=== PATIENT | female | born 1965 | race African-American/Black ===

== ENCOUNTER 2018-10-29 10:34 | Emergency (ER) | payer OTHER ==
[~2018-10-29] VITALS: Ht 163.8 cm; Wt 89.8 kg
--- OUTSIDE RECORDS SUMMARY | 2018-10-29 10:36 | XMS REPORT | Clinical Summary ---
Author Author [facility] Address Unknown Phone Unavailable Care Team Providers Care Ammunition Officer Name Role Phone Bobbi Encarnacion MD PCP Allergies Comments Active Allergy Reactions Severity Noted Date Acetaminophen-Codeine 03/26/2018 Medications Not on file Active Problems Not on file Encounters Care Team Description Date Type Specialty Caryn Williamson MD Secondary hypertension (Primary Dx); Non compliance w medication regimen 03/26/2018 Emergency Emergency Medicine - 03/27/2018 after 10/28/2017 Social History Date Tobacco Use Types Packs/Day Years Used Current Every Day Smoker Smokeless Tobacco: Never Used Alcohol Use Drinks/Week oz/Week Comments No Sex Assigned at Date Recorded Not on file Industry Job Start Date Occupation Not on file Not on file Not on file Travel End Travel History Travel Start No recent travel history available. Last Filed Vital Signs Time Taken Vital Sign Reading 03/27/2018 2:00 AM CDT Blood Pressure 165/96 03/27/2018 2:15 AM CDT Pulse 76 03/26/2018 8:33 PM CDT Temperature 36.4 C (97.6 F) 03/27/2018 2:15 AM CDT Respiratory Rate 24 03/27/2018 2:15 AM CDT Oxygen Saturation 96% - Inhaled Oxygen - Concentration - Weight - 03/26/2018 8:33 PM CDT Height 162.6 cm (5' 4") - Body Mass Index - Plan of Treatment Health Maintenance Due Date Last Done Comments CERVICAL CANCER SCREENING 1985 BREAST CANCER SCREENING 2014 COLON CANCER SCREENING 2014 SHINGLES VACCINES (#1) 2014 INFLUENZA VACCINE 02/20/2019 Procedures Comments Procedure Name Priority Date/Time Associated Diagnosis TROPONIN Timed 03/27/2018 12:25 AM CDT XR CHEST 1 VW STAT 03/26/2018 10:10 PM CDT ZZESTIMATED GFR STAT 03/26/2018 10:10 PM CDT TROPONIN STAT 03/26/2018 10:10 PM CDT COMPREHENSIVE METABOLIC STAT 03/26/2018 PANEL 10:10 PM CDT URINALYSIS SCREEN AND Routine 03/26/2018 MICROSCOPY, WITH REFLEX 10:00 PM CDT TO CULTURE URINE CULTURE Routine 03/26/2018 10:00 PM CDT HC COMPLETE BLD COUNT STAT 03/26/2018 W/AUTO DIFF 8:45 PM CDT ECG 12-LEAD STAT 03/26/2018 8:40 PM CDT after 10/28/2017 Results * Troponin (03/27/2018 12:25 AM CDT) Only the most recent of 2 results within the time period is included. Troponin <0.10 0.00 - 0.10 ng/mL [facility] DEPARTMENT OF Comment: PATHOLOGY AND 0.11 - 1.49 GENOMIC MEDICINE ng/mlMay indicate increased risk of acute coronary syndrome. >=1.5 ng/ml Consistent with acute myocardial infarction. The diagnostic value of a single normal or non-diagnostic result is questionable.Serial samples at 2-6 hour intervals are required to rule out acute myocardial injury. Specimen Plasma specimen Performing Organization Address City/State/Zipcode Phone Number [facility] [place] [id number] [place] [address] PATHOLOGY AND GENOMIC MEDICINE * XR Chest 1 Vw (03/26/2018 10:10 PM CDT) Narrative Performed At Examination:XR CHEST 1 VW RADIANT Clinical History:Chest painacutenonspecificlow prob CAD Comparison: None. Technique: Single frontal view of the chest is obtained. Findings: Mild left base subsegmental atelectasis is seen. The heart size is normal. No pleural effusion is seen. Impression: Mild left base subsegmental atelectasis but otherwise no acute abnormality in the chest. [facility]-[id number] Procedure Note Interface, Radiology Results Incoming - 03/26/2018 10:16 PM CDT Examination: XR CHEST 1 VW Clinical History: Chest pain acute nonspecific low prob CAD Comparison: None. Technique: Single frontal view of the chest is obtained. Findings: Mild left base subsegmental atelectasis is seen. The heart size is normal. No pleural effusion is seen. Impression: Mild left base subsegmental atelectasis but otherwise no acute abnormality in the chest. [facility]-[id number] Performing Organization Address City/[facility] Phone Number [facility] [address] [place] [address] * Estimated GFR (03/26/2018 10:10 PM CDT) GFR Non Af Amer 26 (A) mL/min/1.73 m2 [facility] DEPARTMENT OF PATHOLOGY AND GENOMIC MEDICINE GFR Af Amer 32 (A) mL/min/1.73 m2 [facility] DEPARTMENT OF Comment: PATHOLOGY AND Chronic kidney disease: <60 GENOMIC MEDICINE mL/min/1.73m2 Kidney failure: <15 mL/min/1.73m2 The estimated GFR is calculated from the IDMS-traceable Modification of Diet in Renal Disease Equation. The accuracy of the calculation is poor when the creatinine is normal. Calculated values >90 mL/min/1.73m2 are not reported. This equation has not been validated in children (<18 years), women, the elderly (>70 years), or ethnic groups other than Caucasians and Americans. Specimen Plasma specimen Performing Organization Address [facility] Phone Number [facility] [place] [id number] [place] [place] [address] PATHOLOGY AND GENOMIC MEDICINE * Comprehensive metabolic panel (03/26/2018 10:10 PM CDT) Sodium 140 135 - 148 mEq/L [facility] DEPARTMENT OF PATHOLOGY AND GENOMIC MEDICINE Potassium 4.3 3.5 - 5.0 mEq/L [facility] DEPARTMENT OF PATHOLOGY AND GENOMIC MEDICINE Chloride 100 99 - 109 mEq/L [facility] DEPARTMENT OF PATHOLOGY AND GENOMIC MEDICINE CO2 21 (L) 24 - 31 mEq/L [facility] DEPARTMENT OF PATHOLOGY AND GENOMIC MEDICINE Anion gap 19@ANIO (H) 7 - 15 mEq/L [facility] DEPARTMENT OF PATHOLOGY AND GENOMIC MEDICINE BUN 22 8 - 24 mg/dL [facility] DEPARTMENT OF PATHOLOGY AND GENOMIC MEDICINE Creatinine 2.0 (H) 0.5 - 1.5 mg/dL [facility] DEPARTMENT OF PATHOLOGY AND GENOMIC MEDICINE Glucose 94 65 - 99 mg/dL [facility] DEPARTMENT OF PATHOLOGY AND GENOMIC MEDICINE Calcium 9.3 8.6 - 10.6 mg/dL [facility] DEPARTMENT OF PATHOLOGY AND GENOMIC MEDICINE Protein 7.8 6.3 - 8.2 g/dL [facility] PATHOLOGY AND GENOMIC MEDICINE Albumin 3.8 3.5 - 5.0 g/dL [facility] OF PATHOLOGY AND GENOMIC MEDICINE A/G ratio 1.0 0.7 - 3.8 [facility] PATHOLOGY AND GENOMIC MEDICINE Alkaline phosphatase 93 30 - 115 U/L [facility] PATHOLOGY AND GENOMIC MEDICINE AST 14 (L) 15 - 46 U/L [facility] PATHOLOGY AND GENOMIC MEDICINE ALT 10 10 - 55 U/L [facility] PATHOLOGY AND GENOMIC MEDICINE Total bilirubin <0.3 0.2 - 1.2 mg/dL [facility] PATHOLOGY AND GENOMIC MEDICINE Specimen Plasma specimen Performing Organization Address City/State/Zipcopr Phone Number [facility] [address] [place] [place] [address] PATHOLOGY AND GENOMIC MEDICINE * Urinalysis screen and microscopy, with reflex to culture (03/26/2018 10:00 PM CDT) Specimen site Clean catch [facility] DEPARTMENT OF PATHOLOGY AND GENOMIC MEDICINE Color, UA Yellow [facility] DEPARTMENT OF PATHOLOGY AND GENOMIC MEDICINE Appearance, UA Clear [facility] DEPARTMENT OF PATHOLOGY AND GENOMIC MEDICINE Specific gravity, UA 1.016 1.001 - 1.035 [facility] DEPARTMENT OF PATHOLOGY AND GENOMIC MEDICINE pH, UA 7.0 5.0 - 8.5 [facility] DEPARTMENT OF PATHOLOGY AND GENOMIC MEDICINE Protein, UA 1+ (A) Negative [facility] DEPARTMENT OF PATHOLOGY AND GENOMIC MEDICINE Glucose, UA Negative Negative [facility] DEPARTMENT OF PATHOLOGY AND GENOMIC MEDICINE Ketones, UA Negative Negative [facility] DEPARTMENT OF PATHOLOGY AND GENOMIC MEDICINE Bilirubin, UA Negative Negative [facility] DEPARTMENT OF PATHOLOGY AND GENOMIC MEDICINE Blood, UA Negative Negative [facility] DEPARTMENT OF PATHOLOGY AND GENOMIC MEDICINE Nitrite, UA Negative Negative [facility] DEPARTMENT OF PATHOLOGY AND GENOMIC MEDICINE Urobilinogen, UA <2.0 <2.0 [facility] DEPARTMENT OF PATHOLOGY AND GENOMIC MEDICINE Leukocyte esterase, UA Negative Negative [facility] DEPARTMENT OF PATHOLOGY AND GENOMIC MEDICINE Epithelial cells, UA 1 /HPF [facility] DEPARTMENT OF PATHOLOGY AND GENOMIC MEDICINE WBC, UA 1 0 - 4 /HPF [facility] DEPARTMENT OF PATHOLOGY AND GENOMIC MEDICINE RBC, UA <1 0 - 5 /HPF [facility] DEPARTMENT OF PATHOLOGY AND GENOMIC MEDICINE Bacteria, UA None seen None seen [facility] DEPARTMENT OF PATHOLOGY AND GENOMIC MEDICINE Yeast, UA None seen [facility] DEPARTMENT OF PATHOLOGY AND GENOMIC MEDICINE Yeast with pseudohyphae, None seen [facility] OF PATHOLOGY AND GENOMIC MEDICINE Specimen Urine Performing Organization Address City/[facility]/Zipcode Phone Number [facility] DEPARTMENT OF [place] [address] PATHOLOGY AND GENOMIC MEDICINE * Urine culture (03/26/2018 10:00 PM CDT) Urine culture SEE COMMENTComment: [facility] DEPARTMENT OF Bacteriuria screen negative. PATHOLOGY AND GENOMIC MEDICINE Performing Organization Address City/[facility] Phone Number [facility] [place] [id number] [place] [address] PATHOLOGY AND GENOMIC MEDICINE * CBC with platelet and differential (03/26/2018 8:45 PM CDT) WBC 5.59 4.50 - 11.00 k/uL [facility] DEPARTMENT OF PATHOLOGY AND GENOMIC MEDICINE RBC 4.32 4.20 - 5.50 m/uL [facility] DEPARTMENT OF PATHOLOGY AND GENOMIC MEDICINE HGB 13.4 12.0 - 16.0 g/dL [facility] DEPARTMENT OF PATHOLOGY AND GENOMIC MEDICINE HCT 40.1 37.0 - 47.0 % [facility] DEPARTMENT OF PATHOLOGY AND GENOMIC MEDICINE MCV 92.8 82.0 - 100.0 fL [facility] DEPARTMENT OF PATHOLOGY AND GENOMIC MEDICINE MCH 31.0 27.0 - 34.0 pg [facility] DEPARTMENT OF PATHOLOGY AND GENOMIC MEDICINE MCHC 33.4 31.0 - 37.0 g/dL [facility] DEPARTMENT OF PATHOLOGY AND GENOMIC MEDICINE RDW - SD 43.7 37.0 - 55.0 fL [facility] DEPARTMENT OF PATHOLOGY AND GENOMIC MEDICINE MPV 10.9 8.8 - 13.2 fL [facility] DEPARTMENT OF PATHOLOGY AND GENOMIC MEDICINE Platelet count 257 150 - 400 k/uL [facility] DEPARTMENT OF PATHOLOGY AND GENOMIC MEDICINE Neutrophils 53.4 39.0 - 69.0 % [facility] DEPARTMENT OF PATHOLOGY AND GENOMIC MEDICINE Lymphocytes 36.5 25.0 - 45.0 % [facility] DEPARTMENT OF PATHOLOGY AND GENOMIC MEDICINE Monocytes 6.3 0.0 - 10.0 % [facility] DEPARTMENT OF PATHOLOGY AND GENOMIC MEDICINE Eosinophils 2.9 0.0 - 5.0 % [facility] DEPARTMENT OF PATHOLOGY AND GENOMIC MEDICINE Basophils 0.5 0.0 - 1.0 % [facility] DEPARTMENT OF PATHOLOGY AND GENOMIC MEDICINE Immature granulocytes 0.4 0.0 - 1.0 % [facility] DEPARTMENT OF PATHOLOGY AND GENOMIC MEDICINE Specimen Blood Performing Organization Address City/[facility]/Zipcode Phone Number [facility] DEPARTMENT OF [address] [place] [id number] PATHOLOGY AND GENOMIC MEDICINE * ECG 12 lead (03/26/2018 8:40 PM CDT) Ventricular rate 74 [facility] Atrial rate 74 [facility] OK interval 164 [facility] QRSD interval 86 [facility] QT interval 398 [facility] QTC interval 441 [facility] P axis 1 55 [facility] QRS axis 1 -1 [facility] T wave axis 189 [facility] EKG impression Normal sinus rhythm-Possible [facility] Left atrial enlargement-T wave abnormality, consider inferolateral ischemia-Abnormal ECG-No previous ECGs available- Procedure Note Caryn Williamson MD - 03/26/2018 9:09 PM CDT Emergency Department Provider Note Location: [facility] ED Patient ID: Sobia Rivas is a 52 y.o. female. Chief Complaint Chief Complaint Patient presents with Hypertension High blood pressure, patient from [facility], patient also c/o pain all over. History of Present Illness 52 y/o F with a PMHx including HTN, CVA 2 years ago (non-ambulatory at baseline, residual dysarthria), CKD, schizophrenia, bipolar, constipation, insomnia, and homicidal ideations is BIBEMS from [facility] where she is currently committed for homicidal ideation with complains of an elevated blood pressure 198/117. Pt also complains of dizziness and generalized body aches. Pt states she did not take blood pressure meds today because she is "tired of taking medications" that make her dizzy stating that she will not take clonidine. Pt denies chest pain, sob, fever/chills, ab pain, urinary symptoms, cough. 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: 198/117 Context: noncompliance Relieved by: Nothing Worsened by: Nothing Ineffective treatments: None tried Associated symptoms: dizziness (Chronic) and weakness (Lower extremity, baseline) Associated symptoms: no abdominal pain, no anxiety, no chest pain, no confusion, no fatigue, no fever, no headaches, no hematuria, no loss of consciousness, no nausea, no neck pain, no shortness of breath and not vomiting Risk factors: prior stroke History Allergies Allergies Allergen Reactions Acetaminophen-Codeine Past Medical History Past Medical History: Diagnosis Date Homicidal ideations Hypertension Stroke Past Surgical History Past Surgical History: Procedure Laterality Date SECTION Past Family History No family history on file. Past Social History Social History Social History Main Topics Smoking status: Current Every Day Smoker Smokeless tobacco: Never Used Alcohol use No Drug use: No Sexual activity: Not on file Past Social History Narrative Social History Social History Narrative No narrative on file Medications Home Medications No medications on file New Prescriptions Given This Visit No medications on file Review of Systems Review of Systems Constitutional: Negative for activity change, appetite change, fatigue and fever. HENT: Negative for congestion and sore throat. Eyes: Negative for discharge and redness. Respiratory: Negative for cough, shortness of breath and wheezing. Cardiovascular: Negative for chest pain and leg swelling. Gastrointestinal: Negative for abdominal distention, abdominal pain, nausea, vomiting and trouble swallowing. Genitourinary: Negative for dysuria and hematuria. Musculoskeletal: Positive for arthralgias (Chronic), gait problem (Nonambulatory at baseline secondary to CVA 2 years ago) and myalgias ("All over"). Negative for neck pain and neck stiffness. Skin: Negative for rash and wound. Neurological: Positive for dizziness (Chronic), speech difficulty (Chronic, secondary to CVA 2 years ago), weakness (Lower extremity, baseline), stroke symptoms (2 years ago) and difficulty balancing (Secondary to lower extremity weakness, nonambulatory at baseline). Negative for seizures, loss of consciousness, facial asymmetry, light-headedness, numbness, headaches, cognitive deficit, fainting and memory loss. Psychiatric/Behavioral: Negative for agitation and confusion. The patient is not nervous/anxious. All other systems reviewed and are negative. Physical Exam ED Triage Vitals [03/26/182032] Temp Heart Rate Respiratory Rate BP SpO2 97.6 F 72 18 (!) 173/112 100 % Temp Source Heart Rate Source Patient Position BP Location FiO2 % Temporal Monitor Sitting Right arm -- Physical Exam Constitutional: She is oriented to person, place, and time. She appears well- developed and well-nourished. No distress. HENT: Head: Normocephalic and atraumatic. Mouth/Throat: Oropharynx is clear and moist. No oropharyngeal exudate. Eyes: EOM are normal. Pupils are equal, round, and reactive to light. Neck: Normal range of motion. Neck supple. Cardiovascular: Normal rate, regular rhythm, normal heart sounds and intact distal pulses. Exam reveals no gallop and no friction rub. No murmur heard. Pulmonary/Chest: Effort normal and breath sounds normal. No respiratory distress. She has no wheezes. She has no rales. Abdominal: Soft. Bowel sounds are normal. She exhibits no distension. There is no tenderness. There is no rigidity, no rebound, no guarding, no CVA tenderness, no tenderness at McBurney's point and negative Gonzalez's sign. Musculoskeletal: Normal range of motion. She exhibits edema (non pitting lower extremity edema). She exhibits no tenderness or deformity. Neurological: She is alert and oriented to person, place, and time. No cranial nerve deficit or sensory deficit. She exhibits normal muscle tone. GCS eye subscore is 4. GCS verbal subscore is 5. GCS motor subscore is 6. Slurred speech Skin: Skin is warm and dry. Capillary refill takes less than 2 seconds. No rash noted. She is not diaphoretic. No erythema. Psychiatric: She has a normal mood and affect. Her behavior is normal. Her speech is slurred. Nursing note and vitals reviewed. ED Course Clinical Impressions as of Mar 27 120 Secondary hypertension Non compliance w medication regimen BP 149/82 | Pulse 75 | Temp 97.6 F (Temporal) | Resp 17 | Ht 5' 4" | SpO2 94% Medications sodium chloride 0.9% flush 10 mL (not administered) sodium chloride 0.9% flush 10 mL (not administered) carvedilol (COREG) tablet 25 mg (25 mg oral Given 03/26/182150) isosorbide mononitrate (IMDUR) 24 hr tablet 60 mg (not administered) amLODIPine (NORVASC) tablet 10 mg (10 mg oral Given 03/27/18 0015) acetaminophen (TYLENOL) tablet 325 mg (not administered) aspirin chewable tablet 324 mg (324 mg oral Given 03/26/182102) lisinopril (PRINIVIL,ZESTRIL) tablet 40 mg (40 mg oral Given 03/26/182150) I reviewed the monitoring manager. The pt's pulse oximetry is 98% . Pulse oximetry interpreted by physician as normal on room air. The patient is sleeping comfortably and awakens easily to voice. She has been tolerating p.o. without difficulty and states that her dizziness and body aches have resolved at this time. Blood pressure also improved down to the 140s and 150s systolic. Troponin is negative [address] elevation infarcts though she does have some nonspecific elevations and T-wave inversions. However no prior EKG available for comparison of her baseline and again she is without chest pain or complaints and troponin has been negative 2. CMP demonstrates an elevated creatinine to 2.0, however chart review of paperwork provided with patient reveals last creatinine 1.91 on 03/20/2018 so this is likely patient's baseline. She also has a slightly decreased CO2 to 21 and elevated anion gap to 19, unclear clinical significance. CBC noncontributory, UA negative for evidence of infection. Chest x-ray negative for acute intrathoracic abnormality though she does have some mild left basilar atelectasis. Patient without complaint of cough or shortness of breath. Likely hypertensive secondary to medication noncompliance but no evidence of endorgan damage at this time. [facility] have patient follow-up with primary care and cardiology outpatient. Patient encouraged to take all of her antihypertensive medications as prescribed and if she does not like her regimen to discuss with a copy cutter for medication modification. I had a detailed discussion with the patient and or/or guardian at bedside, regarding the historical points, exam findings, treatment of plan, and any diagnosis results supporting the discharge diagnosis. Laboratory results, radiology results, clinical findings and discharge instructions were reviewed with patient. Instructions for the need for outpatient follow up were given. Strict return precautions to the emergency department were given, if symptoms worsen or persist or if there are any questions or concerns that arise at home. Patient and/or guardian verbalize and acknowledge understanding. Pt is stable for discharge. MDM MDM Number of Diagnoses or Management Options Non compliance w medication regimen: Secondary hypertension: Amount and/or Complexity of Data Reviewed Clinical lab tests: ordered and reviewed Tests in the radiology section of CPT: ordered and reviewed Tests in the medicine section of CPT: ordered and reviewed Decide to obtain previous medical records or to obtain history from someone other than the patient: yes (Medical records provided by [facility], packet arrived with patient) Review and summarize past medical records: yes Independent visualization of images, tracings, or specimens: yes Risk of Complications, Morbidity, and/or Mortality Presenting problems: moderate Diagnostic procedures: high Management options: high General comments: 52-year-old female past medical history as above who presents with hypertension and dizziness after not taking her blood pressure medications today while committed at a psychiatric facility. Patient is afebrile, was initially noted to be hypertensive to 173/112 became as hypertensive as 220/137 in the ED but otherwise hemodynamically stable. She is nontoxic-appearing and in no acute distress. She has lower extremity weakness at baseline as well as dysarthria secondary to remote CVA and is nonambulatory from this. Physical exam demonstrates no other focal abnormalities as patient has intact 2+ sym metric bilateral peripheral pulses, clear lungs and no new neuro deficits. She is ANO 3 and only complains of chronic dizziness at this time. Denies chest pain, shortness of breath and headache. Will obtain EKG, laboratory studies, chest x- ray, provide home antihypertensives with the exception of clonidine as patient does refuse to take that and reassess. Patient Progress Patient progress: resolved Labs Results for orders placed or performed during the hospital encounter of 03/26/18 Urine culture Result Value Ref Range Urine culture SEE COMMENT Comprehensive metabolic panel Result Value Ref Range Sodium 140 135 - 148 mEq/L Potassium 4.3 3.5 - 5.0 mEq/L Chloride 100 99 - 109 mEq/L CO2 21 (L) 24 - 31 mEq/L Anion gap 19@ANIO (H) 7 - 15 mEq/L BUN 22 8 - 24 mg/dL Creatinine 2.0 (H) 0.5 - 1.5 mg/dL Glucose 94 65 - 99 mg/dL Calcium 9.3 8.6 - 10.6 mg/dL Protein 7.8 6.3 - 8.2 g/dL Albumin 3.8 3.5 - 5.0 g/dL A/G ratio 1.0 0.7 - 3.8 Alkaline phosphatase 93 30 - 115 U/L AST 14 (L) 15 - 46 U/L ALT 10 10 - 55 U/L Total bilirubin <0.3 0.2 - 1.2 mg/dL CBC with platelet and differential Result Value Ref Range WBC 5.59 4.50 - 11.00 k/uL RBC 4.32 4.20 - 5.50 m/uL HGB 13.4 12.0 - 16.0 g/dL HCT 40.1 37.0 - 47.0 % MCV 92.8 82.0 - 100.0 fL MCH 31.0 27.0 - 34.0 pg MCHC 33.4 31.0 - 37.0 g/dL RDW - SD 43.7 37.0 - 55.0 fL MPV 10.9 8.8 - 13.2 fL Platelet count 257 150 - 400 k/uL Neutrophils 53.4 39.0 - 69.0 % Lymphocytes 36.5 25.0 - 45.0 % Monocytes 6.3 0.0 - 10.0 % Eosinophils 2.9 0.0 - 5.0 % Basophils 0.5 0.0 - 1.0 % Immature granulocytes 0.4 0.0 - 1.0 % Troponin Result Value Ref Range Troponin <0.10 0.00 - 0.10 ng/mL Estimated GFR Result Value Ref Range GFR Non Af Amer 26 (A) mL/min/1.73 m2 GFR Af Amer 32 (A) mL/min/1.73 m2 Troponin Result Value Ref Range Troponin <0.10 0.00 - 0.10 ng/mL Urinalysis screen and microscopy, with reflex to culture Result Value Ref Range Specimen site Clean catch Color, UA Yellow Appearance, UA Clear Specific gravity, UA 1.016 1.001 - 1.035 pH, UA 7.0 5.0 - 8.5 Protein, UA 1+ (A) Negative Glucose, UA Negative Negative Ketones, UA Negative Negative Bilirubin, UA Negative Negative Blood, UA Negative Negative Nitrite, UA Negative Negative Urobilinogen, UA <2.0 <2.0 Leukocyte esterase, UA Negative Negative Epithelial cells, UA 1 /HPF WBC, UA 1 0 - 4 /HPF RBC, UA <1 0 - 5 /HPF Bacteria, UA None seen None seen Yeast, UA None seen Yeast with pseudohyphae, UA None seen Radiology Xr Chest 1 Vw Result Date: 03/26/2018 Narrative: Examination: XR CHEST 1 VW Clinical History: Chest pain acute nonspecific low prob CAD Comparison: None. Technique: Single frontal view of the chest is obtained. Findings: Mild left base subsegmental atelectasis is seen. The heart size is normal. No pleural effusion is seen. Impression: Mild left base subsegmental atelectasis but otherwise no acute abnormality in the chest. [facility]-[id number] Procedures ECG 12 lead Date/Time: 03/26/2018 9:17 PM Performed by: CARYN WILLIAMSON Authorized by: CARYN WILLIAMSON ECG reviewed by ED Physician in the absence of a copy cutter: yes Interpretation: Interpretation: non-specific Rate: ECG rate: 74 bpm ECG rate assessment: normal Rhythm: Rhythm: sinus rhythm Ectopy: Ectopy: none QRS: QRS axis: Left QRS intervals: Normal (86 ms) Conduction: Conduction: normal ST segments: ST segments: Non-specific Elevation: V1, V2 and V3 T waves: T waves: inverted Inverted: II, I, aVL, aVF, V6 and V5 Other findings: Other findings: LAE Comments: OK interval: 164 ms QTc: 441 ms Differential Diagnoses This patient has a differential diagnosis of hypertension emergency, med noncompliance, polypharmacy, acute cystitis, ACS. Final Diagnoses Final diagnoses: Secondary hypertension Non compliance w medication regimen Disposition This patient has a disposition of Discharge. ED Attestations Scribe Attestation: This document is recorded by Layla Chinchilla acting as a scribe under the direction and presence of CARYN WILLIAMSON. Provider attestation of scribe: Caryn Williamson MD: I personally performed the services recorded by the scribe in my presence. I confirm the scribe's documentation has been reviewed by me to accurately record my work, treatment, procedures, and medical decision making. Layla Chinchilla 03/26/18 2309 Layla Chinchilla 03/27/18 0100 Layla Chinchilla 03/27/18 0120 Caryn Williamson MD 03/29/18 0102 Performing Organization Address City/State/Zipcode Phone Number [facility] [address] [place] [address] after 10/28/2017 Insurance Payer Benefit Subscriber ID Type Phone Address Plan / Group [employer] xxxxxxxxx O STAR JEFF Advance Directives Patient has advance care planning documents on file. For more information, coby e contact: Tommy Ward [address] [place] [address]
--- OUTSIDE RECORDS SUMMARY | 2018-10-29 10:37 | XMS REPORT | Summary of Care ---
Author Author [facility] Organization [facility] Address Unknown Phone Unavailable Encounter HQ Praveen(FIN) [id number] Date(s): 08/25/18 - 08/25/[address] [facility] [address] [place] [address]- Encounter Diagnosis Dizziness (Discharge Diagnosis) - 08/25/18 Discharge Disposition: Home or Self Care Attending Physician: Manuel Parks MD Vital Signs 1 2 3 Most recent to oldest [Reference Range]: 162.56 cm (08/25/18 4:02 PM) Height 98 DegF (08/25/18 8:57 PM) 97.5 DegF (08/25/18 4:02 PM) Temperature Oral [96.4-99.1 DegF] 138/87 mmHg (08/25/18 11:11 PM) 160/86 mmHg *HI* (08/25/18 9:48 PM) 150/80 mmHg *HI* (08/25/18 9:47 PM) Blood Pressure [90-140/60-90 mmHg] 24 BRMIN *HI* (08/25/18 11:11 PM) 21 BRMIN *HI* (08/25/18 9:48 PM) 21 BRMIN *HI* (08/25/18 9:47 PM) Respiratory Rate [14-20 BRMIN] 88 bpm (08/25/18 4:02 PM) Peripheral Pulse Rate [60-100 bpm] 86.364 kg (08/25/18 4:02 PM) Weight 32.68 m2 (08/25/18 4:02 PM) Body Mass Index Problem List No data available for this section Allergies, Adverse Reactions, Alerts Substance Reaction Severity Status codeine Active Medications carvedilol 25 mg, 2 tab, Route: PO, Drug form: TAB, ONCE, Dosing Weight 86.364, kg, Start d ate: 08/25/18 19:48:00 LENS INSPECTOR, Stop date: 08/25/18 19:48:00 LENS INSPECTOR Notes: Give with food. (Same As: Coreg) Start Date: 08/25/18 Stop Date: 08/25/18 Status: Completed hydrALAZINE 25 mg, Route: PO, ONCE, Dosing Weight 86.364, kg, Start date: 08/25/18 19:47:00 LENS INSPECTOR, Stop date: 08/25/18 19:47:00 LENS INSPECTOR Start Date: 08/25/18 Stop Date: 08/25/18 Status: Completed labetalol 10 mg, Route: IV, ONCE, Dosing Weight 86.364, kg, Start date: 08/25/18 19:47:00 LENS INSPECTOR, Stop date: 08/25/18 19:47:00 LENS INSPECTOR Start Date: 08/25/18 Stop Date: 08/25/18 Status: Completed Saline Flush 0.9% 10 mL, Route: IVP, Drug Form: INJ, Dosing Weight 86.364, kg, PRN, PRN Line Flush , Start date: 08/25/18 16:46:00 LENS INSPECTOR, Duration: 30 day, Stop date: 09/24/18 16:45 :00 LENS INSPECTOR Notes: preservative free. Start Date: 08/25/18 Stop Date: 08/25/18 Status: Discontinued Results ELECTROLYTES Most recent to 1 oldest [Reference Range]: Sodium Lvl [135-145 141 mEq/L mEq/L] (08/25/18 5:07 PM) Potassium Lvl 3.4 mEq/L [3.5-5.1 mEq/L] *LOW* (08/25/18 5:07 PM) Chloride Lvl [95-109 107 mEq/L mEq/L] (08/25/18 5:07 PM) CO2 [24-32 mEq/L] 32 mEq/L (08/25/18 5:07 PM) AGAP [10.0-20.0 5.4 mEq/L mEq/L] *LOW* (08/25/18 5:07 PM) CHEM PANEL Most recent to 1 oldest [Reference Range]: Creatinine Lvl 2.25 mg/dL [0.50-1.40 mg/dL] *HI* (08/25/18 5:07 PM) eGFR 28 mL/min/1.73m2 1 *NA* (08/25/18 5:07 PM) BUN [7-22 mg/dL] 45 mg/dL *HI* (08/25/18 5:07 PM) B/C Ratio [6-25] 20 (08/25/18 5:07 PM) Glucose Lvl [70-99 87 mg/dL mg/dL] (08/25/18 5:07 PM) Total Protein 7.4 g/dL [6.4-8.4 g/dL] (08/25/18 5:07 PM) Albumin Lvl [3.5-5.0 3.5 g/dL g/dL] (08/25/18 5:07 PM) Globulin [2.7-4.2 3.9 g/dL g/dL] (08/25/18 5:07 PM) A/G Ratio [0.7-1.6] 0.9 (08/25/18:07 PM) Calcium Lvl 9.1 mg/dL [8.5-10.5 mg/dL] (08/25/18 5:07 PM) ALT [0-65 unit/L] 17 unit/L (08/25/18 5:07 PM) AST [0-37 unit/L] 22 unit/L (08/25/18 5:07 PM) Alk Phos [39-136 79 unit/L unit/L] (08/25/18 5:07 PM) Bili Total [0.2-1.3 0.2 mg/dL mg/dL] (08/25/18 5:07 PM) 1Result Comment: The eGFR is calculated using the CKD-EPI formula. In most young, healthy individuals the eGFR will be >90 mL/min/1.73m2. The eGFR declines with age. An eGFR of 60-89 may be normal in some populations, particularly the elderly, for whom the CKD-EPI formula has not been extensively validated. Use of the eGFR is not recommended in the following populations: Individuals with unstable creatinine concentrations, including patients and those with serious co-morbid conditions. Patients with extremes in muscle mass or diet. The data above are obtained from the National Kidney Disease Education Program ( NKDEP) which additionally recommends that when the eGFR is used in patients with extremes of body mass index for purposes of drug dosing, the eGFR should be mul tiplied by the estimated BMI. CARDIAC ENZYMES Most recent to 1 oldest [Reference Range]: Total CK [12-191 83 unit/L unit/L] (08/25/18 5:07 PM) Troponin-I <0.02 ng/mL [0.00-0.40 ng/mL] (08/25/18 5:07 PM) URINE AND STOOL Most recent to 1 oldest [Reference Range]: UA Turbidity [Clear] Clear (08/25/18 5:27 PM) UA Color Ltyellow *NA* (08/25/18 5:27 PM) UA pH [5.0-8.0] 5.0 (08/25/18 5:27 PM) UA Spec Grav 1.009 [<=1.030] (08/25/18 5:27 PM) UA Glucose Negative [Negative] *NA* (08/25/18 5:27 PM) UA Blood [Negative] Negative (08/25/18 5:27 PM) UA Ketones Negative [Negative] *NA* (08/25/18 5:27 PM) UA Protein Negative [Negative] (08/25/18 5:27 PM) UA Urobilinogen <=1.0 mg/dL [0.1-1.0 mg/dL] *NA* (08/25/18 5:27 PM) UA Bili [Negative] Negative *NA* (08/25/18 5:27 PM) UA Leuk Est Negative [Negative] (08/25/18 5:27 PM) UA Nitrite Negative [Negative] (08/25/18 5:27 PM) UA WBC [0-5 /HPF] 1 /HPF (08/25/18 5:27 PM) UA RBC [0-2 /HPF] 1 /HPF (08/25/18 5:27 PM) UA Bacteria [None Occasional /HPF Seen /HPF] *NA* (08/25/18 5:27 PM) UA Sq Epi [Few /LPF] Occasional /LPF *NA* (08/25/18 5:27 PM) HEMATOLOGY Most recent to 1 oldest [Reference Range]: WBC [3.7-10.4 K/CMM] 5.6 K/CMM (08/25/18 5:07 PM) RBC [4.20-5.40 4.21 M/CMM M/CMM] (08/25/18 5:07 PM) Hgb [12.0-16.0 g/dL] 12.7 g/dL (08/25/18 5:07 PM) Hct [36.0-48.0 %] 38.5 % (08/25/18 5:07 PM) MCV [80.0-98.0 fL] 91.4 fL (08/25/18 5:07 PM) MCH [27.0-31.0 pg] 30.2 pg (08/25/18 5:07 PM) MCHC [32.0-36.0 33.0 g/dL g/dL] (08/25/18 5:07 PM) RDW [11.5-14.5 %] 14.4 % (08/25/18 5:07 PM) MPV [7.4-10.4 fL] 9.9 fL (08/25/18 5:07 PM) Platelet [133-450 169 K/CMM K/CMM] (08/25/18 5:07 PM) Segs [45.0-75.0 %] 56.9 % (08/25/18 5:07 PM) Lymphocytes 33.8 % [20.0-40.0 %] (08/25/18 5:07 PM) Monocytes [2.0-12.0 6.5 % %] (08/25/18 5:07 PM) Eosinophils [0.0-4.0 1.9 % %] (08/25/18 5:07 PM) Basophils [0.0-1.0 0.9 % %] (08/25/18 5:07 PM) Neutrophils # 3.2 K/CMM [1.5-8.1 K/CMM] (08/25/18 5:07 PM) Lymphocytes # 1.9 K/CMM [1.0-5.5 K/CMM] (08/25/18 5:07 PM) Monocytes # [0.0-0.8 0.4 K/CMM K/CMM] (08/25/18 5:07 PM) Eosinophils # 0.1 K/CMM [0.0-0.5 K/CMM] (08/25/18 5:07 PM) PT [12.0-14.7 11.9 seconds seconds] *LOW* (08/25/18 5:07 PM) INR [0.85-1.17] 0.89 (08/25/18 5:07 PM) PTT [22.9-35.8 40.0 seconds seconds] *HI* (08/25/18 5:07 PM) Immunizations No data available for this section Procedures No data available for this section Social History Social History Type Response Substance Abuse Use: Past. Type: Cocaine. Recreational Drug Route: Intravenous. Smoking Status Never smoker; Exposure to Tobacco Smoke None; Cigarette Smoking Last 365 Days No; Reg Smoking Cessation Counseling No entered on: 08/25/18 Assessment and Plan No data available for this section
--- OUTSIDE RECORDS SUMMARY | 2018-10-29 10:37 | XMS REPORT ---
Author [facility] Address Unknown Phone Unavailable Care Team Providers Care Logistics Supervisor Name Role Phone Pamela CADET PP Unavailable CELINE MINOR Unavailable Unavailable KATE SALAZAR Unavailable Unavailable Payers Payer Name Policy Type Policy Number Effective Date Expiration Date Problems This patient has no known problems. Allergies, Adverse Reactions, Alerts Allergy Name Allergy Type Status Severity Reaction(s) Onset Date Inactive Date Treating Clinician Comments codeine DA Active U 2018-09-26 00:00:00 codeine DA Active U 2018-06-04 00:00:00 codeine DA Active U 2018-05-30 00:00:00 Medications This patient has no known medications. Encounters Start Date/Time End Date/Time Encounter Type Admission Type Attending Clinicians [facility] Care Department Encounter ID 2017-02-05 15:41:00 Inpatient C MCSETX MCS[facility]X [id number] 2016-10-23 23:49:00 Inpatient C [facility] MED [id number] 2017-10-24 21:54:00 2017-10-24 21:54:00 Emergency E [facility] MED [id number] 2017-04-27 17:04:00 2017-05-07 12:15:00 Inpatient 2 CELINE MINOR SSET ADP [id number] 2017-03-12 18:06:00 2017-03-16 18:17:00 Inpatient 1 KATE SALAZAR [facility] [id number] 2017-03-11 17:00:00 2017-03-11 17:00:00 Emergency E [facility] MED [id number] 2017-02-22 20:15:00 2017-02-22 17:05:00 Inpatient E [facility] MED [id number] 2016-12-04 14:50:00 2016-12-04 14:50:00 Emergency E [facility] MED [id number] 2016-11-17 16:39:00 2016-11-17 16:39:00 Emergency E [facility] MED [id number] 2016-10-16 17:25:00 2016-10-16 12:35:00 Inpatient E [facility] MED [id number] Results Test Description Test Time Test Comments Text Results Atomic Results Result Comments TROPONIN-I 2018-09-26 21:21:00 TROPONIN-I (test code=TROPI) <0.015 ng/mL 0-0.045 DRUGS OF ABUSE SCREEN [id number] 18:38:00* Test Item Value Reference Range Comments UA PH DIPSTICK (test code=RADHA) 7.0 5.0-8.0 URN COCAINE (test code=COCAURN) NEGATIVE <300 ng/mL URN CANNABINOIDS (test code=CANNABURN) NEGATIVE <50 ng/mL URN AMPHETAMINE (test code=AMPHETURN) NEGATIVE <1000 ng/mL URN BARBITURATE (test code=BARBITURN) NEGATIVE <200 ng/mL URN BENZODIAZEPINE (test code=BENZOURN) POSITIVE <200 ng/mL This test provides only a preliminary test result. A morespecific alternate chemical method must be used in order toobtain a confirmed analytical result. Gas chromatography/mass spectrometry (GC/MS) is thepreferred confirmatory method. Other chemical confirmationmethods are available. Clinical consideration and professional judgment should be applied to any drug of abusetest result, particularly when preliminary positive resultsare used.Unconfirmed screening results must not be used fornon-medical purposes (e.g., employment testing, legaltesting). URN OPIATES (test code=OPIATURN) NEGATIVE <300 ng/mL URN PHENCYCLIDINE (PCP) (test code=PHENCURN) NEGATIVE <25 ng/mL URN METHADONE (test code=METHAURN) NEGATIVE <300 ng/mL DRUGS OF ABUSE SCREEN [id number] 18:35:00* Test Item Value Reference Range Comments UA PH DIPSTICK (test code=RADHA) 7.0 5.0-8.0 URN COCAINE (test code=COCAURN) <300 ng/mL URN CANNABINOIDS (test code=CANNABURN) <50 ng/mL URN AMPHETAMINE (test code=AMPHETURN) <1000 ng/mL URN BARBITURATE (test code=BARBITURN) <200 ng/mL URN BENZODIAZEPINE (test code=BENZOURN) <200 ng/mL URN OPIATES (test code=OPIATURN) <300 ng/mL URN PHENCYCLIDINE (PCP) (test code=PHENCURN) <25 ng/mL URN METHADONE (test code=METHAURN) <300 ng/mL B-TYPE NATRIURETIC [id number] 17:48:00* Test Item Value Reference Range Comments B-TYPE NATRIURETIC PEPTIDE (test code=BNP) 41.89 pgram/mL 0-100 HEPATIC FUNCTION [id number] 17:27:00* Test Item Value Reference Range Comments TOTAL PROTEIN (test code=PROT) 8.3 gram/dL 6.4-8.2 ALBUMIN (test code=ALB) 3.8 g/dL 3.4-5.0 GLOBULIN (test code=GLOB) 4.5 gram/dL 2.7-4.2 ALBUMIN/GLOBULIN RATIO (test code=A/G) 0.8 0.75-1.50 BILIRUBIN TOTAL (test code=BILT) 0.30 mg/dL 0.0-1.0 BILIRUBIN DIRECT (test code=BILD) 0.09 mg/dL 0.0-0.20 SGOT/AST (test code=AST) 13 IUnit/L 15-37 SGPT/ALT (test code=ALT) 15 IUnit/L 12-78 ALKALINE PHOSPHATASE TOTAL (test code=ALKP) 97 IUnit/L 45-117 Note change in reference range due to change in reagent. [id number] 17:27:00* Test Item Value Reference Range Comments ACETAMINOPHEN (test code=ACET) < 10 mcg/mL 10-30 A RANGE OF 10-30 mcg/mL IS A THERAPEUTIC RANGE. TOXIC CONCENTRATIONS: >150 mcg/mL AT 4 HOURS AFTER INGESTION >=50 mcg/mL AT 12 HOURS AFTER INGESTION [id number] 17:27:00* Test Item Value Reference Range Comments SALICYLATE (test code=HONG) < 1.7 mg/dL 2.8-20.0 [id number] 17:27:00* Test Item Value Reference Range Comments ALCOHOL (test code=ALC) < 3 mg/dL 0.0-3.0 INTERPRETIVE DATA NOTE: POSITIVE SCREENING RESULTS SHOULD BE CONSIDERED PRESUMPTIVE.WHEN COLLECTED FOR MEDICAL PURPOSES ONLY. SPECIMEN WILL NOTBE COLLECTED BY CHAIN OF CUSTODY.IF A CONFIRMATION OF POSITIVE RESULTS IS DESIRED, ACONFIRMATION TEST MUST BE REQUESTED BY THE PHYSICIAN AT ANADDITIONAL CHARGE TO THE PATIENT. BASIC METABOLIC [id number] 17:27:00* Test Item Value Reference Range Comments SODIUM (test code=NA) 142 mmol/L 136-145 POTASSIUM (test code=K) 3.6 mmol/L 3.5-5.1 CHLORIDE (test code=CL) 107.0 mmol/L 98-107 CARBON DIOXIDE (test code=CO2) 28.0 mmol/L 21-32 ANION GAP (test code=GAP) 10.6 10-20 GLUCOSE (test code=GLU) 87 mg/dL 74-106 BLOOD UREA NITROGEN (test code=BUN) 40 mg/dL 7-18 GLOMERULAR FILTRATION RATE (test code=GFR) 25 mL/min >=60 Estimated GFR by using Modified MDRD formula.Chronic kidney disease is defined as either kidney damageor GFR <60 mL/min/1.73 m2 for >3 months. CREATININE (test code=CREAT) 2.10 mg/dL 0.55-1.02 Note change in reference range due to change in reagent. BUN/CREATININE RATIO (test code=BUN/CREA) 18.8 10-20 CALCIUM (test code=CA) 8.9 mg/dL 8.5-10.1 [id number] 17:27:00* Test Item Value Reference Range Comments TROPONIN-I (test code=TROPI) <0.015 ng/mL 0-0.045 BASIC METABOLIC [id number] 17:17:00* Test Item Value Reference Range Comments SODIUM (test code=NA) 142 mmol/L 136-145 POTASSIUM (test code=K) 3.6 mmol/L 3.5-5.1 CHLORIDE (test code=CL) 107.0 mmol/L 98-107 CARBON DIOXIDE (test code=CO2) mmol/L 21-32 ANION GAP (test code=GAP) 10-20 GLUCOSE (test code=GLU) mg/dL 74-106 BLOOD UREA NITROGEN (test code=BUN) mg/dL 7-18 GLOMERULAR FILTRATION RATE (test code=GFR) mL/min >=60 CREATININE (test code=CREAT) mg/dL 0.55-1.02 BUN/CREATININE RATIO (test code=BUN/CREA) 10-20 CALCIUM (test code=CA) mg/dL 8.5-10.1 [id number] 17:17:00* Test Item Value Reference Range Comments TROPONIN-I (test code=TROPI) ng/mL 0-0.045 CBC W/O [id number] 17:05:00* Test Item Value Reference Range Comments WHITE BLOOD CELL (test code=WBC) 5.3 K/mm3 4.5-12.5 RED BLOOD CELL (test code=RBC) 4.41 mill/mm3 3.7-5.2 HEMOGLOBIN (test code=HGB) 13.2 gram/dL 11.5-15.5 HEMATOCRIT (test code=HCT) 42.3 % 36.0-46.0 MEAN CELL VOLUME (test code=MCV) 95.9 fL 80-98 MEAN CELL HGB (test code=MCH) 29.9 picogram 27.0-33.0 MEAN CELL HGB CONCETRATION (test code=MCHC) 31.2 gram/dL 33.0-36.0 RED CELL DISTRIBUTION WIDTH (test code=RDW) 15.0 % 11.6-16.2 PLATELET COUNT (test code=PLT) 237 K/mm3 150-450 MEAN PLATELET VOLUME (test code=MPV) 10.3 fL 6.7-11.0 - XR CHEST 1 [id number] 16:28:00 FAX: AILYN FUENTES MD [place]: B St: REG Name: DEE BENSON [facility] : 07/30/18 64 Age/S: 53/F [address] Unit #: [id number] Loc: [place] [address] Phys: AILYN FUENTES MD Acct: [id number] Dis Date: Status: REG ER PHONE #: [phone] Exam Date: 09/26/2018 1622 FAX #: [phone] Reason: CHEST PAIN EXAMS: CPT CODE: [id number] XR CHEST 1 V [id number] REASON FOR EXAM: CHEST PAIN EXAM ORDER DATE: 09/26/2018 4:07 PM Ordering M.Elina: AILYN FUENTES MD PROCEDURE: - XR CHEST 1 V COMPARISON: FINDINGS: Portable AP frontal view of the chest obtained at 4:21 PM shows clear lungs without evidence of consolidation. There is no evidence of effusion. The heart size is within normal limits. Pulmonary vasculatures are unremarkable. IMPRESSION: No active disease. at 5651 Reported and signed by: Josef Chakraborty M.D. CC: AILYN FUENTES MD Technologist: LOR MCGOVERN Trnscrd Date/Time/By: 09/26/2018 (1 923) : By: AristidesVTL Orig Print D/T: S: 09/26/2018 (8922) PAGE 1 Signed Report SYPHILIS (T. PALLIDUM) [id number] 07:20:00* Test Item Value Reference Range Comments SCRN SYP (test code=SCRN SYP) NONREACTIVE NONREACTIVE Spyhilis IGG is a screening test only. All REACTIVE results paulo be confirmed by additional testing. ER SCREEN FOR HIV 20:08:00* Test Item Value Reference Range Comments HIV 1/2 AB (test code=SCRN HIV) NONREACTIVE NONREACTIVE This test is used for SCREENING purposes only. All reactive results are prelimenary and confirmation results will follow. HEPATITIS C ANTIBODY [id number] 20:08:00* Test Item Value Reference Range Comments SCRN HCV (test code=SCRN HCV) NEGATIVE NEGATIVE Hepatitis C Antibody test is for screening purposes only. All reactives will be confirmed by additional testing. LIPID [id number] 08:09:00* Test Item Value Reference Range Comments CHOLEST (test code=CHOLEST) 232 MG/DL 0-200 TRIGLYCE (test code=TRIGLYCE) 178 MG/DL 0-150 HDL (test code=HDL) 53 MG/DL 35-90 NEGATIVE RISK FACTOR FOR HEART DISEASE IF HDL >/=60 mg/dl MAJOR RISK FACTOR FOR HEART DISEASE IF HDL <40 mg/dL CALC LDL (test code=CALC LDL) 143 MG/DL <100 CREATINE [id number] 08:09:00* Test Item Value Reference Range Comments CK (test code=CK) 49 U/L 30-135 % HEMOGLOBIN A1C (GLYCATED)2017-11-02 07:49:00* Test Item Value Reference Range Comments HEMOGLOBIN A1C (test code=GLYCO-) 5.2 % 0-6 THERAPEUTIC TARGET FOR THE TREATMENT OF DIABETES MELLITUS PATIENTS IS < 7% HBA1C. [employer]. DIABETES CARE 2002;25:S33-S49 URINE DRUG [id number] 08:35:00* Test Item Value Reference Range Comments AMPHET (test code=BAMP) NEGATIVE NEGATIVE This is an unconfirmed screening. Result are to be used for medical purposes (treatment) only. Not intended for non-medical purposes. Cut-off concentration for a positive result for each drug: Amphetamine - 1,000 ng/ml Barbiturate - 200 ng/ml Benzodiazepine - 200 ng/ml Cannabinoids - 50 ng/ml Cocaine - 300 ng/ml Opiates - 300 ng/ml PCP - 25 ng/ml BARBITURATES (test code=BBAR) NEGATIVE NEGATIVE BENZO (test code=BBENZ) NEGATIVE NEGATIVE CANNABS (test code=BCANN) NEGATIVE NEGATIVE COCAINE (test code=BCOC) NEGATIVE NEGATIVE OPIATES (test code=BOPI) NEGATIVE NEGATIVE PCP (test code=BMTPCP) NEGATIVE NEGATIVE [id number] 07:16:00* Test Item Value Reference Range Comments GLUCOSE (test code=URGLU) NEGATIVE MG/DL NEG-100 BILIRUBN (test code=URBILI) NEGATIVE NEGATIVE KETONE (test code=URKET) NEGATIVE MG/DL NEGATIVE BLOOD (test code=URBLD) NEGATIVE UR PH (test code=URPH) 6.0 5.0-7.5 PROTEIN (test code=URPRO) NEGATIVE MG/DL NEGATIVE NITRITES (test code=URNIT) NEGATIVE NEGATIVE UROBILINGEN (test code=URURO) 0.2 EU/DL 0.2-1.0 LEUKOCYT (test code=URLEU) NEGATIVE NEGATIVE UA COLOR (test code=UA COLOR) YELLOW YELLOW CLARITY (test code=CLARITY) CLEAR CLEAR SP GRAV (test code=URSPGRAV) 1.009 1.000-1.025 UAMICRO (test code=UAMICRO) NO [id number] 18:33:00* Test Item Value Reference Range Comments SODIUM (test code=NA) 146 MMOL/L 137-145 K+ (test code=KSERUM) 4.3 MMOL/L 3.5-5.1 PLEASE NOTE NEW REFERENCE RANGE(S) IN EFFECT EFFECTIVE 02/24/2010 - NEW ANALYZER (Aval[facility] 5600) CHLORIDE (test code=CL) 106 MMOL/L 98-107 CO2 (test code=CO2) 26 MMOL/L 22-30 BUN (test code=BUN) 26 MG/DL 7-17 CREA (test code=CREA) 2.0 MG/DL 0.7-1.2 GLUCOSE (test code=GLUCOSE) 107 MG/DL 70-99 Fasting glucose normal <100 MG/DL- [place] recommendation CALCIUM (test code=CABLOOD) 9.8 MG/DL 8.4-10.2 TOTPROT (test code=TOTPROT) 8.1 G/DL 6.3-8.2 ALBUMIN (test code=ALBSERUM) 4.5 G/DL 3.5-5.0 BILITOT (test code=BILITOT) 0.5 MG/DL 0.2-1.3 AST (test code=AST) 14 U/L 15-46 PHOSALK (test code=PHOSALK) 81 U/L 38-126 ALT (test code=ALT) 22 U/L 13-69 GFR (test code=GFR) 34 mL/min/1.73m2 A GFR of >90 mL/min/1.73m2 is considered normal. CREATINE [id number] 18:33:00* Test Item Value Reference Range Comments CK (test code=CK) 71 U/L 30-135 [id number] 17:59:00* Test Item Value Reference Range Comments WBC (test code=WBC) 4.7 K/UL 3.5-10.9 RBC (test code=RBC) 4.32 M/UL 4.0-5.0 HGB (test code=HGB) 13.2 G/DL 11.5-15.5 HCT (test code=HCT) 41.4 % 34-46 MCV (test code=MCV) 95.8 FL 80-98 MCH (test code=MCH) 30.6 PG 28-32 MCHC (test code=MCHC) 31.9 G/DL 32.5-36.5 RDW (test code=RDW) 11.9 % 11.5-14.5 PLT (test code=PLT) 245 K/UL 150-450 MPV (test code=MPV) 10.6 FL 7.4-10.4 MANDIFF (test code=MANDIFF) NO SCAN (test code=SCAN) NO NEUT% (test code=NEUT%) 55.2 % 40-75 LYMPH% (test code=LYMPH%) 38.3 % 24-44 MONO% (test code=MONO%) 4.0 % 0-13 EOS% (test code=EOS%) 1.9 % 0-4 BASO % (test code=BASO%) 0.4 % 0-2 IG% (test code=IG%) 0.2 % 0-1 IG%=Metamyelocytes, Myelocytes, and Promyelocytes. (Immature neutrophils not including "bands".) > 3% IG indicates risk of sepsis NRBC% (test code=NRBC%) 0 /100 WBC ABS NEUT (test code=NEUT) 2.6 K/UL 1.2-7.2 CT HEAD W/O [id number] 15:12:[address] [id number] IMAGING REPORTPatient Name: DEE DAVENPORT RDate of Service: [id number]: 51 Sex: F Order #: [id number] [facility] 1965 X-Ray Number: [id number] Record Number: [id number] Hospital Number: [id number] Physician: DECLAN HARRISGELEOrdering Physician: KAIT FAJARDO TANCT head without contrast 3:00 PMComparisons: 05/26/2016History: Hypertension, altered mental status, confusion and headache.This CT exam was performed using one or more of the following dosereduction techniques: Automated exposure control, adjustment of the MAand/or KV according to patient size or use of iterative reconstructiontechnique .Findings:There is likely an 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
--- OUTSIDE RECORDS SUMMARY | 2018-10-29 10:37 | XMS REPORT | Continuity of Care Document ---
Author Author [facility] Interface Address Unknown Phone Unavailable Problems Problem Status Onset Date Classification Date Reported Comments Source Dizziness 08/25/2018 08/27/2018 [facility] CHEST PAIN Active 08/25/2018 [facility] HYPERTENSION Active 07/09/2018 [facility] LEFT SIDED WEAKNESS Active 07/09/2018 [facility] Medications Medication Details Route Status Patient Instructions Ordering Provider Order Date Source carvedilol 25 mg, 2 tab, Route: PO, Drug form: TAB, ONCE, Dosing Weight 86.364, kg, Start date: 08/25/18 19:48:00 MECHANICAL ENGINEERING TECHNICIAN, Stop date: 08/25/18 19:48:00 CSTNotes: Give with food. (Same As: Coreg) Inactive 08/26/2018 [facility] Hydralazine 25 mg, Route: PO, ONCE, Dosing Weight 86.364, kg, Start date: 08/25/18 19:47:00 MECHANICAL ENGINEERING TECHNICIAN, Stop date: 08/25/18 19:47:00 MECHANICAL ENGINEERING TECHNICIAN Inactive 08/26/2018 [facility] Labetalol 10 mg, Route: IV, ONCE, Dosing Weight 86.364, kg, Start date: 08/25/18 19:47:00 MECHANICAL ENGINEERING TECHNICIAN, Stop date: 08/25/18 19:47:00 MECHANICAL ENGINEERING TECHNICIAN Inactive 08/26/2018 [facility] Saline Flush 0.9% 10 mL, Route: IVP, Drug Form: INJ, Dosing Weight 86.364, kg, PRN, PRN Line Flush, Start date: 08/25/18 16:46:00 MECHANICAL ENGINEERING TECHNICIAN, Duration: 30 day, Stop date: 09/24/18 16:45:00 CSTNotes: preservative free. Inactive 08/25/2018 [facility] Allergies, Adverse Reactions, Alerts Substance Category Reaction Severity Reaction type Status Date Reported Comments Source codeine Assertion Drug allergy Active [facility] Immunizations Immunization Date Given Site Status Last Updated Comments Source Results Order Name Results Value Reference Range Date Interpretation Comments Source URINE AND STOOL UA Nitrite Negative (08/25/18 5:27 PM) Negative 08/25/2018 [facility] URINE AND STOOL UA Bili Negative *NA* (08/25/18 5:27 PM) Negative 08/25/2018 [facility] URINE AND STOOL UA Leuk Est Negative (08/25/18 5:27 PM) Negative 08/25/2018 [facility] URINE AND STOOL UA Sq Epi Occasional /LPF Few /LPF 08/25/2018 [facility] URINE AND STOOL UA RBC 1 /HPF 0 - 2 08/25/2018 [facility] URINE AND STOOL UA Bacteria Occasional /HPF None Seen /HPF 08/25/2018 [facility] URINE AND STOOL UA WBC 1 /HPF 0 - 5 08/25/2018 [facility] URINE AND STOOL UA Urobilinogen <=1.0 mg/dL 0.1 - 1.0 08/25/2018 [facility] URINE AND STOOL UA Blood Negative (08/25/18 5:27 PM) Negative 08/25/2018 [facility] URINE AND STOOL UA Turbidity Clear (08/25/18 5:27 PM) Clear 08/25/2018 [facility] URINE AND STOOL UA Color Ltyellow 08/25/2018 [facility] URINE AND STOOL UA pH 5.0 5.0 - 8.0 08/25/2018 [facility] URINE AND STOOL UA Spec Grav 1.009 <=1.030 08/25/2018 [facility] URINE AND STOOL UA Ketones Negative *NA* (08/25/18 5:27 PM) Negative 08/25/2018 [facility] URINE AND STOOL UA Glucose Negative *NA* (08/25/18 5:27 PM) Negative 08/25/2018 [facility] URINE AND STOOL UA Protein Negative (08/25/18 5:27 PM) Negative 08/25/2018 [facility] CARDIAC ENZYMES Total CK 83 unit/L 12 - 191 08/25/2018 [facility] CARDIAC ENZYMES Troponin-I null 0.00 - 0.40 08/25/2018 [facility] CHEM PANEL eGFR 28 mL/min/1.73m2 08/25/2018 Result Comment: The eGFR is calculated using the [...] from the National Kidney Disease Education Program (NKDEP) which additionally recommends that when the eGFR is used in patients with extremes of body mass index for purposes of drug dosing, the eGFR should be multiplied by the estimated BMI. [facility] CHEM PANEL BUN 45 mg/dL 7 - 22 08/25/2018 [facility] CHEM PANEL Creatinine Lvl 2.25 mg/dL 0.50 - 1.40 08/25/2018 [facility] CHEM PANEL Glucose Lvl 87 mg/dL 70 - 99 08/25/2018 [facility] CHEM PANEL Sodium Lvl 141 meq/L 135 - 145 08/25/2018 [facility] CHEM PANEL Chloride Lvl 107 meq/L 95 - 109 08/25/2018 [facility] CHEM PANEL CO2 32 meq/L 24 - 32 08/25/2018 [facility] CHEM PANEL Potassium Lvl 3.4 meq/L 3.5 - 5.1 08/25/2018 [facility] CHEM PANEL Calcium Lvl 9.1 mg/dL 8.5 - 10.5 08/25/2018 [facility] CHEM PANEL Total Protein 7.4 g/dL 6.4 - 8.4 08/25/2018 [facility] CHEM PANEL ALT 17 unit/L 0 - 65 08/25/2018 [facility] CHEM PANEL AST 22 unit/L 0 - 37 08/25/2018 [facility] CHEM PANEL Albumin Lvl 3.5 g/dL 3.5 - 5.0 08/25/2018 [facility] CHEM PANEL Alk Phos 79 unit/L 39 - 136 08/25/2018 [facility] CHEM PANEL Bili Total 0.2 mg/dL 0.2 - 1.3 08/25/2018 [facility] CHEM PANEL Globulin 3.9 g/dL 2.7 - 4.2 08/25/2018 [facility] CHEM PANEL A/G Ratio 0.9 0.7 - 1.6 08/25/2018 [facility] CHEM PANEL B/C Ratio 20 6 - 25 08/25/2018 [facility] CHEM PANEL AGAP 5.4 meq/L 10.0 - 20.0 08/25/2018 [facility] HEMATOLOGY WBC 5.6 K/CMM 3.7 - 10.4 08/25/2018 [facility] HEMATOLOGY Hgb 12.7 g/dL 12.0 - 16.0 08/25/2018 [facility] HEMATOLOGY RBC 4.21 M/CMM 4.20 - 5.40 08/25/2018 [facility] Hct 38.5 % 36.0 - 48.0 08/25/2018 [facility] MPV 9.9 fL 7.4 - 10.4 08/25/2018 [facility] MCV 91.4 fL 80.0 - 98.0 08/25/2018 [facility] MCHC 33.0 g/dL 32.0 - 36.0 08/25/2018 [facility] MCH 30.2 pg 27.0 - 31.0 08/25/2018 [facility] Platelet 169 K/CMM 133 - 450 08/25/2018 [facility] RDW 14.4 % 11.5 - 14.5 08/25/2018 [facility] INR 0.89 0.85 - 1.17 08/25/2018 [facility] PT 11.9 s 12.0 - 14.7 08/25/2018 [facility] PTT 40.0 s 22.9 - 35.8 08/25/2018 [facility] Segs 56.9 % 45.0 - 75.0 08/25/2018 [facility] Monocytes 6.5 % 2.0 - 12.0 08/25/2018 [facility] Lymphocytes 33.8 % 20.0 - 40.0 08/25/2018 [facility] Eosinophils # 0.1 K/CMM 0.0 - 0.5 08/25/2018 [facility] Eosinophils 1.9 % 0.0 - 4.0 08/25/2018 [facility] Lymphocytes # 1.9 K/CMM 1.0 - 5.5 08/25/2018 [facility] Neutrophils # 3.2 K/CMM 1.5 - 8.1 08/25/2018 [facility] Monocytes # 0.4 K/CMM 0.0 - 0.8 08/25/2018 [facility] Basophils 0.9 % 0.0 - 1.0 08/25/2018 [facility] Chest 1view DX Chest 1view DX PROCEDURE: Chest Radiograph. Clinical Indication: Cough. Comparison: Chest radiograph 07/24/2018. FINDINGS: The chest shows normal lung volumes without interstitial or airspace opacities, pleural effusions or pneumothorax. There is subsegmental atelectasis at the left lung base. The cardiac silhouette is slightly enlarged and the thoracic aorta is tortuous. The osseous structures appear intact. IMPRESSION: 1. Cardiomegaly with minimal left lower lobe subsegmental atelectasis. [id number] 08/25/2018 - - Read by: Ramez Urbina MD Dictated Date/time: 08/25/18 17:56 Electronically Signed by: Ramez Urbina MD 08/25/18 17:57 FINAL REPORT [facility] Brain wo contrast CT Brain wo contrast CT Clinical Indication: - worsening aphasia. Comparison: CT dated 07/09/2018 TECHNIQUE: CT images were obtained from the foramen magnum to the vertex without the use of intravenous contrast on a multidetector CT. CT imaging was performed with exposure control parameters to reduce radiation dose. Coronal and sagittal reconstructions were obtained. CT imaging performed at this location utilizes radiation dose optimization techniques which include one or more of the following: -Automated exposure control -Adjustment of the mA and/or kV according to patient size -Use of iterative reconstruction technique CT Radiation Dose DLP 982.82 mGy-cm FINDINGS: BRAIN PARENCHYMA: There are mild involutional changes in the brain. There is mild microvascular white matter disease. Old infarcts are noted in the bilateral basal ganglia. No focal mass lesions on this noncontrast head CT. No mass effect, midline shift or edema. There are no intra-axial or extra-axial fluid collections, intraventricular or intraparenchymal hemorrhage. No low attenuation demarcating areas on this non-contrast CT to suggest subacute stroke. There is encephalomalacia in the left cerebellum likely postsurgical. VENTRICLES: The lateral ventricles, third and fourth ventricles appear unremarkable. The basilar cisterns are normal. ORBITS, MASTOIDS AND PARANASAL SINUSES: The visualized orbits are unremarkable. There is near complete opacification of left sphenoid sinus. The mastoid air cells are clear. SKULL: The patient is status post left suboccipital craniectomy. If there is further concern for intracranial pathology or acute stroke, MRI of the brain may be performed for complete assessment. IMPRESSION: No acute infarct, intracranial hemorrhage or mass effect. 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 SL: [id number] 08/25/2018 - - Read by: Claudia Bruce MD Dictated Date/time: 08/25/18 18:49 Electronically Signed by: Claudia Bruce MD 08/25/18 18:55 FINAL REPORT [facility] Chest 1view DX Chest 1view DX EXAM: Chest 1view DX DATE: 07/24/2018 12:30 MECHANICAL ENGINEERING TECHNICIAN INDICATION: - chest pain COMPARISON: 07/09/2018. IMPRESSION: Stable prominent cardiac silhouette. Atherosclerotic thoracic aorta. No definite failure. No focal consolidation, significant pleural effusion or pneumothorax. SL: [id number] 07/24/2018 - - Read by: Derick Lawson MD Dictated Date/time: 07/24/18 13:03 Electronically Signed by: Derick Lawson MD 07/24/18 13:09 FINAL REPORT [facility] Carotid artery Doppler bilat US Carotid artery Doppler bilat US Patient Name: DEE DAVENPORT : 1965; Age: 52 years y/o Female MR: [id number] Study: Carotid artery Doppler bilat US 07/09/2018 11:47 PM MECHANICAL ENGINEERING TECHNICIAN Ordering Physician: Florecita Brock MD Clinical Indication: - subacute infarct; Comparison: None TECHNIQUE: Munson-scale, color Doppler and spectral Doppler of the carotid arteries was performed. Any reported ICA stenoses indirectly reference the distal internal carotid diameter as the denominator for the stenosis measurement, utilizing consensus panel criteria. FINDINGS: RIGHT: No significant plaque ICA PSV 97 cm/sec CCA PSV 93 cm/sec ICA/CCA ratio 1.0 Vertebral flow is antegrade. External carotid artery is patent. LEFT: No significant plaque ICA PSV 85 cm/sec CCA PSV 101 cm/sec ICA/CCA ratio 0.8 Vertebral flow is antegrade. External carotid artery is patent. IMPRESSION: 1. RIGHT: ICA stenosis <50 % by velocity criteria. 1. LEFT: ICA stenosis <50 % by velocity criteria. Consensus panel Doppler US criteria for diagnosis of ICA stenosis: Stenosis (%) ICA PSV (cm/sec) ICA/CCA ratio <50 <125 <2.0 50-69 125-230 2.0-4.0 >70 but less than >230 >4.0 near occlusion Near occlusion High, low, or Variable undetectable SL: [id number] 07/09/2018 - - Read by: Zach Simmons MD Dictated Date/time: 07/10/18 07:59 Electronically Signed by: Zach Simmons MD 07/10/18 08:01 FINAL REPORT [facility] Chest 1view DX Chest 1view DX Clinical indication: Chest pain Comparison: None. TECHNIQUE: AP chest FINDINGS: Lines, tubes and hardware: None. Lungs and pleura: The lungs are clear. There is a trace right pleural effusion. No appreciable pneumothorax. Heart and mediastinum: The cardiomediastinal silhouette is upper limits of normal with a mildly tortuous thoracic aorta. Bones: No acute bony abnormality is identified. IMPRESSION: Trace right pleural effusion. SL: [id number]-M 07/09/2018 - - Read by: Hafsa Agudelo MD Dictated Date/time: 07/09/18 16:22 Electronically Signed by: Hafsa Agudelo MD 07/09/18 16:23 FINAL REPORT [facility] Brain wo contrast CT Brain wo contrast CT Clinical Indication: - Elevated blood pressure Comparison: None. TECHNIQUE: CT images were obtained from the foramen magnum to the vertex without the use of intravenous contrast on a multidetector CT. CT imaging was performed with exposure control parameters to reduce radiation dose. Coronal and sagittal reconstructions were obtained. CT imaging performed at this location utilizes radiation dose optimization techniques which include one or more of the following: -Automated exposure control -Adjustment of the mA and/or kV according to patient size -Use of iterative reconstruction technique CT Radiation Dose DLP 800 mGy-cm FINDINGS: BRAIN PARENCHYMA: There are mild involutional changes in the brain. There is mild to moderate microvascular white matter disease. No focal mass lesions on this noncontrast head CT. No mass effect, midline shift or edema. There are no intra-axial or extra-axial fluid collections, intraventricular or intraparenchymal hemorrhage. There is focal low attenuation in the right basal ganglia suspicious for late subacute/old infarct. There is encephalomalacia in the left cerebellar hemisphere. VENTRICLES: The lateral ventricles, third and fourth ventricles appear unremarkable. The basilar cisterns are normal. ORBITS, MASTOIDS AND PARANASAL SINUSES: The visualized orbits are unremarkable. There is mild mucosal thickening in the left ethmoid air cells and left sphenoid sinus. The mastoid air cells are clear. SKULL: The patient is status post left suboccipital craniectomy. If there is further concern for intracranial pathology or acute stroke, MRI of the brain may be performed for complete assessment. IMPRESSION: Focal low-attenuation in the right basal ganglia suspicious for late subacute/old infarct. No acute intracranial hemorrhage or mass effect. Encephalomalacia in the left cerebellar hemisphere likely postsurgical. SL: YESICA 07/09/2018 - - Read by: Claudia Bruce MD Dictated Date/time: 07/09/18 17:48 Electronically Signed by: Claudia Bruce MD 07/09/18 17:56 FINAL REPORT [facility] Vital Signs Vital Sign Value Date Comments Source Respitory Rate 24 08/26/2018 [facility] Systolic (mm Hg) 138 08/26/2018 [facility] Diastolic (mm Hg) 87 08/26/2018 [facility] Respitory Rate 21 08/26/2018 [facility] Systolic (mm Hg) 160 08/26/2018 [facility] Diastolic (mm Hg) 86 08/26/2018 [facility] Respitory Rate 21 08/26/2018 [facility] Systolic (mm Hg) 150 08/26/2018 [facility] Diastolic (mm Hg) 80 08/26/2018 [facility] Temperature Oral (F) 98 F 08/26/2018 [facility] Weight 86.364 08/25/2018 [facility] BMI Calculated 32.68 08/25/2018 [facility] Height 162.56 cm 08/25/2018 [facility] Temperature Oral (F) 97.5 F 08/25/2018 [facility] Heart Rate 88 08/25/2018 [facility] Encounters Location Location Details Encounter Type Encounter Number Reason For Visit Attending Provider ADM Date DC Date Status Source [facility] Emergency [id number] Manuel Kasey 08/25/2018 08/26/2018 [facility] Procedures Procedure Code Date Perfomer Comments Source
[2018-10-29] MEDS ORDERED: KETOROLAC TROMETHAMINE 60 MG/2 ML VIAL IM ONE (10:45)
[2018-10-29] MEDS ORDERED: ACETAMINOPHEN/CODEINE 300MG - 30MG TAB PO ONE (10:45)
[2018-10-29] MEDS ORDERED: CITRATE OF MAGNESIA 300ML BOTTLE PO ONE (10:45)
[2018-10-29] MEDS ORDERED: TRAMADOL HCL 50 MG TAB PO ONE (11:00)
[2018-10-29 11:14] LABS: COLOR,URINE YELLOW (YELLOW)
[2018-10-29 11:15] LABS: BILIRUBIN,URINE NEGATIVE (NEGATIVE); CLARITY,URINE CLEAR (CLEAR); KETONES,URINE NEGATIVE (NEGATIVE); LEUKOCYTE ESTERASE ,URINE NEGATIVE (NEGATIVE); NITRITE,URINE NEGATIVE (NEGATIVE); PREGNANCY TEST, URINE NEGATIVE (NEGATIVE); PROTEIN,URINE DIPSTICK NEGATIVE (NEGATIVE); URINE UROBILINOGEN 0.2 mg/dL (0.2 - 1)
[2018-10-29 11:17] LABS: BACTERIA,URINE FEW /HPF; EPITHELIAL CELLS,URINE FEW /LPF
[2018-10-29] MEDS ORDERED: KETOROLAC TROMETHAMINE 10 MG TAB PO ONE (12:15)
--- NOTE | 2018-10-29 12:17 | Diagnostic Imaging Report ---
Exam: KUB- 2 views Clinical History: Abdominal pain x3 weeks, evaluate for constipation. Comparison: None. Findings: Nonobstructive bowel gas pattern. There is abundant stool throughout the colon. Bowel gas obscures visualization of the kidneys. A 1.2 cm calcification is adjacent to the left L3 transverse process. Calcified phleboliths in the pelvis. No acute osseous abnormality. Impression: Abundant stool in the colon, consistent with clinical history of constipation. A 1.2 cm calcification adjacent to the left L3 transverse process. This could represent a ureteral stone, but is less likely in the absence of acute symptoms. Alternatively, this may represent a soft tissue calcification or enteric contents. Follow-up KUB is suggested. Signed by: Dr. Manan Carrizales MD on 10/29/2018 12:13 PM
[2018-10-29] MEDS ORDERED: CLONIDINE HCL 0.2 MG TAB PO ONE (13:30)
[2018-10-29] MEDS ORDERED: HYDRALAZINE HCL 20 MG/ML VIAL ONE (14:21)
[2018-10-29] MEDS ORDERED: HYDRALAZINE HCL 20 MG/ML VIAL IV STA (14:24)
[2018-10-29] MEDS ORDERED: HYDRALAZINE HCL 25 MG TAB PO ONE (14:30)
[2018-10-29] MEDS ORDERED: NIFEDIPINE 10 MG CAP PO NR (15:00)
[2018-10-29] MEDS ORDERED: HALOPERIDOL LACTATE 5 MG/ML VIAL IV ONE (16:00)
[2018-10-29] MEDS ORDERED: METOPROLOL TARTRATE INJ 1 MG/ML VIAL IV NR (16:00)
--- NOTE | 2018-10-29 16:15 | NUR ---
Food tray ordered for patient
[2018-10-29 16:22] VITALS: BP 170/112
--- NOTE | 2018-10-29 16:29 | NUR ---
[facility] called at this time with and ETA of 30 minutes.
== END 2018-10-29 17:45 | disposition home or self-care (01) ==
LOC: ER 10:34
DX: M54.5 Low back pain (principal); K59.00 Constipation, unspecified; S39.012A Strain of muscle, fascia and tendon of lower back, initial encounter; I10 Essential (primary) hypertension; Z86.73 Personal history of transient ischemic attack (TIA), and cerebral infarction without residual deficits
CPT/HCPCS: 74018; 81001; 81025; 99283; J0360

== ENCOUNTER 2020-01-04 03:26 | Inpatient (IN) | payer OTHER ==
[~2020-01-04] VITALS: Ht 162.6 cm; Wt 85.3 kg
[2020-01-04] VITALS (8 sets, daily range): BP systolic 166–198; BP diastolic 106–117
--- NOTE | 2020-01-04 03:28 | NUR ---
pt refused straight cath for ua. md at bedside to discuss need for urine specimen. pt continues to refuse straight cath. pure wick device applied. pt refused ekg. md informed. pt refusing ct scan. md informed. pt moved all extremities, speech clear. pt [id number] uncooperative, erratic behavior. pt moved to room 10 closer to nurses station due to fall risk.
--- OUTSIDE RECORDS SUMMARY | 2020-01-04 03:29 | XMS REPORT | Clinical Summary ---
Author Author [facility] Address Unknown Phone Unavailable Care Team Providers Care Restaurant Hourly Manager Name Role Phone Bobbi Encarnacion MD PCP Allergies Comments Active Allergy Reactions Severity Noted Date Acetaminophen-Codeine 03/26/2018 Medications Not on file Active Problems Not on file Social History Date Tobacco Use Types Packs/Day Years Used Current Every Day Smoker Smokeless Tobacco: Never Used Drinks/Week oz/Week Comments Alcohol Use No Sex Assigned at Date Recorded Not on file Industry Job Start Date Occupation Not on file Not on file Not on file Travel End Travel History Travel Start No recent travel history available. 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
--- OUTSIDE RECORDS SUMMARY | 2020-01-04 03:30 | XMS REPORT | Summary of Care ---
Author Author [facility] Organization [facility] Address Unknown Phone Unavailable Encounter NAVIN Morton(JAKI) [id number] Date(s): 07/09/18 - 07/11/18 [facility] [address] [place] [address]- [phone] Encounter Diagnosis Cerebral infarction, unspecified (Final) - 07/19/18 Hypertensive urgency (Final) - Hypertensive heart and chronic kidney disease with heart failure and stage 1 thr ough stage 4 chronic kidney disease, or unspecified chronic kidney disease (Final) - Heart failure, unspecified (Final) - Chronic kidney disease, unspecified (Final) - Acute kidney failure, unspecified (Final) - Hyperlipidemia, unspecified (Final) - Nicotine dependence, cigarettes, uncomplicated (Final) - Weakness (Final) - Other chest pain (Final) - Other specified disorders of brain (Final) - Personal history of transient ischemic attack (TIA), and cerebral infarction wit hout residual deficits (Final) - Dysarthria and anarthria (Final) - Other lack of coordination (Final) - Schizophrenia, unspecified (Final) - Discharge Disposition: Intermediate Care Attending Physician: Paris Mendez MD Admitting Physician: Paris Mendez MD Vital Signs 1 2 3 Most recent to oldest [Reference Range]: 162.56 cm (07/09/18 11:38 PM) 162.56 cm (07/09/18 3:06 PM) Height 97.9 DegF (07/11/18 11:37 AM) 97.9 DegF (07/11/18 7:31 AM) 98.6 DegF (07/11/18 4:09 AM) Temperature Oral [96.4-99.1 DegF] 180/99 mmHg *HI* (07/11/18 11:37 AM) 186/98 mmHg *HI* (07/11/18 7:31 AM) 160/91 mmHg *HI* (07/11/18 4:09 AM) Blood Pressure [90-140/60-90 mmHg] 18 BRMIN (07/11/18 11:37 AM) 17 BRMIN (07/11/18 7:31 AM) 18 BRMIN (07/11/18 4:09 AM) Respiratory Rate [14-20 BRMIN] 66 bpm (07/11/18 11:37 AM) 70 bpm (07/11/18 7:31 AM) 65 bpm (07/11/18 4:09 AM) Peripheral Pulse Rate [60-100 bpm] 87.727 kg (07/09/18 11:38 PM) 87.727 kg (07/09/18 3:06 PM) Weight 33.2 m2 (07/09/18 11:38 PM) 33.2 m2 (07/09/18 3:06 PM) Body Mass Index Problem List No data available for this section Allergies, Adverse Reactions, Alerts Substance Reaction Severity Status codeine Active Medications acetaminophen 650 mg, 2 tab, Route: PO, Drug form: TAB, Q4H, Dosing Weight 87.727, kg, PRN For Temp > 100.4 F, Start date: 07/09/18 23:45:00 SIGNAL TESTER, Duration: 30 day, Stop date: 08/08/18 23:44:00 SIGNAL TESTER Notes: Do not exceed 4 gm/day. (Same as: Tylenol) Start Date: 07/09/18 Stop Date: 07/11/18 Status: Discontinued aspirin 325 mg tablet 325 mg, 1 tab, Route: PO, Drug form: TAB, Daily, Dosing Weight 87.727, kg, Start date: 07/10/18 11:35:00 SIGNAL TESTER, Duration: 30 day, Stop date: 08/09/18 9:00:00 SIGNAL TESTER Notes: Take with food. Start Date: 07/10/18 Stop Date: 07/11/18 Status: Discontinued aspirin 325 mg tablet 325 mg = 1 tab, PO, Daily, # 30 tab, 0 Refill(s) Start Date: 07/10/18 Status: Ordered aspirin 81 mg tablet, chewable 324 mg, 4 tab, Route: PO, Drug form: CHEWTAB, ONCE, Dosing Weight 87.727, kg, Pr iority: STAT, Start date: 07/09/18 21:38:00 SIGNAL TESTER, Stop date: 07/09/18 21:38:00 CS T Notes: Take with food. Start Date: 07/09/18 Stop Date: 07/09/18 Status: Completed Ativan 0.5 mg, 1 tab, Route: PO, Drug form: TAB, ONCE, Dosing Weight 87.727, kg, Start date: 07/10/18 2:41:00 SIGNAL TESTER, Stop date: 07/10/18 2:41:00 SIGNAL TESTER Notes: (Same as: Ativan) Start Date: 07/10/18 Stop Date: 07/10/18 Status: Completed [place] Baby Saline 0.65% nasal solution 2 drp, NASAL, PRN, PRN Nasal dryness, # 30 mL, 4 Refill(s), 2 sprays in each nos tril for nasal congestion/allergies Start Date: 07/10/18 Status: Ordered [place] Saline Nasal 2 spray, Route: NASAL, Drug Form: SOLN, Dosing Weight 87.727, kg, PRN, PRN Nasal dryness, Start date: 07/10/18 9:51:00 SIGNAL TESTER, Duration: 30 day, Stop date: 08/09/18 9:50:00 SIGNAL TESTER Notes: (Same as: [place], Deep Sea Nasal [place]). Start Date: 07/10/18 Stop Date: 07/11/18 Status: Discontinued Benadryl Maximum Strength 2% topical cream 1 appl, Route: TOP, QID, Drug form: CRM, PRN Itching, Start date: 07/10/18 21:04 :00 SIGNAL TESTER, Duration: 30 day, Stop date: 08/09/18 21:03:00 SIGNAL TESTER Start Date: 07/10/18 Stop Date: 07/11/18 Status: Discontinued carvedilol 25 mg, 2 tab, Route: PO, Drug form: TAB, BID, Dosing Weight 87.727, kg, Start da te: 07/10/18 11:32:00 SIGNAL TESTER, Duration: 30 day, Stop date: 08/09/18 9:00:00 SIGNAL TESTER Notes: Give with food. (Same As: Coreg) Start Date: 07/10/18 Stop Date: 07/11/18 Status: Discontinued carvedilol 25 mg oral tablet 25 mg = 1 tab, PO, BID, # 60 tab, 0 Refill(s) Start Date: 07/10/18 Stop Date: 07/11/18 Status: Discontinued carvedilol 25 mg oral tablet 25 mg = 1 tab, PO, BID, # 60 tab, 0 Refill(s), Pharmacy: [facility] Start Date: 07/11/18 Status: Ordered chlorthalidone 25 mg oral tablet 25 mg = 1 tab, PO, Daily, # 30 tab, 0 Refill(s) Start Date: 07/10/18 Stop Date: 07/11/18 Status: Discontinued cloNIDine 0.1 mg oral tablet 0.1 mg = 1 tab, PO, BID, # 90 tab, 3 Refill(s) Start Date: 07/10/18 Status: Ordered cloNIDine 0.1 mg oral tablet 0.1 mg, 1 tab, Route: PO, Drug form: TAB, BID, Dosing Weight 87.727, kg, Start d ate: 07/10/18 11:32:00 SIGNAL TESTER, Duration: 30 day, Stop date: 08/09/18 9:00:00 SIGNAL TESTER Notes: (Same As: Anisaaprmarco a) Start Date: 07/10/18 Stop Date: 07/11/18 Status: Discontinued Dextrose 50% Syringe 12.5 gm, 25 mL, Route: IVP, Drug Form: INJ, Dosing Weight 87.727, kg, PRN, PRN B lood Glucose Results, Start date: 07/09/18 23:45:00 SIGNAL TESTER, Duration: 30 day, Stop date: 08/08/18 23:44:00 SIGNAL TESTER Start Date: 07/09/18 Stop Date: 07/11/18 Status: Discontinued Dextrose 50% Syringe 25 gm, 50 mL, Route: IVP, Drug Form: INJ, Dosing Weight 87.727, kg, PRN, PRN Blo od Glucose Results, Start date: 07/09/18 23:45:00 SIGNAL TESTER, Duration: 30 day, Stop da te: 08/08/18 23:44:00 SIGNAL TESTER Start Date: 07/09/18 Stop Date: 07/11/18 Status: Discontinued Flonase 0.05 mg/inh nasal spray 2 spray, Route: Each Affected Nostril, Drug Form: SPRY, Dosing Weight 87.727, kg , Daily, PRN Allergies, Start date: 07/10/18 21:04:00 SIGNAL TESTER, Duration: 30 day, Sto p date: 08/09/18 21:03:00 SIGNAL TESTER Notes: (Same as: Flonase) Start Date: 07/10/18 Stop Date: 07/11/18 Status: Discontinued glucagon 1 mg, Route: IM, Drug form: PDR/INJ, PRN, Dosing Weight 87.727, kg, PRN Blood Gl ucose Results, Start date: 07/09/18 23:45:00 SIGNAL TESTER, Duration: 30 day, Stop date: 0 08/08/18 23:44:00 SIGNAL TESTER Start Date: 07/09/18 Stop Date: 07/11/18 Status: Discontinued hydrALAZINE 20 mg, 1 mL, Route: IVP, Drug form: INJ, ONCE, Dosing Weight 87.727, kg, Priorit y: STAT, Start date: 07/09/18 21:19:00 SIGNAL TESTER, Stop date: 07/09/18 21:19:00 SIGNAL TESTER Notes: (Same as: Apresoline)Push over 5 minutes Start Date: 07/09/18 Stop Date: 07/09/18 Status: Completed hydrALAZINE 10 mg, 0.5 mL, Route: IVP, Drug form: INJ, Q6H, Dosing Weight 87.727, kg, PRN El evated BP, Start date: 07/10/18 0:02:00 SIGNAL TESTER, Duration: 30 day, Stop date: 0:01:00 SIGNAL TESTER, systolic greater than 170 Notes: (Same as: Apresoline)Push over 5 minutes Start Date: 07/10/18 Stop Date: 07/11/18 Status: Discontinued hydrALAZINE 75 mg, PO, QID, 0 Refill(s) Start Date: 07/10/18 Stop Date: 07/11/18 Status: Discontinued hydrALAZINE 75 mg, 3 tab, Route: PO, Drug form: TAB, Q6H, Dosing Weight 87.727, kg, Start da te: 07/10/18 12:00:00 SIGNAL TESTER, Duration: 30 day, Stop date: 08/09/18 6:00:00 SIGNAL TESTER Notes: (Same as: Apresoline) May interfere w/enteral feedings Take With Food. Start Date: 07/10/18 Stop Date: 07/11/18 Status: Discontinued hydrALAZINE 25 mg oral tablet 75 mg = 3 tab, PO, Q6H, # 360 tab, 0 Refill(s), Pharmacy: [facility] Start Date: 07/11/18 Status: Ordered Imdur 60 mg, PO, QAM, 0 Refill(s) Start Date: 07/10/18 Stop Date: 07/11/18 Status: Discontinued Imdur 30 mg, 1 tab, Route: PO, Drug form: ERTAB, ONCE, Dosing Weight 87.727, kg, Start date: 07/11/18 13:04:00 SIGNAL TESTER, Stop date: 07/11/18 13:04:00 SIGNAL TESTER Notes: (Same as:Imdur)"Do Not Crush" Take on empty stomach/ full glass of water . Do not crush Start Date: 07/11/18 Stop Date: 07/21/18 Status: Discontinued Imdur 90 mg, 3 tab, Route: PO, Drug form: ERTAB, QAM, Dosing Weight 87.727, kg, Start date: 07/12/18 9:00:00 SIGNAL TESTER, Duration: 30 day, Stop date: 08/10/18 9:00:00 SIGNAL TESTER Notes: (Same as:Imdur)"Do Not Crush" Take on empty stomach/ full glass of water . Do not crush Start Date: 07/12/18 Stop Date: 07/11/18 Status: Canceled Imdur 60 mg, 2 tab, Route: PO, Drug form: ERTAB, QAM, Dosing Weight 87.727, kg, Start date: 07/10/18 11:33:00 SIGNAL TESTER, Duration: 30 day, Stop date: 08/09/18 9:00:00 SIGNAL TESTER Notes: (Same as:Imdur)"Do Not Crush" Take on empty stomach/ full glass of water . Do not crush Start Date: 07/10/18 Stop Date: 07/11/18 Status: Discontinued isosorbide mononitrate 30 mg oral tablet, extended release 90 mg = 3 tab, PO, QAM, # 90 tab, 0 Refill(s), Pharmacy: [facility] Start Date: 07/11/18 Status: Ordered KlonoPIN 1 mg, PO, PRN, as needed every 8 hrs, 0 Refill(s) Start Date: 07/10/18 Status: Ordered Lipitor 20 mg, 2 tab, Route: PO, Drug form: TAB, Bedtime, Dosing Weight 87.727, kg, Star t date: 07/10/18 21:00:00 SIGNAL TESTER, Duration: 30 day, Stop date: 08/08/18 21:00:00 CS T Notes: (Same As: Lipitor) Start Date: 07/10/18 Stop Date: 07/11/18 Status: Discontinued Lipitor 20 mg oral tablet 20 mg = 1 tab, PO, Bedtime, # 30 tab, 0 Refill(s) Start Date: 07/10/18 Status: Ordered Milk of Magnesia 30 mL, Route: PO, Drug Form: SUSP, Dosing Weight 87.727, kg, Bedtime, PRN Consti pation, Start date: 07/10/18 21:04:00 SIGNAL TESTER, Duration: 30 day, Stop date: 08/09/18 21:03:00 SIGNAL TESTER Notes: (Same as: Milk of Magnesia, MOM) Start Date: 07/10/18 Stop Date: 07/11/18 Status: Discontinued Murine Tears Plus ophthalmic drops 1-2 gtts, BOTH EYES, BID, 0 Refill(s) Start Date: 07/10/18 Status: Ordered normal saline 0.9% IV 1,000 mL 1,000 mL, Rate: 75 ml/hr, Infuse over: 13.3 hr, Route: IV, Dosing Weight 87.727 kg, Total Volume: 1,000, Start date: 07/09/18 23:47:00 SIGNAL TESTER, Duration: 30 day, St op date: 08/08/18 23:46:00 SIGNAL TESTER, 2.02, m2 Start Date: 07/09/18 Stop Date: 07/11/18 Status: Discontinued NS (Bolus) IV 25 mL, Route: IVPB, mL, Drug form: INJ, PRN, Dosing Weight 87.727 kg, Start date : 07/11/18 9:41:00 SIGNAL TESTER, Duration: 30 day, Stop date: 08/10/18 9:40:00 SIGNAL TESTER, PRN L ine Flush Start Date: 07/11/18 Stop Date: 07/11/18 Status: Discontinued ondansetron 4 mg, 2 mL, Route: IVP, Drug form: INJ, Q6H, Dosing Weight 87.727, kg, PRN Nause a & Vomiting, Start date: 07/09/18 23:45:00 SIGNAL TESTER, Duration: 30 day, Stop date: 08/08/18 23:44:00 SIGNAL TESTER Notes: (Same as: Joey) MEDICATION WASTE Product Size: 4 mgProduct Was courtney: ___ mg Start Date: 07/09/18 Stop Date: 07/11/18 Status: Discontinued Saline Flush 0.9% 10 mL, Route: IVP, Drug Form: INJ, Dosing Weight 87.727, kg, PRN, PRN Line Flush , Start date: 07/09/18 15:38:00 SIGNAL TESTER, Duration: 30 day, Stop date: 08/08/18 15:37 :00 SIGNAL TESTER Notes: (Same as: BD Posiflush) Start Date: 07/09/18 Stop Date: 07/10/18 Status: Discontinued Saline Flush 0.9% 10 ml, Route: IVP, Drug Form: INJ, Dosing Weight 87.727, kg, PRN, PRN Line Flush , Start date: 07/11/18 9:41:00 SIGNAL TESTER, Duration: 30 day, Stop date: 08/10/18 9:40:0 0 SIGNAL TESTER Notes: (Same as: BD Posiflush) Start Date: 07/11/18 Stop Date: 07/11/18 Status: Discontinued Saline Flush 0.9% 10 ml, Route: IVP, Drug Form: INJ, Dosing Weight 87.727, kg, Q12H, Start date: 09/11/17 21:00:00 SIGNAL TESTER, Duration: 30 day, Stop date: 08/10/18 9:00:00 SIGNAL TESTER Notes: (Same as: BD Posiflush) Start Date: 07/11/18 Stop Date: 07/11/18 Status: Canceled tramadol 50 mg, 1 tab, Route: PO, Drug form: TAB, Q6H, Dosing Weight 87.727, kg, PRN Pain Score 1-3, Start date: 07/10/18 21:04:00 SIGNAL TESTER, Duration: 30 day, Stop date: 07/23 03/10 21:03:00 SIGNAL TESTER Notes: Not to exceed 400mg/day. (Same As: Ultram) Start Date: 07/10/18 Stop Date: 07/11/18 Status: Discontinued Results 1 2 3 Most recent to oldest [Reference Range]: 1.8 K/CMM (07/10/18 3:40 AM) 1.9 K/CMM (07/09/18 3:41 PM) Neutrophils # [1.5-8.1 K/CMM] 1.3 K/CMM (07/10/18 3:40 AM) 1.3 K/CMM (07/09/18 3:41 PM) Lymphocytes # [1.0-5.5 K/CMM] 0.4 K/CMM (07/10/18 3:40 AM) 0.2 K/CMM (07/09/18 3:41 PM) Monocytes # [0.0-0.8 K/CMM] 0.1 K/CMM (07/10/18 3:40 AM) 0.1 K/CMM (07/09/18 3:41 PM) Eosinophils # [0.0-0.5 K/CMM] 96 pg/mL (07/09/18 3:41 PM) BNP [<=100 pg/mL] 33 mL/min/1.73m2 1 *NA* (07/11/18 4:11 AM) 34 mL/min/1.73m2 2 *NA* (07/10/18 3:40 AM) 28 mL/min/1.73m2 3 *NA* (07/09/18 3:41 PM) eGFR 1.0 (07/09/18 3:41 PM) A/G Ratio [0.7-1.6] 3.8 g/dL (07/09/18 3:41 PM) Albumin Lvl [3.5-5.0 g/dL] 86 unit/L (07/09/18 3:41 PM) Alk Phos [39-136 unit/L] 15 unit/L (07/09/18 3:41 PM) ALT [0-65 unit/L] 12.0 mEq/L (07/11/18 4:11 AM) 11.8 mEq/L (07/10/18 3:40 AM) 12.9 mEq/L (07/09/18 3:41 PM) AGAP [10.0-20.0 mEq/L] 10 unit/L (07/09/18 3:41 PM) AST [0-37 unit/L] 13 (07/09/18 3:41 PM) B/C Ratio [6-25] 0.7 % (07/10/18 3:40 AM) 0.8 % (07/09/18 3:41 PM) Basophils [0.0-1.0 %] 28 mg/dL *HI* (07/11/18 4:11 AM) 29 mg/dL *HI* (07/10/18 3:40 AM) 29 mg/dL *HI* (07/09/18 3:41 PM) BUN [7-22 mg/dL] 8.1 mg/dL *LOW* (07/11/18 4:11 AM) 8.2 mg/dL *LOW* (07/10/18 3:40 AM) 9.0 mg/dL (07/09/18 3:41 PM) Calcium Lvl [8.5-10.5 mg/dL] 3.52 *LOW* (07/11/18 4:11 AM) CHD Risk [3.90-5.80] 148 mg/dL (07/11/18 4:11 AM) Chol [<=199 mg/dL] 94 unit/L (07/09/18 3:41 PM) Total CK [12-191 unit/L] 111 mEq/L *HI* (07/11/18 4:11 AM) 113 mEq/L *HI* (07/10/18 3:40 AM) 107 mEq/L (07/09/18 3:41 PM) Chloride Lvl [95-109 mEq/L] 25 mEq/L (07/11/18 4:11 AM) 23 mEq/L *LOW* (07/10/18 3:40 AM) 27 mEq/L (07/09/18 3:41 PM) CO2 [24-32 mEq/L] 1.98 mg/dL *HI* (07/11/18 4:11 AM) 1.92 mg/dL *HI* (07/10/18 3:40 AM) 2.23 mg/dL *HI* (07/09/18 3:41 PM) Creatinine Lvl [0.50-1.40 mg/dL] 1.8 % (07/10/18 3:40 AM) 1.7 % (07/09/18 3:41 PM) Eosinophils [0.0-4.0 %] 3.9 g/dL (07/09/18 3:41 PM) Globulin [2.7-4.2 g/dL] 62 mg/dL *LOW* (07/11/18 4:11 AM) 84 mg/dL (07/10/18 3:40 AM) 86 mg/dL (07/09/18 3:41 PM) Glucose Lvl [70-99 mg/dL] 36.1 % (07/10/18 3:40 AM) 38.2 % (07/09/18 3:41 PM) Hct [36.0-48.0 %] 42 mg/dL *LOW* (07/11/18 4:11 AM) HDL [>=61 mg/dL] 11.8 g/dL *LOW* (07/10/18 3:40 AM) 12.4 g/dL (07/09/18 3:41 PM) Hgb [12.0-16.0 g/dL] 4.8 % (07/11/18 4:11 AM) Hgb A1C [<=5.6 %] 0.98 (07/09/18 3:41 PM) INR [0.85-1.17] 4.0 mEq/L (07/11/18 4:11 AM) 3.8 mEq/L (07/10/18 3:40 AM) 3.9 mEq/L (07/09/18 3:41 PM) Potassium Lvl [3.5-5.1 mEq/L] 0.9 mMol/L (07/09/18 3:41 PM) Lactic Acid Lvl [0.5-2.2 mMol/L] 77 mg/dL (07/11/18 4:11 AM) LDL (Calculated) [<=99 mg/dL] 35.6 % (07/10/18 3:40 AM) 35.8 % (07/09/18 3:41 PM) Lymphocytes [20.0-40.0 %] 30.7 pg (07/10/18 3:40 AM) 30.0 pg (07/09/18 3:41 PM) MCH [27.0-31.0 pg] 32.7 g/dL (07/10/18 3:40 AM) 32.3 g/dL (07/09/18 3:41 PM) MCHC [32.0-36.0 g/dL] 93.7 fL (07/10/18 3:40 AM) 92.9 fL (07/09/18 3:41 PM) MCV [80.0-98.0 fL] 2.1 mg/dL (07/10/18 3:40 AM) Magnesium Lvl [1.8-2.4 mg/dL] 10.7 % (07/10/18 3:40 AM) 7.0 % (07/09/18 3:41 PM) Monocytes [2.0-12.0 %] 9.2 fL (07/10/18 3:40 AM) 9.2 fL (07/09/18 3:41 PM) MPV [7.4-10.4 fL] 144 mEq/L (07/11/18 4:11 AM) 144 mEq/L (07/10/18 3:40 AM) 143 mEq/L (07/09/18 3:41 PM) Sodium Lvl [135-145 mEq/L] 169 K/CMM (07/10/18 3:40 AM) 189 K/CMM (07/09/18 3:41 PM) Platelet [133-450 K/CMM] 51.2 % (07/10/18 3:40 AM) 54.7 % (07/09/18 3:41 PM) Segs [45.0-75.0 %] 7.7 g/dL (07/09/18 3:41 PM) Total Protein [6.4-8.4 g/dL] 12.8 seconds (07/09/18 3:41 PM) PT [12.0-14.7 seconds] 50.7 seconds *HI* (07/09/18 3:41 PM) PTT [22.9-35.8 seconds] 3.85 M/CMM *LOW* (07/10/18 3:40 AM) 4.12 M/CMM *LOW* (07/09/18 3:41 PM) RBC [4.20-5.40 M/CMM] 13.8 % (07/10/18 3:40 AM) 14.0 % (07/09/18 3:41 PM) RDW [11.5-14.5 %] 0.4 mg/dL (07/09/18 3:41 PM) Bili Total [0.2-1.3 mg/dL] 143 mg/dL (07/11/18 4:11 AM) Trig [<=149 mg/dL] <0.02 ng/mL (07/09/18 3:41 PM) Troponin-I [0.00-0.40 ng/mL] 652 pg/mL (07/10/18 3:40 AM) Vitamin B12 Lvl [254-1320 pg/mL] 3.6 K/CMM *LOW* (07/10/18 3:40 AM) 3.5 K/CMM *LOW* (07/09/18 3:41 PM) WBC [3.7-10.4 K/CMM] 29 *NA* (07/11/18 4:11 AM) VLDL 1Result Comment: The eGFR is calculated using [...] be mul tiplied by the estimated BMI. 2Result Comment: The eGFR is calculated using the [...] be mul tiplied by the estimated BMI. 3Result Comment: The eGFR is calculated using the [...] be mul tiplied by the estimated BMI. Immunizations No data available for this section Procedures No data available for this section Social History Social History Type Response Substance Abuse Use: Past. Type: Cocaine. Recreational Drug Route: Intravenous. 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 On arrival, patient's SBP in 200s. CTH showed an old subacute vs old right basal ganglia infarct. Labs showed ABBY on CKD. Dr. Pro was consulted. Carotid dopplers, telemetry, and TTE unremarkable. PT/OT recommended home independently and she already has a walker and wheelchair. BP improved somewhat with restarting home meds. Imdur was increased to 90 mg daily. ABBY improved with fluids. Patient was discharged home and instructed to f/u with her PCP in [address] Pro in 4 weeks. 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 Pro 4 weeks Paris Mendez MD [facility] Hospitalist Extracted from: Title: Clinical Document Author: Lalo Gonzalez Date: 07/11/18 NEUROLOGY Progress Note - Daily [facility] Completed: , JUL 11, 2018, 09:43 by Lalo Gonzalez MD RM: CCDU - 10, SE CCDUBIBBINS [id number] (: 1965) F Attending: Paris Mendez MDPhone: Service: Internal Medicine Reason for Admission: LEFT SIDED WEAKNESS Working DRG: Code status: None Specified=FULL CODECurrent diet: Isolation: No Isolation/Standard Precautions Allergies: codeine SUBJECTIVE Patient seen and examined suggest to me she has been weak for a while and an assisted living she was having spasms on the left side OBJECTIVE HEENT supple no JVD no bruit noted RS clear to auscultation bilaterally CVS S1-S2 present no murmur no gallop noted Abdomen soft nontender positive bowel sounds Neuro exam Mental status exam alert awake oriented x3 Speech mildly dysarthric but fluent follows three-step commands Cranial nerve pupil 3-2 mm reacting to light extraocular movements are intact no nystagmus no diplopia noted no facial asymmetry noted tongue uvula midline corneal gag positive bilaterally Motor exam mildly decreased tone on the left strength is 5 x 5 on the right left side is 4/5 sensory exam perceives light touch pinprick equal Coordination mild dysmetria on [id number] on the left right side is normal Deep tendon reflexes trace Gait not tested 24hr Labs 07/11 0411 Hgb A1C4.8 Glucose Lvl62 L BUN28 H Creatinine Lvl1.98 H Sodium Cip292 Potassium Lvl4.0 Chloride Bur013 H CO225 AGAP12.0 Calcium Lvl8.1 L eGFR33 Yvuq571 Iemj035 HDL42 L LDL (Calculated)77 VLDL29 CHD Risk3.52 L 07/10 0340 Vitamin B12 Abz728 [place] still necessary (Yes/No): Line still necessary (Yes/No): VitalsTmp(F)[id number] 07/11 07:[id number]/[id number]--- 07/11 04:[id number]/268977--- 07/10 23:[id number]/[id number]--- 07/10 19:0398.063506/244911--- 07/10 15:2898.498643/[id number]--- 24 Hr Tmax: 98.6F (37.00c) at 07/11 04:0 9Vital Signs are the last 5 in the past 48 hours. DateWt(kg)Wt(lb)Ht(cm)Ht(in)Method 07/09 (initial) 87.73 [id number] 64.00 Estimated I&ORecordInOutBal 06/1924hr Tot 646 0 646 06/1824hr Tot 0 0 0 Medications (22) Active Scheduled Meds (7): 07/10/18 aspirin (aspirin 325 mg tablet) 325 mg PO Daily 07/10/18 atorvastatin (Lipitor) 20 mg PO Bedtime 07/10/18 carvedilol 25 mg PO BID 07/10/18 cloNIDine (cloNIDine 0.1 mg ora l tablet) 0.1 mg PO BID 07/10/18 hydrALAZINE 75 mg PO Q6H 07/10/18 isosorbide mononitrate (Imdur) 60 mg PO QAM 07/11/18 sodium chloride (Saline Flush 0 .9%) 10 ml IVP Q12H Unscheduled Meds: None PRN Meds (13): 07/09/18 Dextrose 50% in Water IV (Dextr ose 50% Syringe) 12.5 gm IVP PRN 07/09/18 Dextrose 50% in Water IV (Dextr ose 50% Syringe) 25 gm IVP PRN 07/11/18 Sodium Chloride 0.9% IV (NS (Raj endy) IV) 25 mL IVPB PRN 07/09/18 acetaminophen 650 mg PO Q4H 07/10/18 diphenhydrAMINE topical (Benadr yl Maximum Strength 2% topical cream) 1 appl TOP QID 07/10/18 fluticasone nasal (Flonase 0.05 mg/inh nasal spray) 2 spray Each Affected Nostril Daily 07/09/18 glucagon 1 mg IM PRN 07/10/18 hydrALAZINE 10 mg IVP Q6H 07/10/18 magnesium hydroxide (Milk of Marlee zaldivar) 30 mL PO Bedtime 07/09/18 ondansetron 4 mg IVP Q6H 07/10/18 sodium chloride nasal ([place] Sali ne Nasal) 2 spray NASAL PRN 07/11/18 sodium chloride (Saline Flush 0 .9%) 10 ml IVP PRN 07/10/18 tramadol 50 mg PO Q6H One Time Meds (1): 07/10/18 (Completed) LORazepam (Ativan) 0.5 mg PO ONCE Continuous Infusions (1): 07/09/18 Sodium Chloride 0.9% IV 1,000 m L (normal saline 0.9% IV 1,000 mL) 1,000 mL 75 ml/hr ASSESSMENT 1. Right basal ganglia stroke with mild left-sided weakness clinically stable 2. Hypertension 3. Tobacco use 4. Dyslipidemia PLAN & TREATMENT 1. PT OT should be continued 2. Continue statin 3. Fall precautions 4. Echocardiogram report was discussed with the patient shows EF of 50-55% no thrombus
--- OUTSIDE RECORDS SUMMARY | 2020-01-04 03:30 | XMS REPORT | Continuity of Care Document ---
Author Author Ugo Yuanpei TranslationBRYNN [employer] Address Unknown Phone Unavailable Care Team Providers Care Biomedical Engineering Technician Name Role Phone [employer] Unavailable Un available Problems Problem Status Onset Date Classification Date Reported Comments Source Dizziness and giddiness 05/01/2019 05/03/2019 [facility] Essential (primary) hypertension 05/01/2019 05/03/2019 [facility] Vomiting, unspecified 05/01/2019 05/03/2019 [facility] Other specified symptoms and signs invol ving the circulatory and respiratory systems 05/01/2019 05/03/2019 [facility] Cough 05/0105/03/2019 [facility] DIZZINESS Active 04/30/2019 [facility] CHEST PAIN Active 08/25/2018 [facility] Cerebral infarction, unspecified 07/20/2018 01/28/2019 [facility] HYPERTENSION Active 07/09/2018 [facility] LEFT SIDED WEAKNESS Active 07/09/2018 [facility] Hypertensive urgency 01/28/2019 [facility] Hypertensive heart and chronic kidney di sease with heart failure and stage 1 through stage 4 chronic kidney disease, or unspecified chronic kidney disease 01/28/2019 [facility] Heart failure, unspecified 03/15/2019 [facility] Chronic kidney disease, unspecified 01/28/2019 [facility] Acute kidney failure, unspecified 01/28/2019 [facility] Hyperlipidemia, unspecified 01/28/2019 [facility] Nicotine dependence, cigarettes, uncomplicated 01/28/2019 [facility] Weakness 01/28/2019 [facility] Other chest pain 01/28/2019 [facility] Other specified disorders of brain 01/28/2019 [facility] Personal history of transient ischemic a ttack (TIA), and cerebral infarction without residual deficits 03/15/2019 [facility] Dysarthria and anarthria 01/28/2019 [facility] Other lack of coordination 01/28/2019 [facility] Schizophrenia, unspecified 01/28/2019 [facility] Chest pain, unspecified 03/15/2019 [facility] Hypertensive heart disease with heart failure 03/15/2019 [facility] USP (current) use of aspirin 03/15/2019 [facility] Other skilled nursing (current) drug therapy 03/15/2019 [facility] Allergy status to narcotic agent status 03/15/2019 [facility] Type 2 diabetes mellitus without complications 02/10/2019 [facility] Anxiety disorder, unspecified 02/10/2019 [facility] Dependence on wheelchair 02/10/2019 [facility] Medications Medication Details Route Status Patient Instructions Ordering Provider Order Date Source Clonidine 0.1 mg, Route: PO, D rug form: TAB, ONCE, Dosing Weight 90.909, kg, Priority: STAT, Start date: 04/30/19 23:56:00 CDT, Stop date: 04/30/19 23:56:00 CDT No Longer Active 05/01/2019 [facility] Hydralazine Hydrochloride 50 MG Oral Tablet 50 mg, 1 tab, Route: PO, Drug form: TAB, ONCE, Dosing Weight 90.909, kg, Start date: 04/30/19 23:56:00 CDT, Stop date: 04/30/19 23:56:00 CDT No Longer Active 05/01/2019 [facility] Potassium Chloride 40 mEq, Rou te: PO, Drug form: ERTAB, ONCE, Dosing Weight 90.909, kg, Priority: STAT, Start date: 04/30/19 22:53:00 CDT, Stop date: 04/30/19 22:53:00 CDT Inactive 05/01/2019 [facility] Saline Flush 0.9% Notes: (Same as: BD Posiflush) No Longer Active 05/01/2019 [facility] Sodium Chloride 0.9% (Bolus) IV 1,000 mL, 1000 ml/hr, Infuse Over: 1 hr, Route: IV, 1,000, Drug form: INJ, ONCE, Priority: STAT, Dosing Weight 90.909 kg, Start date: 04/30/19 20:50:00 CDT, Stop date: 04/30/19 20:50:00 CDT, 0 Inactive 05/01/2019 [facility] carvedilol Notes: Give with fo od. (Same As: Coreg) Inactive 08/26/2018 [facility] Hydralazine 25 mg, Route: PO, ONCE, Dosing Weight 86.364, kg, Start date: 08/25/18 19:47:00 SUPERVISOR TYPE PHOTOGRAPHY, Stop date: 08/25/18 19:47:00 SUPERVISOR TYPE PHOTOGRAPHY Inactive 08/26/2018 [facility] Labetalol 10 mg, Route: IV, ON CE, Dosing Weight 86.364, kg, Start date: 08/25/18 19:47:00 SUPERVISOR TYPE PHOTOGRAPHY, Stop date: 08/25/18 19:47:00 SUPERVISOR TYPE PHOTOGRAPHY Inactive 08/26/2018 [facility] Saline Flush 0.9% Notes: prese rvative free. Inactive 08/25/2018 [facility] Docusate Sodium 100 MG Oral Capsule 100 mg = 1 cap, PO, Daily, PRN Constipation, # 30 cap, 0 Refill(s) Active 07/24/2018 [facility] Senna-gen 8.6 mg oral tablet 1 7.2 mg = 2 tab, PO, Bedtime, PRN for constipation, X 50 day, # 100 tab, 0 Refill(s) No Longer Active 07/24/2018 [facility] Saline Flush 0.9% Notes: Same as: BD Posiflush Sterile Inactive 07/24/2018 [facility] Imdur Notes: (Same as:Imdur) " Do Not Crush" Take on empty stomach/ full glass of water. Do not crush No Longer Active 07/12/2018 [facility] Saline Flush 0.9% Notes: (Same as: BD Posiflush) Inactive 07/12/2018 [facility] isosorbide mononitrate 30 mg oral tablet , extended release 90 mg = 3 tab, PO, QAM, # 90 tab, 0 Refi ll(s), Pharmacy: [facility] Active 07/11/2018 [facility] Hydralazine Hydrochloride 25 MG Oral Tablet 75 mg = 3 tab, PO, Q6H, # 360 tab, 0 Refill(s), Pharmacy: [facility] Active 07/11/2018 [facility] carvedilol 25 mg oral tablet 2 5 mg = 1 tab, PO, BID, # 60 tab, 0 Refill(s), Pharmacy: [facility] Active 07/11/2018 [facility] Imdur Notes: (Same as:Imdur) " Do Not Crush" Take on empty stomach/ full glass of water. Do not crush No Longer Active 07/11/2018 [facility] Saline Flush 0.9% Notes: (Same as: BD Posiflush) Inactive 07/11/2018 [facility] NS (Bolus) IV 25 mL, Route: IV PB, mL, Drug form: INJ, PRN, Dosing Weight 87.727 kg, Start date: 07/11/18 9:41:00 SUPERVISOR TYPE PHOTOGRAPHY, Duration: 30 day, Stop date: 08/10/18 9:40:00 SUPERVISOR TYPE PHOTOGRAPHY, PRN Line Flush Inactive 07/11/2018 [facility] Fluticasone propionate 0.05 MG/ACTUAT Me tered Dose Nasal Cascade [Flonase] Notes: (Same as: Flonase) No Longer Active 07/11/2018 [facility] Tramadol Notes: Not to exceed 400mg/day. (Same As: Ultram) No Longer Active 07/11/2018 [facility] Milk of Magnesia Notes: (Same as: Milk of Magnesia, MOM) No Longer Active 07/11/2018 [facility] Benadryl Maximum Strength 2% topical cream 1 appl, Route: TOP, QID, Drug form: CRM, PRN Itching, Start date: 07/10/18 21:04:00 SUPERVISOR TYPE PHOTOGRAPHY, Duration: 30 day, Stop date: 08/09/18 21:03:00 SUPERVISOR TYPE PHOTOGRAPHY No Longer Active 07/11/2018 [facility] Lipitor Notes: (Same As: Lipit or) No Longer Active 07/11/2018 [facility] Hydralazine Notes: (Same as: A presoline) May interfere w/enteral feedings Take With Food. No Longer Active 07/10/2018 [facility] Aspirin 325 MG Oral Tablet Not es: Take with food. No Longer Active 07/10/2018 [facility] Imdur Notes: (Same as:Imdur) " Do Not Crush" Take on empty stomach/ full glass of water. Do not crush No Longer Active 07/10/2018 [facility] carvedilol Notes: Give with fo od. (Same As: Coreg) No Longer Active 07/10/2018 [facility] Clonidine Hydrochloride 0.1 MG Oral Tablet Notes: (Same As: Catapres) No Longer Active 07/10/2018 [facility] Sodium Chloride 0.111 MEQ/ML Nasal Solut ion [[place] Saline Nasal] Notes: (Same as: [place] Nasal Cascade). No Longer Active 07/10/2018 [facility] carvedilol 25 mg oral tablet 2 5 mg = 1 tab, PO, BID, # 60 tab, 0 Refill(s) No Longer Active 07/10/2018 [facility] Ativan Notes: (Same as: Ativan) Inactive 07/10/2018 [facility] Klonopin 1 mg, PO, PRN, as nee ded every 8 hrs, 0 Refill(s) Active 07/10/2018 [facility] atorvastatin 20 MG Oral Tablet [Lipitor] 20 mg = 1 tab, PO, Bedtime, # 30 tab, 0 Refill(s) Active 07/10/2018 [facility] Clonidine Hydrochloride 0.1 MG Oral Tablet 0.1 mg = 1 tab, PO, BID, # 90 tab, 3 Refill(s) Active 07/10/2018 [facility] Chlorthalidone 25 MG Oral Tablet 25 mg = 1 tab, PO, Daily, # 30 tab, 0 Refill(s) N o Longer Active 07/10/2018 [facility] Tears Plus ophthalmic drops 1-2 gtts, BOTH EYES, BID, 0 Refill(s) Active 07/10/2018 [facility] Imdur 60 mg, PO, QAM, 0 Refill (s) No Longer Active 07/10/2018 [facility] Hydralazine 75 mg, PO, QID, 0 Refill(s) No Longer Active 07/10/2018 [facility] Aspirin 325 MG Oral Tablet 325 mg = 1 tab, PO, Daily, # 30 tab, 0 Refill(s) Active 07/10/2018 [facility] Sodium Chloride 0.111 MEQ/ML Nasal Solut ion [[place] Saline Nasal] 2 drp, NASAL, PRN, PRN Nasal dryness, # 30 mL, 4 Refill(s), 2 sprays in each nostril for nasal congestion/allergies Active 07/10/2018 [facility] Hydralazine Notes: (Same as: A presoline) Push over 5 minutes No Longer Active 07/10/2018 [facility] normal saline 0.9% IV 1,000 mL 1,000 mL, Rate: 75 ml/hr, Infuse over: 13.3 hr, Route: IV, Dosing Weight 87.727 kg, Total Volume: 1,000, Start date: 07/09/18 23:47:00 SUPERVISOR TYPE PHOTOGRAPHY, Duration: 30 day, Stop date: 08/08/18 23:46:00 SUPERVISOR TYPE PHOTOGRAPHY, 2.02, m2 No Longer Active 07/10/2018 [facility] Glucagon 1 mg, Route: IM, Drug form: PDR/INJ, PRN, Dosing Weight 87.727, kg, PRN Blood Glucose Results, Start date: 07/09/18 23:45:00 SUPERVISOR TYPE PHOTOGRAPHY, Duration: 30 day, Stop date: 08/08/18 23:44:00 SUPERVISOR TYPE PHOTOGRAPHY No Longer Active 07/10/2018 [facility] Dextrose 50% Syringe 12.5 gm, 25 mL, Route: IVP, Drug Form: INJ, Dosing Weight 87.727, kg, PRN, PRN Blood Glucose Results, Start date: 07/09/18 23:45:00 SUPERVISOR TYPE PHOTOGRAPHY, Duration: 30 day, Stop date: 08/08/18 23:44:00 SUPERVISOR TYPE PHOTOGRAPHY No Longer Active 07/10/2018 [facility] Acetaminophen Notes: Do not ex ceed 4 gm/day. (Same as: Tylenol) No Longer Active 07/10/2018 [facility] Ondansetron Notes: (Same as: Manjinder talavera) MEDICATION WASTE Product Size: 4 mg Product Wasted: ___ mg No Longer Active 07/10/2018 [facility] Aspirin 81 MG Chewable Tablet Notes: Take with food. Inactive 07/10/2018 [facility] Hydralazine Notes: (Same as: A presoline) Push over 5 minutes Inactive 07/10/2018 [facility] Saline Flush 0.9% Notes: (Same as: BD Posiflush) No Longer Active 07/09/2018 [facility] Allergies, Adverse Reactions, Alerts Substance Category Reaction Severity Reaction type Status Date Reported Comments Source codeine Assertion Drug allergy Active [facility] Immunizations No Data Provided for This Section Results Order Name Results Value Reference Range Date Interpretation Comments Source URINE AND STOOL UA Turbidity Clear (05/01/19 1:05 AM) Clear 05/01/2019 [facility] URINE AND STOOL UA pH 5.0 5.0 - 8.0 05/01/2019 [facility] URINE AND STOOL UA Protein Negative mg/dL Negative mg/dL 05/01/2019 [facility] URINE AND STOOL UA Glucose Negative mg/dL Negative mg/dL 05/01/[address] [facility] [address] URINE AND STOOL UA Ketones Negative mg/dL Negative mg/dL 05/01/2019 [facility] URINE AND STOOL UA Bili Negative *NA* (05/01/19 1:05 AM) Negative 05/01/2019 [facility] URINE AND STOOL UA Blood Negative (05/01/19 1:05 AM) Negative 05/01/2019 [facility] URINE AND STOOL UA Nitrite Negative (05/01/19 1:05 AM) Negative 05/01/2019 [facility] URINE AND STOOL UA Leuk Est Negative (05/01/19 1:05 AM) Negative 05/01/2019 [facility] URINE AND STOOL UA WBC <1 0 - 5 05/01/2019 [facility] URINE AND STOOL UA RBC 1 0 - 2 05/01/2019 [facility] URINE AND STOOL UA Sq Epi None Seen 05/01/2019 [facility] URINE AND STOOL UA Color Colorless 05/01/2019 [facility] URINE AND STOOL UA Spec Grav <=1.000 *NA* (05/01/19 1:05 AM) <=1.030 05/01/2019 [facility] URINE AND STOOL UA Urobilinogen <=1.0 mg/dL 0.1 - 1.0 05/01/2019 [facility] CARDIAC ENZYMES Total CK 114 12 - 191 05/01/2019 [facility] CARDIAC ENZYMES Troponin-I <0.02 0.00 - 0.40 05/01/2019 [facility] CARDIAC ENZYMES BNP 91 <=100 pg/mL 05/01/2019 [facility] CHEM PANEL Glucose Lvl 90 70 - 99 05/01/2019 [facility] CHEM PANEL BUN 20 7 - 22 05/01/2019 [facility] CHEM PANEL Creatinine Lvl 2.09 0.50 - 1.40 05/01/2019 [facility] CHEM PANEL Sodium Lvl 144 135 - 145 05/01/2019 [facility] CHEM PANEL Potassium Lvl 2.9 3.5 - 5.1 05/01/2019 Result Comment: Critical Result(s) floyd d to Alanna Dale at 04/30/2019 22:51 by hp. Read back OK. [facility] CHEM PANEL Chloride Lvl 107 95 - 109 05/01/2019 [facility] CHEM PANEL CO2 31 24 - 32 05/01/2019 [facility] CHEM PANEL AGAP 8.9 10.0 - 20.0 05/01/2019 [facility] CHEM PANEL Calcium Lvl 8.7 8.5 - 10.5 05/01/2019 [facility] CHEM PANEL B/C Ratio 10 6 - 25 05/01/2019 [facility] CHEM PANEL Total Protein 7.6 6.4 - 8.4 05/01/2019 [facility] CHEM PANEL Albumin Lvl 3.8 3.5 - 5.0 05/01/2019 [facility] CHEM PANEL Globulin 3.8 2.7 - 4.2 05/01/2019 [facility] CHEM PANEL A/G Ratio 1.0 0.7 - 1.6 05/01/2019 [facility] CHEM PANEL ALT 13 0 - 65 05/01/2019 [facility] CHEM PANEL AST 10 0 - 37 05/01/2019 [facility] CHEM PANEL Alk Phos 82 39 - 136 05/01/2019 [facility] CHEM PANEL Bili Total 0.4 0.2 - 1.3 05/01/2019 [facility] CHEM PANEL eGFR 30 05/01/2019 Result Comment: The eGFR is calculated using [...] should be multiplied by the estimated BMI. [facility] HEMATOLOGY Segs 60.7 45.0 - 75.0 05/01/2019 [facility] Lymphocytes 29.4 20.0 - 40.0 05/01/2019 [facility] Monocytes 7.1 2.0 - 12.0 05/01/2019 [facility] HEMATOLOGY Eosinophils 2.3 0.0 - 4.0 05/01/2019 [facility] HEMATOLOGY Basophils 0.5 0.0 - 1.0 05/01/2019 [facility] HEMATOLOGY Neutrophils # 2.7 1.5 - 8.1 05/01/2019 [facility] HEMATOLOGY Lymphocytes # 1.3 1.0 - 5.5 05/01/2019 [facility] HEMATOLOGY Monocytes # 0.3 0.0 - 0.8 05/01/2019 [facility] HEMATOLOGY Eosinophils # 0.1 0.0 - 0.5 05/01/2019 [facility] WBC 4.4 3.7 - 10.4 05/01/2019 [facility] RBC 3.69 4.20 - 5.40 05/01/2019 [facility] HEMATOLOGY Hgb 11.5 12.0 - 16.0 05/01/2019 [facility] HEMATOLOGY Hct 35.2 36.0 - 48.0 05/01/2019 [facility] HEMATOLOGY MCV 95.4 80.0 - 98.0 05/01/2019 [facility] HEMATOLOGY MCH 31.2 27.0 - 31.0 05/01/2019 [facility] HEMATOLOGY MCHC 32.7 32.0 - 36.0 05/01/2019 [facility] HEMATOLOGY RDW 14.3 11.5 - 14.5 05/01/2019 [facility] HEMATOLOGY Platelet 190 133 - 450 05/01/2019 [facility] HEMATOLOGY MPV 8.1 7.4 - 10.4 05/01/2019 [facility] URINE AND STOOL UA Nitrite Negative (08/25/18 5:27 PM) Negative 08/25/2018 [facility] URINE AND STOOL UA Bili Negative *NA* (08/25/18 5:27 PM) Negative 08/25/2018 [facility] URINE AND STOOL UA Leuk Est Negative (08/25/18 5:27 PM) Negative 08/25/2018 [facility] URINE AND STOOL UA Sq Epi Occasional /LPF Few /LPF 08/25/2018 [facility] URINE AND STOOL UA RBC 1 0 - 2 08/25/2018 [facility] URINE AND STOOL UA Bacteria Occasional /HPF None Seen /HPF 08/25/2018 [facility] URINE AND STOOL UA WBC 1 0 - 5 08/25/2018 [facility] URINE AND STOOL UA Urobilinogen <=1.0 mg/dL 0.1 - 1.0 08/25/2018 [facility] URINE AND STOOL UA Blood Negative (08/25/18 5:27 PM) Negative 08/25/2018 [facility] URINE AND STOOL UA Turbidity Clear (08/25/18 5:27 PM) Clear 08/25/2018 [facility] URINE AND STOOL UA Color Ltyellow 08/25/2018 [facility] URINE AND STOOL UA pH 5.0 5.0 - 8.0 08/25/2018 [facility] URINE AND STOOL UA Spec Grav 1.009 <=1.030 08/25/2018 [facility] URINE AND STOOL UA Ketones Negative *NA* (08/25/18 5:27 PM) Negative 08/25/2018 [facility] URINE AND STOOL UA Glucose Negative *NA* (08/25/18 5:27 PM) Negative 08/25/2018 [facility] URINE AND STOOL UA Protein Negative (08/25/18 5:27 PM) Negative 08/25/2018 [facility] CARDIAC ENZYMES Total CK 83 12 - 191 08/25/2018 [facility] CARDIAC ENZYMES Troponin-I <0.02 0.00 - 0.40 08/25/2018 [facility] CHEM PANEL eGFR 28 08/25/2018 Result Comment: The eGFR is calculated [...] should be multiplied by the estimated BMI. [facility] CHEM PANEL BUN 45 7 - 22 08/25/2018 [facility] CHEM PANEL Creatinine Lvl 2.25 0.50 - 1.40 08/25/2018 [facility] CHEM PANEL Glucose Lvl 87 70 - 99 08/25/2018 [facility] CHEM PANEL Sodium Lvl 141 135 - 145 08/25/2018 [facility] CHEM PANEL Chloride Lvl 107 95 - 109 08/25/2018 [facility] CHEM PANEL CO2 32 24 - 32 08/25/2018 [facility] CHEM PANEL Potassium Lvl 3.4 3.5 - 5.1 08/25/2018 [facility] CHEM PANEL Calcium Lvl 9.1 8.5 - 10.5 08/25/2018 [facility] CHEM PANEL Total Protein 7.4 6.4 - 8.4 08/25/2018 [facility] CHEM PANEL ALT 17 0 - 65 08/25/2018 [facility] CHEM PANEL AST 22 0 - 37 08/25/2018 [facility] CHEM PANEL Albumin Lvl 3.5 3.5 - 5.0 08/25/2018 [facility] CHEM PANEL Alk Phos 79 39 - 136 08/25/2018 [facility] CHEM PANEL Bili Total 0.2 0.2 - 1.3 08/25/2018 [facility] CHEM PANEL Globulin 3.9 2.7 - 4.2 08/25/2018 [facility] CHEM PANEL A/G Ratio 0.9 0.7 - 1.6 08/25/2018 [facility] CHEM PANEL B/C Ratio 20 6 - 25 08/25/2018 [facility] CHEM PANEL AGAP 5.4 10.0 - 20.0 08/25/2018 [facility] WBC 5.6 3.7 - 10.4 08/25/2018 [facility] Hgb 12.7 12.0 - 16.0 08/25/2018 [facility] RBC 4.21 4.20 - 5.40 08/25/2018 [facility] Hct 38.5 36.0 - 48.0 08/25/2018 [facility] MPV 9.9 7.4 - 10.4 08/25/2018 [facility] MCV 91.4 80.0 - 98.0 08/25/2018 [facility] MCHC 33.0 32.0 - 36.0 08/25/2018 [facility] MCH 30.2 27.0 - 31.0 08/25/2018 [facility] Platelet 169 133 - 450 08/25/2018 [facility] RDW 14.4 11.5 - 14.5 08/25/2018 [facility] INR 0.89 0.85 - 1.17 08/25/2018 [facility] HEMATOLOGY PT 11.9 12.0 - 14.7 08/25/2018 [facility] PTT 40.0 22.9 - 35.8 08/25/2018 [facility] Segs 56.9 45.0 - 75.0 08/25/2018 [facility] Monocytes 6.5 2.0 - 12.0 08/25/2018 [facility] Lymphocytes 33.8 20.0 - 40.0 08/25/2018 [facility] Eosinophils # 0.1 0.0 - 0.5 08/25/2018 [facility] HEMATOLOGY Eosinophils 1.9 0.0 - 4.0 08/25/2018 [facility] Lymphocytes # 1.9 1.0 - 5.5 08/25/2018 [facility] Neutrophils # 3.2 1.5 - 8.1 08/25/2018 [facility] Monocytes # 0.4 0.0 - 0.8 08/25/2018 [facility] HEMATOLOGY Basophils 0.9 0.0 - 1.0 08/25/2018 [facility] CARDIAC ENZYMES Total CK 99 12 - 191 07/24/2018 [facility] CARDIAC ENZYMES BNP 60 <=100 pg/mL 07/24/2018 [facility] CARDIAC ENZYMES Troponin-I <0.02 0.00 - 0.40 07/24/2018 [facility] CHEM PANEL Phosphorus 3.1 2.5 - 4.5 07/24/2018 [facility] CHEM PANEL Magnesium Lvl 2.2 1.8 - 2.4 07/24/2018 [facility] CHEM PANEL Lipase Lvl 140 73 - 393 07/24/2018 [facility] ELECTROLYTES AGAP 14.5 10.0 - 20.0 07/24/2018 [facility] ELECTROLYTES Globulin 3.7 2.7 - 4.2 07/24/2018 [facility] ELECTROLYTES A/G Ratio 1.0 0.7 - 1.6 07/24/2018 [facility] ELECTROLYTES B/C Ratio 16 6 - 25 07/24/2018 [facility] ELECTROLYTES eGFR 29 07/24/2018 Result Comment: The eGFR is calculated using [...] should be multiplied by the estimated BMI. [facility] ELECTROLYTES Albumin Lvl 3.6 3.5 - 5.0 07/24/2018 [facility] ELECTROLYTES Alk Phos 75 39 - 136 07/24/2018 [facility] ELECTROLYTES Bili Total 0.4 0.2 - 1.3 07/24/2018 [facility] ELECTROLYTES ALT 16 0 - 65 07/24/2018 [facility] ELECTROLYTES AST 17 0 - 37 07/24/2018 [facility] ELECTROLYTES BUN 35 7 - 22 07/24/2018 [facility] ELECTROLYTES Glucose Lvl 93 70 - 99 07/24/2018 [facility] ELECTROLYTES Potassium Lvl 3.5 3.5 - 5.1 07/24/2018 [facility] ELECTROLYTES Sodium Lvl 145 135 - 145 07/24/2018 [facility] ELECTROLYTES Creatinine Lvl 2.1 9 0.50 - 1.40 07/24/2018 [facility] ELECTROLYTES Calcium Lvl 8.4 8.5 - 10.5 07/24/2018 [facility] ELECTROLYTES Chloride Lvl 108 95 - 109 07/24/2018 [facility] ELECTROLYTES Total Protein 7.3 6.4 - 8.4 07/24/2018 [facility] ELECTROLYTES CO2 26 24 - 32 07/24/2018 [facility] HEMATOLOGY Monocytes # 0.2 0.0 - 0.8 07/24/2018 [facility] HEMATOLOGY Eosinophils # 0.1 0.0 - 0.5 07/24/2018 [facility] HEMATOLOGY Basophils 1.0 0.0 - 1.0 07/24/2018 [facility] HEMATOLOGY Lymphocytes # 1.2 1.0 - 5.5 07/24/2018 [facility] HEMATOLOGY Lymphocytes 37.0 20.0 - 40.0 07/24/2018 [facility] HEMATOLOGY Segs 53.9 45.0 - 75.0 07/24/2018 [facility] HEMATOLOGY Neutrophils # 1.8 1.5 - 8.1 07/24/2018 [facility] HEMATOLOGY Eosinophils 1.6 0.0 - 4.0 07/24/2018 [facility] HEMATOLOGY Monocytes 6.5 2.0 - 12.0 07/24/2018 [facility] HEMATOLOGY Platelet 181 133 - 450 07/24/2018 [facility] HEMATOLOGY WBC 3.4 3.7 - 10.4 07/24/2018 [facility] MCHC 33.0 32.0 - 36.0 07/24/2018 [facility] HEMATOLOGY RDW 13.4 11.5 - 14.5 07/24/2018 [facility] HEMATOLOGY MPV 8.5 7.4 - 10.4 07/24/2018 [facility] HEMATOLOGY Hct 36.4 36.0 - 48.0 07/24/2018 [facility] HEMATOLOGY MCV 92.2 80.0 - 98.0 07/24/2018 [facility] HEMATOLOGY RBC 3.95 4.20 - 5.40 07/24/2018 [facility] HEMATOLOGY Hgb 12.0 12.0 - 16.0 07/24/2018 [facility] HEMATOLOGY MCH 30.4 27.0 - 31.0 07/24/2018 [facility] HEMATOLOGY INR 1.01 0.85 - 1.17 07/24/2018 [facility] HEMATOLOGY PT 13.1 12.0 - 14.7 07/24/2018 [facility] ELECTROLYTES CO2 25 24 - 32 07/11/2018 [facility] ELECTROLYTES Calcium Lvl 8.1 8.5 - 10.5 07/11/2018 [facility] ELECTROLYTES AGAP 12.0 10.0 - 20.0 07/11/2018 [facility] ELECTROLYTES eGFR 33 07/11/2018 Result Comment: The eGFR is calculated using [...] should be multiplied by the estimated BMI. [facility] ELECTROLYTES Chloride Lvl 111 95 - 109 07/11/2018 [facility] [facility] BUN 28 7 - 22 07/11/2018 [facility] ELECTROLYTES Creatinine Lvl 1.9 8 0.50 - 1.40 07/11/2018 [facility] ELECTROLYTES Sodium Lvl 144 135 - 145 07/11/2018 [facility] ELECTROLYTES Potassium Lvl 4.0 3.5 - 5.1 07/11/2018 [facility] ELECTROLYTES Glucose Lvl 62 70 - 99 07/11/2018 [facility] LIPIDS VLDL 29 07/11/2018 [facility] LIPIDS LDL (Calculated) 77 <=99 mg/dL 07/11/2018 [facility] LIPIDS Chol 148 <=199 mg/dL 07/11/2018 [facility] LIPIDS HDL 42 >=61 mg/dL 07/11/2018 [facility] LIPIDS Trig 143 <=149 mg/dL 07/11/2018 [facility] LIPIDS CHD Risk 3.52 3.90 - 5.80 07/11/2018 [facility] SPECIAL CHEMISTRY Hgb A1C 4.8 <=5.6 % 07/11/2018 [facility] ANEMIA STUDY Vitamin B12 Lvl 652 254 - 1320 07/10/2018 [facility] CHEM PANEL Magnesium Lvl 2.1 1.8 - 2.4 07/10/2018 [facility] ELECTROLYTES AGAP 11.8 10.0 - 20.0 07/10/2018 [facility] ELECTROLYTES eGFR 34 07/10/2018 Result Comment: The eGFR is calculated using [...] should be multiplied by the estimated BMI. [facility] ELECTROLYTES Calcium Lvl 8.2 8.5 - 10.5 07/10/2018 [facility] ELECTROLYTES Potassium Lvl 3.8 3.5 - 5.1 07/10/2018 [facility] ELECTROLYTES CO2 23 24 - 32 07/10/2018 [facility] ELECTROLYTES BUN 29 7 - 22 07/10/2018 [facility] ELECTROLYTES Chloride Lvl 113 95 - 109 07/10/2018 [facility] ELECTROLYTES Creatinine Lvl 1.9 2 0.50 - 1.40 07/10/2018 [facility] ELECTROLYTES Sodium Lvl 144 135 - 145 07/10/2018 [facility] ELECTROLYTES Glucose Lvl 84 70 - 99 07/10/2018 [facility] HEMATOLOGY Lymphocytes 35.6 20.0 - 40.0 07/10/2018 [facility] HEMATOLOGY Monocytes 10.7 2.0 - 12.0 07/10/2018 [facility] HEMATOLOGY Eosinophils 1.8 0.0 - 4.0 07/10/2018 [facility] HEMATOLOGY Basophils 0.7 0.0 - 1.0 07/10/2018 [facility] HEMATOLOGY Lymphocytes # 1.3 1.0 - 5.5 07/10/2018 [facility] HEMATOLOGY Monocytes # 0.4 0.0 - 0.8 07/10/2018 [facility] Neutrophils # 1.8 1.5 - 8.1 07/10/2018 [facility] Eosinophils # 0.1 0.0 - 0.5 07/10/2018 [facility] Segs 51.2 45.0 - 75.0 07/10/2018 [facility] MCV 93.7 80.0 - 98.0 07/10/2018 [facility] MCH 30.7 27.0 - 31.0 07/10/2018 [facility] RDW 13.8 11.5 - 14.5 07/10/2018 [facility] Platelet 169 133 - 450 07/10/2018 [facility] MCHC 32.7 32.0 - 36.0 07/10/2018 [facility] MPV 9.2 7.4 - 10.4 07/10/2018 [facility] WBC 3.6 3.7 - 10.4 07/10/2018 [facility] RBC 3.85 4.20 - 5.40 07/10/2018 [facility] Hgb 11.8 12.0 - 16.0 07/10/2018 [facility] Hct 36.1 36.0 - 48.0 07/10/2018 [facility] CARDIAC ENZYMES BNP 96 <=100 pg/mL 07/09/2018 [facility] CARDIAC ENZYMES Troponin-I <0.02 0.00 - 0.40 07/09/2018 [facility] CARDIAC ENZYMES Total CK 94 12 - 191 07/09/2018 [facility] CHEM PANEL B/C Ratio 13 6 - 25 07/09/2018 [facility] CHEM PANEL A/G Ratio 1.0 0.7 - 1.6 07/09/2018 [facility] CHEM PANEL Globulin 3.9 2.7 - 4.2 07/09/2018 [facility] CHEM PANEL AGAP 12.9 10.0 - 20.0 07/09/2018 [facility] CHEM PANEL eGFR 28 07/09/2018 Result Comment: The eGFR is calculated using [...] should be multiplied by the estimated BMI. [facility] CHEM PANEL Glucose Lvl 86 70 - 99 07/09/2018 [facility] CHEM PANEL Chloride Lvl 107 95 - 109 07/09/2018 [facility] CHEM PANEL CO2 27 24 - 32 07/09/2018 [facility] CHEM PANEL Potassium Lvl 3.9 3.5 - 5.1 07/09/2018 [facility] CHEM PANEL BUN 29 7 - 22 07/09/2018 [facility] CHEM PANEL Sodium Lvl 143 135 - 145 07/09/2018 [facility] CHEM PANEL Creatinine Lvl 2.23 0.50 - 1.40 07/09/2018 [facility] CHEM PANEL AST 10 0 - 37 07/09/2018 [facility] CHEM PANEL ALT 15 0 - 65 07/09/2018 [facility] CHEM PANEL Total Protein 7.7 6.4 - 8.4 07/09/2018 [facility] CHEM PANEL Calcium Lvl 9.0 8.5 - 10.5 07/09/2018 [facility] CHEM PANEL Albumin Lvl 3.8 3.5 - 5.0 07/09/2018 [facility] CHEM PANEL Alk Phos 86 39 - 136 07/09/2018 [facility] CHEM PANEL Bili Total 0.4 0.2 - 1.3 07/09/2018 [facility] CHEM PANEL Lactic Acid Lvl 0.9 0.5 - 2.2 07/09/2018 [facility] HEMATOLOGY Monocytes # 0.2 0.0 - 0.8 07/09/2018 [facility] HEMATOLOGY Eosinophils # 0.1 0.0 - 0.5 07/09/2018 [facility] HEMATOLOGY Basophils 0.8 0.0 - 1.0 07/09/2018 [facility] HEMATOLOGY Neutrophils # 1.9 1.5 - 8.1 07/09/2018 [facility] HEMATOLOGY Lymphocytes # 1.3 1.0 - 5.5 07/09/2018 [facility] HEMATOLOGY Eosinophils 1.7 0.0 - 4.0 07/09/2018 [facility] HEMATOLOGY Monocytes 7.0 2.0 - 12.0 07/09/2018 [facility] HEMATOLOGY Lymphocytes 35.8 20.0 - 40.0 07/09/2018 [facility] Segs 54.7 45.0 - 75.0 07/09/2018 [facility] MPV 9.2 7.4 - 10.4 07/09/2018 [facility] MCH 30.0 27.0 - 31.0 07/09/2018 [facility] MCHC 32.3 32.0 - 36.0 07/09/2018 [facility] RDW 14.0 11.5 - 14.5 07/09/2018 [facility] Platelet 189 133 - 450 07/09/2018 [facility] Hct 38.2 36.0 - 48.0 07/09/2018 [facility] Hgb 12.4 12.0 - 16.0 07/09/2018 [facility] MCV 92.9 80.0 - 98.0 07/09/2018 [facility] RBC 4.12 4.20 - 5.40 07/09/2018 [facility] WBC 3.5 3.7 - 10.4 07/09/2018 [facility] INR 0.98 0.85 - 1.17 07/09/2018 [facility] PT 12.8 12.0 - 14.7 07/09/2018 [facility] PTT 50.7 22.9 - 35.8 07/09/2018 [facility] Pathology Reports No Data Provided for This Section Diagnostic Reports Report Value Date Source Chest 1view DX Clinical Indica tion: - weakness; Comparison: None Technique: X-ray chest frontal projection FINDINGS: There is no consolidation, pleural effusion or pneumothorax. The heart is normal in size. The mediastinum and francesco are unremarkable. The visualized bones and soft tissues are within normal limits. IMPRESSION: No chest radiographic evidence of acute cardiopulmonary disease. SL: [email or web address]-M 04/30/2019 [facility] Brain wo contrast CT Clinical Indication: - dizziness. Comparison: 08/25/2018. TECHNIQUE: CT images were obtained from the [...] control -Adjustment of the mA and/or kV accordin g to patient size -Use of iterative reconstruction techniq ue CT Radiation Dose DLP 1105.64 mGy-cm FINDINGS: BRAIN PARENCHYMA: There is generalized brain parenchymal atrophy related to the patient's age. Nonspecific periventricular white matter low attenuation areas are seen, suggestive of small vessel disease. No focal mass lesions on this noncontrast head CT. No mass effect, midline shift or edema. There are no intra-axial or extra-axial fluid collections, intraventricular or intraparenchymal hemorrhage. No low attenuation demarcating areas on this non- contrast CT to suggest subacute stroke. Encephalomalacia in the left cerebellum. Old lacunar infarcts are noted in the bilateral basal ganglia. VENTRICLES: The lateral ventricles, third and fourth ventricles appear unremarkable. The basilar cisterns are normal. ORBITS, MASTOIDS AND PARANASAL SINUSES: The visualized orbits are unremarkable. The visualized paranasal sinuses are unremarkable. The mastoid air cells are clear. SKULL: Status post left suboccipital craniectomy. If there is further concern for intracranial pathology or acute stroke, MRI of the brain may be performed for complete assessment. IMPRESSION: No acute infarct, intracranial hemorrhage or mass effect. Moderate microvascular white matter disease. Old lacunar infarcts in the bilateral basal ganglia. Encephalomalacia in the left cerebellum. Status post left suboccipital craniectomy. SL: BMUSTAFA-M 04/30/2019 [facility] Chest 1view DX PROCEDURE: Ches t Radiograph. Clinical Indication: Cough. Comparison: Chest radiograph 07/24/2018. FINDINGS: The chest shows normal lung volumes without interstitial or airspace opacities, pleural effusions or pneumothorax. There is subsegmental atelectasis at the left lung base. The cardiac silhouette is slightly enlarged and the thoracic aorta is tortuous. The osseous structures appear intact. IMPRESSION: 1. Cardiomegaly with minimal left lower lobe subsegmental atelectasis. SL:[id number] 08/25/2018 [facility] Brain wo contrast CT Clinical Indication: - [...] control -Adjustment of the mA and/or kV accordin g to patient size -Use of iterative reconstruction techni-marker ue CT Radiation Dose DLP 982.82 mGy-cm FINDINGS: [...] left cerebellum likely postsurgical. SL: BMUSTAFA-M 08/25/2018 [facility] Chest 1view DX EXAM: Chest 1vi ew DX DATE: 07/24/2018 12:30 SUPERVISOR TYPE PHOTOGRAPHY INDICATION: - chest pain COMPARISON: 07/09/2018. IMPRESSION: Stable prominent cardiac silhouette. Atherosclerotic thoracic aorta. No definite failure. No focal consolidation, significant pleural effusion or pneumothorax. SL: [id number] 07/24/2018 [facility] Carotid artery Doppler bilat US Patient Name: BRYNN DAVENPORT : 1965; Age: 52 years y/o Female MR: [id number] Study: Carotid artery Doppler bilat US 07/09/2018 11:47 PM SUPERVISOR TYPE PHOTOGRAPHY Ordering Physician: Florecita Brock MD Clinical Indication: [...] low, or Variable undetectable SL: [id number] 07/09/2018 [facility] Chest 1view DX Clinical indica tion: Chest pain Comparison: None. TECHNIQUE: AP chest FINDINGS: Lines, tubes and hardware: None. Lungs and pleura: The lungs are clear. There is a trace right pleural effusion. No appreciable pneumothorax. Heart and mediastinum: The cardiomediastinal silhouette is upper limits of normal with a mildly tortuous thoracic aorta. Bones: No acute bony abnormality is identified. IMPRESSION: Trace right pleural effusion. SL: ROBIN 07/09/2018 [facility] Brain wo contrast CT Clinical Indication: - [...] control -Adjustment of the mA and/or kV accordin g to patient size -Use of iterative reconstruction NERI ue CT Radiation Dose DLP 800 mGy-cm FINDINGS: [...] the left cerebellar hemisphere likely postsurgical. SL: BMUSTAFA-M 07/09/2018 [facility] Consultation Notes No Data Provided for This Section Discharge Summaries No Data Provided for This Section History and Physicals No Data Provided for This Section Vital Signs Vital Sign Value Date Comments Source Systolic (mm Hg) 150 05/01/2019 [facility] Diastolic (mm Hg) 90 05/01/2019 [facility] Temperature Oral (F) 97.5 F 05/01/2019 [facility] Heart Rate 75 05/01/2019 [facility] Respitory Rate 18 05/01/2019 [facility] Systolic (mm Hg) 193 05/01/2019 [facility] Diastolic (mm Hg) 106 05/01/2019 [facility] Temperature Oral (F) 98.2 F 05/01/2019 [facility] Heart Rate 79 05/01/2019 [facility] Respitory Rate 18 05/01/2019 [facility] Systolic (mm Hg) 191 05/01/2019 [facility] Diastolic (mm Hg) 104 05/01/2019 [facility] Heart Rate 73 05/01/2019 [facility] Respitory Rate 18 05/01/2019 [facility] Temperature Oral (F) 98.2 F 05/01/2019 [facility] Height 162.56 cm 05/01/2019 [facility] BMI Calculated 34.4 05/01/2019 [facility] Weight 90.909 05/01/2019 [facility] Respitory Rate 24 08/26/2018 [facility] Systolic (mm Hg) 138 08/26/2018 [facility] Diastolic (mm Hg) 87 08/26/2018 [facility] Respitory Rate 21 08/26/2018 [facility] Systolic (mm Hg) 160 08/26/2018 [facility] Diastolic (mm Hg) 86 08/26/2018 [facility] Respitory Rate 21 08/26/2018 [facility] Systolic (mm Hg) 150 08/26/2018 [facility] Diastolic (mm Hg) 80 08/26/2018 [facility] Temperature Oral (F) 98 F 08/26/2018 [facility] Weight 86.364 08/25/2018 [facility] BMI Calculated 32.68 08/25/2018 [facility] Height 162.56 cm 08/25/2018 [facility] Temperature Oral (F) 97.5 F 08/25/2018 [facility] Heart Rate 88 08/25/2018 [facility] Respitory Rate 15 07/24/2018 [facility] Systolic (mm Hg) 155 07/24/2018 [facility] Diastolic (mm Hg) 90 07/24/2018 [facility] Systolic (mm Hg) 165 07/24/2018 [facility] Diastolic (mm Hg) 98 07/24/2018 [facility] Respitory Rate 14 07/24/2018 [facility] Respitory Rate 13 07/24/2018 [facility] Systolic (mm Hg) 150 07/24/2018 [facility] Diastolic (mm Hg) 99 07/24/2018 [facility] Weight 90.909 07/24/2018 [facility] BMI Calculated 31.39 07/24/2018 [facility] Height 170.18 cm 07/24/2018 [facility] Temperature Oral (F) 98.1 F 07/24/2018 [facility] Heart Rate 64 07/24/2018 [facility] Systolic (mm Hg) 180 07/11/2018 [facility] Diastolic (mm Hg) 99 07/11/2018 [facility] Respitory Rate 18 07/11/2018 [facility] Heart Rate 66 07/11/2018 [facility] Temperature Oral (F) 97.9 F 07/11/2018 [facility] Systolic (mm Hg) 186 07/11/2018 [facility] Diastolic (mm Hg) 98 07/11/2018 [facility] Respitory Rate 17 07/11/2018 [facility] Heart Rate 70 07/11/2018 [facility] Temperature Oral (F) 97.9 F 07/11/2018 [facility] Heart Rate 65 07/11/2018 [facility] Temperature Oral (F) 98.6 F 07/11/2018 [facility] Systolic (mm Hg) 160 07/11/2018 [facility] Diastolic (mm Hg) 91 07/11/2018 [facility] Respitory Rate 18 07/11/2018 [facility] Height 162.56 cm 07/10/2018 [facility] Weight 87.727 07/10/2018 [facility] BMI Calculated 33.2 07/10/2018 [facility] Weight 87.727 07/09/2018 [facility] Height 162.56 cm 07/09/2018 [facility] BMI Calculated 33.2 07/09/2018 [facility] Encounters Location Location Details Encounter Type Encounter Number Reason For Visit Attending Provider ADM Date DC Date Status Source [facility] [id number] Paris Mendez 07/09/2018 07/11/2018 [facility] [id number] Mary Kateallison Enedina 07/24/2018 07/25/2018 [facility] [id number] Manuel Kasey 08/25/2018 08/26/2018 [facility] [id number] Jerod Lizett 05/01/2019 05/01/2019 [facility] Procedures No Data Provided for This Section Assessment and Plan Assessment and Plan Date Source Extracted from:Title: Clinical Document Author: Paris Mendez MD Date: 07/11/18 Discharge Summary Name: Brynn Davenport Admission Date: 07/09/18 Discharge Date: 07/11/18 [...] Ext: No edema or cyanosis Neuro: Oriented, teletype or varitype keyboard operator intact, 5/5 strength throughout, no sensory deficits Discharge therapy: DC home Medications: see med rec Diet: cardiac Activity: as tolerates Follow up: PCP 1 week, Dr. Pro 4 weeks Paris Mendez MD [facility] Hospitalist Extracted from:Title: Clinical Document Author: Lalo Gonzalez MD Date: 07/11/18 NEUROLOGY Progress Note - Daily [facility] Completed: , JUL 11, 2018, 09:43 by Lalo Gonzalez MD RM: CCDU - 10, SE BRYNN KING 52y (: 1965) F Attending: Paris Mendez MD Service: Internal Medicine Reason for Admission: LEFT SIDED WEAKNESS Working DRG: Code status: None Specified=FULL CODE Current diet: Isolation: No Isolation/Standard Precautions Allergies: codeine [...] touch pinprick equal Coordination mild dysmetria on [id number] on the left right side is normal Deep tendon reflexes trace Gait not tested 24hr Labs 07/11 0411 Hgb A1C 4.8 Glucose Lvl 62 L BUN 28 H Creatinine Lvl 1.98 H Sodium Lvl 144 Potassium Lvl 4.0 Chloride Lvl 111 H CO2 25 AGAP 12.0 Calcium Lvl 8.1 L eGFR 33 Chol 148 Trig 143 HDL 42 L LDL (Calculated) 77 VLDL 29 CHD Risk 3.52 L 07/10 0340 Vitamin B12 Lvl 652 [place] still necessary (Yes/No): Line still necessary (Yes/No): Vitals Tmp(F) Pulse BP RR SpO2 FIO2 07/11 07:31 97.9 70 186/98 1 7 96 --- 07/11 04:09 98.6 65 160/91 1 8 95 --- 07/10 23:30 97.8 59 147/79 1 8 94 --- 07/10 19:03 98.5 71 156/82 1 8 97 --- 07/10 15:28 98.6 70 158/84 1 8 97 --- 24 Hr Tmax: 98.6F (37.00c) at 07/11 04:0 9 Vital Signs are the last 5 in the past 48 hours. Date Wt(kg) Wt(lb) Ht(cm) Ht(in) Method 07/09 (initial) 87.73 193.00 162.56 64.00 Estimated I&O Record In Out Bal 07/10 24hr Tot 646 0 646 07/09 24hr Tot 0 0 0 Medications (22) Active [...] mg IVP Q6H 07/10/18 sodium chloride nasal ([place] Nasal) 2 spray NASAL PRN [...] Hypertension 3. Tobacco use 4. Dyslipidemia PLAN and TREATMENT 1. PT OT should be continued 2. Continue statin 3. Fall precautions 4. Echocardiogram report was discussed with the patient shows EF of 50-55% no thrombus 07/11/2018 [facility] Plan of Care No Data Provided for This Section Social History Social History Date Source Social History TypeResponse Substance Abuse Use: Past. Type: Cocaine. Recreational Drug Route: Intravenous. Smoking Status Never smoker; Exposure to Tobacco Smoke None; Cigarette Smoking Last 365 Days No; Reg Smoking Cessation Counseling No entered on: 05/01/19 07/24/2018 [facility] Family History No Data Provided for This Section Advance Directives No Data Provided for This Section Functional Status No Data Provided for This Section
--- OUTSIDE RECORDS SUMMARY | 2020-01-04 03:30 | XMS REPORT | Summary of Care ---
Author Author [facility] Organization [facility] Address Unknown Phone Unavailable Encounter NAVIN Morton(JAKI) [id number] Date(s): 07/24/18 - 07/24/18 [facility] [address] [place] [address]- Encounter Diagnosis Chest pain (Discharge Diagnosis) - 07/24/18 Chest pain, unspecified (Final) - 07/31/18 Type 2 diabetes mellitus without complications (Final) - Essential (primary) hypertension (Final) - Anxiety disorder, unspecified (Final) - Dependence on wheelchair (Final) - residential (current) use of aspirin (Final) - 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) - Discharge Disposition: Intermediate Care Attending Physician: Dunia Mcconnell MD Vital Signs 1 2 3 Most recent to oldest [Reference Range]: 170.18 cm (07/24/18 9:45 AM) Height 98.1 DegF (07/24/18 9:45 AM) Temperature Oral [96.4-99.1 DegF] 155/90 mmHg *HI* (07/24/18 5:02 PM) 165/98 mmHg *HI* (07/24/18 1:48 PM) 150/99 mmHg *HI* (07/24/18 12:59 PM) Blood Pressure [90-140/60-90 mmHg] 15 BRMIN (07/24/18 5:02 PM) 14 BRMIN (07/24/18 1:48 PM) 13 BRMIN *LOW* (07/24/18 12:59 PM) Respiratory Rate [14-20 BRMIN] 64 bpm (07/24/18 9:45 AM) Peripheral Pulse Rate [60-100 bpm] 90.909 kg (07/24/18 9:45 AM) Weight 31.39 m2 (07/24/18 9:45 AM) Body Mass Index Problem List No data available for this section Allergies, Adverse Reactions, Alerts Substance Reaction Severity Status codeine Active Medications docusate sodium 100 mg oral capsule 100 mg = 1 cap, PO, Daily, PRN Constipation, # 30 cap, 0 Refill(s) Start Date: 07/24/18 Stop Date: 08/23/18 Status: Ordered Saline Flush 0.9% 10 mL, Route: IVP, Drug Form: INJ, Dosing Weight 90.909, kg, PRN, PRN Line Flush , Start date: 07/24/18 12:30:00 LOCAL HAZMAT DRIVER, Duration: 30 day, Stop date: 08/23/18 12:29 :00 LOCAL HAZMAT DRIVER Notes: Same as: BD Posiflush Sterile Start Date: 07/24/18 Stop Date: 07/24/18 Status: Discontinued Senna-gen 8.6 mg oral tablet 17.2 mg = 2 tab, PO, Bedtime, PRN for constipation, X 50 day, # 100 tab, 0 Refil l(s) Start Date: 07/24/18 Stop Date: 09/12/18 Status: Completed Results Most recent to 1 oldest [Reference Range]: Neutrophils # 1.8 K/CMM [1.5-8.1 K/CMM] (07/24/18 12:37 PM) Lymphocytes # 1.2 K/CMM [1.0-5.5 K/CMM] (07/24/18 12:37 PM) Monocytes # [0.0-0.8 0.2 K/CMM K/CMM] (07/24/18 12:37 PM) Eosinophils # 0.1 K/CMM [0.0-0.5 K/CMM] (07/24/18 12:37 PM) BNP [<=100 pg/mL] 60 pg/mL (07/24/18 12:37 PM) eGFR 29 mL/min/1.73m2 1 *NA* (07/24/18 12:37 PM) A/G Ratio [0.7-1.6] 1.0 (07/24/18 12:37 PM) Albumin Lvl [3.5-5.0 3.6 g/dL g/dL] (07/24/18 12:37 PM) Alk Phos [39-136 75 unit/L unit/L] (07/24/18 12:37 PM) ALT [0-65 unit/L] 16 unit/L (07/24/18 12:37 PM) AGAP [10.0-20.0 14.5 mEq/L mEq/L] (07/24/18 12:37 PM) AST [0-37 unit/L] 17 unit/L (07/24/18 12:37 PM) B/C Ratio [6-25] 16 (07/24/18 12:37 PM) Basophils [0.0-1.0 1.0 % %] (07/24/18 12:37 PM) BUN [7-22 mg/dL] 35 mg/dL *HI* (07/24/18 12:37 PM) Calcium Lvl 8.4 mg/dL [8.5-10.5 mg/dL] *LOW* (07/24/18 12:37 PM) Total CK [12-191 99 unit/L unit/L] (07/24/18 12:37 PM) Chloride Lvl [95-109 108 mEq/L mEq/L] (07/24/18 12:37 PM) CO2 [24-32 mEq/L] 26 mEq/L (07/24/18 12:37 PM) Creatinine Lvl 2.19 mg/dL [0.50-1.40 mg/dL] *HI* (07/24/18 12:37 PM) Eosinophils [0.0-4.0 1.6 % %] (07/24/18 12:37 PM) Globulin [2.7-4.2 3.7 g/dL g/dL] (07/24/18 12:37 PM) Glucose Lvl [70-99 93 mg/dL mg/dL] (07/24/18 12:37 PM) Hct [36.0-48.0 %] 36.4 % (07/24/18 12:37 PM) Hgb [12.0-16.0 g/dL] 12.0 g/dL (07/24/18 12:37 PM) INR [0.85-1.17] 1.01 (07/24/18 12:37 PM) Potassium Lvl 3.5 mEq/L [3.5-5.1 mEq/L] (07/24/18 12:37 PM) Lipase Lvl [73-393 140 unit/L unit/L] (07/24/18 12:37 PM) Lymphocytes 37.0 % [20.0-40.0 %] (07/24/18 12:37 PM) MCH [27.0-31.0 pg] 30.4 pg (07/24/18 12:37 PM) MCHC [32.0-36.0 33.0 g/dL g/dL] (07/24/18 12:37 PM) MCV [80.0-98.0 fL] 92.2 fL (07/24/18 12:37 PM) Magnesium Lvl 2.2 mg/dL [1.8-2.4 mg/dL] (07/24/18 12:37 PM) Monocytes [2.0-12.0 6.5 % %] (07/24/18 12:37 PM) MPV [7.4-10.4 fL] 8.5 fL (07/24/18 12:37 PM) Sodium Lvl [135-145 145 mEq/L mEq/L] (07/24/18 12:37 PM) Phosphorus [2.5-4.5 3.1 mg/dL mg/dL] (07/24/18 12:37 PM) Platelet [133-450 181 K/CMM K/CMM] (07/24/18 12:37 PM) Segs [45.0-75.0 %] 53.9 % (07/24/18 12:37 PM) Total Protein 7.3 g/dL [6.4-8.4 g/dL] (07/24/18 12:37 PM) PT [12.0-14.7 13.1 seconds seconds] (07/24/18 12:37 PM) RBC [4.20-5.40 3.95 M/CMM M/CMM] *LOW* (07/24/18 12:37 PM) RDW [11.5-14.5 %] 13.4 % (07/24/18 12:37 PM) Bili Total [0.2-1.3 0.4 mg/dL mg/dL] (07/24/18 12:37 PM) Troponin-I <0.02 ng/mL [0.00-0.40 ng/mL] (07/24/18 12:37 PM) WBC [3.7-10.4 K/CMM] 3.4 K/CMM *LOW* (07/24/18 12:37 PM) 1Result Comment: The eGFR is calculated [...]
--- OUTSIDE RECORDS SUMMARY | 2020-01-04 03:30 | XMS REPORT | Summary of Care ---
Author Author [facility] Organization [facility] Address Unknown Phone Unavailable Encounter NAVIN Morton(FIN) [id number] Date(s): 08/25/18 - 08/25/[address] 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 (Same As: Coreg) Start Date: 08/25/18 Stop Date: 08/25/18 Status: Completed hydrALAZINE 25 mg, Route: PO, ONCE, Dosing Weight 86.364, kg, Start date: 08/25/18 19:47:00 HAND CROWN POUNCER, Stop date: 08/25/18 19:47:00 HAND CROWN POUNCER Start Date: 08/25/18 Stop Date: 08/25/18 Status: Completed labetalol 10 mg, Route: IV, ONCE, Dosing Weight 86.364, kg, Start date: 08/25/18 19:47:00 HAND CROWN POUNCER, Stop date: 08/25/18 19:47:00 HAND CROWN POUNCER Start Date: 08/25/18 Stop Date: 08/25/18 Status: Completed Saline Flush 0.9% 10 mL, Route: IVP, Drug Form: INJ, Dosing Weight 86.364, kg, PRN, PRN Line Flush , Start date: 08/25/18 16:46:00 HAND CROWN POUNCER, Duration: 30 day, Stop date: 09/24/18 16:45 :00 HAND CROWN POUNCER Notes: preservative free. Start Date: 08/25/18 Stop Date: 08/25/18 Status: Discontinued Results Most recent to 1 oldest [Reference Range]: Neutrophils # 3.2 K/CMM [1.5-8.1 K/CMM] (08/25/18 5:07 PM) Lymphocytes # 1.9 K/CMM [1.0-5.5 K/CMM] (08/25/18 5:07 PM) Monocytes # [0.0-0.8 0.4 K/CMM K/CMM] (08/25/18 5:07 PM) Eosinophils # 0.1 K/CMM [0.0-0.5 K/CMM] (08/25/18 5:07 PM) eGFR 28 mL/min/1.73m2 1 *NA* (08/25/18: PM) A/G Ratio [0.7-1.6] 0.9 (08/25/18:07 PM) Albumin Lvl [3.5-5.0 3.5 g/dL g/dL] (08/25/18:07 PM) Alk Phos [39-136 79 unit/L unit/L] (08/25/18:07 PM) ALT [0-65 unit/L] 17 unit/L (08/25/18:07 PM) AGAP [10.0-20.0 5.4 mEq/L mEq/L] *LOW* (08/25/18: PM) AST [0-37 unit/L] 22 unit/L (08/25/18:07 PM) B/C Ratio [6-25] 20 (08/25/18:07 PM) Basophils [0.0-1.0 0.9 % %] (08/25/18:07 PM) BUN [7-22 mg/dL] 45 mg/dL *HI* (08/25/18:07 PM) Calcium Lvl 9.1 mg/dL [8.5-10.5 mg/dL] (08/25/18:07 PM) Total CK [12-191 83 unit/L unit/L] (08/25/18:07 PM) Chloride Lvl [95-109 107 mEq/L mEq/L] (08/25/18:07 PM) CO2 [24-32 mEq/L] 32 mEq/L (08/25/18:07 PM) Creatinine Lvl 2.25 mg/dL [0.50-1.40 mg/dL] *HI* (08/25/18 5:07 PM) Eosinophils [0.0-4.0 1.9 % %] (08/25/18 5:07 PM) Globulin [2.7-4.2 3.9 g/dL g/dL] (08/25/18:07 PM) Glucose Lvl [70-99 87 mg/dL mg/dL] (08/25/18: PM) Hct [36.0-48.0 %] 38.5 % (08/25/18: PM) Hgb [12.0-16.0 g/dL] 12.7 g/dL (08/25/18: PM) INR [0.85-1.17] 0.89 (08/25/18 PM) Potassium Lvl 3.4 mEq/L [3.5-5.1 mEq/L] *LOW* (08/25/18 PM) Lymphocytes 33.8 % [20.0-40.0 %] (08/25/18 PM) MCH [27.0-31.0 pg] 30.2 pg (08/25/18: PM) MCHC [32.0-36.0 33.0 g/dL g/dL] (08/25/18 PM) MCV [80.0-98.0 fL] 91.4 fL (08/25/18: PM) Monocytes [2.0-12.0 6.5 % %] (08/25/18: PM) MPV [7.4-10.4 fL] 9.9 fL (08/25/18: PM) Sodium Lvl [135-145 141 mEq/L mEq/L] (08/25/18: PM) Platelet [133-450 169 K/CMM K/CMM] (08/25/18 PM) Segs [45.0-75.0 %] 56.9 % (08/25/18: PM) Total Protein 7.4 g/dL [6.4-8.4 g/dL] (08/25/18 PM) PT [12.0-14.7 11.9 seconds seconds] *LOW* (08/25/18: PM) PTT [22.9-35.8 40.0 seconds seconds] *HI* (08/25/18: PM) RBC [4.20-5.40 4.21 M/CMM M/CMM] (08/25/18 5:07 PM) RDW [11.5-14.5 %] 14.4 % (08/25/18 5:07 PM) Bili Total [0.2-1.3 0.2 mg/dL mg/dL] (08/25/18 5:07 PM) Troponin-I <0.02 ng/mL [0.00-0.40 ng/mL] (08/25/18 5:07 PM) UA Bacteria [None Occasional /HPF Seen /HPF] *NA* (08/25/18 5:27 PM) UA Bili [Negative] Negative *NA* (08/25/18 5:27 PM) UA Blood [Negative] Negative (08/25/18 5:27 PM) UA Color Ltyellow *NA* (08/25/18 5:27 PM) UA Glucose Negative [Negative] *NA* (08/25/18 5:27 PM) UA Ketones Negative [Negative] *NA* (08/25/18 5:27 PM) UA Leuk Est Negative [Negative] (08/25/18 5:27 PM) UA Nitrite Negative [Negative] (08/25/18 5:27 PM) UA pH [5.0-8.0] 5.0 (08/25/18 5:27 PM) UA Protein Negative [Negative] (08/25/18 5:27 PM) UA RBC [0-2 /HPF] 1 /HPF (08/25/18 5:27 PM) UA Spec Grav 1.009 [<=1.030] (08/25/18 5:27 PM) UA Sq Epi [Few /LPF] Occasional /LPF *NA* (08/25/18 5:27 PM) UA Turbidity [Clear] Clear (08/25/18 5:27 PM) UA Urobilinogen <=1.0 mg/dL [0.1-1.0 mg/dL] *NA* (08/25/18 5:27 PM) UA WBC [0-5 /HPF] 1 /HPF (08/25/18 5:27 PM) WBC [3.7-10.4 K/CMM] 5.6 K/CMM (08/25/18 5:07 PM) 1Result Comment: The eGFR [...]
--- OUTSIDE RECORDS SUMMARY | 2020-01-04 03:30 | XMS REPORT | Summary of Care ---
Author Author [facility] Organization [facility] Address Unknown Phone Unavailable Encounter HQ Praveen(FIN) [id number] Date(s): 04/30/19 - 05/01/19 [facility] [address] [place] [address]- Encounter Diagnosis Dizziness (Discharge Diagnosis) - 05/01/19 Acute vomiting (Discharge Diagnosis) - 05/01/19 HTN (hypertension) (Discharge Diagnosis) - 05/01/19 Runny nose (Discharge Diagnosis) - 05/01/19 Cough (Discharge Diagnosis) - 05/01/19 Discharge Disposition: Home or Self Care Attending Physician: Jerod Phoenix MD Vital Signs 1 2 3 Most recent to oldest [Reference Range]: 162.56 cm (04/30/19 8:26 PM) Height 97.5 DegF (05/01/19 12:32 AM) 98.2 DegF (04/30/19 10:20 PM) 98.2 DegF (04/30/19 8:26 PM) Temperature Oral [96.4-99.1 DegF] 150/90 mmHg *HI* (05/01/19 12:32 AM) 193/106 mmHg *HI* (04/30/19 11:21 PM) 191/104 mmHg *HI* (04/30/19 10:20 PM) Blood Pressure [90-140/60-90 mmHg] 18 BRMIN (05/01/19 12:32 AM) 18 BRMIN (04/30/19 10:20 PM) 18 BRMIN (04/30/19 8:26 PM) Respiratory Rate [14-20 BRMIN] 75 bpm (05/01/19 12:32 AM) 79 bpm (04/30/19 10:20 PM) 73 bpm (04/30/19 8:26 PM) Peripheral Pulse Rate [60-100 bpm] 90.909 kg (04/30/19 8:26 PM) Weight 34.4 m2 (04/30/19 8:26 PM) Body Mass Index Problem List No data available for this section Allergies, Adverse Reactions, Alerts Substance Reaction Severity Status codeine Active Medications cloNIDine 0.1 mg, Route: PO, Drug form: TAB, ONCE, Dosing Weight 90.909, kg, Priority: STA T, Start date: 04/30/19 23:56:00 CDT, Stop date: 04/30/19 23:56:00 CDT Start Date: 04/30/19 Stop Date: 05/01/19 Status: Completed hydrALAZINE 50 mg oral tablet 50 mg, 1 tab, Route: PO, Drug form: TAB, ONCE, Dosing Weight 90.909, kg, Start d ate: 04/30/19 23:56:00 CDT, Stop date: 04/30/19 23:56:00 CDT Start Date: 04/30/19 Stop Date: 05/01/19 Status: Completed potassium chloride 40 mEq, Route: PO, Drug form: ERTAB, ONCE, Dosing Weight 90.909, kg, Priority: S TAT, Start date: 04/30/19 22:53:00 CDT, Stop date: 04/30/19 22:53:00 CDT Start Date: 04/30/19 Stop Date: 04/30/19 Status: Completed Saline Flush 0.9% 10 mL, Route: IVP, Drug Form: INJ, Dosing Weight 90.909, kg, PRN, PRN Line Flush , Start date: 04/30/19 20:50:00 CDT, Duration: 30 day, 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 date: 05/30/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, 0 Notes: (Same as: BD Posiflush) Start Date: 04/30/19 Stop Date: 05/01/19 Status: Discontinued Sodium Chloride 0.9% (Bolus) IV 1,000 mL, 1000 ml/hr, Infuse Over: 1 hr, Route: IV, 1,000, Drug form: INJ, ONCE, Priority: STAT, Dosing Weight 90.909 kg, Start date: 04/30/19 20:50:00 CDT, Stop date: 04/30/19 20:50:00 CDT, 0 Start Date: 04/30/19 Stop Date: 04/30/19 Status: Completed Results Most recent to 1 oldest [Reference Range]: Neutrophils # 2.7 K/CMM [1.5-8.1 K/CMM] (04/30/19 10:07 PM) Lymphocytes # 1.3 K/CMM [1.0-5.5 K/CMM] (04/30/19 10:07 PM) Monocytes # [0.0-0.8 0.3 K/CMM K/CMM] (04/30/19 10:07 PM) Eosinophils # 0.1 K/CMM [0.0-0.5 K/CMM] (04/30/19 10:07 PM) BNP [<=100 pg/mL] 91 pg/mL (04/30/19 10:07 PM) eGFR 30 mL/min/1.73m2 1 *NA* (04/30/19 10: PM) A/G Ratio [0.7-1.6] 1.0 (04/30/19 10:07 PM) Albumin Lvl [3.5-5.0 3.8 g/dL g/dL] (04/30/19 10:07 PM) Alk Phos [39-136 82 unit/L unit/L] (04/30/19 10:07 PM) ALT [0-65 unit/L] 13 unit/L (04/30/19 10:07 PM) AGAP [10.0-20.0 8.9 mEq/L mEq/L] *LOW* (04/30/19 10:07 PM) AST [0-37 unit/L] 10 unit/L (04/30/19 10:07 PM) B/C Ratio [6-25] 10 (04/30/19 10:07 PM) Basophils [0.0-1.0 0.5 % %] (04/30/19 10:07 PM) BUN [7-22 mg/dL] 20 mg/dL (04/30/19 10:07 PM) Calcium Lvl 8.7 mg/dL [8.5-10.5 mg/dL] (04/30/19 10:07 PM) Total CK [12-191 114 unit/L unit/L] (04/30/19: PM) Chloride Lvl [95-109 107 mEq/L mEq/L] (04/30/19 PM) CO2 [24-32 mEq/L] 31 mEq/L (04/30/19 PM) Creatinine Lvl 2.09 mg/dL [0.50-1.40 mg/dL] *HI* (04/30/19 PM) Eosinophils [0.0-4.0 2.3 % %] (04/30/19 PM) Globulin [2.7-4.2 3.8 g/dL g/dL] (04/30/19 PM) Glucose Lvl [70-99 90 mg/dL mg/dL] (04/30/19 PM) Hct [36.0-48.0 %] 35.2 % *LOW* (04/30/19) Hgb [12.0-16.0 g/dL] 11.5 g/dL *LOW* (04/30/19 PM) Potassium Lvl 2.9 mEq/L 2 [3.5-5.1 mEq/L] *CRIT* (04/30/19 PM) Lymphocytes 29.4 % [20.0-40.0 %] (04/30/19: PM) MCH [27.0-31.0 pg] 31.2 pg *HI* (04/30/19 PM) MCHC [32.0-36.0 32.7 g/dL g/dL] (04/30/19 PM) MCV [80.0-98.0 fL] 95.4 fL (04/30/19: PM) Monocytes [2.0-12.0 7.1 % %] (04/30/19 PM) MPV [7.4-10.4 fL] 8.1 fL (04/30/19 PM) Sodium Lvl [135-145 144 mEq/L mEq/L] (04/30/19 PM) Platelet [133-450 190 K/CMM K/CMM] (10/9/19 10:07 PM) Segs [45.0-75.0 %] 60.7 % (04/30/19 10:07 PM) Total Protein 7.6 g/dL [6.4-8.4 g/dL] (04/30/19 10:07 PM) RBC [4.20-5.40 3.69 M/CMM M/CMM] *LOW* (04/30/19 10:07 PM) RDW [11.5-14.5 %] 14.3 % (04/30/19 10:07 PM) Bili Total [0.2-1.3 0.4 mg/dL mg/dL] (04/30/19 10:07 PM) Troponin-I <0.02 ng/mL [0.00-0.40 ng/mL] (04/30/19 10:07 PM) UA Bili [Negative] Negative *NA* (05/01/19 1:05 AM) UA Blood [Negative] Negative (05/01/19 1:05 AM) UA Color Colorless *NA* (05/01/19 1:05 AM) UA Glucose [Negative Negative mg/dL mg/dL] *NA* (05/01/19 1:05 AM) UA Ketones [Negative Negative mg/dL mg/dL] *NA* (05/01/19 1:05 AM) UA Leuk Est Negative [Negative] (05/01/19 1:05 AM) UA Nitrite Negative [Negative] (05/01/19 1:05 AM) UA pH [5.0-8.0] 5.0 (05/01/19 1:05 AM) UA Protein [Negative Negative mg/dL mg/dL] (05/01/19 1:05 AM) UA RBC [0-2 /HPF] 1 /HPF (05/01/19 1:05 AM) UA Spec Grav <=1.000 [<=1.030] *NA* (05/01/19 1:05 AM) UA Sq Epi None Seen *NA* (05/01/19 1:05 AM) UA Turbidity [Clear] Clear (05/01/19 1:05 AM) UA Urobilinogen <=1.0 mg/dL [0.1-1.0 mg/dL] *NA* (05/01/19 1:05 AM) UA WBC [0-5 /HPF] <1 /HPF (05/01/19 1:05 AM) WBC [3.7-10.4 K/CMM] 4.4 K/CMM (04/30/19 10:07 PM) 1Result Comment: The eGFR is calculated [...] tiplied by the estimated BMI. 2Result Comment: Critical Result(s) called to Alanna Dale at 04/30/2019 22:51 by . Read back OK. Immunizations No data available for this section Procedures No data available for this section Social History Social History Type Response Substance Abuse Use: Past. Type: Cocaine. Recreational Drug Route: Intravenous. Smoking Status Never smoker; Exposure to T obacco Smoke None; Cigarette Smoking Last 365 Days No; Reg Smoking Cessation Counseli ng No entered on: 05/01/19 Assessment and Plan No data available for this section
--- OUTSIDE RECORDS SUMMARY | 2020-01-04 03:31 | XMS REPORT | Continuity of Care Document ---
Author Author [facility] t Organization [facility] Address 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 Attphys Unavailable SHOBHA JUNE II, M.D., SHOBHA HEARD M.D. Attphys Unavailable JERILYN HUBBARD M.D., [place] JEAN-BAPTISTE Attphys Unavailabl e Paris Mendez Admphys CELINE MINOR Admphys Unavailable KATE SALAZAR Admphys Unavailable SHOBHA HADDAD M.D., SHOBHA Dolan M.D. Admphys Unavailable JOHANISTTheresa M.D., [place] Cardenas Admphys Unavail able JERIYLN HUBBARD M.D., [place] JEAN-BAPTISTE Admphys Unavailabl e Payers Payer Name Policy Type Policy Number Effective Date Expiration Date Rey guillory [employer] [id number] 2018 00:00:00 [facility] Problems Condition Name Condition Details Condition Category Status Onset Date Resolution Date Last Treatment Date Treating Clinician Comments Source DIZZINESS DIZZ INESS Active 04/30/2019 [facility] Active 2019-04-30 00:00:00 2019-05-08 22:07:00 [facility] CHEST PAIN CHES T PAIN Active 08/25/2018 [facility] Active 2018-08-25 00:00:00 2018-08-29 22:15:00 [facility] HYPERTENSION HYPE RTENSION Active 07/09/2018 [facility] Active 2018-07-09 00:00:00 2018-07-09 22:01:00 [facility] LEFT SIDED WEAKNESS LEFT SIDED WEAKNESS Active 07/09/2018 [facility] Active 2018-07-09 00:00:00 2018-07-18 22:14:00 [facility] Hypertensive urgency Hype rtensive urgency 01/28/2019 [facility] 2019-01-28 15:08:[facility] Hypertensive heart and chronic kidney di sease with heart failure and stage 1 through stage 4 chronic kidney disease, or unspecified chronic kidney disease Hypertensive heart and chronic kidney disease with heart failure and stage 1 through stage 4 chronic kidney disease, or unspecified chronic kidney disease 01/28/2019 [facility] 2019-01-28 15:08:54 [facility] Heart failure, unspecified Hea rt failure, unspecified 03/15/2019 [facility] 2019-03-15 11:00:5 8 [facility] Chronic kidney disease, unspecified Chronic kidney disease, unspecified 01/28/2019 [facility] 2019-01-28 15:08:54 [facility] Acute kidney failure, unspecified Acute kidney failure, unspecified 01/28/2019 [facility] 2019-01-28 1 5:08:54 [facility] Hyperlipidemia, unspecified Hy perlipidemia, unspecified 01/28/2019 [facility] Problem 2019-01-28 15:08:5 4 Ugo Kaur Nicotine dependence, cigarettes, uncomplicated Nicotine dependence, cigarettes, uncomplicated 01/28/2019 [facility] 2019-01-28 15:08:54 Ugo Kaur Weakness Weak ness 01/28/2019 [facility] 2019-01-28 15:08:54 [facility] Other chest pain Othe r chest pain 01/28/2019 [facility] 2019-01-28 15:08:54 Al kingsley Kaur Other specified disorders of brain Other specified disorders of brain 01/28/2019 [facility] 2019-01-28 15:08:54 Ugo Kaur Personal history of transient ischemic a ttack (TIA), and cerebral infarction without residual deficits Personal history of transient ischemic attack (TIA), and cerebral infarction without residual deficits 03/15/2019 [facility] 2019-03-15 11:00:58 [facility] Dysarthria and anarthria Dysa rthria and anarthria 01/28/2019 [facility] 2019-01-28 15:08:54 [facility] Other lack of coordination Oth er lack of coordination 01/28/2019 [facility] 2019-01-28 15:08:5 4 [facility] Schizophrenia, unspecified Ellen izophrenia, unspecified 01/28/2019 [facility] 2019-01-28 15:08:5 4 [facility] Chest pain, unspecified Ches t pain, unspecified 03/15/2019 [facility] 2019-03-15 11:00:58 [facility] Hypertensive heart disease with heart failure Hypertensive heart disease with heart failure 03/15/2019 [facility] 2019-03-15 11:00:58 Ugo Kaur 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 USP (current) use of aspirin 03/15/2019 [facility] 2019-02- 4 11:00:58 Ugo Kaur Other senior care (current) drug therapy Other senior care (current) drug therapy 03/15/2019 [facility] 2019-03-15 11:00:58 Ugo Kaur Allergy status to narcotic agent status Allergy status to narcotic agent status 03/15/2019 [facility] 2019-03-15 11:00:58 Ugo Kaur Type 2 diabetes mellitus without complications Type 2 diabetes mellitus without complications 02/10/2019 [facility] 2019-02-10 13:19:58 Ugo Kaur Anxiety disorder, unspecified Anxiety disorder, unspecified 02/10/2019 [facility] 2019-02-10 1 3:19:58 Ugo Kaur Dependence on wheelchair Depe ndence on wheelchair 02/10/2019 [facility] 2019-02-10 13:19:58 Ugo Kaur Dizziness and giddiness Dizz iness and giddiness 05/01/2019 05/03/2019 [facility] 2019-05-01 17:00:00 2018 21:04:34 2019-05-03 21:04:34 Ugo Ramosann Essential (primary) hypertension Essential (primary) hypertension 05/01/2019 05/03/2019 [facility] 2 17:00:00 2019-05-03 21:04:34 2019-05-03 21:04:34 Ugo Ramosann Vomiting, unspecified Vomi ting, unspecified 05/01/2019 05/03/2019 [facility] 2019-05-01 17:00:00 2018 21:04:34 2019-05-03 21:04:34 Ugo Ramosann Other specified symptoms and signs invol ving the circulatory and respiratory systems Other specified symptoms and signs involving the circulatory and respiratory systems 05/01/2019 05/03/2019 [facility] 2019-05-01 17:00:00 2019-05-03 21:04:34 2019-05-03 21:04:34 Ugo Ramosann Cough Coug h 05/01/2019 05/03/2019 [facility] 2019-05-01 17:00:00 2019-05-03 21:04:34 2019-05-03 21:04:34 Ugo Ramosann Cerebral infarction, unspecified Cerebral infarction, unspecified 07/20/2018 01/28/2019 [facility] 09-07-29 05:02:48 2019-01-28 15:08:54 2019-01-28 15:08:54 Ugo Kaur Allergies, Adverse Reactions, Alerts Allergy Name Allergy Type Status Severity Reaction(s) Onset Date Inacti ve Date Treating Clinician Comments Source codeine DA Active U 2019-07-13 00:00:00 [facility] codeine DA Active U 2019-06-18 00:00:00 [facility] codeine DA Active U 2019-06-09 00:00:00 [facility] codeine DA Active U 2019-04-29 00:00:00 [facility] codeine DA Active U 2019-02-11 00:00:00 [facility] codeine DA Active U 2018-09-26 00:00:00 [facility] codeine DA Active U 2018-06-04 00:00:00 [facility] codeine DA Active U 2018-05-30 00:00:00 [facility] Acetaminophen-Codeine Propensity to adverse reactions to drug Active 2018-03-26 00:00:00 Tommy Zuniga odist codeine codeine Active Ugo Kaur Social History Social Habit Start Date Stop Date Quantity Comments Source Sex Assigned At [place] Social History 2018-07-24 16:23:40 2018-07-24 16:23:40 Ugo Kaur Alcohol intake 2018-03-26 00:00:00 2018-03-26 00:00:00 Current non-drinker of alcohol (finding) Tommy Ward Smoking Status Start Date Stop Date Source Current every day smoker 2018-03-26 00:00:00 [place] Medications Ordered Medication Name Filled Medication Name Start Date Stop Da te Current Medication? Ordering Clinician Indication Dosage Frequency Signature (SIG) Comments Components Source Clonidine 2019-05-01 04:56:00 No 0.1 mg, Route: PO, Drug form: TAB, ONCE, Dosing Weight 90.909, kg, Priority: STAT, Start date: 04/30/19 23:56:00 CDT, Stop date: 04/30/19 23:56:00 CDT Al kingsley Kaur Hydralazine Hydrochloride 50 MG Oral Tablet 2019-05-01 04:56:00 No 50 mg, 1 tab, Route: PO, Drug form: TAB, ONCE, Dosing Weight 90.909, kg, Start date: 04/30/19 23:56:00 CDT, Stop date: 04/30/19 23:56:00 CDT gUo Kaur Potassium Chloride 2019-05-01 03:53:00 No 40 mEq, Route: PO, Drug form: ERTAB, ONCE, Dosing Weight 90.909, kg, Priority: STAT, Start date: 04/30/19 22:53:00 CDT, Stop date: 04/30/19 22:53:00 CDT Ugo Kaur Saline Flush 0.9% 2019-05-01 01:50:00 No Notes: (Same as: BD Posiflush) Ugo Kaur Sodium Chloride 0.9% (Bolus) IV 2019-05-01 01:50:00 No 1,000 mL, 1000 ml/hr, Infuse Over: 1 hr, Route: IV, 1,000, Drug form: INJ, ONCE, Priority: STAT, Dosing Weight 90.909 kg, Start date: 04/30/19 20:50:00 CDT, Stop date: 04/30/19 20:50:00 CDT, 0 Ugo minor carvedilol 2018-08-26 01:48:00 No Notes: Give with food. (Same As: Coreg) Ugo Kaur Hydralazine 2018-08-26 01:47:00 No 25 mg, Route: PO, ONCE, Dosing Weight 86.364, kg, Start date: 08/25/18 19:47:00 INSPECTOR ELECTROMECHANICAL, Stop date: 08/25/18 19:47:00 INSPECTOR ELECTROMECHANICAL Ugo Kaur Labetalol 2018-08-26 01:47:00 No 10 mg, Route: IV, ONCE, Dosing Weight 86.364, kg, Start date: 08/25/18 19:47:00 INSPECTOR ELECTROMECHANICAL, Stop date: 08/25/18 19:47:00 INSPECTOR ELECTROMECHANICAL [facility] [place] Saline Flush 0.9% 2018-08-25 22:46:00 No Notes: preservative free. Ugo Kaur Docusate Sodium 100 MG Oral Capsule 2018-07-24 20:58:00 Yes 100 mg = 1 cap, PO, Daily, PRN Constipation, # 30 cap, 0 Refill(s) Ugo Kaur Senna-gen 8.6 mg oral tablet 2018-07-24 20:58:00 No 17.2 mg = 2 tab, PO, Bedtime, PRN for constipation, X 50 day, # 100 tab, 0 Refill(s) Ugo Kaur Saline Flush 0.9% 2018-07-24 18:30:00 No Notes: Same as: BD Posiflush Sterile [facility] Imdur 2018-07-12 15:00:00 No Notes: (Same as:Imdur) "Do Not Crush" Take on empty stomach/ full glass of water. Do not crush [facility] Saline Flush 0.9% 2018-07-12 03:00:00 No Notes: (Same as: BD Posiflush) [facility] isosorbide mononitrate 30 mg oral tablet, extended release 2018-07-11 22:07:00 Yes 90 mg = 3 tab, PO, QAM, # 90 tab, 0 Refill(s), Pharmacy: [facility] Hydralazine Hydrochloride 25 MG Oral Tablet 2018-07-11 22:07:00 Yes 75 mg = 3 tab, PO, Q6H, # 360 tab, 0 Refill(s), Pharmacy: [facility] carvedilol 25 mg oral tablet 2018-07-11 22:07:00 Yes 25 mg = 1 tab, PO, BID, # 60 tab, 0 Refill(s), Pharmacy: [facility] Imdur 2018-07-11 19:04:00 No Notes: (Same as:Imdur) "Do Not Crush" Take on empty stomach/ full glass of water. Do not crush [facility] Saline Flush 0.9% 2018-07-11 15:41:00 No Notes: (Same as: BD Posiflush) Ugo Kaur NS (Bolus) IV 2018-07-11 15:41:00 No 25 mL, Route: IVPB, mL, Drug form: INJ, PRN, Dosing Weight 87.727 kg, Start date: 07/11/18 9:41:00 INSPECTOR ELECTROMECHANICAL, Duration: 30 day, Stop date: 08/10/18 9:40:00 INSPECTOR ELECTROMECHANICAL, PRN Line Flush Ugo Kaur Fluticasone propionate 0.05 MG/ACTUAT Metered Dose Nasal Spr ay [Flonase] 2018-07-11 03:04:00 No Notes: (Same as: Chung davidsonase) Ugo Kaur Tramadol 2018-07-11 03:04:00 No Notes: Not to exceed 400mg/day. (Same As: Ultram) Ugo Kaur Milk of Magnesia 2018-07-11 03:04:00 No Notes: (Same as: Milk of Magnesia, MOM) Ugo Kaur Benadryl Maximum Strength 2% topical cream 2018-07-11 03:04:00 No 1 appl, Route: TOP, QID, Drug form: CRM, PRN Itching, Start date: 07/10/18 21:04:00 INSPECTOR ELECTROMECHANICAL, Duration: 30 day, Stop date: 08/09/18 21:03:00 INSPECTOR ELECTROMECHANICAL Ugo Kaur Lipitor 2018-07-11 03:00:00 No Notes: (Same As: Lipitor) Ugo Kaur Hydralazine 2018-07-10 18:00:00 No Notes: (Same as: Apresoline) May interfere w/enteral feedings Take With Food. Ugo Kaur Aspirin 325 MG Oral Tablet 2018-07-10 17:35:00 No Notes: Take with food. Ugo Kaur Imdur 2018-07-10 17:33:00 No Notes: (Same as:Imdur) "Do Not Crush" Take on empty stomach/ full glass of water. Do not crush Ugo Kaur carvedilol 2018-07-10 17:32:00 No Notes: Give with food. (Same As: Coreg) Ugo Kaur Clonidine Hydrochloride 0.1 MG Oral Tablet 2018-07-10 17:32:00 No Notes: (Same As: Catapres) Ugo dow Sodium Chloride 0.111 MEQ/ML Nasal Solution [[place] Saline Nasa l] 2018-07-10 15:51:00 No Notes: (Same as: [place], Deep Sea Nasal [place]). Ugo Kaur carvedilol 25 mg oral tablet 2018-07-10 14:00:00 No 25 mg = 1 tab, PO, BID, # 60 tab, 0 Refill(s) Ugo Kaur Ativan 2018-07-10 08:41:00 No Notes: (Same as: Ativan) Ugo Kaur Klonopin 2018-07-10 06:18:00 Yes 1 mg, PO, PRN, as needed every 8 hrs, 0 Refill(s) Ugo Kuar atorvastatin 20 MG Oral Tablet [Lipitor] 2018-07-10 06:18:00 Yes 20 mg = 1 tab, PO, Bedtime, # 30 tab, 0 Refill(s) Ugo Kaur Clonidine Hydrochloride 0.1 MG Oral Tablet 2018-07-10 06:18:00 Yes 0.1 mg = 1 tab, PO, BID, # 90 tab, 3 Refill(s) [facility] Chlorthalidone 25 MG Oral Tablet 2018-07-10 06:18:00 No 25 mg = 1 tab, PO, Daily, # 30 tab, 0 Refill(s) [facility] Murine Tears Plus ophthalmic drops 2018-07-10 06:18:00 Yes 1-2 gtts, BOTH EYES, BID, 0 Refill(s) [facility] Geovany majano Imdur 2018-07-10 06:18:00 No 60 mg, PO, QAM , 0 Refill(s) [facility] Hydralazine 2018-07-10 06:18:00 No 75 mg, P O, QID, 0 Refill(s) [facility] Aspirin 325 MG Oral Tablet 2018-07-10 06:18:00 Yes 325 mg = 1 tab, PO, Daily, # 30 tab, 0 Refill(s) Luis sanchez [place] Sodium Chloride 0.111 MEQ/ML Nasal Solution [[place] Saline Nasa l] 2018-07-10 06:18:00 Yes 2 drp, SYED AL, PRN, PRN Nasal dryness, # 30 mL, 4 Refill(s), 2 sprays in each nostril for nasal congestion/allergies [facility] Hydralazine 2018-07-10 06:02:00 No Notes: (Same as: Apresoline) Push over 5 minutes [facility] normal saline 0.9% IV 1,000 mL 2018-07-10 05:47:00 No 1,000 mL, Rate: 75 ml/hr, Infuse over: 13.3 hr, Route: IV, Dosing Weight 87.727 kg, Total Volume: 1,000, Start date: 07/09/18 23:47:00 INSPECTOR ELECTROMECHANICAL, Duration: 30 day, Stop date: 08/08/18 23:46:00 INSPECTOR ELECTROMECHANICAL, 2.02, m2 [facility] Glucagon 2018-07-10 05:45:00 No 1 mg, Route: IM, Drug form: PDR/INJ, PRN, Dosing Weight 87.727, kg, PRN Blood Glucose Results, Start date: 07/09/18 23:45:00 INSPECTOR ELECTROMECHANICAL, Duration: 30 day, Stop date: 08/08/18 23:44:00 INSPECTOR ELECTROMECHANICAL Ugo Kaur Dextrose 50% Syringe 2018-07-10 05:45:00 No 12.5 gm, 25 mL, Route: IVP, Drug Form: INJ, Dosing Weight 87.727, kg, PRN, PRN Blood Glucose Results, Start date: 07/09/18 23:45:00 INSPECTOR ELECTROMECHANICAL, Duration: 30 day, Stop date: 08/08/18 23:44:00 INSPECTOR ELECTROMECHANICAL Ugo Kaur Acetaminophen 2018-07-10 05:45:00 No Notes: Do not exceed 4 gm/day. (Same as: Tylenol) Ugo Kaur Ondansetron 2018-07-10 05:45:00 No Notes: (Same as: Zofran) MEDICATION WASTE Product Size: 4 mg Product Wasted: ___ mg Ugo Kaur Aspirin 81 MG Chewable Tablet 2018-07-10 03:38:00 No Notes: Take with food. [facility] Hydralazine 2018-07-10 03:19:00 No Notes: (Same as: Apresoline) Push over 5 minutes [facility] Saline Flush 0.9% 2018-07-09 21:38:00 No Notes: (Same as: BD Posiflush) [facility] Vital Signs Vital Name Observation Time Observation Value Comments Source Systolic (mm Hg) 2019-05-01 05:32:00 C[facility] [place] Diastolic (mm Hg) 2019-05-01 05:32:00 Mem o[facility] Temperature Oral (F) 2019-05-01 05:32:00 97.5 F [facility] [place] Heart Rate 2019-05-01 05:32:00 [facility] Respitory Rate 2019-05-01 05:32:00 [facility] [place] Systolic (mm Hg) 2019-05-01 04:21:00 Cezar rial [facility] Diastolic (mm Hg) 2019-05-01 04:21:00 Mem [facility] Temperature Oral (F) 2019-05-01 03:20:00 98.2 F [facility] Heart Rate 2019-05-01 03:20:00 [facility] Respitory Rate 2019-05-01 03:20:00 [facility] Systolic (mm Hg) 2019-05-01 03:20:00 Cezar rial [place] Diastolic (mm Hg) 2019-05-01 03:20:00 Mem [facility] [place] Heart Rate 2019-05-01 01:26:00 [facility] Respitory Rate 2019-05-01 01:26:00 [facility] [place] Temperature Oral (F) 2019-05-01 01:26:00 98.2 F [facility] [place] Height 2019-05-01 01:26:00 162.56 cm [facility] BMI Calculated 2019-05-01 01:26:00 [facility] [place] Weight 2019-05-01 01:26:00 [facility] Respitory Rate 2018-08-26 05:11:00 [facility] [place] Systolic (mm Hg) 2018-08-26 05:11:00 Cezar rial [facility] Diastolic (mm Hg) 2018-08-26 05:11:00 Mem orial [place] Respitory Rate 2018-08-26 03:48:00 [facility] [place] Systolic (mm Hg) 2018-08-26 03:48:00 Cezar rial [place] Diastolic (mm Hg) 2018-08-26 03:48:00 Mem [facility]rial [place] Respitory Rate 2018-08-26 03:47:00 [facility] [place] Systolic (mm Hg) 2018-08-26 03:47:00 Cezar rial [place] Diastolic (mm Hg) 2018-08-26 03:47:00 [facility] [place] Temperature Oral (F) 2018-08-26 02:57:00 98 F [facility] Weight 2018-08-25 22:02:00 [facility] [place] BMI Calculated 2018-08-25 22:02:00 [facility] Height 2018-08-25 22:02:00 162.56 cm [facility] [place] Temperature Oral (F) 2018-08-25 22:02:00 97.5 F [facility] Heart Rate 2018-08-25 22:02:00 [facility] [place] Respitory Rate 2018-07-24 23:02:00 Mem[facility] [place] Systolic (mm Hg) 2018-07-24 23:02:00 Cezar rial [place] Diastolic (mm Hg) 2018-07-24 23:02:00 Mem o[facility] [place] Systolic (mm Hg) 2018-07-24 19:48:00 Cezar rial [facility] Diastolic (mm Hg) 2018-07-24 19:48:00 Mem [facility] [place] Respitory Rate 2018-07-24 19:48:00 [facility] [place] Respitory Rate 2018-07-24 18:59:00 [facility] [place] Systolic (mm Hg) 2018-07-24 18:59:00 C[place]ar rial [place] Diastolic (mm Hg) 2018-07-24 18:59:00 Mem [facility] [place] Weight 2018-07-24 15:45:00 [facility] [place] BMI Calculated 2018-07-24 15:45:00 [facility] Height 2018-07-24 15:45:00 170.18 cm [facility] [place] Temperature Oral (F) 2018-07-24 15:45:00 98.1 F [facility] Heart Rate 2018-07-24 15:45:00 [facility] [place] Systolic (mm Hg) 2018-07-11 17:37:00 Cezar rial [facility] Diastolic (mm Hg) 2018-07-11 17:37:00 Mem [facility] [place] Respitory Rate 2018-07-11 17:37:00 [facility] Heart Rate 2018-07-11 17:37:00 [facility] [place] Temperature Oral (F) 2018-07-11 17:37:00 97.9 F [facility] [place] Systolic (mm Hg) 2018-07-11 13:31:00 Cezar rial [facility] Diastolic (mm Hg) 2018-07-11 13:31:00 Mem [facility] [place] Respitory Rate 2018-07-11 13:31:00 [facility] [place] Heart Rate 2018-07-11 13:31:00 [facility] Temperature Oral (F) 2018-07-11 13:31:00 97.9 F [facility] Heart Rate 2018-07-11 10:09:00 [facility] Temperature Oral (F) 2018-07-11 10:09:00 98.6 F [facility] Systolic (mm Hg) 2018-07-11 10:09:00 Cezar rial [facility] Diastolic (mm Hg) 2018-07-11 10:09:00 Mem orial [place] Respitory Rate 2018-07-11 10:09:00 Mem[facility] [place] Height 2018-07-10 05:38:00 162.56 cm [facility] Weight 2018-07-10 05:38:00 [facility] BMI Calculated 2018-07-10 05:38:00 Soniya Cox Weight 2018-07-09 21:06:00 Ugo Kaur Height 2018-07-09 21:06:00 162.56 cm Ugo Kaur BMI Calculated 2018-07-09 21:06:00 Soniya Cox Procedures This patient has no known procedures. Plan of Care Planned Activity Planned Date Details Comments Source Future Scheduled Test 2020-02-21 00:00:00 INFLUENZA VACCINE [code = INFLUENZA VACCINE] [facility] Scheduled Test 2014 00:00:00 BREAST CANCER SCRE ENING [code = BREAST CANCER SCREENING] [facility] Scheduled Test 2014 00:00:00 COLONOSCOPY SCREEN ING [code = COLONOSCOPY SCREENING] [facility] Scheduled Test 2014 00:00:00 SHINGLES VACCINES (#1) [code = SHINGLES VACCINES (#1)] [facility] Scheduled Test 1985 00:00:00 Screening for roberto gnant neoplasm of cervix (procedure) [code = 740929199] [facility] Encounters Start Date/Time End Date/Time Encounter Type Admission Type Attendi [facility] Care Department Encounter ID Source 2017-02-05 15:41:00 Inpatient C MCSETX M[facility] 17 [id number] [facility] 2016-10-23 23:49:00 Inpatient C [facility] MED [id number] [facility] 2019-04-30 20:20:00 2019-05-01 02:30:00 Outpatient [facility] [id number] 2019-04-30 20:20:00 2019-04-30 20:20:00 Emergency E SE SE [address] [facility] 2018-10-29 10:34:00 2018-10-29 17:45:00 Departed Emergency Room [address] [facility] [id number] [facility] 2018-08-25 16:00:00 2018-08-25 23:20:00 Outpatient Jay Parks [facility] [place] [id number] 2018-08-25 16:00:00 2018-08-25 23:20:00 Outpatient Jay Parks [facility] [id number] 2018-07-24 09:42:00 2018-07-24 19:50:00 Outpatient Dunia Mcconnell [facility] [id number] 2018-07-09 14:54:00 2018-07-11 17:27:00 Outpatient Julia Mendez [facility] [id number] 2017-10-24 21:54:00 2017-10-24 21:54:00 Emergency E [facility] MED [id number] [facility] 2017-04-27 17:04:00 2017-05-07 12:15:00 [facility] 2 [facility] [id number] 2017-03-12 18:06:00 2017-03-16 18:17:00 [facility] 1 [facility] [id number]) 2017-03-11 17:00:00 2017-03-11 17:00:00 Emergency E [facility] MED [id number] [facility] 2017-02-22 20:15:00 2017-02-22 17:05:00 Inpatient E [facility] MED [id number] [facility] 2016-12-04 14:50:00 2016-12-04 14:50:00 Emergency E [facility] MED [id number] [facility] 2016-11-17 16:39:00 2016-11-17 16:39:00 Emergency E [facility] MED [id number] [facility] 2016-10-16 17:25:00 2016-10-16 12:35:00 Inpatient E [facility] MED [id number] [facility] Results Test Description Test Time Test Comments Results Result Comments Source - PULM VENT PERF IMAG 2019-08-18 15:54:00 FAX : Emiliano Perry MD [phone] [place]: [address] St: [facility] FAX: Michele Gayle Name: DEE DAVENPORT [facility] : 1965 Age/S: 54/F [address] Unit #: [id number] Loc: [id number] [place] [address] Phys: Emiliano Perry MD Acct: [id number] Dis Date: Status: ADM IN PHONE #: [phone] Exam Date: 08/18/2019 1500 FAX #: [phone] Reason: shortness of breath EXAMS: CPT CODE: [id number] PULM VENT PERF IMAG [id number] REASON FOR EXAM: shortness of breath Exam Order Date: 08/18/2019 3:35 PM Ordering: Emiliano Perry MD Attending:Thaddeus Mason MD Location:[facility] Procedure: - PULM VENT PERF IMAG FINDINGS: The patient was injected with 5.5 mCi of technetium 99m MAA. Unremarkable radiotracer uptake in the lungs in the perfusion phase. The patient refused the ventilation portion of the exam. IMPRESSION: Low probability of pulmonary embolus at 1558 Reported and signed by: Josef Chakraborty M.D. CC: Emiliano Perry MD; Michele Cesar MD Technologist: Dolly Larsen RT(N) Trnscrd Date/Time/By: 08/18/2019 ([id number]) : By: KenjiL Orig Print D/T: S: 08/18/2019 ([id number]) PAGE 1 Signed Report BASIC METABOLIC PANEL 2019-08-18 07:24:00 Test Item SODIUM (test code = NA) 143 mmol/L 136-145 N POTASSIUM (test code = K) 3.9 mmol/L 3.5-5.1 N CHLORIDE (test code = CL) 106.0 mmol/L 98-107 N CARBON DIOXIDE (test code = CO2) 28.0 mmol/L 21-32 N ANION GAP (test code = GAP) 12.9 10-20 N GLUCOSE (test code = GLU) 97 mg/dL 74-106 N BLOOD UREA NITROGEN (test code = BUN) 30 mg/dL 7-18 H RESULT VERIFIED BY REPEAT ANALYSIS GLOMERULAR FILTRATION RATE (test code = GFR) 21 mL/min >=60 Estimated GFR by using Modified MDRD formula.Chronic kidney disease is defined as either kidney damageor GFR <60 mL/min/1.73 m2 for >3 months. CREATININE (test code = CREAT) 2.40 mg/dL 0.55-1.02 H Note change in reference range due to change in reagent. BUN/CREATININE RATIO (test code = BUN/CREA) 12.5 10-20 N CALCIUM (test code = CA) 9.3 mg/dL 8.5-10.1 N BASIC METABOLIC [id number] 06:51:00* Test Item Value Reference Range Interpretation Comments SODIUM (test code = NA) 143 mmol/L 136-145 N POTASSIUM (test code = K) 3.9 mmol/L 3.5-5.1 N CHLORIDE (test code = CL) 106.0 mmol/L 98-107 N CARBON DIOXIDE (test code = CO2) mmol/L 21-32 ANION GAP (test code = GAP) 10-20 GLUCOSE (test code = GLU) mg/dL 74-106 BLOOD UREA NITROGEN (test code = BUN) mg/dL 7-18 GLOMERULAR FILTRATION RATE (test code = GFR) mL/min >=60 CREATININE (test code = CREAT) mg/dL 0.55-1.02 BUN/CREATININE RATIO (test code = BUN/CREA) 10-20 CALCIUM (test code = CA) mg/dL 8.5-10.1 CBC W/AUTO [id number] 06:33:00* Test Item Value Reference Range Interpretation Comments WHITE BLOOD CELL (test code = WBC) 4.5 K/mm3 4.5-12.5 N RED BLOOD CELL (test code = RBC) 3.71 mill/mm3 3.7-5.2 N HEMOGLOBIN (test code = HGB) 11.0 gram/dL 11.5-15.5 L HEMATOCRIT (test code = HCT) 35.2 % 36.0-46.0 L MEAN CELL VOLUME (test code = MCV) 94.9 fL 80-98 N MEAN CELL HGB (test code = MCH) 29.6 picogram 27.0-33.0 N MEAN CELL HGB CONCETRATION (test code = MCHC) 31.3 gram/dL 33.0-36. 0 L RED CELL DISTRIBUTION WIDTH (test code = RDW) 14.8 % 11.6-16. 2 N RED CELL DISTRIBUTION WIDTH SD (test code = RDW-SD) 51.2 fL 37 .0-51.0 H PLATELET COUNT (test code = PLT) 273 K/mm3 150-450 N MEAN PLATELET VOLUME (test code = MPV) 10.3 fL 6.7-11.0 N NEUTROPHIL % (test code = NT%) 69.1 % 39.0-69.0 H IMMATURE GRANULOCYTE % (test code = IG%) 0.7 % 0.0-5.0 N LYMPHOCYTE % (test code = LY%) 22.5 % 25.0-55.0 L MONOCYTE % (test code = MO%) 7.5 % 0.0-10.0 N EOSINOPHIL % (test code = EO%) 0.0 % 0.0-5.0 N BASOPHIL % (test code = BA%) 0.2 % 0.0-1.0 N NUCLEATED RBC % (test code = NRBC%) 0.0 % 0-0 N NEUTROPHIL # (test code = NT#) 3.14 K/mm3 1.8-7.7 N IMMATURE GRANULOCYTE # (test code = IG#) 0.03 x10 3/uL 0-0.03 N LYMPHOCYTE # (test code = LY#) 1.02 K/mm3 1.0-5.0 N MONOCYTE # (test code = MO#) 0.34 K/mm3 0-0.8 N EOSINOPHIL # (test code = EO#) 0.00 K/mm3 0.0-0.5 N BASOPHIL # (test code = BA#) 0.01 K/mm3 0.0-0.2 N NUCLEATED RBC # (test code = NRBC#) 0.00 K/mm3 0.0-0.1 N MANUAL DIFF REQUIRED (test code = MDIFF) NO [id number] 21:58:00* Test Item Value Reference Range Interpretation Comments TROPONIN-I (test code = TROPI) <0.015 ng/mL 0-0.045 N COMMENTS TO TECHNICIAN TEST SYSTEMS: COLLECT 3 HOURS AFTER PREVIOUS [id number] 19:27:00* Test Item Value Reference Range Interpretation Comments TROPONIN-I (test code = TROPI) <0.015 ng/mL 0-0.045 N COMMENTS TO TECHNICIAN TEST SYSTEMS: COLLECT 3 HOURS AFTER PREVIOUS SAMPLEB-TYPE NATRIURETIC [id number] 15:17:00* Test Item Value Reference Range Interpretation Comments B-TYPE NATRIURETIC PEPTIDE (test code = BNP) 233.98 pgram/mL 0-100 H BASIC METABOLIC [id number] 15:13:00* Test Item Value Reference Range Interpretation Comments SODIUM (test code = NA) 141 mmol/L 136-145 N POTASSIUM (test code = K) 4.0 mmol/L 3.5-5.1 N CHLORIDE (test code = CL) 108.0 mmol/L 98-107 H CARBON DIOXIDE (test code = CO2) 26.0 mmol/L 21-32 N ANION GAP (test code = GAP) 11.0 10-20 N GLUCOSE (test code = GLU) 92 mg/dL 74-106 N BLOOD UREA NITROGEN (test code = BUN) 23 mg/dL 7-18 H GLOMERULAR FILTRATION RATE (test code = GFR) 22 mL/min >=60 Estimated GFR by using Modified MDRD formula.Chronic kidney disease is defined as either kidney damageor GFR <60 mL/min/1.73 m2 for >3 months. CREATININE (test code = CREAT) 2.30 mg/dL 0.55-1.02 H Note change in reference range due to change in reagent. BUN/CREATININE RATIO (test code = BUN/CREA) 10.0 10-20 N CALCIUM (test code = CA) 9.1 mg/dL 8.5-10.1 N [id number] 15:13:00* Test Item Value Reference Range Interpretation Comments TROPONIN-I (test code = TROPI) <0.015 ng/mL 0-0.045 N [id number] 15:13:00* Test Item Value Reference Range Interpretation Comments D-DIMER (test code = DDIMER) 2301.00 ng/mLFEU 0-500 HH Results called to [id number] by [email or web address] 08/17/19 1513Critical results verified and read back by Nurse? YClinical Cut-off value for D-Dimer is 500 ng/mL FEU. Comment: The [employer] D- Dimer assay is intended for use asan aid in the diagnosis of venous thromboembolism (VTE)[deep vein thrombosis (DVT) or pulmonary embolism (PE)].The measurement of D-Dimer should not be used as an aid inthe diagnosis of VTE, in patient with: -Therapeutic dose anticoagulant therapy for >24 hours - Fibrinolytic therapy within previous 7 days -Trauma or surgery within previous 4 weeks -Disseminated malignancies -Aortic aneurysm -Sepsis, severe infections, pneumonia, severe skin infections -Liver cirrhosis - BASIC METABOLIC [id number] 15:05:00* Test Item Value Reference Range Interpretation Comments SODIUM (test code = NA) 141 mmol/L 136-145 N POTASSIUM (test code = K) 4.0 mmol/L 3.5-5.1 N CHLORIDE (test code = CL) 108.0 mmol/L 98-107 H CARBON DIOXIDE (test code = CO2) mmol/L 21-32 ANION GAP (test code = GAP) 10-20 GLUCOSE (test code = GLU) mg/dL 74-106 BLOOD UREA NITROGEN (test code = BUN) mg/dL 7-18 GLOMERULAR FILTRATION RATE (test code = GFR) mL/min >=60 CREATININE (test code = CREAT) mg/dL 0.55-1.02 BUN/CREATININE RATIO (test code = BUN/CREA) 10-20 CALCIUM (test code = CA) mg/dL 8.5-10.1 [id number] 15:05:00* Test Item Value Reference Range Interpretation Comments TROPONIN-I (test code = TROPI) ng/mL 0-0.045 CBC W/O [id number] 14:45:00* Test Item Value Reference Range Interpretation Comments WHITE BLOOD CELL (test code = WBC) 4.3 K/mm3 4.5-12.5 L RED BLOOD CELL (test code = RBC) 3.26 mill/mm3 3.7-5.2 L HEMOGLOBIN (test code = HGB) 9.7 gram/dL 11.5-15.5 L HEMATOCRIT (test code = HCT) 31.1 % 36.0-46.0 L MEAN CELL VOLUME (test code = MCV) 95.4 fL 80-98 N MEAN CELL HGB (test code = MCH) 29.8 picogram 27.0-33.0 N MEAN CELL HGB CONCETRATION (test code = MCHC) 31.2 gram/dL 33.0-36. 0 L RED CELL DISTRIBUTION WIDTH (test code = RDW) 14.7 % 11.6-16. 2 N PLATELET COUNT (test code = PLT) 241 K/mm3 150-450 N MEAN PLATELET VOLUME (test code = MPV) 10.4 fL 6.7-11.0 N - XR CHEST 1 [id number] 13:45:00 FAX: Emiliano Perry MD [phone] [place]: St: PRE FAX: Michele Gayle Name: DEE DAVENPORT [facility] : 1965 Age/S: 54/F [address] [facility] Unit #: [id number] Loc: [place] [address] Phys: Emiliano Perry MD Acct: [id number] Dis Date: Status: PRE ER PHONE #: [phone] Exam Date: 08/17/2019 1336 FAX #: [phone] Reason: Shortness of Breath EXAMS: CPT CODE: [id number] XR CHEST 1 V 76969 REASON FOR EXAM: Shortness of Breath Exam Order Date: 08/17/2019 1:12 PM Ordering M.D.: Emiliano Perry MD PROCEDURE: - XR CHEST 1 V COMPARISON: Chest x-ray August 02, 2019 FINDINGS: There is mild subsegmental atelectasis in the left lung base. Lungs are otherwise clear. There is no pleural effusion or pneumothorax. Pulmonary vascularity is within normal limits. Cardiomediastinal silhouette is normal in size for technique. The mediastinal contours are within normal limits. Musculoskeletal structures are within normal limits. The visualized upper abdomen is within normal limits. IMPRESSION: No acute cardiopulmonary process. Location: [facility] [employer] Signed by Nathan Braden MD on 08/17/2019 at 1345 Repor courtney and signed by: Nathan Barden MD CC: Emiliano Perry MD; Michele Cesar MD Technologist: Estela Parra RT(R); ALONSO MEDINA RT(R) Trnscrd Date/Time/By: 08/17/2019 (8224) : By: [email or web address] Orig Print D/T: S: 08/17/2019 (3875) PAGE 1 Signed Report - CT HEAD/BRAIN W/O CONT 2019-08-17 13:44:00 Name: DEE DAVENPORT [facility] : 1965 Age/S: 54 / F [address] [facility] Unit #: [id number] Loc: [place] [address] Phys: Emiliano Perry MD Acct: [id number] Dis Date: Status: PRE ER PHONE #: [phone] Exam Date: 08/17/2019 1323 FAX #: [phone] Reason: blurred vision EXAMS: CPT CODE: [id number] CT HEAD/BRAIN W/O CONT 97751 HISTORY: blurred vision TECHNIQUE: Noncontrast 2.[address] of the head. Examination acquired within 24 hours of arrival. Automated exposure control for dose reduction. COMPARISON: Noncontrast CT brain July 04, 2019 FINDINGS: No lacerations or contusions of the scalp or facial soft tissues. Prior left occipital bone craniotomy is unchanged from the previous exam. No acute hemorrhage. No intracranial mass, mass effect, or midline shift. Encephalomalacia in the left cerebellar hemisphere appears similar to the prior exam and may be postsurgical. There are also lacunar infarcts in the bilateral basal ganglia which appear similar to the prior exam. There are extensive microvascular ischemic changes of the white matter. There is polypoid mucosal thickening of the sphenoid sinus. Remaining paranasal sinuses are clear. Mastoid air cells and middle ear cavities are clear. Orbital contents are unremarkable. IMPRESSION: No acute intracranial hemorrhage or large vascular territorial infarct. Bilateral basal ganglia lacunar infarcts and white matter microvascular ischemic changes appear similar to the previous study. Postsurgical changes in the left occipital bone with encephalomalacia of the underlying left cerebellar hemisphere appears similar to the previous study. Location: [facility] at 1344 Reported and signed by: Nathan Braden MD PAGE 1 Signed Report (CONTINUED) Name: DEE DAVENPORT [facility] : 1965 Age/S: 54 / F [address] Unit #: [id number] Loc: [place] [address] Phys: Emiliano Perry MD Acct: [id number] Dis Date: Status: PRE ER PHONE #: [phone] Exam Date: 08/17/2019 1323 FAX #: [phone] Reason: blurred vision EXAMS: CPT CODE: [id number] CT HEAD/BRAIN W/O CONT 97493 <Continued> CC: Emiliano Perry MD; Michele Cesar MD Technologist:Brittani Rahman RT(R),CT CTDI: DLP: Trnscb Date/Time: 08/17/2019 (6015) t.[email or web address] Orig Print D/T: S: 08/17/2019 (5494) PAGE 2 Signed Report [id number] 17:04:00* Test Item Value Reference Range Interpretation Comments TROPONIN-I (test code = TROPI) <0.015 ng/mL 0-0.045 N COMMENTS TO TECHNICIAN TEST SYSTEMS: COLLECT 3 HOURS AFTER PREVIOUS SAMPLEFE W/TOTAL IRON BINDING CAP.2019-08-02 16:01:00* Test Item Value Reference Range Interpretation Comments SERUM IRON (test code = IRON) 56 ug/dL 50-175 N TOTAL IRON BINDING CAPACITY (test code = TIBC) 249 mcg/dL 250-450 L IRON SATURATION (test code = FESAT) 22.49 % 13-45 N HGB [id number] 14:10:00* Test Item Value Reference Range Interpretation Comments HEMOGLOBIN (test code = HGB) 8.5 gram/dL 11.5-15.5 L HEMATOCRIT (test code = HCT) 28.2 % 36.0-46.0 L PT WAS IN ULTRASOUND V.LAB.CS1 08/02/19 [id number] 14:06:00* Test Item Value Reference Range Interpretation Comments TROPONIN-I (test code = TROPI) <0.015 ng/mL 0-0.045 N COMMENTS TO TECHNICIAN TEST SYSTEMS: COLLECT 3 HOURS AFTER PREVIOUS SAMPLEB-TYPE NATRIURETIC [id number] 03:02:00* Test Item Value Reference Range Interpretation Comments B-TYPE NATRIURETIC PEPTIDE (test code = BNP) 397.04 pgram/mL 0-100 H BASIC METABOLIC [id number] 02:25:00* Test Item Value Reference Range Interpretation Comments SODIUM (test code = NA) 144 mmol/L 136-145 N POTASSIUM (test code = K) 3.3 mmol/L 3.5-5.1 L CHLORIDE (test code = CL) 112.0 mmol/L 98-107 H CARBON DIOXIDE (test code = CO2) 25.0 mmol/L 21-32 N ANION GAP (test code = GAP) 10.3 10-20 N GLUCOSE (test code = GLU) 96 mg/dL 74-106 N BLOOD UREA NITROGEN (test code = BUN) 18 mg/dL 7-18 N GLOMERULAR FILTRATION RATE (test code = GFR) 26 mL/min >=60 Estimated GFR by using Modified MDRD formula.Chronic kidney disease is defined as either kidney damageor GFR <60 mL/min/1.73 m2 for >3 months. CREATININE (test code = CREAT) 2.00 mg/dL 0.55-1.02 H Note change in reference range due to change in reagent. BUN/CREATININE RATIO (test code = BUN/CREA) 9.0 10-20 L CALCIUM (test code = CA) 8.2 mg/dL 8.5-10.1 L [id number] 02:25:00* Test Item Value Reference Range Interpretation Comments TROPONIN-I (test code = TROPI) <0.015 ng/mL 0-0.045 N BASIC METABOLIC [id number] 02:12:00* Test Item Value Reference Range Interpretation Comments SODIUM (test code = NA) 144 mmol/L 136-145 N POTASSIUM (test code = K) 3.3 mmol/L 3.5-5.1 L CHLORIDE (test code = CL) 112.0 mmol/L 98-107 H CARBON DIOXIDE (test code = CO2) mmol/L 21-32 ANION GAP (test code = GAP) 10-20 GLUCOSE (test code = GLU) mg/dL 74-106 BLOOD UREA NITROGEN (test code = BUN) mg/dL 7-18 GLOMERULAR FILTRATION RATE (test code = GFR) mL/min >=60 CREATININE (test code = CREAT) mg/dL 0.55-1.02 BUN/CREATININE RATIO (test code = BUN/CREA) 10-20 CALCIUM (test code = CA) 8.2 mg/dL 8.5-10.1 L [id number] 02:12:00* Test Item Value Reference Range Interpretation Comments TROPONIN-I (test code = TROPI) ng/mL 0-0.045 CBC W/O [id number] 02:02:00* Test Item Value Reference Range Interpretation Comments WHITE BLOOD CELL (test code = WBC) 6.8 K/mm3 4.5-12.5 N RED BLOOD CELL (test code = RBC) 2.67 mill/mm3 3.7-5.2 L HEMOGLOBIN (test code = HGB) 8.0 gram/dL 11.5-15.5 L HEMATOCRIT (test code = HCT) 25.5 % 36.0-46.0 L MEAN CELL VOLUME (test code = MCV) 95.5 fL 80-98 N MEAN CELL HGB (test code = MCH) 30.0 picogram 27.0-33.0 N MEAN CELL HGB CONCETRATION (test code = MCHC) 31.4 gram/dL 33.0-36. 0 L RED CELL DISTRIBUTION WIDTH (test code = RDW) 15.5 % 11.6-16. 2 N PLATELET COUNT (test code = PLT) 416 K/mm3 150-450 N MEAN PLATELET VOLUME (test code = MPV) 10.1 fL 6.7-11.0 N - XR FOREARM 2 VIEWS [id number] 00:57:00 FAX: Emiliano Perry MD [phone] [place]: B St: [facility] FAX: Michele Gayle Name: DEE DAVENPORT [facility] : 1965 Age/S: 54/F [address] [facility] Unit #: [id number] Loc: [place], [place] [address] Phys: Emiliano Perry MD Acct: [id number] Dis Date: Status: REG ER PHONE #: [phone] Exam Date: 08/02/201944 FAX #: [phone] Reason: arm pain EXAMS: CPT CODE: [id number] XR [place] [address] [place] [address] HISTORY: Knee pain and swelling Location: C3 FINDINGS: 3 images of the left wrist and 3 images of left forearm are pr ovided. No acute fracture, dislocation, or other acute osseous abn ormality is demonstrated. IMPRESSION: 1. No fracture or other acute osseous abnormality identified. at 0057 Reported and signed by: Cheryl Alan MD CC: Emiliano Perry MD; Michele Cesar MD Technologist: Walter Westbrook RT(R); LUO CARMONA RT(R) Trnmird Date/Time/By: 08/02/2019 (0 057) : By: [email or web address] Orig Print D/T: S: 08/02/2019 (0100) PAGE 1 Signed Report - XR WRIST 3 + V [id number] 00:57:00 FAX: Emiliano Perry MD [phone] [place]: St: REG FAX: Y Michele Cesar Name: DEE DAVENPORT [facility] : 1965 Age/S: 54/F [address] Unit #: [id number] Loc: [place], [place] [address] Phys: Emiliano Perry MD Acct: [id number] Dis Date: Status: REG ER PHONE #: [phone] Exam Date: 08/02/201939 FAX #: [phone] Reason: L wrist pain/swelling EXAMS: CPT CODE: [id number] XR WRIST 3 + [place] [address] HISTORY: Knee pain and swelling Location: C3 FINDINGS: 3 images of the left wrist and 3 images of left forearm are pr ovided. No acute fracture, dislocation, or other acute osseous abn ormality is demonstrated. IMPRESSION: 1. No fracture or other acute osseous abnormality identified. at 0057 Reported and signed by: Cheryl Alan MD CC: Emiliano Perry MD; Michele Cesar MD Technologist: Walter Westbrook RT(R); LOU CARMONA RT(R) Trnscrd Date/Time/By: 08/02/2019 (0 057) : By: [email or web address] Orig Print D/T: S: 08/02/2019 (0100) PAGE 1 Signed Report - XR CHEST 1 [id number] 00:54:00 FAX: Emiliano Perry MD [phone] [place]: B St: REG FAX: Y Michele Cesar Name: DEE DAVENPORT [facility] : 1965 Age/S: 54/F [address] [facility] Unit #: [id number] Loc: [place] [address] Phys: Emiliano Perry MD Acct: [id number] Dis Date: Status: REG ER PHONE #: [phone] Exam Date: 08/02/2019 0035 FAX #: [phone] Reason: CHEST PAIN EXAMS: CPT CODE: [id number] XR CHEST 1 V 14726 . HISTORY: Chest pain. Location: C3 COMPARISON: 98 07/13/2019 FINDINGS: There is cardiome jovita. Vascularity is mildly prominent. No pneumothorax. Streaky basilar opacities are noted. No other acute abnormalities. IMPRESSION: 1. Borderline cardiomegaly with mild vascular p rominence. a t 0054 Reported and signed by: Cheryl Alan MD CC: Emiliano Perry MD; Michele Cesar MD Techno logist: Walter Westbrook RT(R); LOU CARMONA RT(R) Trnscrd Date/Time /By: 08/02/2019 (005) : By: [email or web address] Orig Print D/T: S: 08/02/2019 ( 0058) PAGE 1 Signed Report B-TYPE NATRIURETIC [id number] 04:44:00* Test Item Value Reference Range Interpretation Comments B-TYPE NATRIURETIC PEPTIDE (test code = BNP) 145.18 pgram/mL 0-100 H COMPREHENSIVE METABOLIC [id number] 04:44:00* Test Item Value Reference Range Interpretation Comments SODIUM (test code = NA) 144 mmol/L 136-145 N POTASSIUM (test code = K) 3.5 mmol/L 3.5-5.1 N CHLORIDE (test code = CL) 110.0 mmol/L 98-107 H CARBON DIOXIDE (test code = CO2) 27.0 mmol/L 21-32 N ANION GAP (test code = GAP) 10.5 10-20 N GLUCOSE (test code = GLU) 101 mg/dL 74-106 N BLOOD UREA NITROGEN (test code = BUN) 29 mg/dL 7-18 H GLOMERULAR FILTRATION RATE (test code = GFR) 23 mL/min >=60 Estimated GFR by using Modified MDRD formula.Chronic kidney disease is defined as either kidney damageor GFR <60 mL/min/1.73 m2 for >3 months. CREATININE (test code = CREAT) 2.20 mg/dL 0.55-1.02 H Note change in reference range due to change in reagent. BUN/CREATININE RATIO (test code = BUN/CREA) 13.2 10-20 N TOTAL PROTEIN (test code = PROT) 6.9 gram/dL 6.4-8.2 N ALBUMIN (test code = ALB) 3.3 g/dL 3.4-5.0 L GLOBULIN (test code = GLOB) 3.6 gram/dL 2.7-4.2 N ALBUMIN/GLOBULIN RATIO (test code = A/G) 0.9 0.75-1.50 N CALCIUM (test code = CA) 8.2 mg/dL 8.5-10.1 L BILIRUBIN TOTAL (test code = BILT) 0.40 mg/dL 0.0-1.0 N SGOT/AST (test code = AST) 8 IUnit/L 15-37 L SGPT/ALT (test code = ALT) 12 IUnit/L 12-78 N ALKALINE PHOSPHATASE TOTAL (test code = ALKP) 70 IUnit/L 45-117 N Note change in reference range due to change in reagent. LIPID PROFILE (CORONARY RISK)2019-07-15 04:44:00* Test Item Value Reference Range Interpretation Comments TRIGLYCERIDES (test code = TRIG) 218 mg/dL 20-150 H CHOLESTEROL (test code = CHOL) 181 mg/dL 0-200 N CHOLESTEROL/HDL RATIO (test code = CHOLHDL) 4.0 RATIO 0-4.9 N RISK ASSOCIATED WITH CHOL/HDL RATIOS: Risk Male Female1/2 AVERAGE 3.43 3.27AVERAGE 4.97 4.442X AVERAGE 9.55 7.053X AVERAGE 23.39 11.04 REFERENCE VALUE IS RELATED TO RISK LEVELS ASRECOMMENDED BY THE KAREN. HEART, LUNG, AND BLOOD INST. HDL CHOLESTEROL (test code = HDL) 38 mg/dL 40-60 L LIPOPROTEIN LDL (test code = LDL) 105 mg/dL 100-129 N RN PERSONNEL, CONTACT PHYSICIAN IMMEDIATELY IF THIS IS A STROKE, AMI OR CAROTID STENOSIS PATIENT WHEN THE LDL >100 (1ST OCCURENCE, THIS ADMISSION) Reference Interval: mg/dL mmol/L Optimal <100 <2.6Near/above optimal 100-129 2.6- 3.3Borderline High 130-159 3.4-4.1High 160-189 4.1-4.9Very High >=190 >=4.9========= This LDL result is a direct measurement.========= [id number] 04:44:00* Test Item Value Reference Range Interpretation Comments MAGNESIUM (test code = MAG) 2.0 mg/dL 1.8-2.4 N THYROID PROFILE [id number] 04:44:00* Test Item Value Reference Range Interpretation Comments T3 UPTAKE (test code = T3UP) 38.0 % 30.0-40.0 N T4 (THYROXINE) (test code = T4) 9.7 ug/dL 4.5-13.9 N T7 (FREE THYROXINE INDEX) (test code = T7) 3.68 FTI 1.3-5.1 N THYROID STIMULATING HORMONE (test code = TSH) 1.360 uIU/mL 0.36-3.7 4 N TSH REFERENCE RANGES: EUTHYROID: 0.35 - 4.3 mIU/mL HYPO : > 5.5 mIU/mL HYPER : < 0.35 mIU/mL COMPREHENSIVE METABOLIC [id number] 04:30:00* Test Item Value Reference Range Interpretation Comments SODIUM (test code = NA) 144 mmol/L 136-145 N POTASSIUM (test code = K) 3.5 mmol/L 3.5-5.1 N CHLORIDE (test code = CL) 110.0 mmol/L 98-107 H CARBON DIOXIDE (test code = CO2) mmol/L 21-32 ANION GAP (test code = GAP) 10-20 GLUCOSE (test code = GLU) mg/dL 74-106 BLOOD UREA NITROGEN (test code = BUN) mg/dL 7-18 GLOMERULAR FILTRATION RATE (test code = GFR) mL/min >=60 CREATININE (test code = CREAT) mg/dL 0.55-1.02 BUN/CREATININE RATIO (test code = BUN/CREA) 10-20 TOTAL PROTEIN (test code = PROT) gram/dL 6.4-8.2 ALBUMIN (test code = ALB) g/dL 3.4-5.0 GLOBULIN (test code = GLOB) gram/dL 2.7-4.2 ALBUMIN/GLOBULIN RATIO (test code = A/G) 0.75-1.50 CALCIUM (test code = CA) mg/dL 8.5-10.1 BILIRUBIN TOTAL (test code = BILT) mg/dL 0.0-1.0 SGOT/AST (test code = AST) IUnit/L 15-37 SGPT/ALT (test code = ALT) IUnit/L 12-78 ALKALINE PHOSPHATASE TOTAL (test code = ALKP) IUnit/L 45-117 LIPID PROFILE (CORONARY RISK)2019-07-15 04:30:00* Test Item Value Reference Range Interpretation Comments TRIGLYCERIDES (test code = TRIG) mg/dL 20-150 CHOLESTEROL (test code = CHOL) mg/dL 0-200 CHOLESTEROL/HDL RATIO (test code = CHOLHDL) RATIO 0-4.9 HDL CHOLESTEROL (test code = HDL) mg/dL 40-60 LIPOPROTEIN LDL (test code = LDL) mg/dL 100-129 [id number] 04:30:00* Test Item Value Reference Range Interpretation Comments MAGNESIUM (test code = MAG) mg/dL 1.8-2.4 THYROID PROFILE [id number] 04:30:00* Test Item Value Reference Range Interpretation Comments T3 UPTAKE (test code = T3UP) % 30.0-40.0 T4 (THYROXINE) (test code = T4) ug/dL 4.5-13.9 T7 (FREE THYROXINE INDEX) (test code = T7) FTI 1.3-5.1 THYROID STIMULATING HORMONE (test code = TSH) uIU/mL 0.36-3.7 4 [id number] 04:30:00* Test Item Value Reference Range Interpretation Comments GLYCOSYLATED HEMOGLOBIN (HA1C) (test code = GLYHGB) 5.1 % HbA1 SUGGESTED DIAGNOSIS: HbA1C (%) Diabetic >6.4Prediabetes 5.7 - 6.4Normal <5.7 ESTIMATED AVERAGE GLUCOSE (test code = EAG) 100 MG/DL CBC W/AUTO [id number] 04:17:00* Test Item Value Reference Range Interpretation Comments WHITE BLOOD CELL (test code = WBC) 3.8 K/mm3 4.5-12.5 L RED BLOOD CELL (test code = RBC) 3.64 mill/mm3 3.7-5.2 L HEMOGLOBIN (test code = HGB) 11.2 gram/dL 11.5-15.5 L HEMATOCRIT (test code = HCT) 34.2 % 36.0-46.0 L MEAN CELL VOLUME (test code = MCV) 94.0 fL 80-98 N MEAN CELL HGB (test code = MCH) 30.8 picogram 27.0-33.0 N MEAN CELL HGB CONCETRATION (test code = MCHC) 32.7 gram/dL 33.0-36. 0 L RED CELL DISTRIBUTION WIDTH (test code = RDW) 13.4 % 11.6-16. 2 N RED CELL DISTRIBUTION WIDTH SD (test code = RDW-SD) 46.2 fL 37 .0-51.0 N PLATELET COUNT (test code = PLT) 184 K/mm3 150-450 N MEAN PLATELET VOLUME (test code = MPV) 10.4 fL 6.7-11.0 N NEUTROPHIL % (test code = NT%) 51.8 % 39.0-69.0 N IMMATURE GRANULOCYTE % (test code = IG%) 0.3 % 0.0-5.0 N LYMPHOCYTE % (test code = LY%) 37.8 % 25.0-55.0 N MONOCYTE % (test code = MO%) 9.3 % 0.0-10.0 N EOSINOPHIL % (test code = EO%) 0.3 % 0.0-5.0 N BASOPHIL % (test code = BA%) 0.5 % 0.0-1.0 N NUCLEATED RBC % (test code = NRBC%) 0.0 % 0-0 N NEUTROPHIL # (test code = NT#) 1.96 K/mm3 1.8-7.7 N IMMATURE GRANULOCYTE # (test code = IG#) 0.01 x10 3/uL 0-0.03 N LYMPHOCYTE # (test code = LY#) 1.43 K/mm3 1.0-5.0 N MONOCYTE # (test code = MO#) 0.35 K/mm3 0-0.8 N EOSINOPHIL # (test code = EO#) 0.01 K/mm3 0.0-0.5 N BASOPHIL # (test code = BA#) 0.02 K/mm3 0.0-0.2 N NUCLEATED RBC # (test code = NRBC#) 0.00 K/mm3 0.0-0.1 N MANUAL DIFF REQUIRED (test code = MDIFF) NO [id number] 14:50:00* Test Item Value Reference Range Interpretation Comments TROPONIN-I (test code = TROPI) 0.019 ng/mL 0-0.045 N [id number] 09:30:00* Test Item Value Reference Range Interpretation Comments TROPONIN-I (test code = TROPI) 0.016 ng/mL 0-0.045 N COMMENTS TO TECHNICIAN TEST SYSTEMS: COLLECT 3 HOURS AFTER PREVIOUS [id number] 06:24:00* Test Item Value Reference Range Interpretation Comments TROPONIN-I (test code = TROPI) 0.018 ng/mL 0-0.045 N COMMENTS TO TECHNICIAN TEST SYSTEMS: COLLECT 3 HOURS AFTER PREVIOUS [id number] 00:33:00* Test Item Value Reference Range Interpretation Comments GLUBED (test code = GLUBED) 72 mg/dL 74-106 L Performed by certified trouble operator at [facility] B-TYPE NATRIURETIC [id number] 23:27:00* Test Item Value Reference Range Interpretation Comments B-TYPE NATRIURETIC PEPTIDE (test code = BNP) 93.78 pgram/mL 0-100 N BASIC METABOLIC [id number] 21:39:00* Test Item Value Reference Range Interpretation Comments SODIUM (test code = NA) 145 mmol/L 136-145 N POTASSIUM (test code = K) 4.1 mmol/L 3.5-5.1 N CHLORIDE (test code = CL) 108.0 mmol/L 98-107 H CARBON DIOXIDE (test code = CO2) 26.0 mmol/L 21-32 N ANION GAP (test code = GAP) 15.1 10-20 N GLUCOSE (test code = GLU) 147 mg/dL 74-106 H BLOOD UREA NITROGEN (test code = BUN) 30 mg/dL 7-18 H GLOMERULAR FILTRATION RATE (test code = GFR) 21 mL/min >=60 Estimated GFR by using Modified MDRD formula.Chronic kidney disease is defined as either kidney damageor GFR <60 mL/min/1.73 m2 for >3 months. CREATININE (test code = CREAT) 2.40 mg/dL 0.55-1.02 H Note change in reference range due to change in reagent. BUN/CREATININE RATIO (test code = BUN/CREA) 12.5 10-20 N CALCIUM (test code = CA) 9.0 mg/dL 8.5-10.1 N [id number] 21:39:00* Test Item Value Reference Range Interpretation Comments TROPONIN-I (test code = TROPI) <0.015 ng/mL 0-0.045 N BASIC METABOLIC [id number] 21:30:00* Test Item Value Reference Range Interpretation Comments SODIUM (test code = NA) 145 mmol/L 136-145 N POTASSIUM (test code = K) 4.1 mmol/L 3.5-5.1 N CHLORIDE (test code = CL) 108.0 mmol/L 98-107 H CARBON DIOXIDE (test code = CO2) mmol/L 21-32 ANION GAP (test code = GAP) 10-20 GLUCOSE (test code = GLU) mg/dL 74-106 BLOOD UREA NITROGEN (test code = BUN) mg/dL 7-18 GLOMERULAR FILTRATION RATE (test code = GFR) mL/min >=60 CREATININE (test code = CREAT) mg/dL 0.55-1.02 BUN/CREATININE RATIO (test code = BUN/CREA) 10-20 CALCIUM (test code = CA) mg/dL 8.5-10.1 [id number] 21:30:00* Test Item Value Reference Range Interpretation Comments TROPONIN-I (test code = TROPI) ng/mL 0-0.045 CBC W/O [id number] 21:16:00* Test Item Value Reference Range Interpretation Comments WHITE BLOOD CELL (test code = WBC) 5.3 K/mm3 4.5-12.5 N RED BLOOD CELL (test code = RBC) 3.97 mill/mm3 3.7-5.2 N HEMOGLOBIN (test code = HGB) 12.0 gram/dL 11.5-15.5 N HEMATOCRIT (test code = HCT) 38.3 % 36.0-46.0 N MEAN CELL VOLUME (test code = MCV) 96.5 fL 80-98 N MEAN CELL HGB (test code = MCH) 30.2 picogram 27.0-33.0 N MEAN CELL HGB CONCETRATION (test code = MCHC) 31.3 gram/dL 33.0-36. 0 L RED CELL DISTRIBUTION WIDTH (test code = RDW) 13.4 % 11.6-16. 2 N PLATELET COUNT (test code = PLT) 201 K/mm3 150-450 N MEAN PLATELET VOLUME (test code = MPV) 10.5 fL 6.7-11.0 N CBC W/O [id number] 21:08:00* Test Item Value Reference Range Interpretation Comments WHITE BLOOD CELL (test code = WBC) K/mm3 4.5-12.5 RED BLOOD CELL (test code = RBC) mill/mm3 3.7-5.2 HEMOGLOBIN (test code = HGB) 12.0 gram/dL 11.5-15.5 N HEMATOCRIT (test code = HCT) 38.3 % 36.0-46.0 N MEAN CELL VOLUME (test code = MCV) fL 80-98 MEAN CELL HGB (test code = MCH) picogram 27.0-33.0 MEAN CELL HGB CONCETRATION (test code = MCHC) gram/dL 33.0-36. 0 RED CELL DISTRIBUTION WIDTH (test code = RDW) % 11.6-16. 2 PLATELET COUNT (test code = PLT) K/mm3 150-450 MEAN PLATELET VOLUME (test code = MPV) fL 6.7-11.0 - XR CHEST 1 [id number] 20:44:00 FAX: Michele Gay[facility] [place]: B St: REG FAX: Shola Gaspar DO Name: ADELINA DAVENPORT [facility] : 1965 Age/S: 53/F [address] [facility] Unit #: [id number] Loc: [place] [address] Phys: Shola Gaspar DO Acct: [id number] Dis Date: Status: REG ER PHONE #: [phone] Exam Date: 07/13/20192011 FAX #: [phone] Reason: CHEST PAIN EXAMS: CPT CODE: [id number] XR CHEST 1 V 47182 REASON FOR EXAM: CHEST PAIN EXAM ORDER DATE: 07/13/2019 7:55 PM Ordering: Shola Gaspar DO Attending:Shola Gaspar DO Location: PROCEDURE: - XR CHEST 1 V COMPARISON: 06/26/2019 FINDINGS: Portable AP frontal view of the chest obtained at 8:10 PM shows clear lungs without evidence of consolidation. There is no evidence of effusion. The heart size is within normal limits. Pulmonary vasculatures are unremarkable. IMPRESSION: No active disease. at 2043 Reported and signed by: Josef Chakraborty M.D. CC: Michele Cesar MD; Shola Gaspar DO Technologist: Estela Parra RT(R); ALONSO MEDINA RT(R) Trnscrd Date/Time/By: 07/13/2019 (2043) : By: Jeferson.VTL Orig Print D/T: S: 07/13/2019 (2047) PAGE 1 Signed Report - CT HEAD/BRAIN W/O [id number] 15:19:00 Name: DEE GIVENS [facility] : 1965 Age/S: 53 / F [address] [facility] Unit #: [id number] Loc: [place] [address] Phys: Rashmi Fuentes MD Acct: [id number] Di s Date: Status: REG ER PHONE #: Exam Date: 07/04/2019 1513 FAX #: [phone] Reason: change in vision EXAMS: CPT CODE: [id number] CT HEAD/BRAIN W/O CONT [id number] REASON FOR EXAM: change in vision EXAM ORDER DATE: 07/04/2019 2:04 PM Ordering: Ailyn Fuentes MD Attending:Ailyn Fuentes MD Location:[facility] PROCEDURE: - CT HEAD/BRAIN W/O CONT COMPARISON: 2018 FINDINGS: CT images of the brain were obtained without IV con trast. Dose modulation, iterative reconstruction, and/or weight based adjustment of the MA/KV was utilized to reduce the radiation dose to as low as reasonably achievable. Mild patchy low densities appearan ce of the paraventricular region noted consistent with nonspecific white m atter disease. The beal-white matter delineation is unremarkable. The vent ricles, cisterns, and sulci are unremarkable. There is no evidence of hemo rrhage, mass, mass effect. There is no evidence of acute infarct. Probabl e large nidhi hole in the left skull base. The examination is limited due t o motion artifacts. 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 No acute findings. Mary ctronically Signed by Diego Chakraborty on 07/04/2019 at 1519 Reported and signed by: Josef Chakraborty M.D. CC: Michele Cesar MD; Ailyn Fuentes MD Technologist:CHERYL CROUCH RT(R) CT CTDI: DLP: Trnscb Date/Time: 07/04/2019 (1519) t.SDR.VTL Orig Print D/T: S: 07/04/2019 (6811) PAGE 1 Si gned Report PROTHROMBIN [id number] 14:54:00* Test Item Value Reference Range Interpretation Comments PROTHROMBIN TIME PATIENT (test code = PTP) 12.4 seconds 9.0-14.0 N INTERNATIONAL NORMAL RATIO (test code = INR) 1.1 0.8-1.2 N The therapeutic range for oral anticoagulant therapy formost indications is an international normalized ratio (INR)of between 2.0 and 3.0. The recommended therapeutic INRrange for various clinical situations is listed below: Clinical Situation INR range Pulmonary e mbolism treatment (2.0-3.0)Venous thrombosis treatmentVenous thrombosis prophylaxis (high risk surgery)Prevention of systemic embolism from: Acute myocardial infarction Valvular heart disease Atrial fibrillation Mechanical prosthetic heart valves (2.5-3.5) IS PATIENT ON ANTICOAGULANTS? NTHROMBOPLASTIN TIME [id number] 14:54:00* Test Item Value Reference Range Interpretation Comments THROMBOPLASTIN TIME PARTIAL (test code = PTT) 63.1 seconds 25.0-36. 5 H IS PATIENT ON ANTICOAGULANTS? NBASIC METABOLIC [id number] 14:53:00* Test Item Value Reference Range Interpretation Comments SODIUM (test code = NA) 144 mmol/L 136-145 N POTASSIUM (test code = K) 3.5 mmol/L 3.5-5.1 N CHLORIDE (test code = CL) 112.0 mmol/L 98-107 H CARBON DIOXIDE (test code = CO2) 28.0 mmol/L 21-32 N ANION GAP (test code = GAP) 7.5 10-20 L GLUCOSE (test code = GLU) 104 mg/dL 74-106 N BLOOD UREA NITROGEN (test code = BUN) 26 mg/dL 7-18 H GLOMERULAR FILTRATION RATE (test code = GFR) 26 mL/min >=60 Estimated GFR by using Modified MDRD formula.Chronic kidney disease is defined as either kidney damageor GFR <60 mL/min/1.73 m2 for >3 months. CREATININE (test code = CREAT) 2.00 mg/dL 0.55-1.02 H Note change in reference range due to change in reagent. BUN/CREATININE RATIO (test code = BUN/CREA) 13.2 10-20 N CALCIUM (test code = CA) 9.4 mg/dL 8.5-10.1 N HEPATIC FUNCTION [id number] 14:53:00* Test Item Value Reference Range Interpretation Comments TOTAL PROTEIN (test code = PROT) 8.0 gram/dL 6.4-8.2 N ALBUMIN (test code = ALB) 3.8 g/dL 3.4-5.0 N GLOBULIN (test code = GLOB) 4.2 gram/dL 2.7-4.2 N ALBUMIN/GLOBULIN RATIO (test code = A/G) 0.9 0.75-1.50 N BILIRUBIN TOTAL (test code = BILT) 0.30 mg/dL 0.0-1.0 N BILIRUBIN DIRECT (test code = BILD) 0.12 mg/dL 0.0-0.20 N SGOT/AST (test code = AST) 11 IUnit/L 15-37 L SGPT/ALT (test code = ALT) 17 IUnit/L 12-78 N ALKALINE PHOSPHATASE TOTAL (test code = ALKP) 80 IUnit/L 45-117 N Note change in reference range due to change in reagent. [id number] 14:53:00* Test Item Value Reference Range Interpretation Comments ALCOHOL (test code = ALC) 8 mg/dL 0.0-3.0 H -- INTERPRETIVE DATA NOTE: POSITIVE SCREENING RESULTS SHOULD BE CONSIDERED PRESUMPTIVE.WHEN COLLECTED FOR MEDICAL PURPOSES ONLY. SPECIMEN WILL NOTBE COLLECTED BY CHAIN OF CUSTODY.IF A CONFIRMATION OF POSITIVE RESULTS IS DESIRED, ACONFIRMATION TEST MUST BE REQUESTED BY THE PHYSICIAN AT ANADDITIONAL CHARGE TO THE PATIENT. URINALYSIS [id number] 14:51:00* Test Item Value Reference Range Interpretation Comments UA COLOR (test code = COLU) COLORLESS YELLOW A UA APPEARANCE (test code = APPU) CLEAR CLEAR UA GLUCOSE DIPSTICK (test code = DGLUU) NEGATIVE mg/dL NEGATIVE UA BILIRUBIN DIPSTICK (test code = BILU) NEGATIVE mg/dL NEGATIVE UA KETONE DIPSTICK (test code = KETU) NEGATIVE mg/dL NEGATIVE UA SPECIFIC GRAVITY (test code = SGU) 1.009 1.001-1.035 UA BLOOD DIPSTICK (test code = MERNA) Negative mg/dL NEGATIVE UA PH DIPSTICK (test code = RADHA) 6.0 5.0-8.0 UA PROTEIN DIPSTICK (test code = PROU) NEGATIVE mg/dL NEGATIVE UA UROBILINIOGEN DIPSTICK (test code = URO) Normal mg/dL NEGATIVE UA NITRITE DIPSTICK (test code = RYAN) NEGATIVE NEGATIVE UA LEUKOCYTE ESTERASE W REFLEX (test code = LEUUR) NEGATIVE Selin/uL NEGATIVE UA WBC (test code = WBCU) 0-5 per HPF 0-5 UA RBC (test code = RBCU) 0-2 #/HPF 0-5 UA EPITHELIAL CELLS (test code = EPIU) FEW per HPF FEW UA BACTERIA (test code = BACU) FEW #/HPF NONE A UA MUCUS (test code = MUCU) FEW #/LPF FEW Urine Source? Clean CatchDRUGS OF ABUSE SCREEN [id number] 14:51:00* Test Item Value Reference Range Interpretation Comments URN COCAINE (test code = COCAURN) NEGATIVE <300 ng/mL URN CANNABINOIDS (test code = CANNABURN) NEGATIVE <50 ng/mL URN AMPHETAMINE (test code = AMPHETURN) NEGATIVE <1000 ng/mL URN BARBITURATE (test code = BARBITURN) NEGATIVE <200 ng/mL URN BENZODIAZEPINE (test code = BENZOURN) NEGATIVE <200 ng/mL URN OPIATES (test code = OPIATURN) NEGATIVE <300 ng/mL URN PHENCYCLIDINE (PCP) (test code = PHENCURN) NEGATIVE <25 ng/ mL URN METHADONE (test code = METHAURN) NEGATIVE <300 ng/mL Urine Source? Clean CatchURINALYSIS [id number] 14:41:00* Test Item Value Reference Range Interpretation Comments UA COLOR (test code = COLU) YELLOW UA APPEARANCE (test code = APPU) CLEAR UA BILIRUBIN DIPSTICK (test code = BILU) NEGATIVE UA SPECIFIC GRAVITY (test code = SGU) 1.001-1.035 UA PH DIPSTICK (test code = RADHA) 5.0-8.0 UA UROBILINIOGEN DIPSTICK (test code = URO) mg/dL 0.0-0.2 UA NITRITE DIPSTICK (test code = RYAN) NEGATIVE UA LEUKOCYTE ESTERASE W REFLEX (test code = LEUUR) NEG ATIVE UA WBC (test code = WBCU) per HPF 0-5 UA RBC (test code = RBCU) per HPF 0-5 UA EPITHELIAL CELLS (test code = EPIU) per HPF Few UA BACTERIA (test code = BACU) per HPF NONE Urine Source? Clean CatchDRUGS OF ABUSE SCREEN [id number] 14:41:00* Test Item Value Reference Range Interpretation Comments URN COCAINE (test code = COCAURN) NEGATIVE <300 ng/mL URN CANNABINOIDS (test code = CANNABURN) NEGATIVE <50 ng/mL URN AMPHETAMINE (test code = AMPHETURN) NEGATIVE <1000 ng/mL URN BARBITURATE (test code = BARBITURN) NEGATIVE <200 ng/mL URN BENZODIAZEPINE (test code = BENZOURN) NEGATIVE <200 ng/mL URN OPIATES (test code = OPIATURN) NEGATIVE <300 ng/mL URN PHENCYCLIDINE (PCP) (test code = PHENCURN) NEGATIVE <25 ng/ mL URN METHADONE (test code = METHAURN) NEGATIVE <300 ng/mL Urine Source? Clean CatchCBC W/O [id number] 14:40:00* Test Item Value Reference Range Interpretation Comments WHITE BLOOD CELL (test code = WBC) 4.8 K/mm3 4.5-12.5 N RED BLOOD CELL (test code = RBC) 4.05 mill/mm3 3.7-5.2 N HEMOGLOBIN (test code = HGB) 12.3 gram/dL 11.5-15.5 N HEMATOCRIT (test code = HCT) 37.6 % 36.0-46.0 N MEAN CELL VOLUME (test code = MCV) 92.8 fL 80-98 N MEAN CELL HGB (test code = MCH) 30.4 picogram 27.0-33.0 N MEAN CELL HGB CONCETRATION (test code = MCHC) 32.7 gram/dL 33.0-36. 0 L RED CELL DISTRIBUTION WIDTH (test code = RDW) 12.6 % 11.6-16. 2 N PLATELET COUNT (test code = PLT) 217 K/mm3 150-450 N MEAN PLATELET VOLUME (test code = MPV) 10.7 fL 6.7-11.0 N CBC W/O [id number] 14:37:00* Test Item Value Reference Range Interpretation Comments WHITE BLOOD CELL (test code = WBC) K/mm3 4.5-12.5 RED BLOOD CELL (test code = RBC) mill/mm3 3.7-5.2 HEMOGLOBIN (test code = HGB) 12.3 gram/dL 11.5-15.5 N HEMATOCRIT (test code = HCT) 37.6 % 36.0-46.0 N MEAN CELL VOLUME (test code = MCV) fL 80-98 MEAN CELL HGB (test code = MCH) picogram 27.0-33.0 MEAN CELL HGB CONCETRATION (test code = MCHC) gram/dL 33.0-36. 0 RED CELL DISTRIBUTION WIDTH (test code = RDW) % 11.6-16. 2 PLATELET COUNT (test code = PLT) K/mm3 150-450 MEAN PLATELET VOLUME (test code = MPV) fL 6.7-11.0 [id number] 06:34:00* Test Item Value Reference Range Interpretation Comments CREATININE (test code = CREAT) 2.50 mg/dL 0.55-1.02 H Note change in reference range due to change in reagent. PLATELET [id number] 06:17:00* Test Item Value Reference Range Interpretation Comments PLATELET COUNT (test code = PLT) 210 K/mm3 150-450 N - XR CHEST 1 [id number] 21:04:00 FAX: Thaddeus Dee MD [place]: St: [facility] FAX: Michele Gayle buck Name: DEE DAVENPORT [facility] : 1965 Age/S: 53/F [address] [facility] Unit #: [id number] Loc: [address] [place] [address] Phys: Thaddeus Mason MD Acct: [id number] Dis Date: Status: ADM IN PHONE #: [phone] Exam Date: 06/26/20192024 FAX #: [phone] Reason: sob EXAMS: CPT CODE: [id number] XR CHEST 1 V 16831 HISTORY: Shortness of breath. COMPARISON: June 22, 2019. Location: [facility]. No acute infiltrates, effusion or congestion is noted. Mild cardiomegaly. IMPRESSION: No acute infiltrates, effusion or congestion. at 2104 Reported and signed by: Kameron Carbone M.D. CC: Thaddeus Mason MD; Michele Cesar MD Technologist: Jona Meyer RTAndraeR; ... Trnscrd Date/Time/By: 06/26/2019 (2103) : By: [email or web address] Orig Print D/T: S: 06/26/2019 (2106) PAGE 1 Signed Report BASIC METABOLIC [id number] 11:52:00* Test Item Value Reference Range Interpretation Comments SODIUM (test code = NA) 139 mmol/L 136-145 N POTASSIUM (test code = K) 3.0 mmol/L 3.5-5.1 L CHLORIDE (test code = CL) 104.0 mmol/L 98-107 N CARBON DIOXIDE (test code = CO2) 24.0 mmol/L 21-32 N ANION GAP (test code = GAP) 14.0 10-20 N GLUCOSE (test code = GLU) 151 mg/dL 74-106 H BLOOD UREA NITROGEN (test code = BUN) 28 mg/dL 7-18 H GLOMERULAR FILTRATION RATE (test code = GFR) 19 mL/min >=60 Estimated GFR by using Modified MDRD formula.Chronic kidney disease is defined as either kidney damageor GFR <60 mL/min/1.73 m2 for >3 months. CREATININE (test code = CREAT) 2.60 mg/dL 0.55-1.02 H Note change in reference range due to change in reagent. BUN/CREATININE RATIO (test code = BUN/CREA) 10.8 10-20 N CALCIUM (test code = CA) 9.3 mg/dL 8.5-10.1 N - CT LOWER EXTRM W/O C [id number] 22:05:00 Name: DEE DAVENPORT Riya [facility] : 1965 Age/S: 53 / F [address] [facility] #: [id number] Loc: [place] [address] Phys: Kimi Rivas DO Acct: [id number] Dis Date: Status: ADM IN PHONE #: [phone] Exam Date: 06/22/20192111 FAX #: [phone] Reason: hip pain, r/o fx EXAMS: CPT CODE: [id number] [place] L[place]TRM W/[place] [address] EXAM: CT of the right hip without contrast; INFORMATION: Right hip pain, rule out fracture; TECHNIQUE AND FINDINGS: CT dose reduction protocol; 2.5 mm axial scans; sagittal and coronal reconstructions. Imaged bones are intact; no evidence of fracture or dislocation. No joint abnormalities. Periarticular soft tissues are unremarkable. Vacuum phenomenon is seen in the right SI joint. This is of no clinical significance. IMPRESSION: Negative study; no evidence of acute osseous trauma. Location code: at 2205 Reported and signed by: Parish Lowery M.D. CC: Kimi Rivas DO; Michele Cesar MD Technologist:RT Tricia(R)(CT); ... CTDI: DLP: Trnscb Date/Time: 06/22/2019 (2204) t.SDR.GRW Orig Print D/T: S: 06/22/2019 (2207) PAGE 1 Signed Report - CT C-SPINE W/O [id number] 19:11:00 Name: DEE DAVENPORT [facility] : 1965 Age/S: 53 / F [address] [facility] Unit #: [id number] Loc: [place] [address] Phys: Kimi Rivas DO Acct: [id number] Dis Date: Status: REG ER PHONE #: [phone] Exam Date: 06/22/20191822 FAX #: [phone] Reason: Neck Pain EXAMS: CPT CODE: [id number] CT C-SPINE W/O CONTRAST 04167 EXAM: CT of the cervical spine without contrast; INFORMATION: Status post fall, neck pain; TECHNIQUE AND FINDINGS: CT dose reduction protocol; 2.5 mm axial scans; sagittal and coronal reconstructions. Physiological lordosis has been replaced by mild kyphosis. Otherwise, good alignment; vertebral bodies, the dens and posterior elements are intact; no evidence of fracture or dislocation. Significant narrowing of the disc space C5/6, associated with prominent anterior osteophytes. Facet joints are intact. Status post left occipital craniotomy. Paravertebral soft tissues are unremarkable. IMPRESSION: 1. No evidence of acute osseous trauma. 2. Moderate degenerative disc disease and spondylosis at C5/6. Location code: [facility] at 1911 Reported and signed by: Parish Lowery M.D. CC: Kimi Rivas DO; Michele Cesar MD Technologist:Denis Verdin RT(R)(CT) CTDI: DLP: Trnscb Date/Time: 06/22/2019 (1910) t.ANTHONYR.GRW Orig Print D/T: S: 06/22/2019 (1913) PAGE 1 Signed Report - CT HEAD/BRAIN W/O [id number] 19:09:00 Name: DEE DAVENPORT [facility] : 1965 Age/S: 53 / F [address] [facility] Unit #: [id number] Loc: [place] [address] Phys: Kimi Rivas DO Acct: [id number] Dis Date: Status: REG ER PHONE #: [phone] Exam Date: 06/22/2019 1825 FAX #: [phone] Reason: headache EXAMS: CPT CODE: [id number] CT HEAD/BRAIN W/O CONT 00362 EXAM: CT of the head without contrast; INFORMATION: Headache, dizziness; TECHNIQUE: CT dose reduction protocol; 2.5 mm axial scans; IMPRESSION: 1. No evidence of intracranial hemorrhage, acute territorial infarction, mass lesions or midline shift. 2. No change compared with a study from April 17, 2019, showing an old left cerebellar infarct, associated with status post left occipital craniotomy. Again demonstrated are chronic lacunar infarcts in the basal ganglia bilaterally and chronic ischemic white matter changes. Location code: [facility] at 1909 Reported and signed by: Parish Lowery M.D. CC: Kimi Rivas DO; Michele Cesar MD Technologist:Denis Verdin RT(R)(CT) CTDI: DLP: Trnscb Date/Time: 06/22/2019 (1908) DawnaW Orig Print D/T: S: 06/22/2019 (1911) PAGE 1 Signed Report - XR HIP W/PEL UNI 2+V RT 2019-06-22 18:56:00 FAX: Kimi Rivas DO [place]: St: REG FAX: Y Michele Cesar Name: DEE DAVENPORT [facility] : 1965 Age/S: 53/F [address] [facility] Unit #: [id number] Loc: [place] [address] Phys: Kimi Rivas DO Acct: [id number] Dis Date: Status: REG ER PHONE #: [phone] Exam Date: 06/22/2019 1823 FAX #: [phone] Reason: fall, hip EXAMS: CPT CODE: [id number] XR HIP W/PEL UNI 2+[place] [address] EXAM: Pelvis, one view and right hip, 2 views; INFORMATION: Pain after fall; FINDINGS: Imaged bones are intact; no evidence of fracture or dislocation. No radiopaque foreign bodies. IMPRESSION: No evidence of acute traumatic changes. Location code: [facility] at 1856 Reported and signed by: Parish Lowery M.D. CC: Kimi Rivas DO; Michele Cesar MD Technologist: Estela Parra RT(R); ALONSO MEDINA RT(R); ... Trnscrd Date/Time/By: 06/22/2019 (1855) : By: Marjorie Orig Print D/T: S: 06/22/2019 (1858) PAGE 1 Signed Report - XR CHEST 1 [id number] 18:55:00 FAX: Kimi Rivas DO [place]: B St: REG FAX: Y Michele Cesar Name: DEE DAVENPORT [facility] : 1965 Age/S: 53/F [address] [facility] Unit #: [id number] Loc: [place] [address] Phys: Kimi Rivas DO Acct: [id number] Dis Date: Status: REG ER PHONE #: [phone] Exam Date: 06/22/20191822 FAX #: [phone] Reason: fall EXAMS: CPT CODE: [id number] XR CHEST 1 V 74708 EXAM: Chest x-ray, one view; INFORMATION: Status post fall, dizziness; IMPRESSION: 1. No evidence of acute cardiothoracic abnormalities; no pneumothorax; no evidence of rib frac tures; 2. No change compared with a recent study from May 2017, 20 19. Location code: [facility] Electronically Sign ed by Diego Lowery on 06/22/2019 at 1855 Reported and signed by: Parish Lowery M.D. CC: Kimi Rivas DO; Michele Cesar MD Technologist: Estela Parra RT(R); ALONSO MEDINA RT(R); ... Trnscrd Date/Time/By: 06/22/2019 (1854) : By: Marjorie Orig Print D/T: S: 06/22/2019 (1857) PAGE 1 Signed R eport BASIC METABOLIC [id number] 18:29:00* Test Item Value Reference Range Interpretation Comments SODIUM (test code = NA) 144 mmol/L 136-145 N POTASSIUM (test code = K) 3.3 mmol/L 3.5-5.1 L CHLORIDE (test code = CL) 110.0 mmol/L 98-107 H CARBON DIOXIDE (test code = CO2) 26.0 mmol/L 21-32 N ANION GAP (test code = GAP) 11.3 10-20 N GLUCOSE (test code = GLU) 95 mg/dL 74-106 N BLOOD UREA NITROGEN (test code = BUN) 20 mg/dL 7-18 H GLOMERULAR FILTRATION RATE (test code = GFR) 23 mL/min >=60 Estimated GFR by using Modified MDRD formula.Chronic kidney disease is defined as either kidney damageor GFR <60 mL/min/1.73 m2 for >3 months. CREATININE (test code = CREAT) 2.20 mg/dL 0.55-1.02 H Note change in reference range due to change in reagent. BUN/CREATININE RATIO (test code = BUN/CREA) 9.2 10-20 L CALCIUM (test code = CA) 9.4 mg/dL 8.5-10.1 N [id number] 18:29:00* Test Item Value Reference Range Interpretation Comments TROPONIN-I (test code = TROPI) <0.015 ng/mL 0-0.045 N CBC W/O [id number] 18:26:00* Test Item Value Reference Range Interpretation Comments WHITE BLOOD CELL (test code = WBC) 4.3 K/mm3 4.5-12.5 L RED BLOOD CELL (test code = RBC) 3.91 mill/mm3 3.7-5.2 N HEMOGLOBIN (test code = HGB) 11.9 gram/dL 11.5-15.5 N HEMATOCRIT (test code = HCT) 37.6 % 36.0-46.0 N MEAN CELL VOLUME (test code = MCV) 96.2 fL 80-98 N MEAN CELL HGB (test code = MCH) 30.4 picogram 27.0-33.0 N MEAN CELL HGB CONCETRATION (test code = MCHC) 31.6 gram/dL 33.0-36. 0 L RED CELL DISTRIBUTION WIDTH (test code = RDW) 13.5 % 11.6-16. 2 N PLATELET COUNT (test code = PLT) 228 K/mm3 150-450 N MEAN PLATELET VOLUME (test code = MPV) 10.4 fL 6.7-11.0 N CBC W/O [id number] 18:25:00* Test Item Value Reference Range Interpretation Comments WHITE BLOOD CELL (test code = WBC) K/mm3 4.5-12.5 RED BLOOD CELL (test code = RBC) mill/mm3 3.7-5.2 HEMOGLOBIN (test code = HGB) 11.9 gram/dL 11.5-15.5 N HEMATOCRIT (test code = HCT) 37.6 % 36.0-46.0 N MEAN CELL VOLUME (test code = MCV) fL 80-98 MEAN CELL HGB (test code = MCH) picogram 27.0-33.0 MEAN CELL HGB CONCETRATION (test code = MCHC) gram/dL 33.0-36. 0 RED CELL DISTRIBUTION WIDTH (test code = RDW) % 11.6-16. 2 PLATELET COUNT (test code = PLT) K/mm3 150-450 MEAN PLATELET VOLUME (test code = MPV) fL 6.7-11.0 BASIC METABOLIC [id number] 18:23:00* Test Item Value Reference Range Interpretation Comments SODIUM (test code = NA) 144 mmol/L 136-145 N POTASSIUM (test code = K) 3.3 mmol/L 3.5-5.1 L CHLORIDE (test code = CL) 110.0 mmol/L 98-107 H CARBON DIOXIDE (test code = CO2) mmol/L 21-32 ANION GAP (test code = GAP) 10-20 GLUCOSE (test code = GLU) mg/dL 74-106 BLOOD UREA NITROGEN (test code = BUN) mg/dL 7-18 GLOMERULAR FILTRATION RATE (test code = GFR) mL/min >=60 CREATININE (test code = CREAT) mg/dL 0.55-1.02 BUN/CREATININE RATIO (test code = BUN/CREA) 10-20 CALCIUM (test code = CA) mg/dL 8.5-10.1 [id number] 18:23:00* Test Item Value Reference Range Interpretation Comments TROPONIN-I (test code = TROPI) ng/mL 0-0.045 BASIC METABOLIC [id number] 10:28:00* Test Item Value Reference Range Interpretation Comments SODIUM (test code = NA) 145 mmol/L 136-145 N POTASSIUM (test code = K) 3.6 mmol/L 3.5-5.1 N CHLORIDE (test code = CL) 110.0 mmol/L 98-107 H CARBON DIOXIDE (test code = CO2) 24.0 mmol/L 21-32 N ANION GAP (test code = GAP) 14.6 10-20 N GLUCOSE (test code = GLU) 108 mg/dL 74-106 H BLOOD UREA NITROGEN (test code = BUN) 17 mg/dL 7-18 N GLOMERULAR FILTRATION RATE (test code = GFR) 31 mL/min >=60 Estimated GFR by using Modified MDRD formula.Chronic kidney disease is defined as either kidney damageor GFR <60 mL/min/1.73 m2 for >3 months. CREATININE (test code = CREAT) 1.70 mg/dL 0.55-1.02 H Note change in reference range due to change in reagent. BUN/CREATININE RATIO (test code = BUN/CREA) 9.8 10-20 L CALCIUM (test code = CA) 9.2 mg/dL 8.5-10.1 N [id number] 08:53:00* Test Item Value Reference Range Interpretation Comments TROPONIN-I (test code = TROPI) <0.015 ng/mL 0-0.045 N COMMENTS TO TECHNICIAN TEST SYSTEMS: COLLECT 3 HOURS AFTER PREVIOUS [id number] 02:56:00* Test Item Value Reference Range Interpretation Comments TROPONIN-I (test code = TROPI) <0.015 ng/mL 0-0.045 N COMMENTS TO TECHNICIAN TEST SYSTEMS: COLLECT 3 HOURS AFTER PREVIOUS SAMPLEBASIC METABOLIC [id number] 21:18:00* Test Item Value Reference Range Interpretation Comments SODIUM (test code = NA) 143 mmol/L 136-145 N POTASSIUM (test code = K) 3.3 mmol/L 3.5-5.1 L CHLORIDE (test code = CL) 110.0 mmol/L 98-107 H CARBON DIOXIDE (test code = CO2) 28.0 mmol/L 21-32 N ANION GAP (test code = GAP) 8.3 10-20 L GLUCOSE (test code = GLU) 94 mg/dL 74-106 N BLOOD UREA NITROGEN (test code = BUN) 16 mg/dL 7-18 N GLOMERULAR FILTRATION RATE (test code = GFR) 29 mL/min >=60 Estimated GFR by using Modified MDRD formula.Chronic kidney disease is defined as either kidney damageor GFR <60 mL/min/1.73 m2 for >3 months. CREATININE (test code = CREAT) 1.80 mg/dL 0.55-1.02 H Note change in reference range due to change in reagent. BUN/CREATININE RATIO (test code = BUN/CREA) 8.8 10-20 L CALCIUM (test code = CA) 9.5 mg/dL 8.5-10.1 N [id number] 21:18:00* Test Item Value Reference Range Interpretation Comments TROPONIN-I (test code = TROPI) <0.015 ng/mL 0-0.045 N BASIC METABOLIC [id number] 21:03:00* Test Item Value Reference Range Interpretation Comments SODIUM (test code = NA) 143 mmol/L 136-145 N POTASSIUM (test code = K) 3.3 mmol/L 3.5-5.1 L CHLORIDE (test code = CL) 110.0 mmol/L 98-107 H CARBON DIOXIDE (test code = CO2) mmol/L 21-32 ANION GAP (test code = GAP) 10-20 GLUCOSE (test code = GLU) mg/dL 74-106 BLOOD UREA NITROGEN (test code = BUN) mg/dL 7-18 GLOMERULAR FILTRATION RATE (test code = GFR) mL/min >=60 CREATININE (test code = CREAT) mg/dL 0.55-1.02 BUN/CREATININE RATIO (test code = BUN/CREA) 10-20 CALCIUM (test code = CA) 9.5 mg/dL 8.5-10.1 N [id number] 21:03:00* Test Item Value Reference Range Interpretation Comments TROPONIN-I (test code = TROPI) ng/mL 0-0.045 [id number] 20:27:00* Test Item Value Reference Range Interpretation Comments D-DIMER (test code = DDIMER) 4059.00 ng/mLFEU 0-500 HH Results called to [id number] by [email or web address] 06/18/19 2026Critical results verified and read back by Nurse? YClinical Cut-off value for D-Dimer is 500 ng/mL FEU. Comment: The [employer] D- Dimer assay is intended for use asan aid in the diagnosis of venous thromboembolism (VTE)[deep vein thrombosis (DVT) or pulmonary embolism (PE)].The measurement of D-Dimer should not be used as an aid inthe diagnosis of VTE, in patient with: -Therapeutic dose anticoagulant therapy for >24 hours - Fibrinolytic therapy within previous 7 days -Trauma or surgery within previous 4 weeks -Disseminated malignancies -Aortic aneurysm -Sepsis, severe infections, pneumonia, severe skin infections -Liver cirrhosis - CBC W/O [id number] 20:03:00* Test Item Value Reference Range Interpretation Comments WHITE BLOOD CELL (test code = WBC) 4.5 K/mm3 4.5-12.5 N RED BLOOD CELL (test code = RBC) 4.03 mill/mm3 3.7-5.2 N HEMOGLOBIN (test code = HGB) 12.5 gram/dL 11.5-15.5 N HEMATOCRIT (test code = HCT) 38.3 % 36.0-46.0 N MEAN CELL VOLUME (test code = MCV) 95.0 fL 80-98 N MEAN CELL HGB (test code = MCH) 31.0 picogram 27.0-33.0 N MEAN CELL HGB CONCETRATION (test code = MCHC) 32.6 gram/dL 33.0-36. 0 L RED CELL DISTRIBUTION WIDTH (test code = RDW) 13.8 % 11.6-16. 2 N PLATELET COUNT (test code = PLT) 238 K/mm3 150-450 N MEAN PLATELET VOLUME (test code = MPV) 10.3 fL 6.7-11.0 N CBC W/O [id number] 20:02:00* Test Item Value Reference Range Interpretation Comments WHITE BLOOD CELL (test code = WBC) K/mm3 4.5-12.5 RED BLOOD CELL (test code = RBC) mill/mm3 3.7-5.2 HEMOGLOBIN (test code = HGB) 12.5 gram/dL 11.5-15.5 N HEMATOCRIT (test code = HCT) 38.3 % 36.0-46.0 N MEAN CELL VOLUME (test code = MCV) fL 80-98 MEAN CELL HGB (test code = MCH) picogram 27.0-33.0 MEAN CELL HGB CONCETRATION (test code = MCHC) gram/dL 33.0-36. 0 RED CELL DISTRIBUTION WIDTH (test code = RDW) % 11.6-16. 2 PLATELET COUNT (test code = PLT) K/mm3 150-450 MEAN PLATELET VOLUME (test code = MPV) fL 6.7-11.0 - XR CHEST 1 [id number] 19:40:00 FAX: Emiliano Perry MD [phone] [place]: St: REG FAX: Y Michele Cesar Name: DEE DAVENPORT [facility] : 1965 Age/S: 53/F [address] [facility] Unit #: [id number] Loc: [place] [address] Phys: Emiliano Perry MD Acct: [id number] Dis Date: Status: REG ER PHONE #: [phone] Exam Date: 06/18/2019 191 FAX #: [phone] Reason: CHEST PAIN EXAMS: CPT CODE: [id number] XR CHEST 1 V 44404 REASON FOR EXAM: CHEST PAIN EXAM ORDER DATE: 06/18/2019 7:01 PM Ordering: Emiliano Perry MD Attending:Emiliano Perry MD Location: PROCEDURE: - XR CHEST 1 V COMPARISON: 06/09/2019 FINDINGS: Portable AP frontal view of the chest obtained at 7:17 PM shows clear lungs without evidence of consolidation. There is no evidence of effusion. The heart size is minimally enlarged. Pulmonary vasculatures are unremarkable. IMPRESSION: No active disease. at 1940 Reported and signed by: Josef Chakraborty M.D. CC: Emiliano Perry MD; Michele Cesar MD Technologist: LOR CHAU; Jona Meyer RT(R Trnscrd Date/Time/By: 06/18/2019 (1939) : By: [email or web address] Orig Print D/T: S: 06/18/2019 (243) PAGE 1 Signed Report BASIC METABOLIC [id number] 03:19:00* Test Item Value Reference Range Interpretation Comments SODIUM (test code = NA) 145 mmol/L 136-145 N POTASSIUM (test code = K) 3.2 mmol/L 3.5-5.1 L CHLORIDE (test code = CL) 110.0 mmol/L 98-107 H CARBON DIOXIDE (test code = CO2) 26.0 mmol/L 21-32 N ANION GAP (test code = GAP) 12.2 10-20 N GLUCOSE (test code = GLU) 99 mg/dL 74-106 N BLOOD UREA NITROGEN (test code = BUN) 25 mg/dL 7-18 H GLOMERULAR FILTRATION RATE (test code = GFR) 28 mL/min >=60 Estimated GFR by using Modified MDRD formula.Chronic kidney disease is defined as either kidney damageor GFR <60 mL/min/1.73 m2 for >3 months. CREATININE (test code = CREAT) 1.90 mg/dL 0.55-1.02 H Note change in reference range due to change in reagent. BUN/CREATININE RATIO (test code = BUN/CREA) 13.2 10-20 N CALCIUM (test code = CA) 9.5 mg/dL 8.5-10.1 N [id number] 03:19:00* Test Item Value Reference Range Interpretation Comments TROPONIN-I (test code = TROPI) <0.015 ng/mL 0-0.045 N - XR CHEST 1 [id number] 03:14:00 FAX: Morenita Robison MD [place]: B St: [facility] FAX: Michele Gayle Name: DARLENEDEE Le Riya [facility] : 1965 Age/S: 53/F [address] [facility] Unit #: [id number] Loc: [place] [address] Phys: Morenita Robison MD Acct: [id number] Dis Date: Status: REG ER PHONE #: [phone] Exam Date: 06/09/2019 0239 FAX #: [phone] Reason: CHEST PAIN EXAMS: CPT CODE: [id number] XR CHEST 1 V 16742 R16 EXAM: - XR CHEST 1 V HISTORY: CHEST PAIN COMPARISON: 05/01/2019 FINDINGS: The lungs are clear. No pleural effusion or pneumothorax. The cardiac silhouette is within normal limits. No acute osseous abnormalities. IMPRESSION: No acute cardiopulmonary disease. at 0314 Reported and signed by: Rogelio Fowler MD CC: Morenita Robison MD; Michele Cesar MD Technologist: Nakia Grady Trnscrd Date/Time/By: 06/09/2019 (0314) : By: [email or web address] Orig Print D/T: S: 06/09/2019 (0317) PAGE 1 Signed Report BASIC METABOLIC [id number] 03:05:00* Test Item Value Reference Range Interpretation Comments SODIUM (test code = NA) 145 mmol/L 136-145 N POTASSIUM (test code = K) 3.2 mmol/L 3.5-5.1 L CHLORIDE (test code = CL) 110.0 mmol/L 98-107 H CARBON DIOXIDE (test code = CO2) mmol/L 21-32 ANION GAP (test code = GAP) 10-20 GLUCOSE (test code = GLU) mg/dL 74-106 BLOOD UREA NITROGEN (test code = BUN) mg/dL 7-18 GLOMERULAR FILTRATION RATE (test code = GFR) mL/min >=60 CREATININE (test code = CREAT) mg/dL 0.55-1.02 BUN/CREATININE RATIO (test code = BUN/CREA) 10-20 CALCIUM (test code = CA) mg/dL 8.5-10.1 [id number] 03:05:00* Test Item Value Reference Range Interpretation Comments TROPONIN-I (test code = TROPI) ng/mL 0-0.045 CBC W/O [id number] 02:56:00* Test Item Value Reference Range Interpretation Comments WHITE BLOOD CELL (test code = WBC) 5.5 K/mm3 4.5-12.5 N RED BLOOD CELL (test code = RBC) 3.76 mill/mm3 3.7-5.2 N HEMOGLOBIN (test code = HGB) 11.2 gram/dL 11.5-15.5 L HEMATOCRIT (test code = HCT) 36.5 % 36.0-46.0 N MEAN CELL VOLUME (test code = MCV) 97.1 fL 80-98 N MEAN CELL HGB (test code = MCH) 29.8 picogram 27.0-33.0 N MEAN CELL HGB CONCETRATION (test code = MCHC) 30.7 gram/dL 33.0-36. 0 L RED CELL DISTRIBUTION WIDTH (test code = RDW) 13.2 % 11.6-16. 2 N PLATELET COUNT (test code = PLT) 226 K/mm3 150-450 N MEAN PLATELET VOLUME (test code = MPV) 10.1 fL 6.7-11.0 N BASIC METABOLIC [id number] 09:55:00* Test Item Value Reference Range Interpretation Comments SODIUM (test code = NA) 145 mmol/L 136-145 N POTASSIUM (test code = K) 3.3 mmol/L 3.5-5.1 L CHLORIDE (test code = CL) 110.0 mmol/L 98-107 H CARBON DIOXIDE (test code = CO2) 26.0 mmol/L 21-32 N ANION GAP (test code = GAP) 12.3 10-20 N GLUCOSE (test code = GLU) 107 mg/dL 74-106 H BLOOD UREA NITROGEN (test code = BUN) 21 mg/dL 7-18 H GLOMERULAR FILTRATION RATE (test code = GFR) 28 mL/min >=60 Estimated GFR by using Modified MDRD formula.Chronic kidney disease is defined as either kidney damageor GFR <60 mL/min/1.73 m2 for >3 months. CREATININE (test code = CREAT) 1.90 mg/dL 0.55-1.02 H Note change in reference range due to change in reagent. BUN/CREATININE RATIO (test code = BUN/CREA) 11.0 10-20 N CALCIUM (test code = CA) 8.8 mg/dL 8.5-10.1 N [id number] 09:55:00* Test Item Value Reference Range Interpretation Comments TROPONIN-I (test code = TROPI) 0.015 ng/mL 0-0.045 N BASIC METABOLIC [id number] 09:25:00* Test Item Value Reference Range Interpretation Comments SODIUM (test code = NA) 145 mmol/L 136-145 N POTASSIUM (test code = K) 3.3 mmol/L 3.5-5.1 L CHLORIDE (test code = CL) 110.0 mmol/L 98-107 H CARBON DIOXIDE (test code = CO2) 26.0 mmol/L 21-32 N ANION GAP (test code = GAP) 12.3 10-20 N GLUCOSE (test code = GLU) 107 mg/dL 74-106 H BLOOD UREA NITROGEN (test code = BUN) 21 mg/dL 7-18 H GLOMERULAR FILTRATION RATE (test code = GFR) 28 mL/min >=60 Estimated GFR by using Modified MDRD formula.Chronic kidney disease is defined as either kidney damageor GFR <60 mL/min/1.73 m2 for >3 months. CREATININE (test code = CREAT) 1.90 mg/dL 0.55-1.02 H Note change in reference range due to change in reagent. BUN/CREATININE RATIO (test code = BUN/CREA) 11.0 10-20 N CALCIUM (test code = CA) 8.8 mg/dL 8.5-10.1 N [id number] 09:25:00* Test Item Value Reference Range Interpretation Comments TROPONIN-I (test code = TROPI) ng/mL 0-0.045 BASIC METABOLIC [id number] 08:56:00* Test Item Value Reference Range Interpretation Comments SODIUM (test code = NA) 145 mmol/L 136-145 N POTASSIUM (test code = K) 3.3 mmol/L 3.5-5.1 L CHLORIDE (test code = CL) 110.0 mmol/L 98-107 H CARBON DIOXIDE (test code = CO2) mmol/L 21-32 ANION GAP (test code = GAP) 10-20 GLUCOSE (test code = GLU) mg/dL 74-106 BLOOD UREA NITROGEN (test code = BUN) mg/dL 7-18 GLOMERULAR FILTRATION RATE (test code = GFR) mL/min >=60 CREATININE (test code = CREAT) mg/dL 0.55-1.02 BUN/CREATININE RATIO (test code = BUN/CREA) 10-20 CALCIUM (test code = CA) mg/dL 8.5-10.1 [id number] 08:56:00* Test Item Value Reference Range Interpretation Comments TROPONIN-I (test code = TROPI) ng/mL 0-0.045 - XR CHEST 1 [id number] 08:56:00 FAX: Ron Beebe MD [phone] [place]: St: [facility] FAX: Y Michele Cesar Name: DEE DAVENPORT [facility] : 1965 Age/S: 53/F [address] [facility] Unit #: [id number] Loc: [place] [address] Phys: Ron Beebe MD Acct: [id number] Dis Date: Status: REG ER PHONE #: [phone] Exam Date: 05/01/2019 08 FAX #: [phone] Reason: CODE STROKE EXAMS: CPT CODE: [id number] XR CHEST 1 V 36028 HISTORY: Stroke. COMPARISON: April 29, 2019. No acute infiltrates, effusion or congestion is noted. Suboptimal inspiration. Mild cardiomegaly. IMPRESSION: No acute infiltrates, effusion or congestion. at 0856 Reported and signed by: Kameron Carbone M.D. CC: Ron Beebe MD; Michele Cesar MD Technologist: RT AIDAN(Riya) Trnscrd Date/Time/By: 05/01/2019 (0856) : By: [email or web address] Orig Print D/T: S: 05/01/2019 (0900) PAGE 1 Signed Report PROTHROMBIN TIME 2019-05-01 08:50:00* Test Item Value Reference Range Interpretation Comments PROTHROMBIN TIME PATIENT (test code = PTP) 11.5 seconds 9.0-14.0 N INTERNATIONAL NORMAL RATIO (test code = INR) 1.0 0.8-1.2 N The therapeutic range for oral anticoagulant therapy formost indications is an international normalized ratio (INR)of between 2.0 and 3.0. The recommended therapeutic INRrange for various clinical situations is listed below: Clinical Situation INR range Pulmonary e mbolism treatment (2.0-3.0)Venous thrombosis treatmentVenous thrombosis prophylaxis (high risk surgery)Prevention of systemic embolism from: Acute myocardial infarction Valvular heart disease Atrial fibrillation Mechanical prosthetic heart valves (2.5-3.5) IS PATIENT ON ANTICOAGULANTS? NTHROMBOPLASTIN TIME [id number] 08:50:00* Test Item Value Reference Range Interpretation Comments THROMBOPLASTIN TIME PARTIAL (test code = PTT) 70.3 seconds 25.0-36. 5 H IS PATIENT ON ANTICOAGULANTS? NCBC W/AUTO [id number] 08:42:00* Test Item Value Reference Range Interpretation Comments WHITE BLOOD CELL (test code = WBC) 4.3 K/mm3 4.5-12.5 L RED BLOOD CELL (test code = RBC) 3.89 mill/mm3 3.7-5.2 N HEMOGLOBIN (test code = HGB) 11.9 gram/dL 11.5-15.5 N HEMATOCRIT (test code = HCT) 36.6 % 36.0-46.0 N MEAN CELL VOLUME (test code = MCV) 94.1 fL 80-98 N MEAN CELL HGB (test code = MCH) 30.6 picogram 27.0-33.0 N MEAN CELL HGB CONCETRATION (test code = MCHC) 32.5 gram/dL 33.0-36. 0 L RED CELL DISTRIBUTION WIDTH (test code = RDW) 13.6 % 11.6-16. 2 N RED CELL DISTRIBUTION WIDTH SD (test code = RDW-SD) 46.8 fL 37 .0-51.0 N PLATELET COUNT (test code = PLT) 201 K/mm3 150-450 N MEAN PLATELET VOLUME (test code = MPV) 10.4 fL 6.7-11.0 N NEUTROPHIL % (test code = NT%) 64.3 % 39.0-69.0 N IMMATURE GRANULOCYTE % (test code = IG%) 0.0 % 0.0-5.0 N LYMPHOCYTE % (test code = LY%) 28.0 % 25.0-55.0 N MONOCYTE % (test code = MO%) 6.3 % 0.0-10.0 N EOSINOPHIL % (test code = EO%) 0.7 % 0.0-5.0 N BASOPHIL % (test code = BA%) 0.7 % 0.0-1.0 N NUCLEATED RBC % (test code = NRBC%) 0.0 % 0-0 N NEUTROPHIL # (test code = NT#) 2.76 K/mm3 1.8-7.7 N IMMATURE GRANULOCYTE # (test code = IG#) 0.00 x10 3/uL 0-0.03 N LYMPHOCYTE # (test code = LY#) 1.20 K/mm3 1.0-5.0 N MONOCYTE # (test code = MO#) 0.27 K/mm3 0-0.8 N EOSINOPHIL # (test code = EO#) 0.03 K/mm3 0.0-0.5 N BASOPHIL # (test code = BA#) 0.03 K/mm3 0.0-0.2 N NUCLEATED RBC # (test code = NRBC#) 0.00 K/mm3 0.0-0.1 N - CT HEAD/BRAIN W/O [id number] 08:40:00 Name: DEE DAVENPORT Riya [facility] : 1965 Age/S: 53 / F [address] [facility] Unit #: [id number] Loc: [place] [address] Phys: Ron Beebe MD Acct: [id number] Dis Date: Status: REG ER PHONE #: [phone] Exam Date: 05/01/2019833 FAX #: [phone] Reason: code stroke EXAMS: CPT CODE: [id number] CT HEAD/BRAIN W/O CONT 35883 HISTORY: Stroke. COMPARISON: April 29, 2019. CT brain without contrast: Automated exposure control. No acute intracranial bleeds or extra-axial collections are noted. No acute territorial vascular infarction is noted. 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 Old left cerebellar infarct and/or encephalomalacia noted as well. The sulci, gyri, ventricles and subarachnoid spaces and the basilar cisterns are normal for patient's age. No herniation or hydrocephalus or midline shift is noted. Mild periventricular ischemic gliosis is noted. Age-appropriate atrophy is noted as well. Portions of the visualized paranasal sinuses demonstrated minimal mucosal thickening of the left sphenoid sinus.. Left suboccipital craniectomy. IMPRESSION: No acute intracranial bleeds or extra-axial collections. No acute territorial vascular infarction. No herniation or hydrocephalus or midline shift. Chronic white matter ischemic disease and atrophy . These findings were discussed with Dr. Beebe at 8:39 AM. FOR INTERNAL CODING PURPOSES ONLY RESULT CODE: CVR Electronical ly Signed by Diego Carbone on 05/01/2019 at 0840 Rep orted and signed by: Kameron Carbone M.D. PAGE 1 Si gned Report (CONTINUED) Name: DEE DAVENPORT [facility] : 1965 Age/S: 53 / F [address] [facility] Unit #: [id number] Loc: [place] [address] Phys: Ron Beebe MD Acct: [id number] Dis Date: Status: REG ER PHONE #: [phone] Exam Date: 05/01/2019833 FAX #: [phone] Reason: code stroke EXAMS: CPT CODE: [id number] CT HEAD/BRAIN W/O CONT 12584 <Continued> CC: Ron Beebe MD; Michele Cesar MD Technologist:Neville Farias RT(R),(MR),(CT); CTDI: DLP: Trnscb Date/Time: 05/01/2019 (0840) [email or web address] Orig Print D/T: S: 05/01/2019 (0843) PAGE 2 Signed Report URINE AND [id number] 06:05:00Clear (05/01/19 1:05 AM)[facility] [id number] 06:05:00* Test Item Value Reference Range Interpretation Comments UA pH (test code = UA pH) 5.0 1 5.0-8.0 [facility] [id number] 06:05:00Negative *NA*(05/01/19 1:05 AM)[facility] [id number] 06:05:00Negative (05/01/19 1:05 AM) [facility] [id number] 06:05:00Negative (05/01/19 1:05 AM) [facility] [id number] 06:05:00Negative (05/01/19 1:05 AM) [facility] [id number] 06:05:00<1[facility] [id number] 06:05:001[facility] [id number] 06:05:00< =1.000 *NA*(05/01/19 1:05 AM)[facility] [id number] 03:07:00 114[facility] [id number] 03:07:00<0.02[facility] CARDIAC [id number] 03:07:0091[facility]annCHEM [id number] 03:07:0090[facility]annCHEM [id number] 03:07:0020[facility]ann[facility] [id number] 03:07:002.09[facility]ann[facility] [id number] 03:07:07586 [facility] [id number] 03:07:002.9[facility]annCHEM PANEL 2019-05-01 03:07:53270Nznuwzav HermannCHEM [id number] 03:07:0031[facility]annCHE[facility] [id number] 03:07:008.9[facility]ann[facility] [id number] 03:07:008.7[facility]annCHE[facility] [id number] 03:07:00* Test Item Value Reference Range Interpretation Comments B/C Ratio (test code = B/C Ratio) 10 1 6-25 [facility] [id number] 03:07:007.6[facility]annCHE[facility] PANEL 2019-05-01 03:07:003.8[facility]annCHE[facility] [id number] 03:07:003.8[facility]annCHE[facility] [id number] 03:07:00* Test Item Value Reference Range Interpretation Comments A/G Ratio (test code = A/G Ratio) 1.0 1 0.7-1.6 [facility] [id number] 03:07:0013[facility]annCHEM PANEL 2019-05-01 03:07:0010[facility]annCHEM [id number] 03:07:0082[facility]CHE[facility] [id number] 03:07:000.4[facility]annCHEM [id number] 03:07:0030[facility] ObqvyskOBTYJZPHQU8660-75-37 03:07:0060.7[facility] ARKGEYZPJS6236-52-79 03:07:0029.4[facility] AfxzogvAUAKBFHUAE1707-60-80 03:07:00 7.1[facility] OzrlkhxVXHPVRMCKM3678-67-72 03:07:002.3[facility]annHEMATOLOGY 2019-05-01 03:07:000.5[facility] AfemejdZSPSIEGLQJ3091-64-70 03:07:002.7[facility] HpfatjxTJGKERWGQR7922-82-83 03:07:001.3[facility] AbhzwtxOXHTXSJQEP0182-32-44 03:07:000.3[facility] HisheueZZEHSFYWOJ4891-94-93 03:07:000.1[facility] FFRUPCQPOC1565-83-46 03:07:004.4[facility] UeldlpgRZWQWGAAZI3278-99-89 03:07:00 3.69[facility] ToreccnDTXHWZNNBI8362-38-51 03:07:0011.5[facility]annHEMATOLOGY 2019-05-01 03:07:0035.2[facility] BdcqtpzOFATYVKVOI3463-23-49 03:07:0095.4[facility] LepyfqzTNCRDUXFGK5464-94-70 03:07:00* Test Item Value Reference Range Interpretation Comments MCH (test code = MCH) 31.2 pg 27.0-31.0 [facility] HpwpshcGEHPLLHPSN5480-41-67 03:07:0032.7[facility]annHEMATOLOGY 2019-05-01 03:07:0014.3[facility] UdmxgtvSQCUVPVSDP4073-48-62 03:07:24855Zhzmaclb OafglaqHDDSFPMUVL2688-56-96 03:07:008.1[facility]- XR CHEST 1 [id number] 20:30:00 FAX: Laurie Rousseau [phone] [place]: B St: REG FAX: Michele Gayle Name: DEE DAVENPORT [facility] : 1965 Age/S: 53/F [address] [facility] Unit #: [id number] Loc: [place] [address] Phys: Laurie Buck MD Acct: [id number] Dis Date: Status: REG ER PHONE #: [phone] Exam Date: 04/29/20191957 FAX #: [phone] Reason: CODE STROKE EXAMS: CPT CODE: [id number] XR CHEST 1 V [id number] REASON FOR EXAM: CODE STROKE Exam Order Date: 04/29/2019 7:34 PM Ordering M.Elina: Laurie Buck MD PROCEDURE: - XR CHEST 1 V COMPARISON: Frontal chest x-ray April 14, 2019 FINDINGS: The lung volumes are diminished however the lungs are clear. There is no pleural effusion or pneumothorax. Pulmonary vascularity is within normal limits. Cardiomediastinal silhouette is widened and the aorta is tortuous, similar to prior exam. Musculoskeletal structures are within normal limits. The visualized upper abdomen is within normal limits. IMPRESSION: Lung volumes are diminished however the lungs are clear. Cardiac megaly. This is unchanged from the prior radiograph. at 2030 Reported and signed by: Nathan Braden MD CC: Laurie Buck MD; Michele Cesar MD Technologist: Marina Yeh(Riya) Trnscrd Date/Time/By: 04/29/2019 (2029) : By: [email or web address] Orig Print D/T: S: 04/29/2019 (2032) PAGE 1 Signed Report BASIC METABOLIC [id number] 20:15:00* Test Item Value Reference Range Interpretation Comments SODIUM (test code = NA) 147 mmol/L 136-145 H POTASSIUM (test code = K) 3.1 mmol/L 3.5-5.1 L CHLORIDE (test code = CL) 110.0 mmol/L 98-107 H CARBON DIOXIDE (test code = CO2) 25.0 mmol/L 21-32 N ANION GAP (test code = GAP) 15.1 10-20 N GLUCOSE (test code = GLU) 94 mg/dL 74-106 N BLOOD UREA NITROGEN (test code = BUN) 19 mg/dL 7-18 H GLOMERULAR FILTRATION RATE (test code = GFR) 29 mL/min >=60 Estimated GFR by using Modified MDRD formula.Chronic kidney disease is defined as either kidney damageor GFR <60 mL/min/1.73 m2 for >3 months. CREATININE (test code = CREAT) 1.80 mg/dL 0.55-1.02 H Note change in reference range due to change in reagent. BUN/CREATININE RATIO (test code = BUN/CREA) 10.5 10-20 N CALCIUM (test code = CA) 9.3 mg/dL 8.5-10.1 N [id number] 20:15:00* Test Item Value Reference Range Interpretation Comments TROPONIN-I (test code = TROPI) <0.015 ng/mL 0-0.045 N BASIC METABOLIC [id number] 20:04:00* Test Item Value Reference Range Interpretation Comments SODIUM (test code = NA) 147 mmol/L 136-145 H POTASSIUM (test code = K) 3.1 mmol/L 3.5-5.1 L CHLORIDE (test code = CL) 110.0 mmol/L 98-107 H CARBON DIOXIDE (test code = CO2) mmol/L 21-32 ANION GAP (test code = GAP) 10-20 GLUCOSE (test code = GLU) mg/dL 74-106 BLOOD UREA NITROGEN (test code = BUN) mg/dL 7-18 GLOMERULAR FILTRATION RATE (test code = GFR) mL/min >=60 CREATININE (test code = CREAT) mg/dL 0.55-1.02 BUN/CREATININE RATIO (test code = BUN/CREA) 10-20 CALCIUM (test code = CA) mg/dL 8.5-10.1 [id number] 20:04:00* Test Item Value Reference Range Interpretation Comments TROPONIN-I (test code = TROPI) ng/mL 0-0.045 PROTHROMBIN [id number] 19:58:00* Test Item Value Reference Range Interpretation Comments PROTHROMBIN TIME PATIENT (test code = PTP) 11.9 seconds 9.0-14.0 N INTERNATIONAL NORMAL RATIO (test code = INR) 1.0 0.8-1.2 N The therapeutic range for oral anticoagulant therapy formost indications is an international normalized ratio (INR)of between 2.0 and 3.0. The recommended therapeutic INRrange for various clinical situations is listed below: Clinical Situation INR range Pulmonary e mbolism treatment (2.0-3.0)Venous thrombosis treatmentVenous thrombosis prophylaxis (high risk surgery)Prevention of systemic embolism from: Acute myocardial infarction Valvular heart disease Atrial fibrillation Mechanical prosthetic heart valves (2.5-3.5) IS PATIENT ON ANTICOAGULANTS? NTHROMBOPLASTIN TIME [id number] 19:58:00* Test Item Value Reference Range Interpretation Comments THROMBOPLASTIN TIME PARTIAL (test code = PTT) 71.5 seconds 25.0-36. 5 H IS PATIENT ON ANTICOAGULANTS? NCBC W/AUTO [id number] 19:57:00* Test Item Value Reference Range Interpretation Comments WHITE BLOOD CELL (test code = WBC) 5.2 K/mm3 4.5-12.5 N RED BLOOD CELL (test code = RBC) 4.10 mill/mm3 3.7-5.2 N HEMOGLOBIN (test code = HGB) 12.4 gram/dL 11.5-15.5 N HEMATOCRIT (test code = HCT) 38.6 % 36.0-46.0 N MEAN CELL VOLUME (test code = MCV) 94.1 fL 80-98 N MEAN CELL HGB (test code = MCH) 30.2 picogram 27.0-33.0 N MEAN CELL HGB CONCETRATION (test code = MCHC) 32.1 gram/dL 33.0-36. 0 L RED CELL DISTRIBUTION WIDTH (test code = RDW) 13.6 % 11.6-16. 2 N RED CELL DISTRIBUTION WIDTH SD (test code = RDW-SD) 46.6 fL 37 .0-51.0 N PLATELET COUNT (test code = PLT) 213 K/mm3 150-450 N MEAN PLATELET VOLUME (test code = MPV) 10.2 fL 6.7-11.0 N NEUTROPHIL % (test code = NT%) 66.5 % 39.0-69.0 N IMMATURE GRANULOCYTE % (test code = IG%) 0.4 % 0.0-5.0 N LYMPHOCYTE % (test code = LY%) 24.4 % 25.0-55.0 L MONOCYTE % (test code = MO%) 7.7 % 0.0-10.0 N EOSINOPHIL % (test code = EO%) 0.2 % 0.0-5.0 N BASOPHIL % (test code = BA%) 0.8 % 0.0-1.0 N NUCLEATED RBC % (test code = NRBC%) 0.0 % 0-0 N NEUTROPHIL # (test code = NT#) 3.46 K/mm3 1.8-7.7 N IMMATURE GRANULOCYTE # (test code = IG#) 0.02 x10 3/uL 0-0.03 N LYMPHOCYTE # (test code = LY#) 1.27 K/mm3 1.0-5.0 N MONOCYTE # (test code = MO#) 0.40 K/mm3 0-0.8 N EOSINOPHIL # (test code = EO#) 0.01 K/mm3 0.0-0.5 N BASOPHIL # (test code = BA#) 0.04 K/mm3 0.0-0.2 N NUCLEATED RBC # (test code = NRBC#) 0.00 K/mm3 0.0-0.1 N MANUAL DIFF REQUIRED (test code = MDIFF) NO - CT HEAD/BRAIN W/O [id number] 19:49:00 Name: DEE DAVENPORT [facility] : 1965 Age/S: 53 / F [address] [facility] Unit #: [id number] Loc: [place] [address] Phys: Laurie Buck MD Acct: [id number] Dis Date: Status: PRE ER PHONE #: [phone] Exam Date: 04/29/20191942 FAX #: [phone] Reason: headache, blurry vision EXAMS: CPT CODE: [id number] CT HEAD/BRAIN W/O CONT 94059 HISTORY: headache, blurry vision TECHNIQUE: Noncontrast 2.[address] of the head. Examination acquired within 24 hours of arrival. Automated exposure control for dose reduction. COMPARISON: Noncontrast CT brain April 17, 2019 FINDINGS: No lacerations or contusions of the scalp or facial soft tissues.. Calvarium and skull base are intact. No acute hemorrhage. No intracranial mass, mass effect, or midline shift. 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 These infarcts are unchanged from the prior exam. There is also decreased attenuation of the periventricular white matter compatible with chronic microvascular ischemic changes. Visualized paranasal sinuses are clear other than a small amount of mucus in the sphenoid sinuses. Mastoid air cells and middle ear cavities are clear. Orbital contents are unremarkable. IMPRESSION: No acute intracranial process. Microvascular ischemic changes as well as chronic appearing infarcts of the bilateral basal ganglia and left cerebellar hemisphere are unchanged from the previous exam. at 1949 Reported and signed by: Nathan Braden MD CC: Laurie Bowen MD; Michele Cesar MD Technologist:Екатерина esquivel RT(R); CHERYL Erickson CTDI: DLP: Trnscb Date/Time: 04/29/2019 (1949) [email or web address] Orig Print D/T: S: 04/29/2019 (1952) PAGE 1 Signed Report BASIC METABOLIC [id number] 10:29:00* Test Item Value Reference Range Interpretation Comments SODIUM (test code = NA) 143 mmol/L 136-145 N POTASSIUM (test code = K) 3.2 mmol/L 3.5-5.1 L CHLORIDE (test code = CL) 107.0 mmol/L 98-107 N CARBON DIOXIDE (test code = CO2) 27.0 mmol/L 21-32 N ANION GAP (test code = GAP) 12.2 10-20 N GLUCOSE (test code = GLU) 148 mg/dL 74-106 H BLOOD UREA NITROGEN (test code = BUN) 16 mg/dL 7-18 N GLOMERULAR FILTRATION RATE (test code = GFR) 23 mL/min >=60 Estimated GFR by using Modified MDRD formula.Chronic kidney disease is defined as either kidney damageor GFR <60 mL/min/1.73 m2 for >3 months. CREATININE (test code = CREAT) 2.20 mg/dL 0.55-1.02 H Note change in reference range due to change in reagent. BUN/CREATININE RATIO (test code = BUN/CREA) 7.4 10-20 L CALCIUM (test code = CA) 8.7 mg/dL 8.5-10.1 N [id number] 10:29:00* Test Item Value Reference Range Interpretation Comments PHOSPHORUS (test code = PHOS) 2.8 mg/dL 2.5-4.9 N [id number] 10:29:00* Test Item Value Reference Range Interpretation Comments MAGNESIUM (test code = MAG) 2.3 mg/dL 1.8-2.4 N - CT HEAD/BRAIN W/O [id number] 10:28:00 Name: DEE DAVENPORT [facility] : 1965 Age/S: 53 / F [address] [facility] Unit #: [id number] Loc: [place] [address] Phys: Vernell Newman MD Acct: [id number] Dis Date: Status: ADM IN PHONE #: [phone] Exam Date: 04/17/2019 0957 FAX #: [phone] Reason: throwing up, high bp EXAMS: CPT CODE: [id number] CT HEAD/BRAIN W/O CONT 97143 REASON FOR EXAM: throwing up, high bp EXAM ORDER DATE: 04/17/2019 5:01 PM Ordering M.D.: Vernell Newman MD PROCEDURE: - CT HEAD/BRAIN W/O CONT COMPARISON: 02/11/2019 FINDINGS: CT images of the brain were obtained without IV contrast. Dose modulation, iterative reconstruction, and/or weight based adjustment of the MA/KV was utilized to reduce the radiation dose to as low as reasonably achievable. Mild patchy low densities appearance of the paraventricular region noted consistent with nonspecific white matter disease. The beal-white matter delineation is unremarkable. The ventricles, cisterns, and sulci are unr emarkable. There is no evidence of hemorrhage, mass, mass effect. There i s no evidence of acute infarct. 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 No acute findings Electronically Sig joanna by Diego Chakraborty on 04/17/2019 at 1028 Reported and s igned by: Josef Chakraborty M.D. CC: Vernell Newman MD; Rodri Berumen MD; Michele Berg MD Technologist:Brittani Rahman RT(R),CT CTDI: DLP: Trnscb Date/Time: 04/17/2019 (1910) [email or web address] Orig P rint D/T: S: 04/17/2019 (2686) PAGE 1 Signed Report BASIC METABOLIC [id number] 10:24:00* Test Item Value Reference Range Interpretation Comments SODIUM (test code = NA) 143 mmol/L 136-145 N POTASSIUM (test code = K) 3.2 mmol/L 3.5-5.1 L CHLORIDE (test code = CL) 107.0 mmol/L 98-107 N CARBON DIOXIDE (test code = CO2) mmol/L 21-32 ANION GAP (test code = GAP) 10-20 GLUCOSE (test code = GLU) mg/dL 74-106 BLOOD UREA NITROGEN (test code = BUN) mg/dL 7-18 GLOMERULAR FILTRATION RATE (test code = GFR) mL/min >=60 CREATININE (test code = CREAT) mg/dL 0.55-1.02 BUN/CREATININE RATIO (test code = BUN/CREA) 10-20 CALCIUM (test code = CA) mg/dL 8.5-10.1 [id number] 10:24:00* Test Item Value Reference Range Interpretation Comments PHOSPHORUS (test code = PHOS) mg/dL 2.5-4.9 [id number] 10:24:00* Test Item Value Reference Range Interpretation Comments MAGNESIUM (test code = MAG) mg/dL 1.8-2.4 CBC W/AUTO [id number] 10:15:00* Test Item Value Reference Range Interpretation Comments WHITE BLOOD CELL (test code = WBC) 4.8 K/mm3 4.5-12.5 N RED BLOOD CELL (test code = RBC) 4.14 mill/mm3 3.7-5.2 N HEMOGLOBIN (test code = HGB) 12.8 gram/dL 11.5-15.5 N HEMATOCRIT (test code = HCT) 39.1 % 36.0-46.0 N MEAN CELL VOLUME (test code = MCV) 94.4 fL 80-98 N MEAN CELL HGB (test code = MCH) 30.9 picogram 27.0-33.0 N MEAN CELL HGB CONCETRATION (test code = MCHC) 32.7 gram/dL 33.0-36. 0 L RED CELL DISTRIBUTION WIDTH (test code = RDW) 13.8 % 11.6-16. 2 N RED CELL DISTRIBUTION WIDTH SD (test code = RDW-SD) 47.9 fL 37 .0-51.0 N PLATELET COUNT (test code = PLT) 204 K/mm3 150-450 N MEAN PLATELET VOLUME (test code = MPV) 10.8 fL 6.7-11.0 N NEUTROPHIL % (test code = NT%) 65.3 % 39.0-69.0 N IMMATURE GRANULOCYTE % (test code = IG%) 0.4 % 0.0-5.0 N LYMPHOCYTE % (test code = LY%) 26.1 % 25.0-55.0 N MONOCYTE % (test code = MO%) 7.4 % 0.0-10.0 N EOSINOPHIL % (test code = EO%) 0.2 % 0.0-5.0 N BASOPHIL % (test code = BA%) 0.6 % 0.0-1.0 N NUCLEATED RBC % (test code = NRBC%) 0.0 % 0-0 N NEUTROPHIL # (test code = NT#) 3.10 K/mm3 1.8-7.7 N IMMATURE GRANULOCYTE # (test code = IG#) 0.02 x10 3/uL 0-0.03 N LYMPHOCYTE # (test code = LY#) 1.24 K/mm3 1.0-5.0 N MONOCYTE # (test code = MO#) 0.35 K/mm3 0-0.8 N EOSINOPHIL # (test code = EO#) 0.01 K/mm3 0.0-0.5 N BASOPHIL # (test code = BA#) 0.03 K/mm3 0.0-0.2 N NUCLEATED RBC # (test code = NRBC#) 0.00 K/mm3 0.0-0.1 N MANUAL DIFF REQUIRED (test code = MDIFF) NO CBC W/AUTO [id number] 10:14:00* Test Item Value Reference Range Interpretation Comments WHITE BLOOD CELL (test code = WBC) K/mm3 4.5-12.5 RED BLOOD CELL (test code = RBC) mill/mm3 3.7-5.2 HEMOGLOBIN (test code = HGB) 12.8 gram/dL 11.5-15.5 N HEMATOCRIT (test code = HCT) 39.1 % 36.0-46.0 N MEAN CELL VOLUME (test code = MCV) fL 80-98 MEAN CELL HGB (test code = MCH) picogram 27.0-33.0 MEAN CELL HGB CONCETRATION (test code = MCHC) gram/dL 33.0-36. 0 RED CELL DISTRIBUTION WIDTH (test code = RDW) % 11.6-16. 2 RED CELL DISTRIBUTION WIDTH SD (test code = RDW-SD) fL 37 .0-51.0 PLATELET COUNT (test code = PLT) K/mm3 150-450 MEAN PLATELET VOLUME (test code = MPV) fL 6.7-11.0 NEUTROPHIL % (test code = NT%) % 39.0-69.0 IMMATURE GRANULOCYTE % (test code = IG%) % 0.0-5.0 LYMPHOCYTE % (test code = LY%) % 25.0-55.0 MONOCYTE % (test code = MO%) % 0.0-10.0 EOSINOPHIL % (test code = EO%) % 0.0-5.0 BASOPHIL % (test code = BA%) % 0.0-1.0 NEUTROPHIL # (test code = NT#) K/mm3 1.8-7.7 LYMPHOCYTE # (test code = LY#) K/mm3 1.0-5.0 MONOCYTE # (test code = MO#) K/mm3 0-0.8 EOSINOPHIL # (test code = EO#) K/mm3 0.0-0.5 BASOPHIL # (test code = BA#) K/mm3 0.0-0.2 BASIC METABOLIC [id number] 16:13:00* Test Item Value Reference Range Interpretation Comments SODIUM (test code = NA) 146 mmol/L 136-145 H POTASSIUM (test code = K) 3.5 mmol/L 3.5-5.1 N CHLORIDE (test code = CL) 109.0 mmol/L 98-107 H CARBON DIOXIDE (test code = CO2) 27.0 mmol/L 21-32 N ANION GAP (test code = GAP) 13.5 10-20 N GLUCOSE (test code = GLU) 100 mg/dL 74-106 N BLOOD UREA NITROGEN (test code = BUN) 14 mg/dL 7-18 N GLOMERULAR FILTRATION RATE (test code = GFR) 26 mL/min >=60 Estimated GFR by using Modified MDRD formula.Chronic kidney disease is defined as either kidney damageor GFR <60 mL/min/1.73 m2 for >3 months. CREATININE (test code = CREAT) 2.00 mg/dL 0.55-1.02 H Note change in reference range due to change in reagent. BUN/CREATININE RATIO (test code = BUN/CREA) 7.0 10-20 L CALCIUM (test code = CA) 8.7 mg/dL 8.5-10.1 N BASIC METABOLIC [id number] 16:08:00* Test Item Value Reference Range Interpretation Comments SODIUM (test code = NA) 146 mmol/L 136-145 H POTASSIUM (test code = K) 3.5 mmol/L 3.5-5.1 N CHLORIDE (test code = CL) 109.0 mmol/L 98-107 H CARBON DIOXIDE (test code = CO2) mmol/L 21-32 ANION GAP (test code = GAP) 10-20 GLUCOSE (test code = GLU) mg/dL 74-106 BLOOD UREA NITROGEN (test code = BUN) mg/dL 7-18 GLOMERULAR FILTRATION RATE (test code = GFR) mL/min >=60 CREATININE (test code = CREAT) mg/dL 0.55-1.02 BUN/CREATININE RATIO (test code = BUN/CREA) 10-20 CALCIUM (test code = CA) mg/dL 8.5-10.1 CBC W/AUTO [id number] 11:11:00* Test Item Value Reference Range Interpretation Comments WHITE BLOOD CELL (test code = WBC) 5.6 K/mm3 4.5-12.5 N RED BLOOD CELL (test code = RBC) 4.33 mill/mm3 3.7-5.2 N HEMOGLOBIN (test code = HGB) 13.2 gram/dL 11.5-15.5 N HEMATOCRIT (test code = HCT) 41.8 % 36.0-46.0 N MEAN CELL VOLUME (test code = MCV) 96.5 fL 80-98 N MEAN CELL HGB (test code = MCH) 30.5 picogram 27.0-33.0 N MEAN CELL HGB CONCETRATION (test code = MCHC) 31.6 gram/dL 33.0-36. 0 L RED CELL DISTRIBUTION WIDTH (test code = RDW) 13.7 % 11.6-16. 2 N RED CELL DISTRIBUTION WIDTH SD (test code = RDW-SD) 48.8 fL 37 .0-51.0 N PLATELET COUNT (test code = PLT) 212 K/mm3 150-450 N MEAN PLATELET VOLUME (test code = MPV) 10.6 fL 6.7-11.0 N NEUTROPHIL % (test code = NT%) 70.3 % 39.0-69.0 H IMMATURE GRANULOCYTE % (test code = IG%) 0.4 % 0.0-5.0 N LYMPHOCYTE % (test code = LY%) 20.9 % 25.0-55.0 L MONOCYTE % (test code = MO%) 7.6 % 0.0-10.0 N EOSINOPHIL % (test code = EO%) 0.4 % 0.0-5.0 N BASOPHIL % (test code = BA%) 0.4 % 0.0-1.0 N NUCLEATED RBC % (test code = NRBC%) 0.0 % 0-0 N NEUTROPHIL # (test code = NT#) 3.92 K/mm3 1.8-7.7 N IMMATURE GRANULOCYTE # (test code = IG#) 0.02 x10 3/uL 0-0.03 N LYMPHOCYTE # (test code = LY#) 1.16 K/mm3 1.0-5.0 N MONOCYTE # (test code = MO#) 0.42 K/mm3 0-0.8 N EOSINOPHIL # (test code = EO#) 0.02 K/mm3 0.0-0.5 N BASOPHIL # (test code = BA#) 0.02 K/mm3 0.0-0.2 N NUCLEATED RBC # (test code = NRBC#) 0.00 K/mm3 0.0-0.1 N BASIC METABOLIC [id number] 04:56:00* Test Item Value Reference Range Interpretation Comments SODIUM (test code = NA) 143 mmol/L 136-145 N POTASSIUM (test code = K) 2.9 mmol/L 3.5-5.1 L Re kasie called to MALENA [id number] by [email or web address] 04/16/19 0455Critical results verified and read back by Nurse? Y CHLORIDE (test code = CL) 104.0 mmol/L 98-107 N CARBON DIOXIDE (test code = CO2) 32.0 mmol/L 21-32 N ANION GAP (test code = GAP) 9.9 10-20 L GLUCOSE (test code = GLU) 119 mg/dL 74-106 H BLOOD UREA NITROGEN (test code = BUN) 13 mg/dL 7-18 N GLOMERULAR FILTRATION RATE (test code = GFR) 28 mL/min >=60 Estimated GFR by using Modified MDRD formula.Chronic kidney disease is defined as either kidney damageor GFR <60 mL/min/1.73 m2 for >3 months. CREATININE (test code = CREAT) 1.90 mg/dL 0.55-1.02 H Note change in reference range due to change in reagent. BUN/CREATININE RATIO (test code = BUN/CREA) 6.9 10-20 L CALCIUM (test code = CA) 9.3 mg/dL 8.5-10.1 N [id number] 04:56:00* Test Item Value Reference Range Interpretation Comments PHOSPHORUS (test code = PHOS) 2.4 mg/dL 2.5-4.9 L [id number] 04:56:00* Test Item Value Reference Range Interpretation Comments MAGNESIUM (test code = MAG) 2.3 mg/dL 1.8-2.4 N [id number] 17:17:00* Test Item Value Reference Range Interpretation Comments TROPONIN-I (test code = TROPI) <0.015 ng/mL 0-0.045 N COMMENTS TO TECHNICIAN TEST SYSTEMS: COLLECT 3 HOURS AFTER PREVIOUS [id number] 17:10:00* Test Item Value Reference Range Interpretation Comments GLUBED (test code = GLUBED) 110 mg/dL 74-106 H Performed by certified trouble operator at [facility] [id number] 13:08:00* Test Item Value Reference Range Interpretation Comments GLUBED (test code = GLUBED) 115 mg/dL 74-106 H Performed by certified trouble operator at [facility] [id number] 09:42:00* Test Item Value Reference Range Interpretation Comments TROPONIN-I (test code = TROPI) <0.015 ng/mL 0-0.045 N COMMENTS TO TECHNICIAN TEST SYSTEMS: COLLECT 3 HOURS AFTER PREVIOUS [id number] 05:40:00* Test Item Value Reference Range Interpretation Comments GLUBED (test code = GLUBED) 113 mg/dL 74-106 H Performed by certified trouble operator at [facility] [id number] 22:50:00* Test Item Value Reference Range Interpretation Comments TROPONIN-I (test code = TROPI) <0.015 ng/mL 0-0.045 N TROPONIN I [id number] 21:07:00* Test Item Value Reference Range Interpretation Comments TROPONIN I RAPID (test code = TROPIRAP) 0.01 ng/mL <0.08 Please Note New Reference Range 0.00-0.079 ng/mL - Negative>or= 0.08 ng/mL - Positive The use of serial sampling and testing protocol is arecommended practice.An elevated troponin level alone is often not sufficient fordiagnosis of myocardial infarction. Troponin results obtained by different assays may vary.Evaluation of the extent of myocardial damage based onincrease of troponin would be valid only if similarmethodology is used. B-TYPE NATRIURETIC [id number] 20:45:00* Test Item Value Reference Range Interpretation Comments B-TYPE NATRIURETIC PEPTIDE (test code = BNP) 113.73 pgram/mL 0-100 H POC LACTIC [id number] 20:44:00* Test Item Value Reference Range Interpretation Comments POC LACTIC ACID (test code = POCLAC) 1.20 MMOL/L 0.4-2.2 N BASIC METABOLIC [id number] 20:29:00* Test Item Value Reference Range Interpretation Comments SODIUM (test code = NA) 147 mmol/L 136-145 H POTASSIUM (test code = K) 3.2 mmol/L 3.5-5.1 L CHLORIDE (test code = CL) 110.0 mmol/L 98-107 H CARBON DIOXIDE (test code = CO2) 28.0 mmol/L 21-32 N ANION GAP (test code = GAP) 12.2 10-20 N GLUCOSE (test code = GLU) 99 mg/dL 74-106 N BLOOD UREA NITROGEN (test code = BUN) 22 mg/dL 7-18 H GLOMERULAR FILTRATION RATE (test code = GFR) 22 mL/min >=60 Estimated GFR by using Modified MDRD formula.Chronic kidney disease is defined as either kidney damageor GFR <60 mL/min/1.73 m2 for >3 months. CREATININE (test code = CREAT) 2.30 mg/dL 0.55-1.02 H Note change in reference range due to change in reagent. BUN/CREATININE RATIO (test code = BUN/CREA) 9.6 10-20 L CALCIUM (test code = CA) 9.5 mg/dL 8.5-10.1 N [id number] 20:29:00* Test Item Value Reference Range Interpretation Comments MAGNESIUM (test code = MAG) 2.5 mg/dL 1.8-2.4 H [id number] 20:29:00* Test Item Value Reference Range Interpretation Comments TROPONIN-I (test code = TROPI) <0.015 ng/mL 0-0.045 N BASIC METABOLIC [id number] 20:19:00* Test Item Value Reference Range Interpretation Comments SODIUM (test code = NA) 147 mmol/L 136-145 H POTASSIUM (test code = K) 3.2 mmol/L 3.5-5.1 L CHLORIDE (test code = CL) 110.0 mmol/L 98-107 H CARBON DIOXIDE (test code = CO2) mmol/L 21-32 ANION GAP (test code = GAP) 10-20 GLUCOSE (test code = GLU) mg/dL 74-106 BLOOD UREA NITROGEN (test code = BUN) mg/dL 7-18 GLOMERULAR FILTRATION RATE (test code = GFR) mL/min >=60 CREATININE (test code = CREAT) mg/dL 0.55-1.02 BUN/CREATININE RATIO (test code = BUN/CREA) 10-20 CALCIUM (test code = CA) mg/dL 8.5-10.1 [id number] 20:19:00* Test Item Value Reference Range Interpretation Comments MAGNESIUM (test code = MAG) mg/dL 1.8-2.4 [id number] 20:19:00* Test Item Value Reference Range Interpretation Comments TROPONIN-I (test code = TROPI) ng/mL 0-0.045 CBC W/O [id number] 20:09:00* Test Item Value Reference Range Interpretation Comments WHITE BLOOD CELL (test code = WBC) 5.1 K/mm3 4.5-12.5 N RED BLOOD CELL (test code = RBC) 4.03 mill/mm3 3.7-5.2 N HEMOGLOBIN (test code = HGB) 12.3 gram/dL 11.5-15.5 N HEMATOCRIT (test code = HCT) 38.5 % 36.0-46.0 N MEAN CELL VOLUME (test code = MCV) 95.5 fL 80-98 N MEAN CELL HGB (test code = MCH) 30.5 picogram 27.0-33.0 N MEAN CELL HGB CONCETRATION (test code = MCHC) 31.9 gram/dL 33.0-36. 0 L RED CELL DISTRIBUTION WIDTH (test code = RDW) 13.7 % 11.6-16. 2 N PLATELET COUNT (test code = PLT) 199 K/mm3 150-450 N MEAN PLATELET VOLUME (test code = MPV) 10.1 fL 6.7-11.0 N CBC W/O [id number] 20:07:00* Test Item Value Reference Range Interpretation Comments WHITE BLOOD CELL (test code = WBC) K/mm3 4.5-12.5 RED BLOOD CELL (test code = RBC) mill/mm3 3.7-5.2 HEMOGLOBIN (test code = HGB) 12.3 gram/dL 11.5-15.5 N HEMATOCRIT (test code = HCT) 38.5 % 36.0-46.0 N MEAN CELL VOLUME (test code = MCV) fL 80-98 MEAN CELL HGB (test code = MCH) picogram 27.0-33.0 MEAN CELL HGB CONCETRATION (test code = MCHC) gram/dL 33.0-36. 0 RED CELL DISTRIBUTION WIDTH (test code = RDW) % 11.6-16. 2 PLATELET COUNT (test code = PLT) K/mm3 150-450 MEAN PLATELET VOLUME (test code = MPV) fL 6.7-11.0 - XR TIBIA/FIBULA 2 V [id number] 19:52:00 FAX: [facility] [place]: B St: REG FAX: Ailyn Fuentes MD Name: DEE DAVENPORT [facility] : 1965 Age/S: 53/F [address] Unit #: [id number] Loc: [place] [address] Phys: Ailyn Fuentes MD Acct: [id number] Dis Date: Status: REG ER PHONE #: [phone] Exam Date: 04/14/2019 1935 FAX #: [phone] Reason: pain EXAMS: CPT CODE: [id number] XR TIBIA/FIBULA 2 [place] [id number] EXAM: Left knee, 3 views and right tibia and fibula, 4 views; INFORMATION: Pain; FINDINGS: Normal shape and structure of the imaged bones; no evidence of fracture or dislocation; no soft tissue abnormalities. IMPRESSION: No evidence of acute osseous trauma or other pathological changes. No radiopaque foreign body. at 1952 Reported and signed by: Parish Lowery M.D. CC: Michele Cesar MD; Ailyn Fuentes MD Technologist: LOR CHAU; Jona Meyer, RT(R Trnscrd Date/Time/By: 04/14 (1952) : By: AristidesGRW Orig Print D/T: S: 04/14/2019 (1954) PAGE 1 Signed Report - XR KNEE 3 V [id number] 19:52:00 FAX: Michele Gayle Allen: B St: REG FAX: Ailyn Fuentes MD Name: DEE DAVENPORT [facility] : 1965 Age/S: 53/F [address] Unit #: [id number] Loc: [place] [address] Phys: Ailyn Fuentes MD Acct: [id number] Dis Date: Status: REG ER PHONE #: [phone] Exam Date: 04/14/20191934 FAX #: [phone] Reason: pain EXAMS: CPT CODE: [id number] XR KNEE 3 V LT [id number] EXAM: Left knee, 3 views and right tibia and fibula, 4 views; INFORMATION: Pain; FINDINGS: Normal shape and st ructure of the imaged bones; no evidence of fracture or dislocation; no soft tissue abnormalities. IMPRESSION: No evidence of acute osseous trauma or other pathological changes. No radiopaque for eign body. at 1952 Reported and signed by: Parish Lowery M.D. CC: Michele Cesar MD; Ailyn Fuentes MD Technologist: LOR CHAU; Jona Myeer, RT(R Trnscrd Date/Time/By: [birth year] (1952) : By: [email or web address] Orig Print D/T: S: 04/14/2019 (1954) PAGE 1 Signed Report - XR CHEST 1 [id number] 19:50:00 FAX: Michele Gayle Allen: B St: REG FAX: Ailyn Fuentes MD Name: DEE DAVENPORT [facility] : 1965 Age/S: 53/F [address] Unit #: [id number] Loc: [place] [address] Phys: Ailyn Fuentes MD Acct: [id number] Dis Date: Status: REG ER PHONE #: [phone] Exam Date: 04/14/20191934 FAX #: [phone] Reason: CHEST PAIN EXAMS: CPT CODE: [id number] XR CHEST 1 V 44601 EXAM: Chest x-ray, one view; INFORMATION: Chest pain and cough; IMPRESSION: 1. No evidence of pulmonary in filtrates or other signs of active cardiopulmonary disease. 2. N o significant change compared with a study from February 11, 2019; the heart is borderline in size. at 1950 Reported and signed by: Parish Lowery M.D. CC: Michele Cesar MD; Ailyn Fuentes MD Technolog ist: LOR CHAU; Jona Meyer, RT(R Trnscrd Date/Time/By : 04/14/2019 (1949) : By: [email or web address] Orig Print D/T: S: 04/14/2019 (195 3) PAGE 1 Signed Report [id number] 06:14:00* Test Item Value Reference Range Interpretation Comments GLUBED (test code = GLUBED) 134 mg/dL 74-106 H Performed by certified trouble operator at [facility] URINALYSIS [id number] 04:51:00* Test Item Value Reference Range Interpretation Comments UA COLOR (test code = COLU) LIGHT YELLOW YELLOW UA APPEARANCE (test code = APPU) CLEAR CLEAR UA GLUCOSE DIPSTICK (test code = DGLUU) NEGATIVE mg/dL NEGATIVE UA BILIRUBIN DIPSTICK (test code = BILU) NEGATIVE NEGATIVE UA KETONE DIPSTICK (test code = KETU) NEGATIVE mg/dL NEGATIVE UA SPECIFIC GRAVITY (test code = SGU) 1.010 1.001-1.035 UA BLOOD DIPSTICK (test code = MERNA) NEGATIVE NEGATIVE UA PH DIPSTICK (test code = RADHA) 6.5 5.0-8.0 UA PROTEIN DIPSTICK (test code = PROU) NEGATIVE mg/dL Neg-15 UA UROBILINIOGEN DIPSTICK (test code = URO) 1 mg/dL (1+) mg/dL 0.0 -0.2 UA NITRITE DIPSTICK (test code = RYAN) NEGATIVE NEGATIVE UA LEUKOCYTE ESTERASE W REFLEX (test code = LEUUR) NEGATIVE NEG ATIVE UA WBC (test code = WBCU) 0-5 per HPF 0-5 UA RBC (test code = RBCU) 0-2 #/HPF 0-5 UA EPITHELIAL CELLS (test code = EPIU) FEW per HPF FEW UA BACTERIA (test code = BACU) FEW #/HPF NONE A UA MUCUS (test code = MUCU) FEW #/LPF FEW Urine Source? Clean CatchDRUGS OF ABUSE SCREEN [id number] 04:51:00* Test Item Value Reference Range Interpretation Comments URN COCAINE (test code = COCAURN) NEGATIVE <300 ng/mL URN CANNABINOIDS (test code = CANNABURN) NEGATIVE <50 ng/mL URN AMPHETAMINE (test code = AMPHETURN) NEGATIVE <1000 ng/mL URN BARBITURATE (test code = BARBITURN) NEGATIVE <200 ng/mL URN BENZODIAZEPINE (test code = BENZOURN) NEGATIVE <200 ng/mL URN OPIATES (test code = OPIATURN) NEGATIVE <300 ng/mL URN PHENCYCLIDINE (PCP) (test code = PHENCURN) NEGATIVE <25 ng/ mL URN METHADONE (test code = METHAURN) NEGATIVE <300 ng/mL Urine Source? Clean CatchURINALYSIS [id number] 03:53:00* Test Item Value Reference Range Interpretation Comments UA COLOR (test code = COLU) LIGHT YELLOW YELLOW UA APPEARANCE (test code = APPU) CLEAR CLEAR UA GLUCOSE DIPSTICK (test code = DGLUU) NEGATIVE mg/dL NEGATIVE UA BILIRUBIN DIPSTICK (test code = BILU) NEGATIVE NEGATIVE UA KETONE DIPSTICK (test code = KETU) NEGATIVE mg/dL NEGATIVE UA SPECIFIC GRAVITY (test code = SGU) 1.010 1.001-1.035 UA BLOOD DIPSTICK (test code = MERNA) NEGATIVE NEGATIVE UA PH DIPSTICK (test code = RADHA) 6.5 5.0-8.0 UA PROTEIN DIPSTICK (test code = PROU) NEGATIVE mg/dL Neg-15 UA UROBILINIOGEN DIPSTICK (test code = URO) 1 mg/dL (1+) mg/dL 0.0 -0.2 UA NITRITE DIPSTICK (test code = RYAN) NEGATIVE NEGATIVE UA LEUKOCYTE ESTERASE W REFLEX (test code = LEUUR) NEGATIVE NEG ATIVE UA WBC (test code = WBCU) 0-5 per HPF 0-5 UA RBC (test code = RBCU) 0-2 #/HPF 0-5 UA EPITHELIAL CELLS (test code = EPIU) FEW per HPF FEW UA BACTERIA (test code = BACU) FEW #/HPF NONE A UA MUCUS (test code = MUCU) FEW #/LPF FEW Urine Source? Clean CatchDRUGS OF ABUSE SCREEN [id number] 03:53:00* Test Item Value Reference Range Interpretation Comments URN COCAINE (test code = COCAURN) <300 ng/mL URN CANNABINOIDS (test code = CANNABURN) <50 ng/mL URN AMPHETAMINE (test code = AMPHETURN) <1000 ng/mL URN BARBITURATE (test code = BARBITURN) <200 ng/mL URN BENZODIAZEPINE (test code = BENZOURN) <200 ng/mL URN OPIATES (test code = OPIATURN) <300 ng/mL URN PHENCYCLIDINE (PCP) (test code = PHENCURN) <25 ng/ mL URN METHADONE (test code = METHAURN) <300 ng/mL Urine Source? Clean CatchURINALYSIS [id number] 03:49:00* Test Item Value Reference Range Interpretation Comments UA COLOR (test code = COLU) YELLOW UA APPEARANCE (test code = APPU) CLEAR UA BILIRUBIN DIPSTICK (test code = BILU) NEGATIVE UA SPECIFIC GRAVITY (test code = SGU) 1.001-1.035 UA PH DIPSTICK (test code = RADHA) 5.0-8.0 UA UROBILINIOGEN DIPSTICK (test code = URO) mg/dL 0.0-0.2 UA NITRITE DIPSTICK (test code = RYAN) NEGATIVE UA LEUKOCYTE ESTERASE W REFLEX (test code = LEUUR) NEG ATIVE UA WBC (test code = WBCU) 0-5 per HPF 0-5 UA RBC (test code = RBCU) 0-2 #/HPF 0-5 UA EPITHELIAL CELLS (test code = EPIU) FEW per HPF FEW UA BACTERIA (test code = BACU) FEW #/HPF NONE A UA MUCUS (test code = MUCU) FEW #/LPF FEW Urine Source? Clean CatchDRUGS OF ABUSE SCREEN [id number] 03:49:00* Test Item Value Reference Range Interpretation Comments URN COCAINE (test code = COCAURN) <300 ng/mL URN CANNABINOIDS (test code = CANNABURN) <50 ng/mL URN AMPHETAMINE (test code = AMPHETURN) <1000 ng/mL URN BARBITURATE (test code = BARBITURN) <200 ng/mL URN BENZODIAZEPINE (test code = BENZOURN) <200 ng/mL URN OPIATES (test code = OPIATURN) <300 ng/mL URN PHENCYCLIDINE (PCP) (test code = PHENCURN) <25 ng/ mL URN METHADONE (test code = METHAURN) <300 ng/mL Urine Source? Clean CatchB-TYPE NATRIURETIC [id number] 01:28:00* Test Item Value Reference Range Interpretation Comments B-TYPE NATRIURETIC PEPTIDE (test code = BNP) 79.9 pg/mL 0-100 N PROTHROMBIN [id number] 23:45:00* Test Item Value Reference Range Interpretation Comments PROTHROMBIN TIME PATIENT (test code = PTP) 11.1 seconds 9.0-14.0 N INTERNATIONAL NORMAL RATIO (test code = INR) 0.9 0.8-1.2 N The therapeutic range for oral anticoagulant therapy formost indications is an international normalized ratio (INR)of between 2.0 and 3.0. The recommended therapeutic INRrange for various clinical situations is listed below: Clinical Situation INR range Pulmonary e mbolism treatment (2.0-3.0)Venous thrombosis treatmentVenous thrombosis prophylaxis (high risk surgery)Prevention of systemic embolism from: Acute myocardial infarction Valvular heart disease Atrial fibrillation Mechanical prosthetic heart valves (2.5-3.5) IS PATIENT ON ANTICOAGULANTS? NTHROMBOPLASTIN TIME [id number] 23:45:00* Test Item Value Reference Range Interpretation Comments THROMBOPLASTIN TIME PARTIAL (test code = PTT) 67.4 seconds 25.0-36. 5 H IS PATIENT ON ANTICOAGULANTS? NBASIC METABOLIC [id number] 23:45:00* Test Item Value Reference Range Interpretation Comments SODIUM (test code = NA) 144 mmol/L 136-145 N POTASSIUM (test code = K) 3.0 mmol/L 3.5-5.1 L CHLORIDE (test code = CL) 106.0 mmol/L 98-107 N CARBON DIOXIDE (test code = CO2) 34.0 mmol/L 21-32 H ANION GAP (test code = GAP) 7.0 10-20 L GLUCOSE (test code = GLU) 102 mg/dL 74-106 N BLOOD UREA NITROGEN (test code = BUN) 28 mg/dL 7-18 H GLOMERULAR FILTRATION RATE (test code = GFR) 23 mL/min >=60 Estimated GFR by using Modified MDRD formula.Chronic kidney disease is defined as either kidney damageor GFR <60 mL/min/1.73 m2 for >3 months. CREATININE (test code = CREAT) 2.20 mg/dL 0.55-1.02 H Note change in reference range due to change in reagent. BUN/CREATININE RATIO (test code = BUN/CREA) 12.7 10-20 N CALCIUM (test code = CA) 8.9 mg/dL 8.5-10.1 N HEPATIC FUNCTION [id number] 23:45:00* Test Item Value Reference Range Interpretation Comments TOTAL PROTEIN (test code = PROT) 7.6 gram/dL 6.4-8.2 N ALBUMIN (test code = ALB) 3.6 g/dL 3.4-5.0 N GLOBULIN (test code = GLOB) 4.0 gram/dL 2.7-4.2 N ALBUMIN/GLOBULIN RATIO (test code = A/G) 0.9 0.75-1.50 N BILIRUBIN TOTAL (test code = BILT) 0.30 mg/dL 0.0-1.0 N BILIRUBIN DIRECT (test code = BILD) 0.11 mg/dL 0.0-0.20 N SGOT/AST (test code = AST) 7 IUnit/L 15-37 L SGPT/ALT (test code = ALT) 13 IUnit/L 12-78 N ALKALINE PHOSPHATASE TOTAL (test code = ALKP) 84 IUnit/L 45-117 N Note change in reference range due to change in reagent. CREATINE KINASE (CK)2019-02-11 23:45:00* Test Item Value Reference Range Interpretation Comments CREATINE KINASE (CK) (test code = CK) 94 IUnit/L 26-208 N [id number] 23:45:00* Test Item Value Reference Range Interpretation Comments LIPASE (test code = LIP) 163 U/L 73.0-393.0 N [id number] 23:45:00* Test Item Value Reference Range Interpretation Comments MAGNESIUM (test code = MAG) 2.4 mg/dL 1.8-2.4 N THYROID STIMULATING [id number] 23:45:00* Test Item Value Reference Range Interpretation Comments THYROID STIMULATING HORMONE (test code = TSH) 2.250 uIU/mL 0.36-3.7 4 N TSH REFERENCE RANGES: EUTHYROID: 0.35 - 4.3 mIU/mL HYPO : > 5.5 mIU/mL HYPER : < 0.35 mIU/mL [id number] 23:45:00* Test Item Value Reference Range Interpretation Comments TROPONIN-I (test code = TROPI) <0.015 ng/mL 0-0.045 N [id number] 23:45:00* Test Item Value Reference Range Interpretation Comments ALCOHOL (test code = ALC) < 3 mg/dL 0.0-3.0 N -- INTERPRETIVE DATA NOTE: POSITIVE SCREENING RESULTS SHOULD BE CONSIDERED PRESUMPTIVE.WHEN COLLECTED FOR MEDICAL PURPOSES ONLY. SPECIMEN WILL NOTBE COLLECTED BY CHAIN OF CUSTODY.IF A CONFIRMATION OF POSITIVE RESULTS IS DESIRED, ACONFIRMATION TEST MUST BE REQUESTED BY THE PHYSICIAN AT ANADDITIONAL CHARGE TO THE PATIENT. BASIC METABOLIC [id number] 23:33:00* Test Item Value Reference Range Interpretation Comments SODIUM (test code = NA) 144 mmol/L 136-145 N POTASSIUM (test code = K) 3.0 mmol/L 3.5-5.1 L CHLORIDE (test code = CL) 106.0 mmol/L 98-107 N CARBON DIOXIDE (test code = CO2) mmol/L 21-32 ANION GAP (test code = GAP) 10-20 GLUCOSE (test code = GLU) mg/dL 74-106 BLOOD UREA NITROGEN (test code = BUN) mg/dL 7-18 GLOMERULAR FILTRATION RATE (test code = GFR) mL/min >=60 CREATININE (test code = CREAT) mg/dL 0.55-1.02 BUN/CREATININE RATIO (test code = BUN/CREA) 10-20 CALCIUM (test code = CA) mg/dL 8.5-10.1 HEPATIC FUNCTION [id number] 23:33:00* Test Item Value Reference Range Interpretation Comments TOTAL PROTEIN (test code = PROT) gram/dL 6.4-8.2 ALBUMIN (test code = ALB) g/dL 3.4-5.0 GLOBULIN (test code = GLOB) gram/dL 2.7-4.2 ALBUMIN/GLOBULIN RATIO (test code = A/G) 0.75-1.50 BILIRUBIN TOTAL (test code = BILT) mg/dL 0.0-1.0 BILIRUBIN DIRECT (test code = BILD) mg/dL 0.0-0.20 SGOT/AST (test code = AST) IUnit/L 15-37 SGPT/ALT (test code = ALT) IUnit/L 12-78 ALKALINE PHOSPHATASE TOTAL (test code = ALKP) IUnit/L 45-117 CREATINE KINASE (CK)2019-02-11 23:33:00* Test Item Value Reference Range Interpretation Comments CREATINE KINASE (CK) (test code = CK) IUnit/L 26-208 [id number] 23:33:00* Test Item Value Reference Range Interpretation Comments LIPASE (test code = LIP) U/L 73.0-393.0 [id number] 23:33:00* Test Item Value Reference Range Interpretation Comments MAGNESIUM (test code = MAG) mg/dL 1.8-2.4 THYROID STIMULATING [id number] 23:33:00* Test Item Value Reference Range Interpretation Comments THYROID STIMULATING HORMONE (test code = TSH) uIU/mL 0.36-3.7 4 [id number] 23:33:00* Test Item Value Reference Range Interpretation Comments TROPONIN-I (test code = TROPI) ng/mL 0-0.045 [id number] 23:33:00* Test Item Value Reference Range Interpretation Comments ALCOHOL (test code = ALC) mg/dL 0-3 CBC W/O [id number] 23:25:00* Test Item Value Reference Range Interpretation Comments WHITE BLOOD CELL (test code = WBC) K/mm3 4.5-12.5 RED BLOOD CELL (test code = RBC) mill/mm3 3.7-5.2 HEMOGLOBIN (test code = HGB) 12.0 gram/dL 11.5-15.5 N HEMATOCRIT (test code = HCT) 38.5 % 36.0-46.0 N MEAN CELL VOLUME (test code = MCV) fL 80-98 MEAN CELL HGB (test code = MCH) picogram 27.0-33.0 MEAN CELL HGB CONCETRATION (test code = MCHC) gram/dL 33.0-36. 0 RED CELL DISTRIBUTION WIDTH (test code = RDW) % 11.6-16. 2 PLATELET COUNT (test code = PLT) K/mm3 150-450 MEAN PLATELET VOLUME (test code = MPV) fL 6.7-11.0 CBC W/O [id number] 23:25:00* Test Item Value Reference Range Interpretation Comments WHITE BLOOD CELL (test code = WBC) 6.0 K/mm3 4.5-12.5 N RED BLOOD CELL (test code = RBC) 3.94 mill/mm3 3.7-5.2 N HEMOGLOBIN (test code = HGB) 12.0 gram/dL 11.5-15.5 N HEMATOCRIT (test code = HCT) 38.5 % 36.0-46.0 N MEAN CELL VOLUME (test code = MCV) 97.7 fL 80-98 N MEAN CELL HGB (test code = MCH) 30.5 picogram 27.0-33.0 N MEAN CELL HGB CONCETRATION (test code = MCHC) 31.2 gram/dL 33.0-36. 0 L RED CELL DISTRIBUTION WIDTH (test code = RDW) 13.2 % 11.6-16. 2 N PLATELET COUNT (test code = PLT) 193 K/mm3 150-450 N MEAN PLATELET VOLUME (test code = MPV) 10.0 fL 6.7-11.0 N - XR CHEST 1 [id number] 23:03:00 FAX: [facility] [place]: B St: REG FAX: Emely Villalobos MD [phone] Name: DEE DAVENPORT [facility] : 1965 Age/S: 53/F [address] [facility] Unit #: [id number] Loc: [place] [address] Phys: Emely Villalobos MD Acct: [id number] Dis Date: Status: REG ER PHONE #: [phone] Exam Date: 02/11/20195 FAX #: [phone] Reason: WEAKNESS EXAMS: CPT CODE: [id number] XR CHEST 1 V 72450 REASON FOR EXAM: WEAKNESS Exam Order Date: 02/11/2019 10:06 PM Ordering M.D.: Emely Villalobos MD PROCEDURE: - XR CHEST 1 V COMPARISON: AP chest x-ray January 23, 2019 FINDINGS: The lung volumes are diminished however the lungs are clear. There is no pleural effusion or pneumothorax. Pulmonary vascularity is within normal limits. Cardiomediastinal silhouette is enlarged but stable in size. The mediastinal contours are within normal limits. Musculoskeletal structures are within normal limits. The visualized upper abdomen is within normal limits. IMPRESSION: No acute cardiopulmonary process. Cardiomegaly is unchanged from prior chest x-ray. at 2303 Reported and signed by: Nathan Braden MD CC: Michele Cesar MD; Emely Villalobos MD Technologist: Nakia loza Date/Time/By: 02/11/2019 (4081) : By: [email or web address] Orig Print D/T: S : 02/11/2019 (6018) PAGE 1 Signed Report - CT HEAD/BRAIN W/O [id number] 23:01:00 Name: DEE DAVENPORT [facility] : 1965 Age/S: 53 / F [address] Unit #: [id number] Loc: [place] [address] Phys: Marlee Villalobos MD Acct: [id number] Di s Date: Status: REG ER PHONE #: [phone] Exam Date: 02/11/20192225 FAX #: [phone] Reason: blurry vision EXAMS: CPT CODE: [id number] CT HEAD/BRAIN W/O CONT 79174 HISTORY: blurry vision TECHNIQUE: Noncontrast 2.[address] of the head. Examination acquired within 24 hours of arrival. Automated exposure control for dose reduction. COMPARISON: Noncontrast CT brain June 07, 2018 FINDINGS: No acute hemorrhage. No intracranial mass, mass effect, or midline shift. No CT evidence of acute infarct decreased at tenuation of the periventricular white matter, compatible with chronic derick rovascular ischemic changes, is stable appearing from the previous study. No hydrocephalus. No extra-axial fluid collection. Encephalomalacia in the left cerebral hemisphere is stable from the previous study. Visualized paranasal sinuses are clear. Mastoid air cells and middle ear cavities are clear. Orbital contents are unremarkable. Left occipital cran iotomy changes are stable from the previous exam.. IMPRE SSION: No acute intracranial process or significant change fro m previous head CT. Stable appearing left cerebellar encephaloma lacia and stable chronic microvascular ischemic changes of the periventr icular white matter. Electronically Signed by Nathan Braden MD on 01/21 at 2301 Reported and signed by: Nathan Braden MD CC: Michele Cesar MD; Emely Villalobos MD Technologist :Екатерина Smith RT(R); CHERYL Erickson CTDI: DLP: Trnscb Date/Time: 01/21 (2301) t.[email or web address] Orig Print D/T: S: 02/11/2019 (23 ) PAGE 1 Signed Report BASIC METABOLIC [id number] 19:02:00* Test Item Value Reference Range Interpretation Comments SODIUM (test code = NA) 143 mmol/L 136-145 N POTASSIUM (test code = K) 3.4 mmol/L 3.5-5.1 L CHLORIDE (test code = CL) 105.0 mmol/L 98-107 N CARBON DIOXIDE (test code = CO2) 33.0 mmol/L 21-32 H ANION GAP (test code = GAP) 8.4 10-20 L GLUCOSE (test code = GLU) 102 mg/dL 74-106 N BLOOD UREA NITROGEN (test code = BUN) 29 mg/dL 7-18 H GLOMERULAR FILTRATION RATE (test code = GFR) 20 mL/min >=60 Estimated GFR by using Modified MDRD formula.Chronic kidney disease is defined as either kidney damageor GFR <60 mL/min/1.73 m2 for >3 months. CREATININE (test code = CREAT) 2.50 mg/dL 0.55-1.02 H Note change in reference range due to change in reagent. BUN/CREATININE RATIO (test code = BUN/CREA) 11.6 10-20 N CALCIUM (test code = CA) 8.9 mg/dL 8.5-10.1 N CBC W/AUTO [id number] 19:00:00* Test Item Value Reference Range Interpretation Comments WHITE BLOOD CELL (test code = WBC) 5.3 K/mm3 4.5-12.5 N RED BLOOD CELL (test code = RBC) 4.00 mill/mm3 3.7-5.2 N HEMOGLOBIN (test code = HGB) 12.1 gram/dL 11.5-15.5 N HEMATOCRIT (test code = HCT) 38.7 % 36.0-46.0 N MEAN CELL VOLUME (test code = MCV) 96.8 fL 80-98 N MEAN CELL HGB (test code = MCH) 30.3 picogram 27.0-33.0 N MEAN CELL HGB CONCETRATION (test code = MCHC) 31.3 gram/dL 33.0-36. 0 L RED CELL DISTRIBUTION WIDTH (test code = RDW) 14.1 % 11.6-16. 2 N RED CELL DISTRIBUTION WIDTH SD (test code = RDW-SD) 50.4 fL 37 .0-51.0 N PLATELET COUNT (test code = PLT) 206 K/mm3 150-450 N MEAN PLATELET VOLUME (test code = MPV) 9.8 fL 6.7-11.0 N NEUTROPHIL % (test code = NT%) 65.5 % 39.0-69.0 N IMMATURE GRANULOCYTE % (test code = IG%) 0.6 % 0.0-5.0 N LYMPHOCYTE % (test code = LY%) 24.8 % 25.0-55.0 L MONOCYTE % (test code = MO%) 7.9 % 0.0-10.0 N EOSINOPHIL % (test code = EO%) 0.8 % 0.0-5.0 N BASOPHIL % (test code = BA%) 0.4 % 0.0-1.0 N NUCLEATED RBC % (test code = NRBC%) 0.0 % 0-0 N NEUTROPHIL # (test code = NT#) 3.49 K/mm3 1.8-7.7 N IMMATURE GRANULOCYTE # (test code = IG#) 0.03 x10 3/uL 0-0.03 N LYMPHOCYTE # (test code = LY#) 1.32 K/mm3 1.0-5.0 N MONOCYTE # (test code = MO#) 0.42 K/mm3 0-0.8 N EOSINOPHIL # (test code = EO#) 0.04 K/mm3 0.0-0.5 N BASOPHIL # (test code = BA#) 0.02 K/mm3 0.0-0.2 N NUCLEATED RBC # (test code = NRBC#) 0.00 K/mm3 0.0-0.1 N CBC W/AUTO [id number] 18:51:00* Test Item Value Reference Range Interpretation Comments WHITE BLOOD CELL (test code = WBC) K/mm3 4.5-12.5 RED BLOOD CELL (test code = RBC) mill/mm3 3.7-5.2 HEMOGLOBIN (test code = HGB) 12.1 gram/dL 11.5-15.5 N HEMATOCRIT (test code = HCT) 38.7 % 36.0-46.0 N MEAN CELL VOLUME (test code = MCV) fL 80-98 MEAN CELL HGB (test code = MCH) picogram 27.0-33.0 MEAN CELL HGB CONCETRATION (test code = MCHC) gram/dL 33.0-36. 0 RED CELL DISTRIBUTION WIDTH (test code = RDW) % 11.6-16. 2 RED CELL DISTRIBUTION WIDTH SD (test code = RDW-SD) fL 37 .0-51.0 PLATELET COUNT (test code = PLT) K/mm3 150-450 MEAN PLATELET VOLUME (test code = MPV) fL 6.7-11.0 NEUTROPHIL % (test code = NT%) % 39.0-69.0 IMMATURE GRANULOCYTE % (test code = IG%) % 0.0-5.0 LYMPHOCYTE % (test code = LY%) % 25.0-55.0 MONOCYTE % (test code = MO%) % 0.0-10.0 EOSINOPHIL % (test code = EO%) % 0.0-5.0 BASOPHIL % (test code = BA%) % 0.0-1.0 NEUTROPHIL # (test code = NT#) K/mm3 1.8-7.7 LYMPHOCYTE # (test code = LY#) K/mm3 1.0-5.0 MONOCYTE # (test code = MO#) K/mm3 0-0.8 EOSINOPHIL # (test code = EO#) K/mm3 0.0-0.5 BASOPHIL # (test code = BA#) K/mm3 0.0-0.2 - XR ABDOMEN AP 1 [id number] 18:32:00 FAX: Shawn Fields MD [phone] [place]: St: ADM FAX: Belinda Hung [phone] FAX: Michele Gayle Name: DEE DAVENPORT [facility] : 1965 Age/S: 53/F [address] [facility] Unit #: [id number] Loc: [address] [place] [address] Phys: Belinda Hung SENIOR ACCOUNTING MANAGER Acct: [id number] Dis Date: Status: ADM IN ONE #: [phone] Exam Date: 01/25/2019 181 FAX #: [phone] Reason: NAUSEA/VOMITING EXAMS: CPT CODE: [id number] XR ABDOMEN AP 1 V 95624 REASON FOR EXA M: NAUSEA/VOMITING EXAM ORDER DATE: 01/25/2019 12:00 AM Attending Diego: Belinda Hung NP PROCEDURE: - XR ABDOMEN AP 1 V COMPARISON: FINDINGS: 3 views of the abdomen o btained at 6:13 PM. The small bowel is unremarkable. No evidence of organ omegaly or evidence of ascites. No evidence of free air. I MPRESSION: Moderate stool in the colon suggestive of constipation. E lectronically Signed by Diego Chakraborty on 01/25/2019 at 1832 Reported and signed by: Josef Chakraborty M.D. CC: Shawn Fields MD; Belinda Hung NP; Michele Cesar MD Technologist: Caryn Rocha Trnscrd Date/Time/By: 01/25/2019 (1831) : By: jacob [email or web address] Orig Print D/T: S: 01/25/2019 (1834) P AGE 1 Signed Report [id number] 03:53:00* Test Item Value Reference Range Interpretation Comments TROPONIN-I (test code = TROPI) <0.015 ng/mL 0-0.045 N COMMENTS TO TECHNICIAN TEST SYSTEMS: COLLECT 3 HOURS AFTER PREVIOUS [id number] 23:05:00* Test Item Value Reference Range Interpretation Comments TROPONIN-I (test code = TROPI) <0.015 ng/mL 0-0.045 N COMMENTS TO TECHNICIAN TEST SYSTEMS: COLLECT 3 HOURS AFTER PREVIOUS SAMPLE- XR CHEST 1 [id number] 15:01:00 FAX: Ron Beebe MD [phone] [place]: B St: REG FAX: Michele Gayle Name: DEE DAVENPORT [facility] : 1965 Age/S: 53/F [address] Unit #: [id number] Loc: [place] [address] Phys: Ron Beebe MD Acct: [id number] Dis Date: Status: REG ER PHONE #: [phone] Exam Date: 01/23/2019 1415 FAX #: [phone] Reason: CHEST PAIN EXAMS: CPT CODE: [id number] XR CHEST 1 V 64087 EXAM: Chest x-ray, one view; INFORMATION: Chest pain; FINDINGS: Slightly increased left basilar densities probably representing atelectatic changes. Otherwise, lungs are clear; No evidence of effusions; unremarkable cardiac mediastinal silhouette. IMPRESSION: Mild left basilar atelectatic changes. No other abnormalities. No major change compared with a study from September 26, 2018. at 1501 Reported and signed by: Parish Lowery M.D. CC: Ron Beebe MD; Michele Cesar MD Technologist: PABLO Kramer) Trnscrd Date/Time/By: 01/23/2019 (1504) : By: [email or web address] Orig Print D/T: S: 01/23/2019 (0175) PAGE 1 Signed Report BASIC METABOLIC [id number] 14:24:00* Test Item Value Reference Range Interpretation Comments SODIUM (test code = NA) 144 mmol/L 136-145 N POTASSIUM (test code = K) 3.6 mmol/L 3.5-5.1 N CHLORIDE (test code = CL) 111.0 mmol/L 98-107 H CARBON DIOXIDE (test code = CO2) 29.0 mmol/L 21-32 N ANION GAP (test code = GAP) 7.6 10-20 L GLUCOSE (test code = GLU) 119 mg/dL 74-106 H BLOOD UREA NITROGEN (test code = BUN) 22 mg/dL 7-18 H GLOMERULAR FILTRATION RATE (test code = GFR) 25 mL/min >=60 Estimated GFR by using Modified MDRD formula.Chronic kidney disease is defined as either kidney damageor GFR <60 mL/min/1.73 m2 for >3 months. CREATININE (test code = CREAT) 2.10 mg/dL 0.55-1.02 H Note change in reference range due to change in reagent. BUN/CREATININE RATIO (test code = BUN/CREA) 10.7 10-20 N CALCIUM (test code = CA) 8.7 mg/dL 8.5-10.1 N [id number] 14:24:00* Test Item Value Reference Range Interpretation Comments TROPONIN-I (test code = TROPI) <0.015 ng/mL 0-0.045 N BASIC METABOLIC [id number] 14:17:00* Test Item Value Reference Range Interpretation Comments SODIUM (test code = NA) 144 mmol/L 136-145 N POTASSIUM (test code = K) 3.6 mmol/L 3.5-5.1 N CHLORIDE (test code = CL) 111.0 mmol/L 98-107 H CARBON DIOXIDE (test code = CO2) mmol/L 21-32 ANION GAP (test code = GAP) 10-20 GLUCOSE (test code = GLU) mg/dL 74-106 BLOOD UREA NITROGEN (test code = BUN) mg/dL 7-18 GLOMERULAR FILTRATION RATE (test code = GFR) mL/min >=60 CREATININE (test code = CREAT) mg/dL 0.55-1.02 BUN/CREATININE RATIO (test code = BUN/CREA) 10-20 CALCIUM (test code = CA) mg/dL 8.5-10.1 [id number] 14:17:00* Test Item Value Reference Range Interpretation Comments TROPONIN-I (test code = TROPI) ng/mL 0-0.045 CBC W/O [id number] 14:14:00* Test Item Value Reference Range Interpretation Comments WHITE BLOOD CELL (test code = WBC) 5.7 K/mm3 4.5-12.5 N RED BLOOD CELL (test code = RBC) 4.04 mill/mm3 3.7-5.2 N HEMOGLOBIN (test code = HGB) 12.3 gram/dL 11.5-15.5 N HEMATOCRIT (test code = HCT) 39.6 % 36.0-46.0 N MEAN CELL VOLUME (test code = MCV) 98.0 fL 80-98 N MEAN CELL HGB (test code = MCH) 30.4 picogram 27.0-33.0 N MEAN CELL HGB CONCETRATION (test code = MCHC) 31.1 gram/dL 33.0-36. 0 L RED CELL DISTRIBUTION WIDTH (test code = RDW) 14.6 % 11.6-16. 2 N PLATELET COUNT (test code = PLT) 211 K/mm3 150-450 N MEAN PLATELET VOLUME (test code = MPV) 9.9 fL 6.7-11.0 N TROPONIN I [id number] 14:11:00* Test Item Value Reference Range Interpretation Comments TROPONIN I RAPID (test code = TROPIRAP) 0.01 ng/mL <0.08 Please Note New Reference Range 0.00-0.079 ng/mL - Negative>or= 0.08 ng/mL - Positive The use of serial sampling and testing protocol is arecommended practice.An elevated troponin level alone is often not sufficient fordiagnosis of myocardial infarction. Troponin results obtained by different assays may vary.Evaluation of the extent of myocardial damage based onincrease of troponin would be valid only if similarmethodology is used. [id number] 14:07:00* Test Item Value Reference Range Interpretation Comments GLUBED (test code = GLUBED) 116 mg/dL 74-106 H Performed by certified trouble operator at [facility] CBC W/O [id number] 14:07:00* Test Item Value Reference Range Interpretation Comments WHITE BLOOD CELL (test code = WBC) K/mm3 4.5-12.5 RED BLOOD CELL (test code = RBC) mill/mm3 3.7-5.2 HEMOGLOBIN (test code = HGB) 12.3 gram/dL 11.5-15.5 N HEMATOCRIT (test code = HCT) 39.6 % 36.0-46.0 N MEAN CELL VOLUME (test code = MCV) fL 80-98 MEAN CELL HGB (test code = MCH) picogram 27.0-33.0 MEAN CELL HGB CONCETRATION (test code = MCHC) gram/dL 33.0-36. 0 RED CELL DISTRIBUTION WIDTH (test code = RDW) % 11.6-16. 2 PLATELET COUNT (test code = PLT) K/mm3 150-450 MEAN PLATELET VOLUME (test code = MPV) fL 6.7-11.0 [id number] (KUB)2018-10-29 12:09:00 [place] [address] Patient Name: DEE DAVENPORT MR #: [id number] : 1965 Age/Sex: 53/F Req #: [id number] Adm Physician: Ordered by: GINO CHERY SENIOR ACCOUNTING MANAGER Report #: [id number] Location: ER Room/Bed: Procedure: [id number] D X/ABDOMEN-1VIEW (KUB) Exam Date: 10/29/18 Exam Time: 1117 REPORT STATUS: Signed Exam: KUB- 2 views Clinical History: Abdominal pain x3 weeks, evaluate for cons tipation. Comparison: None. Findings: Nonobstructive bowel gas prachi jose. There is abundant stool throughout the colon. Bowel gas obscures visua lization of the kidneys. A 1.2 cm calcification is adjacent to the left L3 tra nsverse process. Calcified phleboliths in the pelvis. No acute osseous ab normality. Impression: Abundant stool in the colon, consistent with clini jason history of constipation. A 1.2 cm calcification adjacent to the left L3 transverse process. This could represent a ureteral stone, but is less likely in the absence of acute symptoms. Alternatively, this may represent a soft ti ssue calcification or enteric contents. Follow-up KUB is suggested. Codie d by: Dr. Antoine Hinojosa MD on 10/29/2018 12:13 PM Dictated By: ANTOINE HINOJOSA MD 1213 Transcribed By: SHORTY BO on 10/29/18 1213 COPY TO: GINO CHERY SENIOR ACCOUNTING MANAGER Urine WBC 2018-10-29 11:17:00* Test Item Value Reference Range Interpretation Comments Urine WBC (test code = 5821-4) NONE 0-5 [facility] [id number] 11:17:00* Test Item Value Reference Range Interpretation Comments Urine RBC (test code = 11857-6) NONE 0-5 [facility] Cqlxplxo9893-89-12 11:17:00* Test Item Value Reference Range Interpretation Comments Urine Bacteria (test code = 07314-7) FEW NONE [facility] Epithelial Ddgtu9345-64-63 11:17:00 * Test Item Value Reference Range Interpretation Comments Urine Epithelial Cells (test code = 73343-3) FEW NONE [facility] Hpzkw9632-46-04 11:15:00* Test Item Value Reference Range Interpretation Comments Urine Color (test code = 5778-6) YELLOW YELLOW [facility] Zwvbtpu9136-92-05 11:15:00* Test Item Value Reference Range Interpretation Comments Urine Clarity (test code = 24613-7) CLEAR CLEAR [facility] Specific Vyterta3097-13-83 11:15:00 * Test Item Value Reference Range Interpretation Comments Urine Specific Chrisman (test code = 5811-5) 1.010 1.010-1.02 5 [facility] dD1062-80-72 11:15:00* Test Item Value Reference Range Interpretation Comments Urine pH (test code = 71040-7) 7 5-7 [facility] Leukocyte Lwnvkdtk8417-09-91 11:15:00* Test Item Value Reference Range Interpretation Comments Urine Leukocyte Esterase (test code = 5799-2) NEGATIVE NEGATIVE [facility] [place]0572-37-89 11:15:00* Test Item Value Reference Range Interpretation Comments Urine Nitrite (test code = 63831-3) NEGATIVE NEGATIVE [facility] Yehkemk6855-49-06 11:15:00* Test Item Value Reference Range Interpretation Comments Urine Protein (test code = 5804-0) NEGATIVE NEGATIVE [facility] Glucose (UA)2018-10-29 11:15:00* Test Item Value Reference Range Interpretation Comments Urine Glucose (UA) (test code = 2349-9) NEGATIVE NEGATIVE [facility] Zoqfhcl7557-53-03 11:15:00* Test Item Value Reference Range Interpretation Comments Urine Ketones (test code = 29525-5) NEGATIVE NEGATIVE [facility] Lkqwjcsfhbri1705-51-80 11:15:00* Test Item Value Reference Range Interpretation Comments Urine Urobilinogen (test code = 07639-1) 0.2 0.2-1 [facility] Tauwczovf5402-29-67 11:15:00* Test Item Value Reference Range Interpretation Comments Urine Bilirubin (test code = 1978-6) NEGATIVE NEGATIVE [facility] Vrjkg7078-96-03 11:15:00* Test Item Value Reference Range Interpretation Comments Urine Blood (test code = 62105-4) NEGATIVE NEGATIVE [facility] Rlmh4719-11-98 11:15:00* Test Item Value Reference Range Interpretation Comments Urine Test (test code = 2106-3) NEGATIVE NEGATIVE [facility] CampusTROPONIN-P5931-42-43 21:21:00* Test Item Value Reference Range Interpretation Comments TROPONIN-I (test code = TROPI) <0.015 ng/mL 0-0.045 N DRUGS OF ABUSE SCREEN FJ5638-59-12 18:38:00* Test Item Value Reference Range Interpretation Comments UA PH DIPSTICK (test code = RADHA) 7.0 5.0-8.0 URN COCAINE (test code = COCAURN) NEGATIVE <300 ng/mL URN CANNABINOIDS (test code = CANNABURN) NEGATIVE <50 ng/mL URN AMPHETAMINE (test code = AMPHETURN) NEGATIVE <1000 ng/mL URN BARBITURATE (test code = BARBITURN) NEGATIVE <200 ng/mL URN BENZODIAZEPINE (test code = BENZOURN) POSITIVE <200 ng/mL A This test provides only a preliminary test [...] (e.g., employment testing, legaltesting). URN OPIATES (test code = OPIATURN) NEGATIVE <300 ng/mL URN PHENCYCLIDINE (PCP) (test code = PHENCURN) NEGATIVE <25 ng/ mL URN METHADONE (test code = METHAURN) NEGATIVE <300 ng/mL DRUGS OF ABUSE SCREEN [id number] 18:35:00* Test Item Value Reference Range Interpretation Comments UA PH DIPSTICK (test code = RADHA) 7.0 5.0-8.0 URN COCAINE (test code = COCAURN) <300 ng/mL URN CANNABINOIDS (test code = CANNABURN) <50 ng/mL URN AMPHETAMINE (test code = AMPHETURN) <1000 ng/mL URN BARBITURATE (test code = BARBITURN) <200 ng/mL URN BENZODIAZEPINE (test code = BENZOURN) <200 ng/mL URN OPIATES (test code = OPIATURN) <300 ng/mL URN PHENCYCLIDINE (PCP) (test code = PHENCURN) <25 ng/ mL URN METHADONE (test code = METHAURN) <300 ng/mL B-TYPE NATRIURETIC KTPPNVH2591-96-25 17:48:00* Test Item Value Reference Range Interpretation Comments B-TYPE NATRIURETIC PEPTIDE (test code = BNP) 41.89 pgram/mL 0-100 N HEPATIC FUNCTION HEEFX3031-06-47 17:27:00* Test Item Value Reference Range Interpretation Comments TOTAL PROTEIN (test code = PROT) 8.3 gram/dL 6.4-8.2 H ALBUMIN (test code = ALB) 3.8 g/dL 3.4-5.0 N GLOBULIN (test code = GLOB) 4.5 gram/dL 2.7-4.2 H ALBUMIN/GLOBULIN RATIO (test code = A/G) 0.8 0.75-1.50 N BILIRUBIN TOTAL (test code = BILT) 0.30 mg/dL 0.0-1.0 N BILIRUBIN DIRECT (test code = BILD) 0.09 mg/dL 0.0-0.20 N SGOT/AST (test code = AST) 13 IUnit/L 15-37 L SGPT/ALT (test code = ALT) 15 IUnit/L 12-78 N ALKALINE PHOSPHATASE TOTAL (test code = ALKP) 97 IUnit/L 45-117 N Note change in reference range due to change in reagent. SEZQLYRVCKDDW3082-92-02 17:27:00* Test Item Value Reference Range Interpretation Comments ACETAMINOPHEN (test code = ACET) < 10 mcg/mL 10-30 L A RANGE OF 10-30 mcg/mL IS A THERAPEUTIC RANGE. TOXIC CONCENTRATIONS: >150 mcg/mL AT 4 HOURS AFTER INGESTION >= 50 mcg/mL AT 12 HOURS AFTER INGESTION WTQTJJMEEH5395-08-35 17:27:00* Test Item Value Reference Range Interpretation Comments SALICYLATE (test code = HONG) < 1.7 mg/dL 2.8-20.0 L TNUBPZF7235-83-05 17:27:00* Test Item Value Reference Range Interpretation Comments ALCOHOL (test code = ALC) < 3 mg/dL 0.0-3.0 N -- INTERPRETIVE DATA NOTE: POSITIVE SCREENING RESULTS SHOULD BE CONSIDERED PRESUMPTIVE.WHEN COLLECTED FOR MEDICAL PURPOSES ONLY. SPECIMEN WILL NOTBE COLLECTED BY CHAIN OF CUSTODY.IF A CONFIRMATION OF POSITIVE RESULTS IS DESIRED, ACONFIRMATION TEST MUST BE REQUESTED BY THE PHYSICIAN AT ANADDITIONAL CHARGE TO THE PATIENT. BASIC METABOLIC [id number] 17:27:00* Test Item Value Reference Range Interpretation Comments SODIUM (test code = NA) 142 mmol/L 136-145 N POTASSIUM (test code = K) 3.6 mmol/L 3.5-5.1 N CHLORIDE (test code = CL) 107.0 mmol/L 98-107 N CARBON DIOXIDE (test code = CO2) 28.0 mmol/L 21-32 N ANION GAP (test code = GAP) 10.6 10-20 N GLUCOSE (test code = GLU) 87 mg/dL 74-106 N BLOOD UREA NITROGEN (test code = BUN) 40 mg/dL 7-18 H GLOMERULAR FILTRATION RATE (test code = GFR) 25 mL/min >=60 Estimated GFR by using Modified MDRD formula.Chronic kidney disease is defined as either kidney damageor GFR <60 mL/min/1.73 m2 for >3 months. CREATININE (test code = CREAT) 2.10 mg/dL 0.55-1.02 H Note change in reference range due to change in reagent. BUN/CREATININE RATIO (test code = BUN/CREA) 18.8 10-20 N CALCIUM (test code = CA) 8.9 mg/dL 8.5-10.1 N [id number]-[id number] 17:27:00* Test Item Value Reference Range Interpretation Comments TROPONIN-I (test code = TROPI) <0.015 ng/mL 0-0.045 N BASIC METABOLIC [id number] 17:17:00* Test Item Value Reference Range Interpretation Comments SODIUM (test code = NA) 142 mmol/L 136-145 N POTASSIUM (test code = K) 3.6 mmol/L 3.5-5.1 N CHLORIDE (test code = CL) 107.0 mmol/L 98-107 N CARBON DIOXIDE (test code = CO2) mmol/L 21-32 ANION GAP (test code = GAP) 10-20 GLUCOSE (test code = GLU) mg/dL 74-106 BLOOD UREA NITROGEN (test code = BUN) mg/dL 7-18 GLOMERULAR FILTRATION RATE (test code = GFR) mL/min >=60 CREATININE (test code = CREAT) mg/dL 0.55-1.02 BUN/CREATININE RATIO (test code = BUN/CREA) 10-20 CALCIUM (test code = CA) mg/dL 8.5-10.1 [id number]-[id number] 17:17:00* Test Item Value Reference Range Interpretation Comments TROPONIN-I (test code = TROPI) ng/mL 0-0.045 CBC W/O [id number] 17:05:00* Test Item Value Reference Range Interpretation Comments WHITE BLOOD CELL (test code = WBC) 5.3 K/mm3 4.5-12.5 N RED BLOOD CELL (test code = RBC) 4.41 mill/mm3 3.7-5.2 N HEMOGLOBIN (test code = HGB) 13.2 gram/dL 11.5-15.5 N HEMATOCRIT (test code = HCT) 42.3 % 36.0-46.0 N MEAN CELL VOLUME (test code = MCV) 95.9 fL 80-98 N MEAN CELL HGB (test code = MCH) 29.9 picogram 27.0-33.0 N MEAN CELL HGB CONCETRATION (test code = MCHC) 31.2 gram/dL 33.0-36. 0 L RED CELL DISTRIBUTION WIDTH (test code = RDW) 15.0 % 11.6-16. 2 N PLATELET COUNT (test code = PLT) 237 K/mm3 150-450 N MEAN PLATELET VOLUME (test code = MPV) 10.3 fL 6.7-11.0 N - XR CHEST 1 [id number] 16:28:00 FAX: AILYN FUENTES MD [place]: St: REG Name: DEE BENSON [facility] : 07/[birth year]/18 64 Age/S: 53/F [address] [facility] Unit #: [id number] Loc: [place] [address] Phys: AILYN FUENTES MD Acct: [id number] Dis Date: Status: REG ER PHONE #: [phone] Exam Date: 09/26/2018 1622 FAX #: [phone] Reason: CHEST PAIN EXAMS: CPT CODE: [id number] XR CHEST 1 V [id number] REASON FOR EXAM: CHEST PAIN EXAM ORDER DATE: 09/26/2018 4:07 PM Ordering Diego: AILYN FUENTES MD PROCEDURE: - XR CHEST 1 V COMPARISON: FINDINGS: Portable AP frontal view of the chest obtained at 4:21 PM shows clear lungs without evidence of consolidation. There is no evidence of effusion. The heart size is within normal limits. Pulmonary vasculatures are unremarkable. IMPRESSION: No active disease. at 7135 Reported and signed by: Josef Chakraborty M.D. CC: AILYN FUENTES MD Technologist: LRO MCGOVERN Trnscrd Date/Time/By: 09/26/2018 (1 628) : By: [email or web address] Orig Print D/T: S: 09/26/2018 (2586) PAGE 1 Signed Report URINE AND [id number] 23:27:00Negative (08/25/18 5:27 PM)[facility] URINE AND AFQYU3431-50-21 23:27:00Negative *NA*(08/25/18 5:27 PM)[facility] URINE AND BCQGN4053-79-49 23:27:00Negative (08/25/18 5:27 PM)[facility] NOAWI9398-72-87 23:27:001[facility] UXFPZ2487-73-33 23:27:001 [facility] ERUWP1918-85-51 23:27:00Negative (08/25/18 5:27 PM) [facility] DCNXU2552-76-77 23:27:00Clear (08/25/18 5:27 PM)[facility] DSMVA5690-22-98 23:27:00* Test Item Value Reference Range Interpretation Comments UA pH (test code = UA pH) 5.0 1 5.0-8.0 [facility] BSAML3753-64-97 23:27:00* Test Item Value Reference Range Interpretation Comments UA Spec Grav (test code = UA Spec Grav) 1.009 1 [facility] RGYLD6781-36-93 23:27:00Negative *NA*(08/25/18 5:27 PM) [facility] UPDOP0455-31-83 23:27:00Negative *NA*(08/25/18 5:27 PM) [facility] RSULH8364-38-05 23:27:00Negative (08/25/18 5:27 PM) [facility]annCARDIAC AIGKVHT1748-60-66 23:07:0083[facility]annCARD[facility]AC WCDZRJL1464-55-61 23:07:00<0.02[facility]annCHEM USSVK7601-31-38 23:07:0028 [facility]annCHE[facility] XSSEO4574-99-22 23:07:0045[facility]annCHEM PANEL 2018-08-25 23:07:002.25[facility]annCHEM VAWHW1700-09-30 23:07:0087[facility]annCHEM YLHDK4029-84-08 23:07:14570Chtodcai HermannCHEM LMMCM2895-96-03 23:07:69448Crzdnwam HermannCHEM EYDFE3737-71-62 23:07:0032[facility]annCHEM TXHAN2195-23-30 23:07:003.4[facility]annCHE[facility] LTTSJ2756-34-89 23:07:009.1 [facility]annCHE[facility] HYSXD3823-32-00 23:07:007.4[facility]annCHEM PANEL 2018-08-25 23:07:0017[facility]annCHEM JEJMO7666-66-46 23:07:0022[facility]annCHEM MGYQB3827-56-78 23:07:003.5[facility]annCHEM TRVDR5610-17-42 23:07:0079[facility]annCHEM OPAHM0105-92-05 23:07:000.2[facility]annCHEM ZDUZD4111-35-16 23:07:003.9[facility]annCHEM QAAHM8462-41-42 23:07:00* Test Item Value Reference Range Interpretation Comments A/G Ratio (test code = A/G Ratio) 0.9 1 0.7-1.6 [facility]annCHE[facility] CSAPB9028-89-58 23:07:00* Test Item Value Reference Range Interpretation Comments B/C Ratio (test code = B/C Ratio) 20 1 6-25 [facility]annCHEM FEUSG8542-27-18 23:07:005.4[facility]annHEMATOLOGY 2018-08-25 23:07:005.6[facility] VqtdimfBXTYNYYXWR8059-26-79 23:07:0012.7[facility] SduxbayHBVPUNMWSR8138-79-55 23:07:004.21[facility] AilalugAARCOYEQNI7984-78-80 23:07:0038.5[facility] AjsolyuEBVDXDUPMM4321-60-85 23:07:009.9[facility] EVCFTGWBWR0153-27-93 23:07:0091.4[facility] DzxryycRFYXMFLMEB5993-65-38 23:07:00 33.0[facility] XwwdyixJDXVVJDBFM1871-86-73 23:07:00* Test Item Value Reference Range Interpretation Comments MCH (test code = MCH) 30.2 pg 27.0-31.0 [facility] FcojhawCIEFITTZOW3568-51-01 23:07:59894Tvawgigd HermannHEMATOLOGY 2018-08-25 23:07:0014.4[facility] VvvluhuAKHIEJWRWH4948-78-77 23:07:00* Test Item Value Reference Range Interpretation Comments INR (test code = INR) 0.89 1 0.85-1.17 [facility] JvpawumGQZNJUZBHO4779-80-41 23:07:00* Test Item Value Reference Range Interpretation Comments PT (test code = PT) 11.9 s 12.0-14.7 [facility] NnxgxmiNEYCJPTIMH5487-20-97 23:07:00* Test Item Value Reference Range Interpretation Comments PTT (test code = PTT) 40.0 s 22.9-35.8 [facility] FnpxpjgPTHDPVMFQQ5046-60-13 23:07:0056.9[facility]annHEMATOLOGY 2018-08-25 23:07:006.5[facility] XfmgcgkWPRMFSRGQK3533-48-75 23:07:0033.8[facility] GnphvinVAUZDSGRYG3726-97-68 23:07:000.1[facility] SuheocfCSRYREAKAP7541-82-02 23:07:001.9[facility] VevhifwWDBWZHNOYN5400-43-11 23:07:001.9[facility] SLPBARWONB4521-06-56 23:07:003.2[facility] SmyoachBQRTTCCQBF5208-70-25 23:07:000.4 [facility] QwejdwxYERWPDAKSF9831-31-44 23:07:000.9[facility]annCARDIAC ENZYMES 2018-07-24 18:37:0099[facility]annCARDIAC QAUTAQU1321-99-57 18:37:0060 [facility]annCARDIAC ODBCARG6402-64-97 18:37:00<0.02[facility] HermannCHEM CKPYA4902-79-46 18:37:003.1[facility]annCHEM RTWJV0317-20-57 18:37:002.2 [facility]annCHEM BCCPY0618-62-14 18:37:16432Fwvkiiaf HermannELECTROLYTES 2018-07-24 18:37:0014.5[facility] FhfzgfqDULZABMVYIBD9638-73-57 18:37:003.7 [facility] HhiiwmzWPBXGBUATLGF1435-56-09 18:37:00* Test Item Value Reference Range Interpretation Comments A/G Ratio (test code = A/G Ratio) 1.0 1 0.7-1.6 [facility] GwytygeYCTQINMAVUQO6977-64-00 18:37:00* Test Item Value Reference Range Interpretation Comments B/C Ratio (test code = B/C Ratio) 16 1 6-25 [facility] NyxpiegXYWZXLXSJPRS9779-39-17 18:37:0029[facility] HermannELECTROLYTES 2018-07-24 18:37:003.6[facility] FxfvaxsBWLVSZZXAIIZ3498-25-55 18:37:0075[facility] LmjhxieHHETWVLZWYZF6515-85-46 18:37:000.4[facility] IpimtepEJEKRLWPLZES0598-01-52 18:37:0016[facility] EglsmmpZJSRSVSLQZHK6737-43-46 18:37:0017[facility] LXVBAPVAGBCS5648-17-94 18:37:0035[facility] DolobskZOCPJOMYRHXA2666-30-29 18:37:00 93[facility] KnespmsEXAIYLUIABFU2865-46-95 18:37:003.5[facility] HermannELECTROLYTES 2018-07-24 18:37:93147Mzfmbwvv CvquqcfKBFMZXWCKELR2400-73-53 18:37:002.19 [facility] WrbyacaNDICMQXDTPVH6882-90-87 18:37:008.4[facility] HermannELECTROLYTES 2018-07-24 18:37:40706Vwsoiitg NjakoovIEKKVFWRZZIT6267-03-87 18:37:007.3[facility] CsuyepuANLYLCPTVYNW8107-63-56 18:37:0026[facility] JgubtaoJALINIUUYZ2379-54-11 18:37:000.2[facility] WatbnldNXWANKNHQP9233-16-89 18:37:000.1[facility] WTZHLVKAUR7408-85-20 18:37:001.0[facility] SltuccpYPWBISQCHA6678-27-10 18:37:001.2 [facility] TjrnvcnJSTDFTGBZA6832-08-96 18:37:0037.0[facility]annHEMATOLOGY 2018-07-24 18:37:0053.9[facility] MsmmwudXEBSQPBLSE4080-17-56 18:37:001.8[facility] GlxixcyVLPJBBKEWZ0105-60-92 18:37:001.6[facility] ScgtwerDLKZDLXDMJ2731-65-51 18:37:006.5[facility] RldraiiCTVSNDUBIY4924-97-70 18:37:80324Udbdnhan [facility] FETKHCDBMR5371-14-48 18:37:003.4[facility] FrintbjLBHVNKTNWQ3250-74-16 18:37:00 33.0[facility] NjizhwhMHSMSHOTBO5097-72-68 18:37:0013.4[facility]annHEMATOLOGY 2018-07-24 18:37:008.5[facility] AtryhvaYYOJIZASUD6741-59-96 18:37:0036.4[facility] WnnzhjiBGQQCPUEZH2418-16-05 18:37:0092.2[facility] ZjhzhhsHBWHCSPBLT4504-18-01 18:37:003.95[facility] QojzkjaRVHVUXVWUV1319-44-08 18:37:0012.0[facility] EYWNRBKJAE5775-59-65 18:37:00* Test Item Value Reference Range Interpretation Comments MCH (test code = MCH) 30.4 pg 27.0-31.0 [facility] LnjrxqyXWLXEJTLHI0864-58-98 18:37:00* Test Item Value Reference Range Interpretation Comments INR (test code = INR) 1.01 1 0.85-1.17 [facility] VfdogzyVRGCVXWZSW1294-03-52 18:37:00* Test Item Value Reference Range Interpretation Comments PT (test code = PT) 13.1 s 12.0-14.7 [facility]yxnhfgYUAFPBROVZHC0164-59-00 10:11:0025[facility] HermannELECTROLYTES 2018-07-11 10:11:008.1[facility] ZbutadpTZYFFSQYKYKF8530-76-62 10:11:0012.0 [facility] SzkxntaZZAYVIVPRCCG3434-90-70 10:11:0033[facility] HermannELECTROLYTES 2018-07-11 10:11:11570Yhmcprmk CrajiziVFEWZWKXGUTF3429-36-61 10:11:0028[facility] TmxckarYNFDRAFGEDJH3555-33-08 10:11:001.98[facility] HoaiqfnLVDDEHKLCAWE2427-24-93 10:11:56265Oijyawvv IctonpwJLRRBVXKOWCP6042-56-19 10:11:004.0[facility] MVCJNQAJPIBD1768-34-70 10:11:0062[facility] FbrevsdTZYYUS0274-33-58 10:11:00* Test Item Value Reference Range Interpretation Comments VLDL (test code = VLDL) 29 1 [facility] WpbhfewBOGACB7827-64-45 10:11:0077[facility] WpldbvuIHGTZJ2647-55-16 10:11:65419Wadtedip PlwmkvyCQNUOZ8076-53-72 10:11:0042[facility] HermannLIPIDS 2018-07-11 10:11:48292Vnedgxer TbnzznsIWIONL8759-18-64 10:11:00* Test Item Value Reference Range Interpretation Comments CHD Risk (test code = CHD Risk) 3.52 1 3.90-5.80 [facility]annSPECIAL TWCEHWIAL8440-76-37 10:11:004.8[facility] HermannANEMIA ZDDWA8559-34-28 09:40:62893Uqmojohx HermannCHEM ZHFIK8151-71-86 09:40:002.1 [facility] SnwllnwIQBECJDWUSHM2859-85-78 09:40:0011.8[facility] HermannELECTROLYTES 2018-07-10 09:40:0034[facility] QfbegxqDXQNOUARAFQQ0708-69-26 09:40:008.2[facility] CdipbwpZVDKBVZNQNEV2410-94-48 09:40:003.8[facility] YgryluuRIFCHALTZISL1201-43-64 09:40:0023[facility] ClrgmtaPOZYLVHNZHUT9494-92-79 09:40:0029[facility] SVNRISHJVWWY7365-51-35 09:40:65562Ebbubqgz NtxkcinFVDAEMVYXRAK7650-82-13 09:40:001.92[facility] RldlrtpOFGVYEJHNCXL7094-92-42 09:40:26901Imauadxb [facility] PBQIUBPHHJBS3875-89-40 09:40:0084[facility] NbchzxgNEMGGAIBWZ3216-09-37 09:40:00 35.6[facility] XeizbodTYWFQGFFXK3762-24-67 09:40:0010.7[facility]annHEMATOLOGY 2018-07-10 09:40:001.8[facility] IynftupHCKRAVVXFF0383-07-35 09:40:000.7[facility] BgurdebVRNZYSCCNQ2696-12-84 09:40:001.3[facility] DlqxhasPCKWUEDCKT3499-24-66 09:40:000.4[facility] JdqusacXNOTBEXOHA5814-75-15 09:40:001.8[facility] UXMILEIOKM9732-48-96 09:40:000.1[facility] SsuigjbJIUCQMKGUY7536-70-66 09:40:00 51.2[facility] IwkwakjDUVTMKWUSC4576-72-73 09:40:0093.7[facility]annHEMATOLOGY 2018-07-10 09:40:00* Test Item Value Reference Range Interpretation Comments MCH (test code = MCH) 30.7 pg 27.0-31.0 [facility] VyjkebsORYGJRCBOL3872-23-45 09:40:0013.8[facility]annHEMATOLOGY 2018-07-10 09:40:40078Shncuygn VlvbemnTJUQLJWQMQ9393-46-92 09:40:0032.7[facility] QhbxsltQZCXIVMKLM9071-51-45 09:40:009.2[facility] GpqbkkgIZTQULWFYH1302-19-43 09:40:003.6[facility] WgbslwuBYZUNJXNUH6380-51-27 09:40:003.85[facility] RBEMBNDDPG6590-59-84 09:40:0011.8[facility] OweuccdCRWQJTBZVD9320-72-44 09:40:00 36.1[facility] HermannCARDIAC SXZHYIE1729-20-03 21:41:0096[facility]annCARDIAC IBKYXGV0844-44-88 21:41:00<0.02[facility]annCARDIAC MOWEYCL1349-46-00 21:41:0094[facility] HermannCHEM WFWGH8882-19-98 21:41:00* Test Item Value Reference Range Interpretation Comments B/C Ratio (test code = B/C Ratio) 13 1 6-25 [facility]annCHEM LLUFV3087-53-24 21:41:00* Test Item Value Reference Range Interpretation Comments A/G Ratio (test code = A/G Ratio) 1.0 1 0.7-1.6 [facility]annCHEM UKNFK8940-25-26 21:41:003.9[facility] PANEL 2018-07-09 21:41:0012.9[facility] MVDIA9678-50-07 21:41:0028[facility] JDDYQ5289-73-84 21:41:0086[facility] NLHUT9861-06-03 21:41:47360Codwrqvh HermannCHEM HHSAT7090-67-00 21:41:0027[facility] MGORM0715-67-62 21:41:003.9[facility] PWYPM8440-44-27 21:41:0029 [facility] XFBTL4876-56-42 21:41:16400Zrrsjgra HermannCHEM PANEL 2018-07-09 21:41:002.23[facility] JGLSW5644-99-28 21:41:0010[facility] NKXOI1915-99-98 21:41:0015[facility]CHE[facility] SYSNL2853-15-48 21:41:007.7[facility] FLZJG6858-73-16 21:41:009.0[facility] LKSNE2909-78-23 21:41:003.8[facility] KBGXV4116-74-76 21:41:0086 [facility] SSHDV0711-55-25 21:41:000.4[facility]annCHEM PANEL 2018-07-09 21:41:000.9[facility] MisejmoPIFWIOSKHK2318-51-42 21:41:000.2[facility] SpuoxanQYKZGAJYRK1551-57-36 21:41:000.1[facility] XgbhudmHMAODXZSYX8087-56-28 21:41:000.8[facility] MopeymjVCTZAITZXZ1540-76-88 21:41:001.9[facility] LFNAYADKON3592-11-41 21:41:001.3[facility] DssqamoQJIAPSWXOU6483-06-01 21:41:001.7 [facility] BshipnmWXCBBNDNNG2764-85-72 21:41:007.0[facility]annHEMATOLOGY 2018-07-09 21:41:0035.8[facility] QzgebfcDBTEXLOFBN1044-79-86 21:41:0054.7[facility] MyptitkGVOGKICCOE7802-06-18 21:41:009.2[facility] PtbemcxIEQXTZESME4600-64-52 21:41:00* Test Item Value Reference Range Interpretation Comments MCH (test code = MCH) 30.0 pg 27.0-31.0 [facility] WonaunwKTZFQDDTAC0402-66-21 21:41:0032.3[facility]annHEMATOLOGY 2018-07-09 21:41:0014.0[facility] HjukkxqGLGAWZSWRR0342-35-59 21:41:92400Oidlbpyl YyaondhEJBFNPOPJQ1350-22-82 21:41:0038.2[facility] RyihdncLYJAFDAJBE4054-95-53 21:41:0012.4[facility] VxtaiavUQGGHVDJIT2638-67-63 21:41:0092.9[facility] MSLYMMQTKE7845-02-11 21:41:004.12[facility] SjrlwawMVGCOCBWPB2313-09-62 21:41:00 3.5[facility] VfdtxrgKUMLKBCHBI5869-11-93 21:41:00* Test Item Value Reference Range Interpretation Comments INR (test code = INR) 0.98 1 0.85-1.17 [facility] VmcbkbeMVPJYYXPZD9162-92-26 21:41:00* Test Item Value Reference Range Interpretation Comments PT (test code = PT) 12.8 s 12.0-14.7 [facility]edDAXDXQQXFZ4798-42-51 21:41:00* Test Item Value Reference Range Interpretation Comments PTT (test code = PTT) 50.7 s 22.9-35.8 [facility] PCCWGW2432-89-61 07:20:00* Test Item Value Reference Range Interpretation Comments SCRN SYP (test code = SCRN SYP) NONREACTIVE NONREACTIVE Spyhilis IGG is a screening test only. All REACTIVE results paluo be confirmed by additional testing. ER SCREEN FOR HIV 20:08:00* Test Item Value Reference Range Interpretation Comments HIV 1/2 AB (test code = SCRN HIV) NONREACTIVE NONREACTIVE This test is used for SCREENING purposes only. All reactive results are prelimenary and confirmation results will follow. HEPATITIS C ANTIBODY JRCUSR1730-49-04 20:08:00* Test Item Value Reference Range Interpretation Comments SCRN HCV (test code = SCRN HCV) NEGATIVE NEGATIVE Hepatitis C Antibody test is for screening purposes only. All reactives will be confirmed by additional testing. LIPID [id number] 08:09:00* Test Item Value Reference Range Interpretation Comments CHOLEST (test code = CHOLEST) 232 MG/DL 0-200 H TRIGLYCE (test code = TRIGLYCE) 178 MG/DL 0-150 H HDL (test code = HDL) 53 MG/DL 35-90 NEGATI VE RISK FACTOR FOR HEART DISEASE IF HDL >/=60 mg/dl MAJOR RISK FACTOR FOR HEART DISEASE IF HDL <40 mg/dL CALC LDL (test code = CALC LDL) 143 MG/DL <100 H CREATINE [id number] 08:09:00* Test Item Value Reference Range Interpretation Comments CK (test code = CK) 49 U/L 30-135 % HEMOGLOBIN A1C (GLYCATED)2017-11-02 07:49:00* Test Item Value Reference Range Interpretation Comments HEMOGLOBIN A1C (test code = GLYCO-) 5.2 % 0-6 THERAPEUTIC TARGET FOR THE TREATMENT OF DIABETES MELLITUS PATIENTS IS < 7% HBA1C. [place] [employer] DIABETES CARE 2002;25:S33-S49 URINE DRUG [id number] 08:35:00* Test Item Value Reference Range Interpretation Comments AMPHET (test code = BAMP) NEGATIVE NEGATIVE Th is is an unconfirmed screening. Result are to be used for medical purposes (treatment) only. Not intended for non-medical purposes. Cut-off concentration for a positive result for each drug: Amphetamine - 1,000 ng/ml Barbiturate - 200 ng/ml Benzodiazepine - 200 ng/ml Cannabinoids - 50 ng/ml Cocaine - 300 ng/ml Opiates - 300 ng/ml PCP - 25 ng/ml BARBITURATES (test code = BBAR) NEGATIVE NEGATIVE BENZO (test code = BBENZ) NEGATIVE NEGATIVE CANNABS (test code = BCANN) NEGATIVE NEGATIVE COCAINE (test code = BCOC) NEGATIVE NEGATIVE OPIATES (test code = BOPI) NEGATIVE NEGATIVE PCP (test code = BMTPCP) NEGATIVE NEGATIVE [id number] 07:16:00* Test Item Value Reference Range Interpretation Comments GLUCOSE (test code = URGLU) NEGATIVE MG/DL NEG-100 BILIRUBN (test code = URBILI) NEGATIVE NEGATIVE KETONE (test code = URKET) NEGATIVE MG/DL NEGATIVE BLOOD (test code = URBLD) NEGATIVE UR PH (test code = URPH) 6.0 5.0-7.5 PROTEIN (test code = URPRO) NEGATIVE MG/DL NEGATIVE NITRITES (test code = URNIT) NEGATIVE NEGATIVE UROBILINGEN (test code = URURO) 0.2 EU/DL 0.2-1.0 LEUKOCYT (test code = URLEU) NEGATIVE NEGATIVE UA COLOR (test code = UA COLOR) YELLOW YELLOW CLARITY (test code = CLARITY) CLEAR CLEAR SP GRAV (test code = URSPGRAV) 1.009 1.000-1.025 UAMICRO (test code = UAMICRO) NO [id number] 18:33:00* Test Item Value Reference Range Interpretation Comments SODIUM (test code = NA) 146 MMOL/L 137-145 H K+ (test code = KSERUM) 4.3 MMOL/L 3.5-5.1 PLEASE NOTE NEW REFERENCE RANGE(S) IN EFFECT EFFECTIVE 02/24/2010 - NEW ANALYZER ([employer]) CHLORIDE (test code = CL) 106 MMOL/L 98-107 CO2 (test code = CO2) 26 MMOL/L 22-30 BUN (test code = BUN) 26 MG/DL 7-17 H CREA (test code = CREA) 2.0 MG/DL 0.7-1.2 H GLUCOSE (test code = GLUCOSE) 107 MG/DL 70-99 H Fasting glucose normal <100 MG/DL- Citizen Of [place] [employer] recommendation CALCIUM (test code = CABLOOD) 9.8 MG/DL 8.4-10.2 TOTPROT (test code = TOTPROT) 8.1 G/DL 6.3-8.2 ALBUMIN (test code = ALBSERUM) 4.5 G/DL 3.5-5.0 BILITOT (test code = BILITOT) 0.5 MG/DL 0.2-1.3 AST (test code = AST) 14 U/L 15-46 L PHOSALK (test code = PHOSALK) 81 U/L 38-126 ALT (test code = ALT) 22 U/L 13-69 GFR (test code = GFR) 34 mL/min/1.73m2 A GFR of >90 mL/min/1.73m2 is considered normal. CREATINE [id number] 18:33:00* Test Item Value Reference Range Interpretation Comments CK (test code = CK) 71 U/L 30-135 [id number] 17:59:00* Test Item Value Reference Range Interpretation Comments WBC (test code = WBC) 4.7 K/UL 3.5-10.9 RBC (test code = RBC) 4.32 M/UL 4.0-5.0 HGB (test code = HGB) 13.2 G/DL 11.5-15.5 HCT (test code = HCT) 41.4 % 34-46 MCV (test code = MCV) 95.8 FL 80-98 MCH (test code = MCH) 30.6 PG 28-32 MCHC (test code = MCHC) 31.9 G/DL 32.5-36.5 L RDW (test code = RDW) 11.9 % 11.5-14.5 PLT (test code = PLT) 245 K/UL 150-450 MPV (test code = MPV) 10.6 FL 7.4-10.4 H MANDIFF (test code = MANDIFF) NO SCAN (test code = SCAN) NO NEUT% (test code = NEUT%) 55.2 % 40-75 LYMPH% (test code = LYMPH%) 38.3 % 24-44 MONO% (test code = MONO%) 4.0 % 0-13 EOS% (test code = EOS%) 1.9 % 0-4 BASO % (test code = BASO%) 0.4 % 0-2 IG% (test code = IG%) 0.2 % 0-1 IG% = Metamyelocytes, Myelocytes, and Promyelocytes. (Immature neutrophils not including "bands".) > 3% IG indicates risk of sepsis NRBC% (test code = NRBC%) 0 /100 WBC ABS NEUT (test code = NEUT) 2.6 K/UL 1.2-7.2 CT HEAD W/O [id number] 15:12:[address] [id number] IMAGING REPORTPatient Name: DEE DAVENPORT RDate of Service: [id number]: 51 Sex: F Order #: [id number] [facility] 1965 [facility] Number: [id number] Record Number: [id number] Hospital Number: [id number] Physician: DUTCH HARRISOrdering Physician: KAIT FAJARDOCT head without contrast 3:00 PMComparisons: 05/26/2016History: Hypertension, [...] By: Manuel Guzman M.D., 04/26/2017 3:09 PMLegally aut henticated by MARGARET VAZQUEZ 2017-04-26 15:09:51CT HEAD OR BRAIN WO CONTRAST 2017-03-11 17:20:27CT HEAD OR BRAIN WO CONTRASTHISTORY: AMSCOMPARISON: 02/23/2017TECHNIQUE: Helical noncontrast tomographic imaging obtained through thebrain. Radiation dose lowering techniques were used according to ALARAprinciple.FINDINGS: Midline is nondisplaced. Ventricular caliber is stable.Periventricular white matter changes identified. 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 No mass effect or acute intracranial bloodproducts. Included paranasal sinuses and mastoid air cells well aerated.IMPRESSION: No CT evidence of acute cortical stroke or intracranialhemorrhage.XR CHEST SGL 1V, [id number] 17:19:19XR CHEST SGL 1V, FRONTALHISTORY: Altered mental statusCOMPARISON: 02/22/2017TECHNIQUE: AP view of the chest providedFINDINGS: Heart size and pulmonary vasculature are unchanged. Minimalatelectasis suspected in the left lung base. Right lung is clear. Bonythorax unchanged where visualized.IMPRESSION: Limited left basilar atelectasis.US DUPLX LWR EXT VEINS COMPRSS [id number] 16:27:11BILATERAL LEG VEIN DUPLEX ULTRASOUND:HISTORY: Respiratory distress, assisted ventilationSpectral Doppler waveforms and color flow images were generated.Sonographic examination of the common, deep, and superficial femoral andpopliteal veins as well as the proximal upper calf veins was performed.The greater saphenous veins were also examined.The veins have a normal appearance without internal echoes or extrinsicabnormality. They are normally compressible. Doppler evaluation revealsblood flow and normal phasicity in these veins.IMPRESSION: Negative bilateral leg vein duplex ultrasound.CT HEAD OR BRAIN WO [id number] 15:32:32CT BRAIN WITHOUT CONTRAST: MULTIPLANAR REFORMATSCOMPARISON: February 22, 2017.CLINICAL INFORMATION: Unresponsive for fci. Radiation dose lowering techniques were used according to ALARAprinciple.Axial images were made without IV contrast media. There is no acutebleed, mass effect or midline shift. Patient is status post previousleft occipital craniotomy. An area of encephalomalacia seen within theleft cerebellar hemisphere. Chronic white matter ischemic changes arenoted. The visualized paranasal sinuses and mastoids appear clear.IMPRESSION:1. No ac adrian intracranial abnormality.2. Previous left occipital craniotomy with area of encephalomalaciawithin the left cerebellar hemisphere chronic and unchanged.XR CHEST SGL 1V, [id number] 17:59:57XR CHEST SGL 1V, FRONTALDIAGNOSIS: Status post intubation and shortness of breathThe heart and mediastinum are normal. No consolidation or pleural fluidis seen. A left pleural effusion present on 10/23/2016 has resolved.The endotracheal tube and nasogastric tube are in satisfactory position.The ET tube is 5 cm above the jay.IMPRESSION: Satisfactory intubation.CT HEAD OR BRAIN WO [id number] 17:43:43CT HEAD OR BRAIN WO CONTRASTDIAGNOSIS: Unresponsive and previous intracranial he morrhageThe ventricles are normal. The midline is not shifted. No intracranialhe morrhage, mass effect, extracerebral collection or evidence of anacute infarct i s seen.Encephalomalacia is noted in the left cerebellar hemisphere withevidence of a suboccipital craniotomy. The previous small areas ofhemorrhage have resolve d since 10/24/2016.Radiation dose lowering techniques were used according to ALARA principle.IMPRESSION:1. No acute CT abnormality in the brain.2. Status post subo ccipital craniotomy with residual encephalomalacia inthe left cerebellar hemisph ere.XR ELBOW 3+V, [id number] 18:58:12LEFT ELBOW:CLINICAL INFORMATION: Fell, left elbow pain. AP, lateral, and oblique views of the left elbow show no evidence offracture or dislocation. The joint space is well maintained. No softtissue swelling is demonstrated.IMPRESSION: Normal left elbow.XR CHEST SGL 1V, [id number] 18:08:59CHEST SINGLE VIEW:COMPARISON: 10/31/2016CLINICAL INFORMATION: Chest pain. Densities in the lingula and left lung base remain unchanged. The lungsare otherwise clear, with improved aeration of the right middle lobe.There is no pleural effusion appreciated. The cardiac silhouette isenlarged without evidence of decompensation.IMPRESSION: 1. Improved aeration of the lungs with persistent densities in thelingula and at the left lung base as noted above. 2. Cardiomegaly.XR CHEST SGL 1V, FRONTAL 2016-10-31 09:38:28EXAM: Chest, 1 View at 09:03.TECHNIQUE: AP upright view.COMPARISON: Prior study dated 10/28/2016.HISTORY: Follow-up thoracotomy for pericardial window.FINDINGS: Since prior study thoracotomy tubes have been removed. Thereis minor atelectasis within the medial right lung base. There is moreconfluent density within the left lung base which may representatelectasis and/or small loculated pneumothorax.Cardiac size and pulmonary vascularity are within normal limits.IMPRESSION: Postoperative changes as described above.XR CHEST SGL 1V, [id number] 06:16:16Information: Recent thoracotomy for pericardial window follow-upevaluationChest one viewAllowing for the mislabeling of the chest from left to right comparisonwas made with patient's recent chest x-ray dated 10/27/2016 at 1838 hours.There has been slight interval increase in the left lung baseatelectasis and interval development of right lung base atelectasis.Left chest tube is again identified. There is no evidence of apneumothorax. The heart remains unchanged. Pulmonary vascularity isnormal.IMPRESSION:1. Mislabeled left to right film2. Increasing left lung base atelectasis and developing right lung baseatelectasis since the prior study3. Left-sided chest tube4. No evidence of a pneumothorax5. No significant interval change in the cardiac size or configuration.XR CHEST SGL 1V, [id number] 18:45:48Information: Pericardial effusion and pericardial window postoperativeevaluationChest one viewIn comparison to prior chest x-ray dated 10/27/2016 at 12:18 PM thepatient has undergone a left thoracotomy for pericardial window. Therehas been interval decrease in the cardiac size. There are interstitialchanges of the left lung base consistent with atelectasis. Pulmonaryvascularity is normal. Left-sided chest tube is noted. There is noevidence of a pneumothoraxIMPRESSION:1. Status post left thoracotomy and pericardial window with intervaldecrease in the cardiac size2. Left chest tube3. No evidence of a pneumothorax4. Left lung base atelectasis.XR CHEST SGL 1V, [id number] 12:26:46CHEST SINGLE VIEW:REASON FOR STUDY: PRE-OP PERICARDIAL WINDOWFINDINGS:Enlarged cardiac silhouette with configuration suggesting possibility ofpericardial fluid. There is some minor linear scarring or atelectasispresent in the left lateral lower lung. No vascular congestion. Nopleural fluid or consolidating infiltrates are identified. The bonyarchitecture appears intact, where adequately seen.IMPRESSION: Cardiomegaly suggesting pericardial effusion. Minor subsegmentalatelectasis or scarring again noted in the left lingula.XR CHEST SGL 1V, [id number] 11:49:25 Information: Pericardial effusionChest one viewIn comparison to the prior chest x-ray dated 10/16/16 the heart remainsenlarged. Pulmonary vascularity is normal. There has been intervaldecrease in the left lung base atelectasis. There are no pleuraleffusions. There are overlying cardiac monitoring leads.IMPRESSION:1. Car diomegaly2. Interval decrease in the left lung base [id number] PELVIS W/O [id number] 08:02:19Information: Generalized abdominal pain, nausea and vomitingCT Scan of the abdomen and pelvis without oral or intravenous contrastMultiplanar reformatted images of the abdomen and pelvis were obtainedwithout oral or intravenous contrast limiting the interpretation of thisstudy.The heart is enlarged. There is a moderate to large pericardialeffusion. There are interstitial changes of the lung bases consistentwith atelectasis and scarring. No gross space-occupying lesion of thel iver is noted. Calcified granuloma of the spleen is demonstrated. Thereis limite d evaluation of the pancreas given the multiple nonopacifiedsurrounding loops of bowel. No gross hydronephrosis changes or calculiare identified. There is retai joanna fecal matter throughout the colon.Mildly distended urinary bladder is demons trated. Multiple calcifiedpelvic phleboliths are demonstrated.IMPRESSION:1. Limi courtney study2. Cardiomegaly3. Moderate to large pericardial effusion4. Bibasilar in terstitial lung changes suggesting scarring/fibrosis andatelectasis5. Limited ev aluation of the pancreas6. Constipation changes7. Distended urinary bladder.Radi ation dose lowering techniques were used with automated exposurecontrol, adjusti ng the mA according to patient's size.CT HEAD OR BRAIN WO [id number] 06:05:30CT BRAIN WITHOUT CONTRAST:COMPARISON: 10/17/2016CLINICAL INFORMATION: Recent intracranial hemorrhage with surgicalevacuation. Altered mental status. Axial images of the brain were obtained without contrast administration.Radiation dose lowering techniques were used according to ALARAprinciple.There are postoperative changes from left suboccipital craniectomy withhypoattenuation in the subjacent parenchyma of the cerebellum. Traceblood products are observed in this region. Inferior to the leftcerebral peduncle, there is a subtle 12 mm area of increased densitycompared to the previous exam. Blood products that have slightlyincreased from the study performed 10/17/2016 are considered. Older examsare unavailable to demonstrate the hematoma that was surgicallyevacuated. There is no mass effect appreciated. There is mildhypoattenuation in the periventricular white matter tracts. Theventricles are normal in size and configuration. There is no evidence of cerebral infarction. IMPRESSION: 1. Left suboccipital craniectomy with hypoatte nuation and blood productsin the surgical site and subjacent left lobe of the ce rebellum asdetailed above. Questionably increased blood products inferior to the left cerebellar peduncle without mass effect.2. Chronic white matter ischemic se quelae in the periventricularregions.The preliminary report was faxed to Dr. Rehman emetry for Dr. June by on 10/24/2016 at 00:44 [address] HEAD OR BRAIN WO [id number] 16:54:19Information: ConfusionCT scan of the brain without contrastMultiplanar reformatted images of the head were obtained withoutintravenous contrastThis study is limited due to motion artifactThere are no gross focal areas of acute hemorrhage, masses, masseffects, midline shifts or extra-axial collections. The ventricularsystem is normal and midline. Minimal periventricular subcortical whitematter areas of low density are demonstrated. No focal bony calvarialabnormality is noted.IMPRESSION:1. Limited study2. No gross evidence of acute vascular insults3. No evidence of gross masses 4. Mild chronic white matter ischemic changes.Radiation dose lowering techniques were used according to ALARAprinciple.XR CHEST SGL 1V, [id number] 13:39:41XR CHEST SGL 1V, FRONTALDIAGNOSIS: Respiratory clearance for psychiatric admission and vomitingThe heart is diffusely enlarged. Linear fibrosis and/or subsegmen talatelectasis is present in the left perihilar region. No consolidation orpleur al fluid is identified.IMPRESSION:1. Cardiomegaly.2. Linear fibrosis and/or subs egmental atelectasis left perihilar area.
[2020-01-04 04:11] LABS: BASOPHILS % 0.5 % (0.0-1.0); EOSINOPHILS % 1.1 % (0.0-6.0); HEMATOCRIT 28.4 % (34.2-44.1); LYMPHOCYTES # (AUTO) 0.7 (1.0-3.2); LYMPHOCYTES % 18.5 % (18.0-39.1); MEAN CORPUSCULAR HEMOGLOBIN 28.7 pg (28-32); MEAN CORPUSCULAR HGB CONC 31.7 g/dL (31-35); MEAN CORPUSCULAR VOLUME 90.4 fL (81-99); MONOCYTES # (AUTO) 0.2 (0.2-0.8); MONOCYTES % 5.1 % (4.4-11.3); NEUTROPHILS # (AUTO) 2.8 (2.1-6.9); NEUTROPHILS % 74.3 % (38.7-80.0); PLATELET COUNT 218 x10e3/uL (140-360); RED BLOOD COUNT 3.14 x10e6/uL (3.6-5.1); RED CELL DISTRIBUTION WIDTH 13.2 % (11.7-14.4)
[2020-01-04] MEDS ORDERED: DIPHENHYDRAMINE HCL INJ 50 MG/ML VIAL IV ONE (04:30)
[2020-01-04 04:58] LABS: ALBUMIN 3.5 g/dL (3.5-5.0); ALBUMIN/GLOBULIN RATIO 0.8 (0.8-2.0); ANION GAP 22.5 mmol/L (8-16); CALCIUM 8.3 mg/dL (8.4-10.2); CREATININE, SERUM 10.72 mg/dL (0.57-1.11); POTASSIUM 3.5 mmol/L (3.5-5.1)
--- NOTE | 2020-01-04 05:00 | NUR ---
pt continues to refuse wesley catheter. explained need for strict i&o's and urine specimen collection. pt yelled at md and refused catheter. informed patient of risk of refusing ordered test and procedures. pt states that she is aware and continues refuse.
[2020-01-04] MEDS ORDERED: ZIPRASIDONE 20 MG VIAL IM STA (05:08)
[2020-01-04] MEDS ORDERED: ONDANSETRON HCL INJ 2MG/ML 2ML 2 MG/ML VIAL IV STA (05:08)
[2020-01-04] MEDS ORDERED: LORAZEPAM INJ 2 MG/ML VIAL IV ONE (05:15)
[2020-01-04] MEDS ORDERED: ZIPRASIDONE 20 MG VIAL IM ONE (05:16)
[2020-01-04 05:24] LABS: CREATINE KINASE MB 2.7 ng/mL (0-5.0)
[2020-01-04] MEDS ORDERED: DEXTROSE 50% SYRINGE 50 ML IV PRN (05:30)
[2020-01-04] MEDS ORDERED: LACTATED RINGER'S 1,000 ML INJ ONE (05:30)
[2020-01-04] MEDS ORDERED: LACTATED RINGER'S 1,000 ML ONE (05:30)
--- NOTE | 2020-01-04 05:33 | Emergency Department Note ---
History of Present Illnes History of Present Illness Chief Complaint: General Medicine Complaints History of Present Illness This is a 54 year old female with history of schizophrenia presents with complaint of not feeling well for the last several days complains of generalized weakness. States she has been feeling bad for several days to several weeks. . Historian: Patient Arrival Mode: [place] Onset (how long ago): week(s) (SEVERAL) Location: NONE Quality: WEAKNESS Radiation: Reports non-radiation Severity: moderate Onset quality: gradual Duration (how long): week(s) (SEVERAL WEEKS) Progression: unchanged Chronicity: new Context: Denies recent illness, Denies recent surgery Relieving factors: none Exacerbating factors: none Associated symptoms: Reports denies other symptoms Past Medical/Family History Physician Review I have reviewed the patient's past medical and family history. Any updates have been documented here. Past Medical History Recent Fever: No Clinical Suspicion of Infectio: No New/Unexplained Change in Ment: No Past Medical History: Hypertension, CHF, Other Mental Illness, Chronic Back Pain Other Medical History: Schizophrenia Insomnia constipation chronic pain Past Surgical History: Other Surgery: neck sx Social History Smoking Cessation: Current every day smoker Counseling Performed: Yes Alcohol Use: None Any Illegal Drug Use: No TB Exposure/Symptoms: No Physically hurt or threatened: No Family History Family history of heart diseas: No Other Last Tetanus: UNK Any Pre-Existing Lines (PICC,: No Is patient up to date on immun: Yes Last Flu: UNK Last Pneumovax: UNK Review of Systems Review of Systems Constitutional: Reports no symptoms EENTM: Reports no symptoms Cardiovascular: Reports no symptoms Respiratory: Reports no symptoms Gastrointestinal: Reports no symptoms Genitourinary: Reports no symptoms Musculoskeletal: Reports no symptoms Integumentary: Reports no symptoms Neurological: Reports as per HPI Psychological: Reports no symptoms Endocrine: Reports no symptoms Hematological/Lymphatic: Reports no symptoms Physical Exam Related Data Allergies: Coded Allergies: codeine (Verified Allergy, Mild, 10/29/18) Triage Vital Signs Vital Signs Date Time Temp Pulse Resp B/P (MAP) Pulse Ox O2 Delivery O2 Flow Rate FiO2 01/04/20 03:27 98.2 72 18 162/105 97 Vital signs reviewed: Yes Physical Exam CONSTITUTIONAL Constitutional: Present well-developed, Present well-nourished HENT HENT: Present normocephalic, Present atraumatic, Present oropharynx clear/moist, Present mucosae dry, Present nose normal HENT L/R: Present left ext ear normal, Present right ext ear normal EYES Eyes: Reports PERRL, Reports conjunctivae normal NECK Neck: Present ROM normal PULMONARY Pulmonary: Present effort normal, Present breath sounds normal CARDIOVASCULAR Cardiovascular: Present regular rhythm, Present heart sounds normal, Present capillary refill normal, Present normal rate GASTROINTESTINAL Abdominal: Present soft, Present nontender, Present bowel sounds normal GENITOURINARY Genitourinary: Present exam deferred SKIN Skin: Present warm, Present dry MUSCULOSKELETAL Musculoskeletal: Present ROM normal NEUROLOGICAL Neurological: Present alert, Present oriented x 3, Present no gross motor or sensory deficits PSYCHOLOGICAL Psychological: Present other (PT IS ORIENTED TIMES 3 BUT HAS ERRATIC BEHAVIOR AND RAPID MOOD SWINGS) Results Laboratory Result Diagram: 01/04/2033901/04/20 034 Laboratory Laboratory Tests Test 01/04/20 03:40 White Blood Count 3.73 x10e3/uL (4.8-10.8) Red Blood Count 3.14 x10e6/uL (3.6-5.1) Hemoglobin 9.0 g/dL (12.0-16.0) Hematocrit 28.4 % (34.2-44.1) Mean Corpuscular Volume 90.4 fL (81-99) Mean Corpuscular Hemoglobin 28.7 pg (28-32) Mean Corpuscular Hemoglobin Concent 31.7 g/dL (31-35) Red Cell Distribution Width 13.2 % (11.7-14.4) Platelet Count 218 x10e3/uL (140-360) Neutrophils (%) (Auto) 74.3 % (38.7-80.0) Lymphocytes (%) (Auto) 18.5 % (18.0-39.1) Monocytes (%) (Auto) 5.1 % (4.4-11.3) Eosinophils (%) (Auto) 1.1 % (0.0-6.0) Basophils (%) (Auto) 0.5 % (0.0-1.0) Neutrophils # (Auto) 2.8 (2.1-6.9) Lymphocytes # (Auto) 0.7 (1.0-3.2) Monocytes # (Auto) 0.2 (0.2-0.8) Eosinophils # (Auto) 0.0 (0.0-0.4) Basophils # (Auto) 0.0 (0.0-0.1) Absolute Immature Granulocyte (auto 0.02 x10e3/uL (0-0.1) Sodium Level 144 mmol/L (136-145) Potassium Level 3.5 mmol/L (3.5-5.1) Chloride Level 107 mmol/L (98-107) Carbon Dioxide Level 18 mmol/L (22-29) Anion Gap 22.5 mmol/L (8-16) Blood Urea Nitrogen 109 mg/dL (7-26) Creatinine 10.72 mg/dL (0.57-1.11) Estimat Glomerular Filtration Rate 5 ML/MIN (60-) BUN/Creatinine Ratio 10 (6-25) Glucose Level 123 mg/dL (74-118) Calcium Level 8.3 mg/dL (8.4-10.2) Total Bilirubin 0.3 mg/dL (0.2-1.2) Aspartate Amino Transf (AST/SGOT) 14 IU/L (5-34) Alanine Aminotransferase (ALT/SGPT) 7 IU/L (0-55) Alkaline Phosphatase 76 IU/L (40-150) Creatine Kinase 534 IU/L (29-168) Creatine Kinase MB 2.70 ng/mL (0-5.0) Troponin I 0.051 ng/mL (0-0.300) Total Protein 8.0 g/dL (6.5-8.1) Albumin 3.5 g/dL (3.5-5.0) Globulin 4.5 g/dL (2.3-3.5) Albumin/Globulin Ratio 0.8 (0.8-2.0) Ethyl Alcohol Level < 10.0 mg/dL (0.0-10.0) Lab results reviewed: Yes Assessment & Plan Medical Decision Making MDM Patient complains generalized weakness for several days to several weeks. CBC, CMP ordered to eval for dehydration and electrolyte abnormality severe anemia. Patient found to be in renal failure with a creatinine of 10 and albumin of 109. I spoke to Dr. Ortega and Dr. Olivares admit patient inpatient per Dr. Tineo patient on lactated Ringer's 100 mL/h he will see her this morning. Informed patient when needed to try and place a Bassett catheter to monitor urine output patient refused Bassett catheter. Assessment & Plan Final Impression: (1) Acute renal failure (2) Anemia (3) Generalized weakness (4) Schizophrenia Depart Disposition: ADMITTED Last Vital Signs Date Time Temp Pulse Resp B/P (MAP) Pulse Ox O2 Delivery O2 Flow Rate FiO2 01/04/20 03:27 98.2 72 18 162/105 97 Medications in the ED Diphenhydramine HCl 25 mg NOW ONCE IV Last administered on 01/04/20at 04:21; Admin Dose 25 MG; Start 01/04/20 at 04:30; Stop 01/04/20 at 04:32; Status DC Lorazepam 1 mg ONCE ONCE IV ; Start 01/04/20 at 05:15; Stop 01/04/20 at 05:16; Status DC Ziprasidone 10 mg NOW STAT IM ; Start 01/04/20 at 05:08; Stop 01/04/20 at 05:09; Status DC Ondansetron HCl 4 mg NOW STAT IV ; Start 01/04/20 at 05:08; Stop 01/04/20 at 05:12; Status DC Ziprasidone 20 mg STK-MED ONCE IM ; Start 01/04/20 at 05:16; Stop 01/04/20 at 05:09; Status DC Lactated Ringer's 1,000 ml @ ud STK-MED ONCE .ROUTE ; Start 01/04/20 at 05:30; Stop 01/04/20 at 05:25; Status DC Ondansetron HCl 4 mg Q4H PRN IV NAUSEA AND VOMITING; Start 01/04/20 at 05:30; Stop 02/03/20 at 05:29; Status UNV Lactated Ringer's 1,000 ml @ 100 mls/hr Q10H ONCE INJ Last administered on 01/04/20at 05:28; Admin Dose 100 MLS/HR; Start 01/04/20 at 05:30; Stop 01/04/20 at 15:29 Nicotine 21 mg DAILY TOP ; Start 01/04/20 at 09:00; Stop 02/03/20 at 08:59; Status UNV Insulin Human Regular ACHS SQ ; Start 01/04/20 at 07:30; Stop 02/03/20 at 07:29; Status UNV Dextrose 50 ml PRN PRN IV BLOOD SUGAR; Start 01/04/20 at 05:30; Stop 02/03/20 at 05:29; Status UNV SHOBHA TYLER MD Jan 04, 2020 05:33
[2020-01-04] MEDS ORDERED: LIPITOR20 MG PO (05:55)
[2020-01-04] MEDS ORDERED: ASPIR 8181 MG PO (05:55)
[2020-01-04] MEDS ORDERED: SENNA LAXATIVE8.6 MG PO (05:55)
[2020-01-04] MEDS ORDERED: RISPERDAL1 MG PO (05:55)
[2020-01-04] MEDS ORDERED: HYDRALAZINE HCL25 MG PO (05:55)
[2020-01-04] MEDS ORDERED: ISOSORBIDE MONO60 MG PO (05:55)
[2020-01-04] MEDS ORDERED: DEBROX15 ML EACH EAR (05:55)
[2020-01-04] MEDS ORDERED: QUETIAPINE FUM100 MG PO (05:55)
[2020-01-04] MEDS ORDERED: MURINE EAR DROP15 ML EACH EAR (05:55)
[2020-01-04] MEDS ORDERED: FLUTICASONE P15.8 ML NS (05:55)
[2020-01-04] MEDS ORDERED: TESSALON PERLE100 MG PO (05:55)
[2020-01-04] MEDS ORDERED: METOPROLOL TAR100 MG PO (05:55)
[2020-01-04] MEDS ORDERED: SALINE NOSE SPR45 ML (05:55)
[2020-01-04] MEDS ORDERED: CLONAZEPAM1 MG PO (05:55)
[2020-01-04] MEDS ORDERED: CLONIDINE HCL0.2 MG PO (05:55)
[2020-01-04] MEDS ORDERED: COLACE100 MG PO (05:55)
[2020-01-04] MEDS ORDERED: ULTRAM50 MG PO (05:55)
[2020-01-04] MEDS ORDERED: NITRO-BID1 GM TOP (05:55)
[2020-01-04] MEDS ORDERED: CLONAZEPAM 1 MG TAB PO PRN (06:00)
--- OUTSIDE RECORDS SUMMARY | 2020-01-04 07:17 | XMS REPORT | Continuity of Care Document ---
Author Author Ugo TvoopBRYNN [employer] Information [place] Address Unknown Phone Unavailable Care Team Providers Care Personal Care Aide Name Role Phone [employer] Information Exchange Unavailable Un available Problems Problem Status Onset Date Classification Date Reported Comments Source Dizziness and giddiness 05/01/2019 05/03/2019 [facility] Essential (primary) hypertension 05/01/2019 05/03/2019 [facility] Vomiting, unspecified 05/01/2019 05/03/2019 [facility] Other specified symptoms and signs invol ving the circulatory and respiratory systems 05/01/2019 05/03/2019 [facility] Cough 05/0105/03/2019 [facility] DIZZINESS Active 04/30/2019 [facility] CHEST PAIN Active 08/25/2018 [facility] Cerebral infarction, unspecified 07/20/2018 01/28/2019 [facility] HYPERTENSION Active 07/09/2018 [facility] LEFT SIDED WEAKNESS Active 07/09/2018 [facility] Hypertensive urgency 01/28/2019 [facility] Hypertensive heart and chronic kidney di sease with heart failure and stage 1 through stage 4 chronic kidney disease, or unspecified chronic kidney disease 01/28/2019 [facility] Heart failure, unspecified 03/15/2019 [facility] Chronic kidney disease, unspecified 01/28/2019 [facility] Acute kidney failure, unspecified 01/28/2019 [facility] Hyperlipidemia, unspecified 01/28/2019 [facility] Nicotine dependence, cigarettes, uncomplicated 01/28/2019 [facility] Weakness 01/28/2019 [facility] Other chest pain 01/28/2019 [facility] Other specified disorders of brain 01/28/2019 [facility] Personal history of transient ischemic a ttack (TIA), and cerebral infarction without residual deficits 03/15/2019 [facility] Dysarthria and anarthria 01/28/2019 [facility] Other lack of coordination 01/28/2019 [facility] Schizophrenia, unspecified 01/28/2019 [facility] Chest pain, unspecified 03/15/2019 [facility] Hypertensive heart disease with heart failure 03/15/2019 [facility] senior care (current) use of aspirin 03/15/2019 [facility] Other jail (current) drug therapy 03/15/2019 [facility] Allergy status to narcotic agent status 03/15/2019 [facility] Type 2 diabetes mellitus without complications 02/10/2019 [facility] Anxiety disorder, unspecified 02/10/2019 [facility] Dependence on wheelchair 02/10/2019 [facility] Medications Medication Details Route Status Patient Instructions Ordering Provider Order Date Source Clonidine 0.1 mg, Route: PO, D rug form: TAB, ONCE, Dosing Weight 90.909, kg, Priority: STAT, Start date: 04/30/19 23:56:00 CDT, Stop date: 04/30/19 23:56:00 CDT No Longer Active 05/01/2019 [facility] Hydralazine Hydrochloride 50 MG Oral Tablet 50 mg, 1 tab, Route: PO, Drug form: TAB, ONCE, Dosing Weight 90.909, kg, Start date: 04/30/19 23:56:00 CDT, Stop date: 04/30/19 23:56:00 CDT No Longer Active 05/01/2019 [facility] Potassium Chloride 40 mEq, Rou te: PO, Drug form: ERTAB, ONCE, Dosing Weight 90.909, kg, Priority: STAT, Start date: 04/30/19 22:53:00 CDT, Stop date: 04/30/19 22:53:00 CDT Inactive 05/01/2019 [facility] Saline Flush 0.9% Notes: (Same as: BD Posiflush) No Longer Active 05/01/2019 [facility] Sodium Chloride 0.9% (Bolus) IV 1,000 mL, 1000 ml/hr, Infuse Over: 1 hr, Route: IV, 1,000, Drug form: INJ, ONCE, Priority: STAT, Dosing Weight 90.909 kg, Start date: 04/30/19 20:50:00 CDT, Stop date: 04/30/19 20:50:00 CDT, 0 Inactive 05/01/2019 [facility] carvedilol Notes: Give with fo od. (Same As: Coreg) Inactive 08/26/2018 [facility] Hydralazine 25 mg, Route: PO, ONCE, Dosing Weight 86.364, kg, Start date: 08/25/18 19:47:00 [employer], Stop date: 08/25/18 19:47:00 [employer] Inactive 08/26/2018 [facility] Labetalol 10 mg, Route: IV, ON CE, Dosing Weight 86.364, kg, Start date: 08/25/18 19:47:00 [employer], Stop date: 08/25/18 19:47:00 [employer] Inactive 08/26/2018 [facility] Saline Flush 0.9% Notes: prese rvative free. Inactive 08/25/2018 [facility] Docusate Sodium 100 MG Oral Capsule 100 mg = 1 cap, PO, Daily, PRN Constipation, # 30 cap, 0 Refill(s) Active 07/24/2018 [facility] Senna-gen 8.6 mg oral tablet 1 7.2 mg = 2 tab, PO, Bedtime, PRN for constipation, X 50 day, # 100 tab, 0 Refill(s) No Longer Active 07/24/2018 [facility] Saline Flush 0.9% Notes: Same as: BD Posiflush Sterile Inactive 07/24/2018 [facility] Imdur Notes: (Same as:Imdur) " Do Not Crush" Take on empty stomach/ full glass of water. Do not crush No Longer Active 07/12/2018 [facility] Saline Flush 0.9% Notes: (Same as: BD Posiflush) Inactive 07/12/2018 [facility] isosorbide mononitrate 30 mg oral tablet , extended release 90 mg = 3 tab, PO, QAM, # 90 tab, 0 Refi ll(s), Pharmacy: [facility] Active 07/11/2018 [facility] Hydralazine Hydrochloride 25 MG Oral Tablet 75 mg = 3 tab, PO, Q6H, # 360 tab, 0 Refill(s), Pharmacy: [facility] Active 07/11/2018 [facility] carvedilol 25 mg oral tablet 2 5 mg = 1 tab, PO, BID, # 60 tab, 0 Refill(s), Pharmacy: [facility] Active 07/11/2018 [facility] Imdur Notes: (Same as:Imdur) " Do Not Crush" Take on empty stomach/ full glass of water. Do not crush No Longer Active 07/11/2018 [facility] Saline Flush 0.9% Notes: (Same as: BD Posiflush) Inactive 07/11/2018 [facility] NS (Bolus) IV 25 mL, Route: IV PB, mL, Drug form: INJ, PRN, Dosing Weight 87.727 kg, Start date: 07/11/18 9:41:00 [employer], Duration: 30 day, Stop date: 08/10/18 9:40:00 [employer] AG[employer], PRN Line Flush Inactive 07/11/2018 [facility] Fluticasone propionate 0.05 MG/ACTUAT Me tered Dose Nasal [place] [Flonase] Notes: (Same as: Flonase) No Longer Active 07/11/2018 [facility] Tramadol Notes: Not to exceed 400mg/day. (Same As: Ultram) No Longer Active 07/11/2018 [facility] Milk of Magnesia Notes: (Same as: Milk of Magnesia, MOM) No Longer Active 07/11/2018 [facility] Benadryl Maximum Strength 2% topical cream 1 appl, Route: TOP, QID, Drug form: CRM, PRN Itching, Start date: 07/10/18 21:04:00 [employer], Duration: 30 day, Stop date: 08/09/18 21:03:00 [employer] No Longer Active 07/11/2018 [facility] Lipitor Notes: (Same As: Lipit or) No Longer Active 07/11/2018 [facility] Hydralazine Notes: (Same as: A presoline) May interfere w/enteral feedings Take With Food. No Longer Active 07/10/2018 [facility] Aspirin 325 MG Oral Tablet Not es: Take with food. No Longer Active 07/10/2018 [facility] Imdur Notes: (Same as:Imdur) " Do Not Crush" Take on empty stomach/ full glass of water. Do not crush No Longer Active 07/10/2018 [facility] carvedilol Notes: Give with fo od. (Same As: Coreg) No Longer Active 07/10/2018 [facility] Clonidine Hydrochloride 0.1 MG Oral Tablet Notes: (Same As: Catapres) No Longer Active 07/10/2018 [facility] Sodium Chloride 0.111 MEQ/ML Nasal Solut ion [[place] Saline Nasal] Notes: (Same as: [place] Nasal [place]). No Longer Active 07/10/2018 [facility] carvedilol 25 mg oral tablet 2 5 mg = 1 tab, PO, BID, # 60 tab, 0 Refill(s) No Longer Active 07/10/2018 [facility] Ativan Notes: (Same as: Ativan) Inactive 07/10/2018 [facility] Klonopin 1 mg, PO, PRN, as nee ded every 8 hrs, 0 Refill(s) Active 07/10/2018 [facility] atorvastatin 20 MG Oral Tablet [Lipitor] 20 mg = 1 tab, PO, Bedtime, # 30 tab, 0 Refill(s) Active 07/10/2018 [facility] Clonidine Hydrochloride 0.1 MG Oral Tablet 0.1 mg = 1 tab, PO, BID, # 90 tab, 3 Refill(s) Active 07/10/2018 [facility] Chlorthalidone 25 MG Oral Tablet 25 mg = 1 tab, PO, Daily, # 30 tab, 0 Refill(s) N o Longer Active 07/10/2018 [facility] Tears Plus ophthalmic drops 1-2 gtts, BOTH EYES, BID, 0 Refill(s) Active 07/10/2018 [facility] Imdur 60 mg, PO, QAM, 0 Refill (s) No Longer Active 07/10/2018 [facility] Hydralazine 75 mg, PO, QID, 0 Refill(s) No Longer Active 07/10/2018 [facility] Aspirin 325 MG Oral Tablet 325 mg = 1 tab, PO, Daily, # 30 tab, 0 Refill(s) Active 07/10/2018 [facility] Sodium Chloride 0.111 MEQ/ML Nasal Solut ion [[place] Saline Nasal] 2 drp, NASAL, PRN, PRN Nasal dryness, # 30 mL, 4 Refill(s), 2 sprays in each nostril for nasal congestion/allergies Active 07/10/2018 [facility] Hydralazine Notes: (Same as: A presoline) Push over 5 minutes No Longer Active 07/10/2018 [facility] normal saline 0.9% IV 1,000 mL 1,000 mL, Rate: 75 ml/hr, Infuse over: 13.3 hr, Route: IV, Dosing Weight 87.727 kg, Total Volume: 1,000, Start date: 07/09/18 23:47:00 [employer], Duration: 30 day, Stop date: 08/08/18 23:46:00 [employer] AGENT, 2.02, m2 No Longer Active 07/10/2018 [facility] Glucagon 1 mg, Route: IM, Drug form: PDR/INJ, PRN, Dosing Weight 87.727, kg, PRN Blood Glucose Results, Start date: 07/09/18 23:45:00 [employer], Duration: 30 day, Stop date: 08/08/18 23:44:00 [employer] AGENT No Longer Active 07/10/2018 [facility] Dextrose 50% Syringe 12.5 gm, 25 mL, Route: IVP, Drug Form: INJ, Dosing Weight 87.727, kg, PRN, PRN Blood Glucose Results, Start date: 07/09/18 23:45:00 [employer] AGENT, Duration: 30 day, Stop date: 08/08/18 23:44:00 [employer] AGENT No Longer Active 07/10/2018 [facility] Acetaminophen Notes: Do not ex ceed 4 gm/day. (Same as: Tylenol) No Longer Active 07/10/2018 [facility] Ondansetron Notes: (Same as: Manjinder talavera) MEDICATION WASTE Product Size: 4 mg Product Wasted: ___ mg No Longer Active 07/10/2018 [facility] Aspirin 81 MG Chewable Tablet Notes: Take with food. Inactive 07/10/2018 [facility] Hydralazine Notes: (Same as: A presoline) Push over 5 minutes Inactive 07/10/2018 [facility] Saline Flush 0.9% Notes: (Same as: BD Posiflush) No Longer Active 07/09/2018 [facility] Allergies, Adverse Reactions, Alerts Substance Category Reaction Severity Reaction type Status Date Reported Comments Source codeine Assertion Drug allergy Active [facility] Immunizations No Data Provided for This Section Results Order Name Results Value Reference Range Date Interpretation Comments Source URINE AND STOOL UA Turbidity Clear (05/01/19 1:05 AM) Clear 05/01/2019 [facility] URINE AND STOOL UA pH 5.0 5.0 - 8.0 05/01/2019 [facility] URINE AND STOOL UA Protein Negative mg/dL Negative mg/dL 05/01/2019 [facility] URINE AND STOOL UA Glucose Negative mg/dL Negative mg/dL 05/01/[address] [facility] [address] URINE AND STOOL UA Ketones Negative mg/dL Negative mg/dL 05/01/2019 [facility] URINE AND STOOL UA Bili Negative *NA* (05/01/19 1:05 AM) Negative 05/01/2019 [facility] URINE AND STOOL UA Blood Negative (05/01/19 1:05 AM) Negative 05/01/2019 [facility] URINE AND STOOL UA Nitrite Negative (05/01/19 1:05 AM) Negative 05/01/2019 [facility] URINE AND STOOL UA Leuk Est Negative (05/01/19 1:05 AM) Negative 05/01/2019 [facility] URINE AND STOOL UA WBC <1 0 - 5 05/01/2019 [facility] URINE AND STOOL UA RBC 1 0 - 2 05/01/2019 [facility] URINE AND STOOL UA Sq Epi None Seen 05/01/2019 [facility] URINE AND STOOL UA Color Colorless 05/01/2019 [facility] URINE AND STOOL UA Spec Grav <=1.000 *NA* (05/01/19 1:05 AM) <=1.030 05/01/2019 [facility] URINE AND STOOL UA Urobilinogen <=1.0 mg/dL 0.1 - 1.0 05/01/2019 [facility] CARDIAC ENZYMES Total CK 114 12 - 191 05/01/2019 [facility] CARDIAC ENZYMES Troponin-I <0.02 0.00 - 0.40 05/01/2019 [facility] CARDIAC ENZYMES BNP 91 <=100 pg/mL 05/01/2019 [facility] CHEM PANEL Glucose Lvl 90 70 - 99 05/01/2019 [facility] CHEM PANEL BUN 20 7 - 22 05/01/2019 [facility] CHEM PANEL Creatinine Lvl 2.09 0.50 - 1.40 05/01/2019 [facility] CHEM PANEL Sodium Lvl 144 135 - 145 05/01/2019 [facility] CHEM PANEL Potassium Lvl 2.9 3.5 - 5.1 05/01/2019 Result Comment: Critical Result(s) floyd d to Alanna Dale at 04/30/2019 22:51 by hp. Read back OK. [facility] CHEM PANEL Chloride Lvl 107 95 - 109 05/01/2019 [facility] CHEM PANEL CO2 31 24 - 32 05/01/2019 [facility] CHEM PANEL AGAP 8.9 10.0 - 20.0 05/01/2019 [facility] CHEM PANEL Calcium Lvl 8.7 8.5 - 10.5 05/01/2019 [facility] CHEM PANEL B/C Ratio 10 6 - 25 05/01/2019 [facility] CHEM PANEL Total Protein 7.6 6.4 - 8.4 05/01/2019 [facility] CHEM PANEL Albumin Lvl 3.8 3.5 - 5.0 05/01/2019 [facility] CHEM PANEL Globulin 3.8 2.7 - 4.2 05/01/2019 [facility] CHEM PANEL A/G Ratio 1.0 0.7 - 1.6 05/01/2019 [facility] CHEM PANEL ALT 13 0 - 65 05/01/2019 [facility] CHEM PANEL AST 10 0 - 37 05/01/2019 [facility] CHEM PANEL Alk Phos 82 39 - 136 05/01/2019 [facility] CHEM PANEL Bili Total 0.4 0.2 - 1.3 05/01/2019 [facility] CHEM PANEL eGFR 30 05/01/2019 Result [...] should be multiplied by the estimated BMI. [facility] HEMATOLOGY Segs 60.7 45.0 - 75.0 05/01/2019 [facility] Lymphocytes 29.4 20.0 - 40.0 05/01/2019 [facility] Monocytes 7.1 2.0 - 12.0 05/01/2019 [facility] HEMATOLOGY Eosinophils 2.3 0.0 - 4.0 05/01/2019 [facility] HEMATOLOGY Basophils 0.5 0.0 - 1.0 05/01/2019 [facility] HEMATOLOGY Neutrophils # 2.7 1.5 - 8.1 05/01/2019 [facility] HEMATOLOGY Lymphocytes # 1.3 1.0 - 5.5 05/01/2019 [facility] HEMATOLOGY Monocytes # 0.3 0.0 - 0.8 05/01/2019 [facility] HEMATOLOGY Eosinophils # 0.1 0.0 - 0.5 05/01/2019 [facility] WBC 4.4 3.7 - 10.4 05/01/2019 [facility] RBC 3.69 4.20 - 5.40 05/01/2019 [facility] HEMATOLOGY Hgb 11.5 12.0 - 16.0 05/01/2019 [facility] HEMATOLOGY Hct 35.2 36.0 - 48.0 05/01/2019 [facility] HEMATOLOGY MCV 95.4 80.0 - 98.0 05/01/2019 [facility] HEMATOLOGY MCH 31.2 27.0 - 31.0 05/01/2019 [facility] HEMATOLOGY MCHC 32.7 32.0 - 36.0 05/01/2019 [facility] HEMATOLOGY RDW 14.3 11.5 - 14.5 05/01/2019 [facility] HEMATOLOGY Platelet 190 133 - 450 05/01/2019 [facility] HEMATOLOGY MPV 8.1 7.4 - 10.4 05/01/2019 [facility] URINE AND STOOL UA Nitrite Negative (08/25/18 5:27 PM) Negative 08/25/2018 [facility] URINE AND STOOL UA Bili Negative *NA* (08/25/18 5:27 PM) Negative 08/25/2018 [facility] URINE AND STOOL UA Leuk Est Negative (08/25/18 5:27 PM) Negative 08/25/2018 [facility] URINE AND STOOL UA Sq Epi Occasional /LPF Few /LPF 08/25/2018 [facility] URINE AND STOOL UA RBC 1 0 - 2 08/25/2018 [facility] URINE AND STOOL UA Bacteria Occasional /HPF None Seen /HPF 08/25/2018 [facility] URINE AND STOOL UA WBC 1 0 - 5 08/25/2018 [facility] URINE AND STOOL UA Urobilinogen <=1.0 mg/dL 0.1 - 1.0 08/25/2018 [facility] URINE AND STOOL UA Blood Negative (08/25/18 5:27 PM) Negative 08/25/2018 [facility] URINE AND STOOL UA Turbidity Clear (08/25/18 5:27 PM) Clear 08/25/2018 [facility] URINE AND STOOL UA Color Ltyellow 08/25/2018 [facility] URINE AND STOOL UA pH 5.0 5.0 - 8.0 08/25/[facility] URINE AND STOOL UA Spec Grav 1.009 <=1.030 08/25/2018 [facility] URINE AND STOOL UA Ketones Negative *NA* (08/25/18 5:27 PM) Negative 08/25/2018 [facility] URINE AND STOOL UA Glucose Negative *NA* (08/25/18 5:27 PM) Negative 08/25/2018 [facility] URINE AND STOOL UA Protein Negative (08/25/18 5:27 PM) Negative 08/25/2018 [facility] CARDIAC ENZYMES Total CK 83 12 - 191 08/25/2018 [facility] CARDIAC ENZYMES Troponin-I <0.02 0.00 - 0.40 08/25/2018 [facility] CHEM PANEL eGFR 28 08/25/2018 Result [...] should be multiplied by the estimated BMI. [facility] CHEM PANEL BUN 45 7 - 22 08/25/2018 [facility] CHEM PANEL Creatinine Lvl 2.25 0.50 - 1.40 08/25/2018 [facility] CHEM PANEL Glucose Lvl 87 70 - 99 08/25/2018 [facility] CHEM PANEL Sodium Lvl 141 135 - 145 08/25/2018 [facility] CHEM PANEL Chloride Lvl 107 95 - 109 08/25/2018 [facility] CHEM PANEL CO2 32 24 - 32 08/25/2018 [facility] CHEM PANEL Potassium Lvl 3.4 3.5 - 5.1 08/25/2018 [facility] CHEM PANEL Calcium Lvl 9.1 8.5 - 10.5 08/25/2018 [facility] CHEM PANEL Total Protein 7.4 6.4 - 8.4 08/25/2018 [facility] CHEM PANEL ALT 17 0 - 65 08/25/2018 [facility] CHEM PANEL AST 22 0 - 37 08/25/2018 [facility] CHEM PANEL Albumin Lvl 3.5 3.5 - 5.0 08/25/2018 [facility] CHEM PANEL Alk Phos 79 39 - 136 08/25/2018 [facility] CHEM PANEL Bili Total 0.2 0.2 - 1.3 08/25/2018 [facility] CHEM PANEL Globulin 3.9 2.7 - 4.2 08/25/2018 [facility] CHEM PANEL A/G Ratio 0.9 0.7 - 1.6 08/25/2018 [facility] CHEM PANEL B/C Ratio 20 6 - 25 08/25/2018 [facility] CHEM PANEL AGAP 5.4 10.0 - 20.0 08/25/2018 [facility] WBC 5.6 3.7 - 10.4 08/25/2018 [facility] Hgb 12.7 12.0 - 16.0 08/25/2018 [facility] RBC 4.21 4.20 - 5.40 08/25/2018 [facility] Hct 38.5 36.0 - 48.0 08/25/2018 [facility] MPV 9.9 7.4 - 10.4 08/25/2018 [facility] MCV 91.4 80.0 - 98.0 08/25/2018 [facility] MCHC 33.0 32.0 - 36.0 08/25/2018 [facility] MCH 30.2 27.0 - 31.0 08/25/2018 [facility] Platelet 169 133 - 450 08/25/2018 [facility] RDW 14.4 11.5 - 14.5 08/25/2018 [facility] INR 0.89 0.85 - 1.17 08/25/2018 [facility] HEMATOLOGY PT 11.9 12.0 - 14.7 08/25/2018 [facility] PTT 40.0 22.9 - 35.8 08/25/2018 [facility] Segs 56.9 45.0 - 75.0 08/25/2018 [facility] Monocytes 6.5 2.0 - 12.0 08/25/2018 [facility] Lymphocytes 33.8 20.0 - 40.0 08/25/2018 [facility] Eosinophils # 0.1 0.0 - 0.5 08/25/2018 [facility] HEMATOLOGY Eosinophils 1.9 0.0 - 4.0 08/25/2018 [facility] Lymphocytes # 1.9 1.0 - 5.5 08/25/2018 [facility] Neutrophils # 3.2 1.5 - 8.1 08/25/2018 [facility] Monocytes # 0.4 0.0 - 0.8 08/25/2018 [facility] HEMATOLOGY Basophils 0.9 0.0 - 1.0 08/25/2018 [facility] CARDIAC ENZYMES Total CK 99 12 - 191 07/24/2018 [facility] CARDIAC ENZYMES BNP 60 <=100 pg/mL 07/24/2018 [facility] CARDIAC ENZYMES Troponin-I <0.02 0.00 - 0.40 07/24/2018 [facility] CHEM PANEL Phosphorus 3.1 2.5 - 4.5 07/24/2018 [facility] CHEM PANEL Magnesium Lvl 2.2 1.8 - 2.4 07/24/2018 [facility] CHEM PANEL Lipase Lvl 140 73 - 393 07/24/2018 [facility] ELECTROLYTES AGAP 14.5 10.0 - 20.0 07/24/2018 [facility] ELECTROLYTES Globulin 3.7 2.7 - 4.2 07/24/2018 [facility] ELECTROLYTES A/G Ratio 1.0 0.7 - 1.6 07/24/2018 [facility] ELECTROLYTES B/C Ratio 16 6 - 25 07/24/2018 [facility] ELECTROLYTES eGFR 29 07/24/2018 Result Comment: [...] should be multiplied by the estimated BMI. [facility] ELECTROLYTES Albumin Lvl 3.6 3.5 - 5.0 07/24/2018 [facility] ELECTROLYTES Alk Phos 75 39 - 136 07/24/2018 [facility] ELECTROLYTES Bili Total 0.4 0.2 - 1.3 07/24/2018 [facility] ELECTROLYTES ALT 16 0 - 65 07/24/2018 [facility] ELECTROLYTES AST 17 0 - 37 07/24/2018 [facility] ELECTROLYTES BUN 35 7 - 22 07/24/2018 [facility] ELECTROLYTES Glucose Lvl 93 70 - 99 07/24/2018 [facility] ELECTROLYTES Potassium Lvl 3.5 3.5 - 5.1 07/24/2018 [facility] ELECTROLYTES Sodium Lvl 145 135 - 145 07/24/2018 [facility] ELECTROLYTES Creatinine Lvl 2.1 9 0.50 - 1.40 07/24/2018 [facility] ELECTROLYTES Calcium Lvl 8.4 8.5 - 10.5 07/24/2018 [facility] ELECTROLYTES Chloride Lvl 108 95 - 109 07/24/2018 [facility] ELECTROLYTES Total Protein 7.3 6.4 - 8.4 07/24/2018 [facility] ELECTROLYTES CO2 26 24 - 32 07/24/2018 [facility] HEMATOLOGY Monocytes # 0.2 0.0 - 0.8 07/24/2018 [facility] HEMATOLOGY Eosinophils # 0.1 0.0 - 0.5 07/24/2018 [facility] HEMATOLOGY Basophils 1.0 0.0 - 1.0 07/24/2018 [facility] HEMATOLOGY Lymphocytes # 1.2 1.0 - 5.5 07/24/2018 [facility] HEMATOLOGY Lymphocytes 37.0 20.0 - 40.0 07/24/2018 [facility] HEMATOLOGY Segs 53.9 45.0 - 75.0 07/24/2018 [facility] HEMATOLOGY Neutrophils # 1.8 1.5 - 8.1 07/24/2018 [facility] HEMATOLOGY Eosinophils 1.6 0.0 - 4.0 07/24/2018 [facility] HEMATOLOGY Monocytes 6.5 2.0 - 12.0 07/24/2018 [facility] HEMATOLOGY Platelet 181 133 - 450 07/24/2018 [facility] HEMATOLOGY WBC 3.4 3.7 - 10.4 07/24/2018 [facility] MCHC 33.0 32.0 - 36.0 07/24/2018 [facility] HEMATOLOGY RDW 13.4 11.5 - 14.5 07/24/2018 [facility] HEMATOLOGY MPV 8.5 7.4 - 10.4 07/24/2018 [facility] HEMATOLOGY Hct 36.4 36.0 - 48.0 07/24/2018 [facility] HEMATOLOGY MCV 92.2 80.0 - 98.0 07/24/2018 [facility] HEMATOLOGY RBC 3.95 4.20 - 5.40 07/24/2018 [facility] HEMATOLOGY Hgb 12.0 12.0 - 16.0 07/24/2018 [facility] HEMATOLOGY MCH 30.4 27.0 - 31.0 07/24/2018 [facility] HEMATOLOGY INR 1.01 0.85 - 1.17 07/24/2018 [facility] HEMATOLOGY PT 13.1 12.0 - 14.7 07/24/2018 [facility] ELECTROLYTES CO2 25 24 - 32 07/11/2018 [facility] ELECTROLYTES Calcium Lvl 8.1 8.5 - 10.5 07/11/2018 [facility] ELECTROLYTES AGAP 12.0 10.0 - 20.0 07/11/2018 [facility] ELECTROLYTES eGFR 33 07/11/2018 Result Comment: [...] should be multiplied by the estimated BMI. [facility] ELECTROLYTES Chloride Lvl 111 95 - 109 07/11/2018 [facility] ELECTROLYTES BUN 28 7 - 22 07/11/2018 [facility] ELECTROLYTES Creatinine Lvl 1.9 8 0.50 - 1.40 07/11/2018 [facility] ELECTROLYTES Sodium Lvl 144 135 - 145 07/11/2018 [facility] ELECTROLYTES Potassium Lvl 4.0 3.5 - 5.1 07/11/2018 [facility] ELECTROLYTES Glucose Lvl 62 70 - 99 07/11/2018 [facility] LIPIDS VLDL 29 07/11/2018 [facility] LIPIDS LDL (Calculated) 77 <=99 mg/dL 07/11/2018 [facility] LIPIDS Chol 148 <=199 mg/dL 07/11/2018 [facility] LIPIDS HDL 42 >=61 mg/dL 07/11/2018 [facility] LIPIDS Trig 143 <=149 mg/dL 07/11/2018 [facility] LIPIDS CHD Risk 3.52 3.90 - 5.80 07/11/2018 [facility] SPECIAL CHEMISTRY Hgb A1C 4.8 <=5.6 % 07/11/2018 [facility] ANEMIA STUDY Vitamin B12 Lvl 652 254 - 1320 07/10/2018 [facility] CHEM PANEL Magnesium Lvl 2.1 1.8 - 2.4 07/10/2018 [facility] ELECTROLYTES AGAP 11.8 10.0 - 20.0 07/10/2018 [facility] ELECTROLYTES eGFR 34 07/10/2018 Result Comment: [...] should be multiplied by the estimated BMI. [facility] ELECTROLYTES Calcium Lvl 8.2 8.5 - 10.5 07/10/2018 [facility] ELECTROLYTES Potassium Lvl 3.8 3.5 - 5.1 07/10/2018 [facility] ELECTROLYTES CO2 23 24 - 32 07/10/2018 [facility] ELECTROLYTES BUN 29 7 - 22 07/10/2018 [facility] ELECTROLYTES Chloride Lvl 113 95 - 109 07/10/2018 [facility] ELECTROLYTES Creatinine Lvl 1.9 2 0.50 - 1.40 07/10/2018 [facility] ELECTROLYTES Sodium Lvl 144 135 - 145 07/10/2018 [facility] ELECTROLYTES Glucose Lvl 84 70 - 99 07/10/2018 [facility] HEMATOLOGY Lymphocytes 35.6 20.0 - 40.0 07/10/2018 [facility] HEMATOLOGY Monocytes 10.7 2.0 - 12.0 07/10/2018 [facility] HEMATOLOGY Eosinophils 1.8 0.0 - 4.0 07/10/2018 [facility] HEMATOLOGY Basophils 0.7 0.0 - 1.0 07/10/2018 [facility] HEMATOLOGY Lymphocytes # 1.3 1.0 - 5.5 07/10/2018 [facility] HEMATOLOGY Monocytes # 0.4 0.0 - 0.8 07/10/2018 [facility] Neutrophils # 1.8 1.5 - 8.1 07/10/2018 [facility] Eosinophils # 0.1 0.0 - 0.5 07/10/2018 [facility] Segs 51.2 45.0 - 75.0 07/10/2018 [facility] MCV 93.7 80.0 - 98.0 07/10/2018 [facility] MCH 30.7 27.0 - 31.0 07/10/2018 [facility] RDW 13.8 11.5 - 14.5 07/10/2018 [facility] Platelet 169 133 - 450 07/10/2018 [facility] MCHC 32.7 32.0 - 36.0 07/10/2018 [facility] MPV 9.2 7.4 - 10.4 07/10/2018 [facility] WBC 3.6 3.7 - 10.4 07/10/2018 [facility] RBC 3.85 4.20 - 5.40 07/10/2018 [facility] Hgb 11.8 12.0 - 16.0 07/10/2018 [facility] Hct 36.1 36.0 - 48.0 07/10/2018 [facility] CARDIAC ENZYMES BNP 96 <=100 pg/mL 07/09/2018 [facility] CARDIAC ENZYMES Troponin-I <0.02 0.00 - 0.40 07/09/2018 [facility] CARDIAC ENZYMES Total CK 94 12 - 191 07/09/2018 [facility] CHEM PANEL B/C Ratio 13 6 - 25 07/09/2018 [facility] CHEM PANEL A/G Ratio 1.0 0.7 - 1.6 07/09/2018 [facility] CHEM PANEL Globulin 3.9 2.7 - 4.2 07/09/2018 [facility] CHEM PANEL AGAP 12.9 10.0 - 20.0 07/09/2018 [facility] CHEM PANEL eGFR 28 07/09/2018 Result [...] Total Protein 7.7 6.4 - 8.4 07/09/2018 [facility] CHEM PANEL Calcium Lvl 9.0 8.5 - 10.5 07/09/2018 [facility] CHEM PANEL Albumin Lvl 3.8 3.5 - 5.0 07/09/2018 [facility] CHEM PANEL Alk Phos 86 39 - 136 07/09/2018 [facility] CHEM PANEL Bili Total 0.4 0.2 - 1.3 07/09/2018 [facility] CHEM PANEL Lactic Acid Lvl 0.9 0.5 - 2.2 07/09/2018 [facility] HEMATOLOGY Monocytes # 0.2 0.0 - 0.8 07/09/2018 [facility] HEMATOLOGY Eosinophils # 0.1 0.0 - 0.5 07/09/2018 [facility] HEMATOLOGY Basophils 0.8 0.0 - 1.0 07/09/2018 [facility] HEMATOLOGY Neutrophils # 1.9 1.5 - 8.1 07/09/2018 [facility] HEMATOLOGY Lymphocytes # 1.3 1.0 - 5.5 07/09/2018 [facility] HEMATOLOGY Eosinophils 1.7 0.0 - 4.0 07/09/2018 [facility] HEMATOLOGY Monocytes 7.0 2.0 - 12.0 07/09/2018 [facility] HEMATOLOGY Lymphocytes 35.8 20.0 - 40.0 07/09/2018 [facility] Segs 54.7 45.0 - 75.0 07/09/2018 [facility] MPV 9.2 7.4 - 10.4 07/09/2018 [facility] MCH 30.0 27.0 - 31.0 07/09/2018 [facility] MCHC 32.3 32.0 - 36.0 07/09/2018 [facility] RDW 14.0 11.5 - 14.5 07/09/2018 [facility] Platelet 189 133 - 450 07/09/2018 [facility] Hct 38.2 36.0 - 48.0 07/09/2018 [facility] Hgb 12.4 12.0 - 16.0 07/09/2018 [facility] MCV 92.9 80.0 - 98.0 07/09/2018 [facility] RBC 4.12 4.20 - 5.40 07/09/2018 [facility] WBC 3.5 3.7 - 10.4 07/09/2018 [facility] INR 0.98 0.85 - 1.17 07/09/2018 [facility] PT 12.8 12.0 - 14.7 07/09/2018 [facility] PTT 50.7 22.9 - 35.8 07/09/2018 [facility] Pathology Reports No Data Provided for [...] of acute cardiopulmonary disease. SL: BMUSTAFA-M 04/30/2019 [facility] Brain wo contrast CT Clinical Indication: [...] post left suboccipital craniectomy. SL: BMUSTAFA-M 04/30/2019 [facility] Chest 1view DX PROCEDURE: Ches t [...] with minimal left lower lobe subsegmental atelectasis. SL:[id number] 08/25/2018 [facility] Brain wo contrast CT Clinical Indication: [...] to patient size -Use of iterative reconstruction technEducabilia ue CT Radiation Dose DLP 982.82 mGy-cm [...] left cerebellum likely postsurgical. SL: BMUSTAFA-M 08/25/2018 [facility] Chest 1view DX EXAM: Chest 1vi ew DX DATE: 07/24/2018 12:30 [employer] INDICATION: - chest pain COMPARISON: 07/09/2018. IMPRESSION: Stable prominent cardiac silhouette. Atherosclerotic thoracic aorta. No definite failure. No focal consolidation, significant pleural effusion or pneumothorax. SL: [id number] 07/24/2018 [facility] Carotid artery Doppler bilat US Patient Name: BRYNN DAVENPORT : 1965; Age: 52 years y/o Female MR: [id number] Study: Carotid artery Doppler bilat US 07/09/2018 11:47 PM [employer] Ordering Physician: Florecita Brock MD Clinical Indication: [...] low, or Variable undetectable SL: [id number]-PC 07/09/2018 [facility] Chest 1view DX Clinical indica tion: [...] Trace right pleural effusion. SL: ROBIN 07/09/2018 [facility] Brain wo contrast CT Clinical Indication: [...] to patient size -Use of iterative reconstruction [employer] ue CT Radiation Dose DLP 800 mGy-cm [...] cerebellar hemisphere likely postsurgical. SL: BMUSTAFA-M 07/09/2018 [facility] Consultation Notes No Data Provided for This Section Discharge Summaries No Data Provided for This Section History and Physicals No Data Provided for This Section Vital Signs Vital Sign Value Date Comments Source Systolic (mm Hg) 150 05/01/2019 [facility] Diastolic (mm Hg) 90 05/01/2019 [facility] Temperature Oral (F) 97.5 F 05/01/2019 [facility] Heart Rate 75 05/01/2019 [facility] Respitory Rate 18 05/01/2019 [facility] Systolic (mm Hg) 193 05/01/2019 [facility] Diastolic (mm Hg) 106 05/01/2019 [facility] Temperature Oral (F) 98.2 F 05/01/2019 [facility] Heart Rate 79 05/01/2019 [facility] Respitory Rate 18 05/01/2019 [facility] Systolic (mm Hg) 191 05/01/2019 [facility] Diastolic (mm Hg) 104 05/01/2019 [facility] Heart Rate 73 05/01/2019 [facility] Respitory Rate 18 05/01/2019 [facility] Temperature Oral (F) 98.2 F 05/01/2019 [facility] Height 162.56 cm 05/01/2019 [facility] BMI Calculated 34.4 05/01/2019 [facility] Weight 90.909 05/01/2019 [facility] Respitory Rate 24 08/26/2018 [facility] Systolic (mm Hg) 138 08/26/2018 [facility] Diastolic (mm Hg) 87 08/26/2018 [facility] Respitory Rate 21 08/26/2018 [facility] Systolic (mm Hg) 160 08/26/2018 [facility] Diastolic (mm Hg) 86 08/26/2018 [facility] Respitory Rate 21 08/26/2018 [facility] Systolic (mm Hg) 150 08/26/2018 [facility] Diastolic (mm Hg) 80 08/26/2018 [facility] Temperature Oral (F) 98 F 08/26/2018 [facility] Weight 86.364 08/25/2018 [facility] BMI Calculated 32.68 08/25/2018 [facility] Height 162.56 cm 08/25/2018 [facility] Temperature Oral (F) 97.5 F 08/25/2018 [facility] Heart Rate 88 08/25/2018 [facility] Respitory Rate 15 07/24/2018 [facility] Systolic (mm Hg) 155 07/24/2018 [facility] Diastolic (mm Hg) 90 07/24/2018 [facility] Systolic (mm Hg) 165 07/24/2018 [facility] Diastolic (mm Hg) 98 07/24/2018 [facility] Respitory Rate 14 07/24/2018 [facility] Respitory Rate 13 07/24/2018 [facility] Systolic (mm Hg) 150 07/24/2018 [facility] Diastolic (mm Hg) 99 07/24/2018 [facility] Weight 90.909 07/24/2018 [facility] BMI Calculated 31.39 07/24/2018 [facility] Height 170.18 cm 07/24/2018 [facility] Temperature Oral (F) 98.1 F 07/24/2018 [facility] Heart Rate 64 07/24/2018 [facility] Systolic (mm Hg) 180 07/11/2018 [facility] Diastolic (mm Hg) 99 07/11/2018 [facility] Respitory Rate 18 07/11/2018 [facility] Heart Rate 66 07/11/2018 [facility] Temperature Oral (F) 97.9 F 07/11/2018 [facility] Systolic (mm Hg) 186 07/11/2018 [facility] Diastolic (mm Hg) 98 07/11/2018 [facility] Respitory Rate 17 07/11/2018 [facility] Heart Rate 70 07/11/2018 [facility] Temperature Oral (F) 97.9 F 07/11/2018 [facility] Heart Rate 65 07/11/2018 [facility] Temperature Oral (F) 98.6 F 07/11/2018 [facility] Systolic (mm Hg) 160 07/11/2018 [facility] Diastolic (mm Hg) 91 07/11/2018 [facility] Respitory Rate 18 07/11/2018 [facility] Height 162.56 cm 07/10/2018 [facility] Weight 87.727 07/10/2018 [facility] BMI Calculated 33.2 07/10/2018 [facility] Weight 87.727 07/09/2018 [facility] Height 162.56 cm 07/09/2018 [facility] BMI Calculated 33.2 07/09/2018 [facility] Encounters Location Location Details Encounter Type Encounter Number Reason For Visit Attending Provider ADM Date DC Date Status Source [facility] Observation [id number] Paris Mendez 07/09/2018 07/11/2018 [facility] Emergency [id number] Mary Kateallison Enedina 07/24/2018 07/25/2018 [facility] Emergency [id number] Manuel Kasey 08/25/2018 08/26/2018 [facility] Emergency [id number] Jerod Lizett 05/01/2019 05/01/2019 [facility] Procedures No Data Provided for This [...] Ext: No edema or cyanosis Neuro: Oriented, 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 Pro 4 weeks Paris Mendez MD [facility] Hospitalist Extracted from:Title: Clinical Document Author: Lalo Gonzalez MD Date: 07/11/18 NEUROLOGY Progress Note - Daily [facility] Completed: , JUL 11, 2018, 09:43 by [...] touch pinprick equal Coordination mild dysmetria on [id number] on the left right side is normal [...] mg IVP Q6H 07/10/18 sodium chloride nasal ([place] ne Nasal) 2 spray NASAL PRN [...] shows EF of 50-55% no thrombus 07/11/2018 [facility] Plan of Care No Data Provided for This Section Social History Social History Date Source Social History TypeResponse Substance Abuse Use: Past. Type: Cocaine. Recreational Drug Route: Intravenous. Smoking Status Never smoker; Exposure to Tobacco Smoke None; Cigarette Smoking Last 365 Days No; Reg Smoking Cessation Counseling No entered on: 05/01/19 07/24/2018 [facility] Family History No Data Provided for This Section Advance Directives No Data Provided for This Section Functional Status No Data Provided for This Section
[2020-01-04] MEDS: HYDRALAZINE HCL 20 MG/ML VIAL IV PRN ×2 (07:20→16:03)
[2020-01-04] MEDS ORDERED: INSULIN REGULAR, HUMAN 100 UNIT/1 ML 3ML VIAL SQ SCH (07:30)
--- NOTE | 2020-01-04 07:58 | NUR ---
attempted to call report was told that nurse would call back.
[2020-01-04] MEDS: RISPERIDONE 1 MG TAB PO SCH ×2 (09:00→17:12)
[2020-01-04] MEDS ORDERED: NICOTINE 21 MG/EA PATCH TOP SCH (09:00)
--- NOTE | 2020-01-04 11:47 | NUR ---
SPOKE TO PATIENTS FAMILY AJ BY TELEPHONE @[phone] WHEN THE PATIENT ASKED ME TO CALL HIM AND INFORM HIM OF HER STATUS AND ALLOWED ME TO GIVE HIM INFORMATION AND UPDATE HM NEEDED. SPOKE WITH TOMMY AND THEY WILL LET THE FAMILY KNOW WHAT IS GOING ON AND DECIDE WHO HER VISITOR WILL BE HER OTHER SON IS DEYANIRA [phone]
[2020-01-04] MEDS: HYDRALAZINE HCL 25 MG TAB PO SCH ×3 (12:12→21:33)
[2020-01-04] MEDS: METOPROLOL TARTRATE 50 MG TAB PO SCH ×2 (12:12→17:12)
[2020-01-04] MEDS: QUETIAPINE FUMARATE 100 MG TAB PO SCH ×2 (12:12→17:12)
[2020-01-04] MEDS: CLONIDINE HCL 0.2 MG TAB PO SCH ×2 (12:12→15:00)
--- NOTE | 2020-01-04 12:33 | NUR ---
AFTER EATING LUNCH AND TAKING MEDICATIONS, PATIENT VOMITED A LARGE AMOUNT OF EMESIS.
[2020-01-04] MEDS: ONDANSETRON HCL INJ 2MG/ML 2ML 2 MG/ML VIAL IV PRN ×2 (12:40→21:40)
[2020-01-04] MEDS ORDERED: BENZONATATE 100 MG CAP PO PRN (13:45)
[2020-01-04] MEDS ORDERED: SALINE 0.65% NAS SOLN 1 SPRAY BTL PRN (13:45)
[2020-01-04] MEDS ORDERED: PROMETHAZINE 25MG/ NS 50ML (IV) IV PRN (13:45)
[2020-01-04] MEDS ORDERED: FLUTICASONE PROPIONATE NS PRN (13:45)
[2020-01-04] MEDS ORDERED: FLUTICASONE PROPIONATE NASAL SPRAY NS PRN (14:00)
[2020-01-04 14:19] LABS: CREATINE KINASE MB 4.3 ng/mL (0-5.0)
--- NOTE | 2020-01-04 15:48 | Consultation ---
DATE OF CONSULTATION: 01/04/2020 Nephrology Consultation REASON FOR CONSULTATION: Renal failure of unknown duration. HISTORY OF PRESENT ILLNESS: This is a 54-year-old woman, who lives in an assisted living facility and has history of hypertension and schizophrenia. She presented to the ER early this morning with at least one week's history of nausea and vomiting. She felt generally weak. Labs taken in the ER showed BUN of 109, creatinine of 10 with and a serum bicarb of 18. Hemoglobin was 9. The patient had no fever. She has been admitted for investigation and management of the renal failure. The patient has slurred speech and somewhat variable affect. Able to answer simple questions, but I am not sure how reliable her history is. She basically confirms that she has been throwing up for the last week. Denies shortness of breath, abdominal or flank pain, or any urinary discomfort. Her medication list does not include any NSAID, but does include clonidine and hydralazine for hypertension. PAST MEDICAL HISTORY: As above. Unable to obtain from patient. MEDICATIONS: Her medication list from the facility is noted. CURRENT MEDICATIONS: Noted in MAR. REVIEW OF SYSTEMS: Negative, except as noted above in HPI. PHYSICAL EXAMINATION: GENERAL: The patient is lying in bed comfortably in no acute distress. VITAL SIGNS: Blood pressure is 198/114, pulse 78 per minute, respirations 20 per minute, afebrile. Oxygen saturation 98% on room air. SKIN: Normal turgor, no generalized lesions. HEENT: Normocephalic, atraumatic head, external ocular movements intact. No icterus. NECK: Supple without JVP. CHEST: Auscultation reveals clear lung saunders bilaterally without wheezing or crepitations. CARDIOVASCULAR: Normal S1, S2 without rub or gallop. ABDOMEN: Soft, depressible, nontender. EXTREMITIES: Without pitting edema or cyanosis. NEUROLOGIC: Patient is alert and oriented at least to self and place. Speech is slurred, perhaps from old CVA. LABORATORY DATA: Hemoglobin is 9, white count 3.7, platelet count is normal. Potassium 3.5, sodium 144, BUN 109, creatinine 10.7, glucose 123, calcium 8.3, albumin 3.5, globulin 4.5. No previous labs are available. CPK 705. Urinalysis and renal ultrasound are pending. IMPRESSION: 1. Advanced renal failure, duration not known. Not clear if her vomiting over the last week was a result of uremia or whether the renal failure is the result of dehydration from vomiting. Low hemoglobin might suggest chronicity. She does not have diabetes mellitus, but does have hypertension. 2. Hypertension, currently appears uncontrolled. 3. Mild metabolic acidosis, secondary to the renal failure. RECOMMENDATIONS: 1. Continue Ringer's lactate at 100 mL an hour for now. 2. The patient is urinating into diapers. May need a Bassett catheter for more accurate assessment if renal function does not improve promptly with hydration. 3. Await urinalysis and urine protein to creatinine ratio. 4. Renal ultrasound was ordered today to assess kidney sizes and echogenicity and of course to rule out obstruction. 5. Avoid all known nephrotoxins such as NSAIDs, IV iodine contrast, and aminoglycoside antibiotics. 6. We will follow patient and recommend further as needed. Thank you for the opportunity to participate in her care. Joselito Ramírez MD [facility]/MODL /[id number]
[2020-01-04] MEDS: TRAMADOL HCL 50 MG TAB PO PRN ×2 (16:30→21:40)
[2020-01-04] MEDS ORDERED: CARBAMIDE PEROXIDE 15 ML BTL OT PRN (17:00)
[2020-01-04] MEDS: NITROGLYCERIN 2% OINT 1 GM PKT TOP SCH (17:12)
[2020-01-04] MEDS: LACTATED RINGER'S 1,000 ML INJ SCH (17:24)
--- NOTE | 2020-01-04 17:36 | Diagnostic Imaging Report ---
WRIST COMPLETE LEFT - 3 views HISTORY: Pain COMPARISON: None available. FINDINGS: Bones: No acute displaced fracture. Linear lucencies in the distal radial metadiaphysis without articular extension is nonspecific. Osseous alignment is within normal limits. Joints: The joint spaces are well-maintained. Soft tissues: The soft tissues appear unremarkable. IMPRESSION: No acute displaced fracture. Signed by: Dr. Nika Rodriguez M.D. on 01/04/2020 5:33 PM
--- NOTE | 2020-01-04 17:59 | NUR ---
PATIENTS BP CONT TO ELEVATE , VOMITING AFTER EACH TIME SHE EATS, CORRINA NOTIFIED OF PATIENTS BP 200/112, HE SAYS TO CALL RENAL TO SEE IF THEY CAN ADD ANYTHING. RENAL CALLED, LEFT MS WITH ANSWERING SERVICE, AWAITING RETURN CALL FROM DR. SHEA
--- NOTE | 2020-01-04 18:22 | NUR ---
BP REMAINS ELEVATED AT 200/112. AWAITING DR. SHEA TO RETURN CALL. PATIENT RESTING COMFORTABLY
--- NOTE | 2020-01-04 18:46 | NUR ---
CALLED ANSWERING SERVICE FOR DR SHEA AGAIN, AWAITING CALL BACK
--- NOTE | 2020-01-04 19:18 | History and Physical ---
PCP: Not listed. CONSULTING PHYSICIANS: 1. Dr. Nickolas Bailey. 2. Dr. Winn with Psychiatry. 3. Dr. Bentley with Gastroenterology. CHIEF COMPLAINT: Nausea and vomiting. HISTORY OF PRESENT ILLNESS: The patient is a 54-year-old female with vomiting of about one week duration along with general malaise and weakness. She has underlying history of schizophrenia and lives at [facility]. She was seen and evaluated in the emergency department, and found to be in acute renal failure with a creatinine of [address] Bailey with Nephrology consulted and lactated Ringer's at 100 mL an hour through peripheral IV. PAST MEDICAL HISTORY: Schizophrenia, hypertension, chronic congestive heart failure of unknown type, chronic back pain, insomnia, chronic pain, and chronic constipation. PAST SURGICAL HISTORY: and neck surgery. FAMILY HISTORY: Mother had hypertension and father had myocardial infarction. SOCIAL HISTORY: Currently, smokes about 2 to 4 cigarettes per day. Has smoked for about 15 years. The patient admits that she has previous drug addict and alcoholic. Cocaine was her drug of choice. She lives at [facility]. ALLERGIES: CODEINE. REVIEW OF SYSTEMS: CONSTITUTIONAL: Denies any significant weight loss or weight gain. No fever or chills. EYES, EARS, NOSE, AND THROAT: No complaints of eyes, ears, nose. She does have a sore throat. States her teeth hurt. RESPIRATORY: Short of breath today. Denies cough or phlegm. GENITOURINARY: She refused placement of a Bassett catheter, but admits that it is difficult to urinate. She is currently wearing a diaper. PSYCHIATRIC: In the emergency department per the physician's note, she is awake, alert, and oriented x3, but had erratic behavior with rapid mood swings. INTEGUMENTARY: Denies skin problems. CARDIOVASCULAR: No complaints of chest pain or palpitations. GASTROINTESTINAL: The patient has been having projectile vomiting today. She states she usually has a bowel movement about once every 2 weeks. Reports that her last bowel movement was yesterday, however, I am not sure how reliable she is in regard to memory and her provided history. MUSCULOSKELETAL: Complains of swelling in both arms. NEUROLOGICAL: Had a headache yesterday. This is improved. ENDOCRINE: Denies history of diabetes. HEMATOLOGIC: Denies bleeding or bruising. PHYSICAL EXAMINATION: VITAL SIGNS: Temperature 97.5, blood pressure 198/114, heart rate 78, respirations 18, and oxygen saturation 100%. Height 5 feet 4.5 inches, weight 195 pounds, BMI 33. GENERAL: Lying supine in bed, asleep, easily arousable. LUNGS: Clear to auscultation. Respiratory pattern even unlabored. Diminished bases. HEENT: EOMI. NECK: Supple. CARDIOVASCULAR: Regular rate and rhythm. No murmur. LR at 100 mL an hour through a peripheral IV. ABDOMEN: Bowel sounds positive. Soft, nontender, and obese. EXTREMITIES: No clubbing, cyanosis, or edema. No signs of DVT. NEUROLOGICAL: GCS 15. Nonfocal. PSYCHIATRIC: Flight of ideas requires redirecting to task frequently. LABORATORY DATA: WBC 3.73, hemoglobin 9.0, hematocrit 28.4, and platelets 218. Sodium 144, potassium 3.5, chloride 107, CO2 18, anion gap 22.5, BUN 109, creatinine 10.72, estimated GFR 5, glucose 123, calcium 8.3, and total protein 0.3. AST 14, ALT 7, and alkaline phosphatase 76. Creatine kinase 534, CK-MB 2.7, and troponin I 0.051. Total protein 8.0 and albumin 3.5. Subsequent creatine kinase 705, CK-MB 4.3, and troponin I 0.052. Ethyl alcohol less than 10. Coronavirus by PCR is pending. RADIOLOGY: Abdominal x-ray showed abundant stool in the colon consistent with clinical history of constipation. A 1.2 cm calcification adjacent to the left L3 transverse process, which could represent a ureteral stone, less likely in the absence of acute symptoms. Alternatively, it may represent a soft tissue calcification or any enteric contents. Telemetry shows sinus rhythm with a heart rate of 79. The renal ultrasound has been ordered results are pending. ASSESSMENT AND PLAN: 1. Advanced renal failure, duration unknown. BUN 109, creatinine of 10, serum bicarbonate 18. It is not clear if her vomiting over the last week was result of uremia with renal failure is the result of dehydration from vomiting. Continue IV fluids of lactated Ringer's at 100 mL an hour for now, defer any change of type or rate of IV fluids to Nephrology. Await renal ultrasound and urinalysis results. Avoid nephrotoxins such as NSAIDs, IV iron, iodine contrast, and aminoglycoside antibiotics. 2. Nausea and vomiting with dehydration, projectile vomiting today. Rehydration with IV fluids as per Nephrology recommendations. Zofran was ineffective. Phenergan p.r.n. ordered, however, the patient has not required that as of yet. Gastroenterology was consulted due to projectile vomiting and severe constipation as evidenced by KUB. 3. Uncontrolled hypertension with probable underlying chronic kidney disease and chronic congestive heart failure. Appreciate recommendations from Nephrology. Continue metoprolol tartrate 100 mg b.i.d. and p.r.n. IV hydralazine. 4. Congestive heart failure, type unknown, chronic. We will get an echocardiogram and this later be read by Dr. Khalil. Strict intake and output. 5. Mild metabolic acidosis due to renal failure. Monitor serum CO2. 6. Anemia of chronic disease. No known bleeding. Monitor H and H. 7. Acute hypokalemia. Potassium 3.5, monitor. Defer any repletion to Nephrology. 8. Schizophrenia. Per ED MD note, erratic behavior and rapid mood swings at times. Home psychiatric medications have been renewed. Psychiatric consult has been ordered with Dr. Winn. 9. Active smoker, history of drug addiction and alcoholism. The patient is currently on nicotine patch. We will ask that dosage be changed to 7 mg. 10. Left wrist swelling, rule out fracture. Left wrist is tender to touch and does appear swollen. The patient denies any fall. We will get left wrist radius and ulna x-ray. 11. Obesity with BMI 33. Dietary restrictions with renal diet. 12. Assisted living facility resident, supportive care. Time spent, 70 minutes. Billing code, [id number]. Dictated by Alec Ferguson, DANIELLA Navarro Ortega MD [facility] /[id number]
[2020-01-04] MEDS ORDERED: CLONIDINE HCL 0.3MG/24 HR PATCH TOP SCH (19:30)
--- NOTE | 2020-01-04 19:46 | NUR ---
spoke to Dr. Joselito Ramírez at this time. New orders received to lower IVF rate to 75mls/hr, labs for tomorrow, Enalapril 1.25mg iv q6h scheduled with parameters to hold if systolic is less than 110.
[2020-01-04] MEDS ORDERED: ACETAMINOPHEN 325 MG TAB PO PRN (20:30)
[2020-01-04] MEDS ORDERED: ATORVASTATIN 20 MG TAB PO SCH (21:00)
[2020-01-04] MEDS: ATORVASTATIN 40 MG TAB PO SCH (21:33)
--- NOTE | 2020-01-04 21:33 | NUR ---
Patient refused to lay flat for ct of the head at this time. chief technical officer explained to her that she only has to lay flat for 3 mins. Patient stated "no I won't". Notified [place] and Dr. Jose Bentley, will try to get ct done at a later time. Addendum: 01/04/20 at 2222 by Stanley Borrego RN ct of the brain, not head
[2020-01-04 23:04] LABS: CREATINE KINASE MB 4.7 ng/mL (0-5.0)
[2020-01-04] MEDS: ENALAPRILAT IV INJ 1.25 MG/ML VIAL IV SCH (23:20)
[2020-01-05 00:25] VITALS: BP 174/89
[2020-01-05 04:00] VITALS: BP 188/107
[2020-01-05] MEDS: HYDRALAZINE HCL 20 MG/ML VIAL IV PRN (04:12)
[2020-01-05] MEDS: ENALAPRILAT IV INJ 1.25 MG/ML VIAL IV SCH (05:30)
[2020-01-05] MEDS: LACTATED RINGER'S 1,000 ML INJ SCH (06:03)
[2020-01-05 06:21] LABS: CLARITY,URINE SL CLOUDY (CLEAR); COLOR,URINE ORANGE (YELLOW)
[2020-01-05 06:22] LABS: KETONES,URINE NEGATIVE (NEGATIVE); LEUKOCYTE ESTERASE ,URINE SMALL (NEGATIVE); NITRITE,URINE NEGATIVE (NEGATIVE); PROTEIN,URINE DIPSTICK >=300 (NEGATIVE); URINE UROBILINOGEN 0.2 mg/dL (0.2 - 1)
[2020-01-05 06:23] LABS: BACTERIA,URINE RARE /HPF; BILIRUBIN,URINE NEGATIVE (NEGATIVE); EPITHELIAL CELLS,URINE FEW /LPF
[2020-01-05 06:31] VITALS: BP 176/87
--- NOTE | 2020-01-05 07:00 | NUR ---
BEDSIDE SHIFT REPORT RECEIVED PT IN STABLE CONDITION, DENIES PAIN AT THIS TIME, UPDATED ON POC VOICED UNDERSTANDING NO OTHER CO VOICED CALL LIGHT IN REACH WILL CONTINUE TO MONITOR
--- NOTE | 2020-01-05 08:16 | NUR ---
PT REFUSED MORNING LABS
[2020-01-05] MEDS: CARBAMIDE PEROXIDE 15 ML BTL OT SCH (09:00)
[2020-01-05] MEDS: QUETIAPINE FUMARATE 100 MG TAB PO SCH (09:00)
[2020-01-05] MEDS ORDERED: NON-FORMULARY MEDICATION (Isosorbide Mononitrate (Isosorbide Mononitrate Er) 60 MG) PO SCH (09:00)
[2020-01-05] MEDS: METOPROLOL TARTRATE 50 MG TAB PO SCH ×2 (10:30→17:00)
[2020-01-05] MEDS: ISOSORBIDE MONONITRATE 30 MG TAB CR PO SCH (10:30)
[2020-01-05] MEDS: RISPERIDONE 1 MG TAB PO SCH ×2 (10:30→21:47)
[2020-01-05] MEDS: NITROGLYCERIN 2% OINT 1 GM PKT TOP SCH ×2 (10:30→17:46)
[2020-01-05] MEDS: NICOTINE 7 MG PATCH TOP SCH (10:30)
[2020-01-05] MEDS: HYDRALAZINE HCL 25 MG TAB PO SCH ×3 (10:40→21:00)
[2020-01-05 11:14] VITALS: BP 177/111
--- NOTE | 2020-01-05 11:15 | Diagnostic Imaging Report ---
EXAM: US RENAL RETROPERITONEAL COMP DATE: 01/05/2020 9:58 AM INDICATION: Acute kidney injury COMPARISON: None FINDINGS: The right kidney appears mildly decreased in size measuring 8.7 x 4.6 x 4.4 cm with cortical thickness of 1.57 m. Cortical echogenicity is increased. There is no evidence for solid renal mass, hydronephrosis, or shadowing calculi. The left kidney appears mildly decreased in size measuring 8.3 x 4.3 x 3.9 cm with cortical thickness of 1.4 cm. Cortical echogenicity is increased. There is no evidence for solid renal mass, hydronephrosis, or shadowing calculi. The urinary bladder demonstrates no significant abnormalities. Prevoid volume is 437 cc. IMPRESSION: Bilateral increased renal cortical echogenicity which can be seen in the setting of medical renal disease. Signed by: Dr. Doug Rosales MD on 01/05/2020 11:12 AM
[2020-01-05] MEDS ORDERED: SODIUM CHLORIDE 0.45% 1,000 ML IV SCH (11:30)
--- NOTE | 2020-01-05 11:30 | NUR ---
PT STATES SHE HAS A DIFFICULT TIME URINATING, DR ESPINAL NOTIFIED, NEW ORDERS NOTED, PT REFUSED RAMON CATHETER INSERTIONS,
--- NOTE | 2020-01-05 12:02 | Progress Note ---
DATE: 01/05/2020 Renal Progress Note. SUBJECTIVE: Followed for acute kidney injury on chronic kidney disease, stage not clear. However, based on yesterday's BUN and creatinine, the patient appears to be chronically at CKD stage 5. The patient came in with uremic symptoms, possible urinary retention. The patient refused Bassett catheter yesterday. She is also refusing to do any form of dialysis. Her creatinine on admission was 10.7, BUN of 109. She has been on IV fluid hydration overnight. Bicarb was 18 yesterday. No current nausea. No active vomiting at this time. OBJECTIVE: VITAL SIGNS: Vital signs are noted as follows, blood pressure is 176/87, afebrile, 87 pulse, 20 respirations. LUNGS: Clear to auscultation bilaterally. CARDIOVASCULAR: S1, S2. No rub. ABDOMEN: Soft, nontender. EXTREMITIES: No edema. LABORATORY DATA: As follows from yesterday, potassium 3.5, BUN 109, creatinine of 10.7, bicarb of 18. Hemoglobin is 9, hematocrit 28.4, urinalysis is at 11 to 20 WBCs, more than 300 urine protein. IMPRESSION: 1. Acute kidney injury on chronic kidney disease, stage 5, suspect that baseline has chronic kidney disease stage 5. There may be a component of acute prerenal azotemia from the patient having nausea, vomiting. The patient is on some IV fluids. Would keep the patient on half-normal saline at 50 mL/hour. We will also insert a Bassett catheter since she may have urinary retention and obstructive uropathy. Renal ultrasound has been ordered, however, has not been done or the results have not resulted yet. The patient at this time is currently refusing dialysis acutely or even chronically. We will revisit with the patient in a.m., tomorrow to see whether or not she has changed her mind. We will also have repeat blood work back by tomorrow to see if there has been any improvement. Continue with empiric IV antibiotics for UTI. Avoid all potential nephrotoxic agents. Avoid MENDEZ inhibitors or ARB and also identify the drugs and IV dye. Continue gentle IV fluid hydration. We will change fluids to half NS at 50 mL/hour. We will await results of the renal ultrasound and make further recommendations. 2. Hypertension. We will titrate her blood pressure medications. We will make further recommendations. 3. Metabolic acidosis. We will add sodium bicarbonate, likely has metabolic acidosis, chronically from the patient's chronic kidney disease. 4. Anemia of chronic disease, we will check iron studies and start patient on Epogen. 5. We will discuss again with the patient in a.m. as I recommend that she would benefit from starting on at least acute dialysis and probably continuing in the outpatient setting. We will discuss this with the patient again tomorrow. For now, she is refusing that. Nickolas Bailey MD /MODL /[id number]
[2020-01-05 12:04] VITALS: BP 177/111
[2020-01-05] MEDS ORDERED: QUETIAPINE FUMARATE 100 MG TAB PO SCH (13:00)
[2020-01-05] MEDS: CEFTRIAXONE SOD 1 GM/NS 50 ML 50 ML IV SCH (15:17)
[2020-01-05 15:20] VITALS: BP 151/89
--- NOTE | 2020-01-05 16:56 | NUR ---
Nutrition Screen Note RD Recommendation for Physician: -Continue renal diet - If PO intake is <50% of meals, offer Nepro nutrition supplement Plan of Care: RD following, monitoring for tolerance and adequacy Nutrition reason for involvement: Nutrition Risk Trigger MST 2 Primary Diagnose(s): acute renal failure, generalized weakness, schizophrenia PMH: Schizophrenia, hypertension, chronic congestive heart failure of unknown type, chronic back pain, insomnia, chronic pain, and chronic constipation. Ht: 64 in Wt: 188 lb BMI: 32.3 kg/m2 IBW:[address] Assessment: (01/05/20) Chart reviewed. Labs and meds reviewed. Pt is a 54 year old female admitted with acute renal failure with a Cr 10.72 and BUN 109, generalized weakness, and schizophrenia. MD note indicates pt is refusing dialysis. Pt reports she is eating about 50% of her meals. As recorded, pt has varied intake ranging from 0-75% of meals during admission. Pt also mentioned she usually weighs 200 lbs but unable to gather from pt when she last weighted this amount. Per weight history, it is noted that pt weighed 198 lbs in October 2018. Pt currently weighs 188 lbs. Will continue to monitor. Current Diet: renal diet Malnutrition Evaluation (01/05/20) The patient does not meet criteria for a specified degree of malnutrition at this time. Will re-evaluate at follow-up as appropriate. Diet Education Needs Assessment: RD is available for diet education as needed Nutrition Care Level: low Signed: Kimi Miles RD, LD
[2020-01-05] MEDS ORDERED: RISPERIDONE 1 MG TAB PO SCH (17:00)
[2020-01-05] MEDS: SODIUM BICARBONATE 650 MG TAB PO SCH (17:46)
--- NOTE | 2020-01-05 17:47 | NUR ---
PT VOMITING, PT REFUSED ZOFRAN TO BE GIVEN, EDUCATED PT ON USAGE OF ZOFRAN, BUT PT REFUSES TO TAKE MEDICATION IV. COOL WASH CLOTH PROVIDED TO PTS HEAD
--- NOTE | 2020-01-05 19:11 | NUR ---
WALKING ROUNDS PERFORMED, RECEIVED PT LAYING SEMI FOWLERS IN BED, AAOX3, RR EVEN AND NON-LABORED, ON ROOM AIR. NO S/SX OF DISTRESS NOTED. LEFT PT LAYING SEMI FOWLERS IN BED, BED IN LOW LOCKED POSITION, SIDE RAILS UPX2, CALL LIGHT AND PHONE WITHIN REACH. BED ALARM ACTIVATED ZONE 1.
--- NOTE | 2020-01-05 19:35 | Consultation ---
DATE OF CONSULTATION: 01/05/2020 Psychiatric Consultation. REASON FOR CONSULTATION: Evaluate patient's schizophrenia. HISTORY OF PRESENT ILLNESS: The patient is a 54-year-old female, admitted to hospital for acute renal failure, anemia, and generalized weakness. Psychiatric consultation is called to evaluate patient's medication and psychosis. As per the medical record, the patient lives at [facility] with schizophrenia, hypertension, chronic congestive heart failure, chronic back pain, insomnia, chronic pain, and chronic constipation. Upon evaluation today, the patient is found to be lying on the bed in the room. She is alert, awake, and oriented to situation. Speech is poor, hesitant and somewhat labored. She reports feeling depressed due to being in the hospital. She denies any anxiety. Denies any hallucinations. Denies any suicidal and homicidal ideation. She is not paranoid at this time. Denies any problem with sleep, but claims she is not eating well. The patient reports history of schizophrenia and bipolar. PAST PSYCHIATRIC HISTORY: The patient reports history of bipolar and schizophrenia for many years. She denies past suicide attempts. She denies alcohol or drug use. FAMILY HISTORY: Denies. SOCIAL HISTORY: The patient lives alone, but as per records, she lives at the assisted living facility. MENTAL STATUS EXAM: The patient is an elderly female, middle-aged, obese. She is calm and cooperative. She is not anxious, but is depressed. Affect is blunt. Psychomotor state, having some retardation. Denies any hallucination. Denies suicidal or homicidal ideation. Thought process is mildly disorganized. No paranoia elicited. Insight and judgment are limited to fair. Memory appears to be grossly intact. CURRENT MEDICATIONS: 1. Hydralazine. 2. Nicotine. 3. Imdur. 4. Nitroglycerin. 5. Risperdal 2 mg p.o. b.i.d. 6. Metoprolol. 7. Hydralazine. 8. Tramadol. 9. Ondansetron. 10. Atorvastatin. 11. Clonidine. 12. Debrox. 13. Seroquel 150 mg b.i.d. 14. Sodium bicarbonate. 15. Ceftriaxone. 16. Sodium chloride. 17. Acetaminophen. 18. Flonase. 19. Tessalon. 20. Klonopin 1 p.o. 3 times a day as needed. 21. Dextrose. CURRENT LABS: WBC 3.73, RBC 3.14, hemoglobin 9, hematocrit 28.4, platelets 218. Sodium 144, potassium 3.5, chloride 107, CO2 of 18, BUN 109, creatinine 10.72, AST 14, ALT 7. ASSESSMENT: Schizoaffective disorder, bipolar type. PLAN: 1. Adjust Seroquel dosage to 150 mg p.o. q.12 hours. 2. Reduce Risperdal. 3. Add Depakote. 4. Monitor for agitation. 5. Supportive therapy. Thank you for this consultation. Dictated by Saundra Lew PA-C Janak Winn MD QTV/MODL /[id number]
[2020-01-05] MEDS: DIVALPROEX SODIUM 250 MG TAB...DR PO SCH (21:00)
[2020-01-05] MEDS: QUETIAPINE FUMARATE 25 MG TAB PO SCH (21:00)
[2020-01-05] MEDS: ATORVASTATIN 40 MG TAB PO SCH (21:47)
[2020-01-05] MEDS ORDERED: MAGNESIUM HYDROXIDE 30 ML UDC PO ONE (22:45)
[2020-01-06] VITALS (8 sets, daily range): BP systolic 167–210; BP diastolic 77–129
--- NOTE | 2020-01-06 | NUR ---
PT REFUSED VITALS AT THIS TIME.
--- NOTE | 2020-01-06 03:52 | Progress Note ---
DATE: 01/05/2020 SUBJECTIVE: Per nurse, the patient refused Colace, Seroquel, and Depakote. The patient states that "Rocephin makes me sick." She reportedly ate five packets crackers without nausea or vomiting. Her last bowel movement was Sunday. OBJECTIVE: VITAL SIGNS: Temperature 98.4, heart rate 87, blood pressure 176/87 this morning, respirations 20, and oxygen saturation 98%. GENERAL: Supine. LUNGS: Clear to auscultation. Diminished bases. HEENT: EOMI. NECK: Supple. CARDIOVASCULAR: Regular rate and rhythm. No murmur. ABDOMEN: Bowel sounds positive. Soft, nontender, obese. EXTREMITIES: No clubbing or cyanosis. No signs of DVT. NEUROLOGICAL: GCS 15. Nonfocal. PSYCHIATRIC: Flight of ideas requires redirecting to task frequently. LABORATORY DATA: WBC 3.73, hemoglobin 9.0, hematocrit 28.4, platelets 218. Fingerstick blood glucose level 162. Urinalysis with orange urine, slightly cloudy, pH 7, specific gravity 1.020, urine protein greater than or equal to 300, large amount of blood, small amount of leukocyte esterase, rbc's 11-20 and wbc's 11-20, rare urine bacteria. Urine creatinine 80.39. Renal ultrasound completed today shows bilateral increased renal cortical echogenicity, which can be seen in the setting of medical renal disease. ASSESSMENT AND PLAN: 1. Advanced renal failure, duration unknown. Nephrology following. Continue IV fluids, LR at 100 mL an hour as per order. Avoid nephrotoxins such as NSAIDs, IV iron, iodine contrast and aminoglycoside antibiotics. 2. Nausea and vomiting with dehydration, projectile vomiting 01/03. Rehydration with IV fluids as per Nephrology recommendations. 3. Uncontrolled hypertension with probable underlying chronic kidney disease and chronic congestive heart failure. Continue beta-hi and IV hydralazine. 4. Congestive heart failure, type unknown, chronic. Echocardiogram completed today showed estimated ejection fraction of 50% to 55%. Strict intake and output. 5. Mild metabolic acidosis due to renal failure. Recheck chemistry and CBC in the morning. 6. Mild acute hypokalemia. Potassium 3.5. Reassess in a.m. 7. Schizophrenia. Per ED MD note, paretic behavior with rapid mood swings at times. Psychiatrist following. 8. Active smoker, history of drug addiction and alcoholism, nicotine patch 7 mg. 9. Obesity with BMI 33. 10. Left wrist swelling, rule out fracture. The patient underwent x-ray, no fractures noted. Billing code [id number]. Time spent 35 minutes. Dictated by Alec Ferguson NP MD JED Anderson/FRANKIEL /[id number]
[2020-01-06 05:42] LABS: BASOPHILS % 0.5 % (0.0-1.0); EOSINOPHILS # (AUTO) 0.1 (0.0-0.4); EOSINOPHILS % 2.7 % (0.0-6.0); HEMATOCRIT 28.4 % (34.2-44.1); HEMOGLOBIN 8.8 g/dL (12.0-16.0); LYMPHOCYTES # (AUTO) 0.8 (1.0-3.2); MEAN CORPUSCULAR HEMOGLOBIN 28.5 pg (28-32); MEAN CORPUSCULAR VOLUME 91.9 fL (81-99); MONOCYTES # (AUTO) 0.3 (0.2-0.8); MONOCYTES % 8.8 % (4.4-11.3); NEUTROPHILS # (AUTO) 2.4 (2.1-6.9); NEUTROPHILS % 65.5 % (38.7-80.0); PLATELET COUNT 226 x10e3/uL (140-360); RED BLOOD COUNT 3.09 x10e6/uL (3.6-5.1); RED CELL DISTRIBUTION WIDTH 13.2 % (11.7-14.4)
[2020-01-06 06:10] LABS: MAGNESIUM 1.8 MG/DL (1.3-2.1); PHOSPHORUS 5.7 MG/DL (2.3-4.7)
[2020-01-06 06:48] LABS: ALBUMIN 3.1 g/dL (3.5-5.0); ALBUMIN/GLOBULIN RATIO 0.7 (0.8-2.0); ANION GAP 22.2 mmol/L (8-16); CALCIUM 7.9 mg/dL (8.4-10.2); CREATININE, SERUM 11.06 mg/dL (0.57-1.11); POTASSIUM 3.2 mmol/L (3.5-5.1)
--- NOTE | 2020-01-06 07:00 | NUR ---
BEDSIDE SHIFT REPORT RECEIVED PT IN STABLE CONDITION DENIES PAIN AT THIS TIME, UPDATED ON POC VOICED UNDERSTANDING, CALL LIGHT IN REACH WILL CONTINUE TO MONITOR
[2020-01-06 07:27] LABS: FERRITIN 290.47 ng/mL (4.63-204.00)
[2020-01-06 07:35] LABS: THYROID STIMULATING HORMONE 1.013 uIU/mL (0.350-4.940)
[2020-01-06] MEDS: DIVALPROEX SODIUM 250 MG TAB...DR PO SCH ×2 (09:00→19:47)
[2020-01-06] MEDS: CARBAMIDE PEROXIDE 15 ML BTL OT SCH (09:00)
[2020-01-06] MEDS: QUETIAPINE FUMARATE 25 MG TAB PO SCH ×2 (09:00→19:47)
[2020-01-06] MEDS: HYDRALAZINE HCL 25 MG TAB PO SCH (10:05)
[2020-01-06] MEDS: ISOSORBIDE MONONITRATE 30 MG TAB CR PO SCH (10:05)
[2020-01-06] MEDS: RISPERIDONE 1 MG TAB PO SCH ×2 (10:06→19:47)
[2020-01-06] MEDS: METOPROLOL TARTRATE 50 MG TAB PO SCH ×2 (10:06→17:27)
[2020-01-06] MEDS: SODIUM BICARBONATE 650 MG TAB PO SCH ×2 (10:07→17:25)
[2020-01-06] MEDS: NITROGLYCERIN 2% OINT 1 GM PKT TOP SCH ×2 (10:07→17:26)
[2020-01-06] MEDS: NICOTINE 7 MG PATCH TOP SCH (10:07)
--- NOTE | 2020-01-06 10:26 | NUR ---
PAGED DR CARLSON RE: BLOOD PRESSURE MANAGEMENT AWAITING CALL BACK
--- NOTE | 2020-01-06 10:57 | NUR ---
DR CARLSON SPOKE WITH PT, PT AGREED TO HAVE HD CATH PLACED AN DIALYSIS, DR CARLSON SPOKE WITH PTS DAUGHTER IN LAW [place] AND UPDATED ON POC. ALL QUESTIONS ANSWERED
[2020-01-06] MEDS ORDERED: POTASSIUM CHLORIDE 20 MEQ TAB CR PO ONE (11:00)
--- NOTE | 2020-01-06 11:14 | Progress Note ---
DATE: 01/06/2020 Renal Progress Note SUBJECTIVE: Followed for chronic kidney disease stage 5. Creatinine has not improved in fact it is slightly worse. BUN did improve somewhat with IV fluid hydration, however, feel the patient is at end-stage renal disease. She came in with uremic symptoms. So far, has been refusing dialysis. No nausea, no vomiting, no shortness of breath today, but blood pressures have been elevated. OBJECTIVE: VITAL SIGNS: Noted. Blood pressure is 188/99, 84 pulse, 20 respiration, afebrile. LUNGS: Clear to auscultation bilaterally. CARDIOVASCULAR: S1, S2. No rub. ABDOMEN: Soft, nontender. EXTREMITIES: No edema. LABORATORY DATA: H and H 8.9 and 28.4. Chemistries; sodium 146, potassium 3.2, chloride 104, bicarb 23, BUN 86, creatinine 11.06. IMPRESSION AND PLAN: 1. Chronic kidney disease stage 5/end-stage renal disease. The patient would benefit from starting on acute and chronic dialysis, however, she is refusing at this point. Once the patient is agreeable, then I would recommend to get a tunneled dialysis catheter placed and also make arrangements for outpatient dialysis and also start dialysis during hospitalization. For now, we will discontinue the IV fluids since further IV fluid is not going to improve her kidney function and the fact it might worsen her blood pressure. 2. Hypertension. We will increase hydralazine to 100 mg q.6 hours. 3. Mild hypokalemia. We will replace with 40 mEq p.o. x1. 4. Anemia of chronic disease. We will not give Epogen at this time since blood pressures is too high. The patient's iron stores are not significantly depleted at this time. If continues to have a trend downward of her hemoglobin would place the patient on IV Venofer. Thank you once again. MD GHAZAL Urban/MODL /[id number]
--- NOTE | 2020-01-06 11:30 | NUR ---
CONSENTS SIGNED FOR HD CATH AND DIALYSIS
--- NOTE | 2020-01-06 11:32 | NUR ---
CALLED PERSON TO NOTIFY WHOM IS A FAMILY FRIEND, SHE STATES PT IS ABLE TO SIGN FOR SELF AND IS OWN RESPONSIBLE [employer]STITUTION [employer]. LET HER KNOW WILL BE SETTING UP FOR DIALYSIS. SHE AGREED WITH THE [facility] PLACEMENT. PATIENT GIVEN OPTIONS AND INITIALED CHOICE FORM FOR [facility]. ASKED NURSE TO ORDER LABS AND WILL FAX CLINICALS TO [facility] ADMISSIONS LINE.
--- NOTE | 2020-01-06 11:59 | Progress Note ---
DATE: ADDENDUM: I discussed the case extensively with the patient's son and [id number] over the phone. I answered all questions with regard to the patient's chronic kidney disease. The patient is at CKD stage 5/end-stage renal disease. I indicated to the patient's family that the patient presented with uremic symptoms, particularly some nausea and vomiting episodes, also may have some altered mental status, possibly the fact that she was not as coherent yesterday and even today, although today she has improved with some IV fluid hydration. There is a possibility that her mental status may improve somewhat and some of this may be from uremia. However, since we have not done the dialysis, we will not know until after doing dialysis whether uremic symptoms will improve in terms of the mental status. Also, I did indicate that her blood pressure has been running high and that will hopefully also improve with starting on dialysis. The patient also has agreed to start on dialysis. I have arranged for a tunneled dialysis catheter to be placed in outpatient dialysis placement. MD GHAZAL Urban/MODL /[id number]
[2020-01-06] MEDS: HYDRALAZINE HCL 100 MG TABLET PO SCH ×3 (12:00→23:58)
[2020-01-06] MEDS: CEFTRIAXONE SOD 1 GM/NS 50 ML 50 ML IV SCH (12:00)
[2020-01-06] MEDS ORDERED: HYDRALAZINE HCL 25 MG TAB PO SCH (12:00)
--- NOTE | 2020-01-06 12:40 | NUR ---
IV INFILTRATED, R 20G REMOVED COVERED WITH 2X2 AND TAPE, L FA 20G X 1 STICK TOLERATED WELL,
--- NOTE | 2020-01-06 13:00 | NUR ---
PT REFUSED ANTIBIOTIC
[2020-01-06 13:48] LABS: INR 0.98; PROTHROMBIN TIME 13.6 seconds (11.9-14.5)
[2020-01-06 13:50] LABS: PARTIAL THROMBOPLASTIN TIME 48.3 seconds (23.8-35.5)
--- NOTE | 2020-01-06 15:17 | NUR ---
SPOKE WITH DR CARLSON, RE: RADIOLOGY UNABLE TO DO HD CATH PLACEMENT TODAY AND PT REFUSING TO GO TODAY DUE TO SHE WAS HUNGRY, ORDERED OK TO PLACE HD CATH IN AM,
--- NOTE | 2020-01-06 16:50 | NUR ---
SON STATED HE LEFT $20.00 IN MOTHERS CIGARETTE PACK. PT REFUSES CIGARETTE PACK TO BE LOCKED UP FOR SECURITY, MONEY AND CIGARETTE PACK LEFT IN PT RM.
[2020-01-06] MEDS: HYDRALAZINE HCL 20 MG/ML VIAL IV PRN ×2 (17:32→23:58)
--- NOTE | 2020-01-06 17:32 | NUR ---
BP 210/120, BP MEDS AND PRN MEDS GIVEN WILL RECHECK
[2020-01-06] MEDS: ONDANSETRON HCL INJ 2MG/ML 2ML 2 MG/ML VIAL IV PRN (17:40)
--- NOTE | 2020-01-06 17:52 | Diagnostic Imaging Report ---
Examination: Single AP view of the chest. COMPARISON: None. INDICATION: Renal failure, shortness of breath IMPRESSION: 1. Lines and Tubes: None 2. Lungs are well-inflated. Central pulmonary vascular congestion and mild perihilar interstitial opacities, likely reflecting mild fluid overload. No overt alveolar edema or pleural effusion. 3. Mildly prominent cardiac silhouette, which may be partly due to AP projection. 4. No acute bony abnormalities. Signed by: Dr. Hong Gonzalez M.D. on 01/06/2020 5:49 PM
--- NOTE | 2020-01-06 18:10 | NUR ---
bp recheck 202/129,
--- NOTE | 2020-01-06 19:10 | NUR ---
WALKING ROUNDS PERFORMED, RECEIVED PT LAYING SEMI FOWLERS IN BED, AAOX3, RR EVEN AND NON-LABORED, ON ROOM AIR. NO S/SX OF DISTRESS NOTED. LEFT PT LAYING SEMI FOWLERS IN BED, BED IN LOW LOCKED POSITION, SIDE RAILS UPX2, CALL LIGHT AND PHONE WITHIN REACH. Addendum: 01/07/20 at 0250 by Rachell Fernandez RN PLEASE DISREGARD NOTE, DUPLICATE
[2020-01-06] MEDS: ATORVASTATIN 40 MG TAB PO SCH (19:47)
[2020-01-07] VITALS (9 sets, daily range): BP systolic 142–225; BP diastolic 90–136
--- NOTE | 2020-01-07 01:30 | NUR ---
MD Marilyn AQUINO AT BEDSIDE PT REPORTING THAT HER MOUTH IS HURTING. WHEN ASKED HOW LONG IT HAS BEEN HURTING PT REPORTS FOR ABOUT A WEEK. USED TONGUE DEPRESSOR AND PEN LIGHT TO ASSESS MOUTH. WAS INSTRUCTED BY MD Marilyn AQUINO TO CALL MD LERMA IN THE MORNING FOR A POSSIBLE ENT CONSULT.
[2020-01-07] MEDS ORDERED: MAGNESIUM HYDROXIDE 30 ML UDC PO ONE (01:45)
[2020-01-07] MEDS: HYDRALAZINE HCL 100 MG TABLET PO SCH ×3 (01:47→18:22)
[2020-01-07] MEDS: TRAMADOL HCL 50 MG TAB PO PRN (02:07)
[2020-01-07] MEDS: HYDRALAZINE HCL 20 MG/ML VIAL IV PRN (05:24)
[2020-01-07 05:41] LABS: BASOPHILS % 0.7 % (0.0-1.0); EOSINOPHILS # (AUTO) 0.1 (0.0-0.4); HEMATOCRIT 28.3 % (34.2-44.1); HEMOGLOBIN 8.8 g/dL (12.0-16.0); LYMPHOCYTES # (AUTO) 0.8 (1.0-3.2); LYMPHOCYTES % 18.4 % (18.0-39.1); MEAN CORPUSCULAR HEMOGLOBIN 28.7 pg (28-32); MEAN CORPUSCULAR HGB CONC 31.1 g/dL (31-35); MEAN CORPUSCULAR VOLUME 92.2 fL (81-99); MONOCYTES # (AUTO) 0.3 (0.2-0.8); MONOCYTES % 6.8 % (4.4-11.3); NEUTROPHILS # (AUTO) 3.1 (2.1-6.9); NEUTROPHILS % 71.4 % (38.7-80.0); PLATELET COUNT 233 x10e3/uL (140-360); RED BLOOD COUNT 3.07 x10e6/uL (3.6-5.1); RED CELL DISTRIBUTION WIDTH 13.2 % (11.7-14.4)
[2020-01-07 05:51] LABS: ANION GAP 21.4 mmol/L (8-16); CALCIUM 7.8 mg/dL (8.4-10.2); CREATININE, SERUM 11.16 mg/dL (0.57-1.11); POTASSIUM 3.4 mmol/L (3.5-5.1)
--- NOTE | 2020-01-07 06:06 | NUR ---
NOTIFIED PEG TURCIOS, X RAY PHYSICIAN FOR MD LERMA, CONCERNING MD Jin AQUINO SUGGESTION OF POSSIBLE ENT TO SEE PATIENT FOR MOUTH PAIN. WAS INFORMED WILL BE PASSED ONTO X RAY PHYSICIAN CORRINA RODRÍGUEZ WHO WILL BE ROUNDING ON PATIENT TODAY TO ASSESS.
--- NOTE | 2020-01-07 07:00 | NUR ---
RECEIVED PATIENT AWAKE RESTING IN BED NO S/S OF DISTRESS. BED LOW, WHEELS LOCKED, SIDE RAILS X2. CALL LIGHT IN REACH WILL CONTINUE TO MONITOR PATIENT.
[2020-01-07] MEDS ORDERED: SODIUM CHLORIDE 0.9% 500ML 500 ML ONE (07:30)
[2020-01-07] MEDS ORDERED: FENTANYL CITRATE/PF 100MCG/2 ML INJ ONE (07:46)
[2020-01-07] MEDS ORDERED: MIDAZOLAM HCL 2 MG/2 ML VIAL ONE (07:46)
[2020-01-07] MEDS ORDERED: HEPARIN SOD (PORCINE) 1000 UNIT/ML SDV ONE (07:46)
--- NOTE | 2020-01-07 07:54 | NUR ---
PATIENT LEFT UNIT FOR DIALYSIS CATHETER PLACEMENT IN STABLE CONDITION.
--- NOTE | 2020-01-07 08:54 | Diagnostic Imaging Report ---
PROCEDURE: Tunneled hemodialysis catheter Placement CLINICAL HISTORY: Renal failure PROFESSOR OF MECHANICAL ENGINEERING: Rogelio Blackmon DO, MICHAEL ANESTHESIA: Conscious sedation was provided by radiology nursing using constant hemodynamic monitoring for 45 Minutes. Versed IV 1.5 mg, Fentanyl IV 75 mcg. DEVICE: 19 cm tunneled hemodialysis catheter. DOSE INFORMATION - Ka,r: 3 mGy Estimated Blood Loss: < 5cc Samples: None. PROCEDURE: The risks, benefits, and alternatives to the procedure were discussed with the patient. All questions were answered and written informed consent was obtained. A universal timeout was performed prior to starting the procedure. For Prevention of Central Venous Catheter (CVC)-Related Bloodstream Infections all elements of maximal sterile barrier technique, hand hygiene, skin preparation and sterile techniques were followed. Ultrasound of the right internal jugular vein demonstrated a patent and compressible vessel. An ultrasound image of the vessel was obtained. Lidocaine was used for cutaneous anesthesia. Under ultrasound guidance the vessel was accessed with a 19-gauge needle and through this a 0.035 inch 3J wire was positioned in the inferior vena cava. Under fluoroscopic guidance, a 15 English peel-away sheath was advanced over the wire. I next directed my attention to the anterior chest wall which was anesthetized with lidocaine. Below the clavicle a small stab incision was made with a #11 blade. Using a metallic tunneling device connected to the hemodialysis catheter a subcutaneous tract was created from the stab incision to the venotomy site and the catheter was brought out the venotomy site. The core and wire were removed and the hemodialysis catheter was advanced with its tip positioned in the right atrium. Both lumens demonstrated excellent blood return and flushed easily. Each lumen was instilled with heparin. The venotomy site was covered with glue and Steri-Strips. The catheter was secured to the skin with suture. A dry sterile dressing was applied. The patient tolerated procedure well and was returned to the recovery area/floor in stable condition. IMPRESSION: Placement of a right internal jugular tunneled hemodialysis catheter. The catheter is ready for use. Signed by: Rogelio Blackmon MD on 01/07/2020 8:51 AM
[2020-01-07] MEDS ORDERED: CEFAZOLIN SOD 1 GM/NS 50ML 50 ML IV ONE (08:55)
[2020-01-07] MEDS: QUETIAPINE FUMARATE 25 MG TAB PO SCH (09:00)
[2020-01-07] MEDS: DIVALPROEX SODIUM 250 MG TAB...DR PO SCH (09:00)
[2020-01-07] MEDS: CARBAMIDE PEROXIDE 15 ML BTL OT SCH (09:00)
--- NOTE | 2020-01-07 09:20 | NUR ---
PATIENT BACK FROM DIALYSIS CATHETER PLACEMENT.
--- NOTE | 2020-01-07 09:24 | Diagnostic Imaging Report ---
Exam: Head CT without contrast History: Blurry vision, left-sided weakness Comparison studies: None Technique: Axial images were obtained from the skull base to the vertex. Coronal and sagittal images reconstructed from the axial data. Dose modulation, iterative reconstruction, and/or weight based adjustment of the mA/kV was utilized to reduce the radiation dose to as low as reasonably achievable. Radiation dose: Total DLP: 1842.80 mGy*cm. Estimated effective dose: DLP x 0.015 Intravenous contrast: None Findings: Scalp and bones: Surgical changes of prior left occipital craniotomy. No fracture or lytic or blastic lesion. Brain sulci: Appropriate for age. Ventricles: Normal in size and configuration. No hydrocephalus. Extra-axial spaces: No masses, no fluid collection. Parenchyma: Age-indeterminate right striatocapsular infarct extends from the head of the right caudate nucleus to the right putamen. Chronic-appearing lacunar infarct is present in the left striatocapsular region. A few scattered hypodensities in the supratentorial white matter are nonspecific but are most compatible with chronic microvascular ischemic changes. Chronic encephalomalacia and gliosis in the left cerebellar hemisphere are present beneath a left occipital craniotomy. No mass or acute hemorrhage. Sellar/suprasellar region: No abnormalities. Craniocervical junction: Patent foramen magnum. No Chiari one malformation. Incidental findings: Atherosclerotic calcifications in the carotid siphons. IMPRESSION: 1. Age-indeterminate right striatocapsular lacunar infarct. 2. No other acute intracranial abnormalities. 3. Mild chronic microvascular ischemic changes with chronic left striatocapsular lacunar infarct. 4. Surgical changes of prior left occipital craniotomy with encephalomalacia in the underlying left cerebellum. Can correlate with surgical history. Signed by: Dr. Jose Garcia M.D. on 01/07/2020 9:21 AM
[2020-01-07] MEDS: NICOTINE 7 MG PATCH TOP SCH (09:40)
[2020-01-07] MEDS: ISOSORBIDE MONONITRATE 30 MG TAB CR PO SCH (09:40)
[2020-01-07] MEDS: METOPROLOL TARTRATE 50 MG TAB PO SCH ×2 (09:40→18:21)
[2020-01-07] MEDS: SODIUM BICARBONATE 650 MG TAB PO SCH ×2 (09:40→18:22)
[2020-01-07] MEDS: RISPERIDONE 1 MG TAB PO SCH ×3 (09:40→21:37)
[2020-01-07] MEDS: NITROGLYCERIN 2% OINT 1 GM PKT TOP SCH ×2 (09:40→18:22)
[2020-01-07] MEDS: NIFEDIPINE CR 30 MG TAB PO SCH (10:14)
--- NOTE | 2020-01-07 10:27 | Diagnostic Imaging Report ---
HISTORY: ^[id number] ^[id number] COMPARISON: None. TECHNIQUE: Limited ultrasound examination of the abdomen was performed with attention to the right upper quadrant and with spectral and color Doppler. FINDINGS: Liver: The liver is normal in size and echogenicity. No focal lesions. Gallbladder: No stones. No sludge, pericholecystic fluid or wall thickening. Common bile duct: 0.3 cm in maximum diameter. Sonographic Gonzalez's sign: Negative. Main portal vein: 1.2 cm. Pancreas: Visualized portions are normal. Right kidney: The right kidney is normal in size. No hydronephrosis. No sonographically evident solid mass lesion. No ascites nor pleural effusion. IMPRESSION: Unremarkable limited right upper quadrant abdominal exam. Please note that the exam was made available for dictation on 01/07/2020 at 1020. Signed by: Rogelio Blackmon MD on 01/07/2020 10:24 AM
[2020-01-07] MEDS ORDERED: POTASSIUM CHLORIDE 20 MEQ TAB CR PO ONE (10:30)
[2020-01-07] MEDS ORDERED: CLONAZEPAM 1 MG TAB PO PRN (10:45)
--- NOTE | 2020-01-07 10:49 | Progress Note ---
DATE: 01/07/2020 Renal Progress Note SUBJECTIVE: The patient is followed for end-stage renal disease. The patient's kidney function did not improve during this hospitalization. Creatinine is 11. The patient is status post tunneled dialysis catheter placement. Currently, the blood pressure still elevated. No nausea. No vomiting. No shortness of breath. OBJECTIVE: VITAL SIGNS: Have been noted. Blood pressure is 180s/100s, afebrile, 89 pulse. LUNGS: Clear to auscultation bilaterally. CARDIOVASCULAR: S1 and S2. No rub. ABDOMEN: Soft. Positive bowel sounds. EXTREMITIES: No edema. LABORATORY DATA: Today, sodium is 147, potassium 3.4, BUN is 90, creatinine 11.02, and glucose 119. H and H are 8.8 and 28.3. IMPRESSION AND PLAN: 1. End-stage renal disease. We will do first dialysis treatment today. Make arrangements for outpatient dialysis. Tunneled catheter has been placed. 2. Hypertension. Elevated blood pressure likely from uremia as well and chronic kidney disease and end-stage renal disease. We will add nifedipine XL 30 mg daily. Hydralazine was increased yesterday. We will also start dialysis today, which will help improve the blood pressure. 3. Anemia of chronic disease. We will add Epogen once the patient's blood pressure is better. 4. Mild hypokalemia. Replace with 20 mEq of potassium x1. Nickolas Bailey MD /MODL /[id number]
--- NOTE | 2020-01-07 10:50 | NUR ---
FAXED UPDATES TO [facility] GETTING DIALYSIS AT THIS TIME, WILL NEED TO FAX NOTE WHEN COMPLETED.
--- NOTE | 2020-01-07 10:55 | NUR ---
Pt. expressed no spiritual or emotional concerns at this time. Host Hostess provided hospitality ad information on how to reach machinist first class, if needed. No need to follow at this time. JACE PARTIDA Host Hostess Spiritual Care Department O: [phone]
[2020-01-07] MEDS ORDERED: CLONAZEPAM 0.5 MG TAB PO PRN (11:15)
[2020-01-07] MEDS: CEFTRIAXONE SOD 1 GM/NS 50 ML 50 ML IV SCH (12:03)
[2020-01-07] MEDS ORDERED: SODIUM CHLORIDE 0.9% 1000ML 1,000 ML ONE (15:07)
[2020-01-07] MEDS ORDERED: MANNITOL 25% 12.5GM/50 ML VIAL IV PRN (15:30)
[2020-01-07] MEDS ORDERED: SODIUM CHLORIDE 0.9% 1000ML 2,000 ML IV PRN (15:30)
--- NOTE | 2020-01-07 16:41 | Progress Note ---
DATE: 01/07/2020 Psychiatric Process Note SUBJECTIVE: The patient is in the room. She is withdrawn. She denies any depression. Denies any anxiety. Denies any hallucination. She is not combative or agitated and denies any side effects of medication. She is refusing Seroquel and Depakote. ASSESSMENT: Schizoaffective disorder, bipolar type. PLAN: 1. Discontinue Seroquel. 2. Discontinue Depakote. 3. Reduce Risperdal from 2 p.o. b.i.d. to 1 mg three times a day. 4. Reduce Klonopin to 0.5 mg p.o. q. 6 hours as needed. 5. Monitor for mood. 6. Supportive therapy. Dictated by Saundra Lew PA-C Janak Winn MD QTV/MODL /[id number]
[2020-01-07] MEDS ORDERED: HEPARIN SOD (PORCINE) 1000 UNIT/ML SDV IV PRN (17:00)
--- NOTE | 2020-01-07 18:24 | NUR ---
DIALYSIS COMPLETE. 1.5L PULLED OFF. PATIENT TOLERATED WELL VS STABLE. CALL LIGHT IN REACH WILL CONTINUE TO MONITOR PATIENT.
--- NOTE | 2020-01-07 19:35 | NUR ---
bedside shift report received from day rn. Pt is alert and oriented x3. Respirations are even and unlabored.tele on. rt tunneled catheter dl for dialysis dry and intact. sl 20 g in left forearm.pt had dialysis yesterday.Pt tolerated well. call light within reach. bed locked and in low position.
[2020-01-07] MEDS: ATORVASTATIN 40 MG TAB PO SCH (21:37)
[2020-01-08] VITALS (8 sets, daily range): BP systolic 133–160; BP diastolic 74–93
[2020-01-08] MEDS: HYDRALAZINE HCL 100 MG TABLET PO SCH ×5 (01:24→22:57)
--- NOTE | 2020-01-08 06:00 | NUR ---
pt refused labs this am. Pt reports she will have dialysis again- labs to be drawn with dialysis. hydralazine given as ordered. pt asking for food frequently during night. pt awake most of night. cell phone charged.
--- NOTE | 2020-01-08 07:00 | NUR ---
RECEIVED PATIENT AWAKE RESTING IN BED NO S/S OF DISTRESS. BED LOW, WHEELS LOCKED, SIDE RAILS X2. CALL LIGHT IN REACH WILL CONTINUE TO MONITOR PATIENT.
[2020-01-08] MEDS: CARBAMIDE PEROXIDE 15 ML BTL OT SCH (08:20)
[2020-01-08] MEDS: METOPROLOL TARTRATE 50 MG TAB PO SCH ×2 (08:31→18:18)
[2020-01-08] MEDS: ISOSORBIDE MONONITRATE 30 MG TAB CR PO SCH (08:31)
[2020-01-08] MEDS: SODIUM BICARBONATE 650 MG TAB PO SCH ×2 (08:32→18:15)
[2020-01-08] MEDS: NIFEDIPINE CR 30 MG TAB PO SCH (08:32)
[2020-01-08] MEDS: NITROGLYCERIN 2% OINT 1 GM PKT TOP SCH ×2 (08:32→18:15)
[2020-01-08] MEDS: RISPERIDONE 1 MG TAB PO SCH ×4 (08:32→22:58)
[2020-01-08] MEDS: NICOTINE 7 MG PATCH TOP SCH (08:32)
--- NOTE | 2020-01-08 09:16 | NUR ---
CALLED [facility] TO GET UPDATE ON PROGRESS, NEED HEP B NON IGM CORE LAB AND FLOW SHEETS FAXED
[2020-01-08 09:18] LABS: BASOPHILS % 0.5 % (0.0-1.0); EOSINOPHILS # (AUTO) 0.1 (0.0-0.4); EOSINOPHILS % 1.4 % (0.0-6.0); HEMATOCRIT 29.6 % (34.2-44.1); HEMOGLOBIN 9.2 g/dL (12.0-16.0); LYMPHOCYTES % 18.2 % (18.0-39.1); MEAN CORPUSCULAR HEMOGLOBIN 28.7 pg (28-32); MEAN CORPUSCULAR HGB CONC 31.1 g/dL (31-35); MEAN CORPUSCULAR VOLUME 92.2 fL (81-99); MONOCYTES # (AUTO) 0.4 (0.2-0.8); NEUTROPHILS # (AUTO) 4.1 (2.1-6.9); NEUTROPHILS % 72.2 % (38.7-80.0); PLATELET COUNT 224 x10e3/uL (140-360); RED BLOOD COUNT 3.21 x10e6/uL (3.6-5.1); RED CELL DISTRIBUTION WIDTH 13.2 % (11.7-14.4)
--- NOTE | 2020-01-08 09:31 | NUR ---
SPOKE WITH NURSE DILMA ABOUT WHAT [facility] STATES ABOUT WHAT [facility] SAID ABOUT THE HEP B CORE NON IGM CALLED BACK TO [facility] AND SPOKE WITH BROOKS WHOM TRANSFERRED ME TO MERGED WITH [facility] WAS CUT OFF, CALLED BACK HE STATES HE DOES SEE THE RESULTS AND WILL FAX THE FLOW SHEET
[2020-01-08 09:36] LABS: ANION GAP 21.7 mmol/L (8-16); CALCIUM 8.7 mg/dL (8.4-10.2); CREATININE, SERUM 8.64 mg/dL (0.57-1.11); MAGNESIUM 2.2 MG/DL (1.3-2.1); POTASSIUM 3.7 mmol/L (3.5-5.1)
--- NOTE | 2020-01-08 09:56 | NUR ---
FAXED FLOW SHEET
[2020-01-08 10:26] LABS: PHOSPHORUS 3.8 MG/DL (2.3-4.7)
--- NOTE | 2020-01-08 11:04 | Progress Note ---
DATE: 01/06/2020 SUBJECTIVE: The patient is lying supine in bed. She is awake and alert. Denies fever, chills. Does have sore throat, teeth hurt, mild shortness of breath, difficulty in urination, and vomited twice today. No BM. She is having flatus. Persistently, complains of swelling in the arms and headache at times. OBJECTIVE: VITAL SIGNS: Temperature 98.3, heart rate 84, blood pressure 189/99, respirations 20, oxygen saturation 98%. GENERAL: Supine, inappropriate affect, but not attempting to get out of bed, not combative. LUNGS: Clear to auscultation. Respiratory pattern even and unlabored. HEENT: EOMI. NECK: Supple. CARDIOVASCULAR: Regular rate and rhythm. No murmur. ABDOMEN: Bowel sounds positive, soft, obese. EXTREMITIES: Generalized edema, but no pitting edema. No clubbing, cyanosis, or marked swelling. She does have some swelling in both arms. NEUROLOGICAL: GCS 14 to 15. LABORATORY DATA: WBC 3.64, hemoglobin 8.8, hematocrit 28.4, platelets 226. PT 13.6, INR 0.98, PTT 48.3. Sodium 146, potassium 3.2, chloride 104, CO2 of 23, anion gap 22.2, BUN 86, creatinine 11.06, estimated GFR 4, glucose 95. Fingerstick blood glucose 162. Hemoglobin A1c 5%, calcium 7.9, total bilirubin 0.4, AST 19, ALT 7, alkaline phosphatase 71, ammonia level 30. Creatine kinase 694, CK-MB 4.7, troponin I 0.071, total protein 7.4, albumin 3.1. Triglycerides 119, cholesterol 164, LDL 107, HDL 33, lipase 60. TSH 1.013. Iron level 90, TIBC 252. Percent saturation 36, transferrin 180, ferritin 290.47, phosphorus 5.7, magnesium 1.8. Hepatitis B surface antigen negative. Hepatitis B surface antibody quantitative 60.5, hepatitis B core total antibody negative. Hepatitis B core IgM antibody negative. Final urine culture and sensitivity are stable, collected on 01/04 showed results pending. Radiology, gallbladder ultrasound is on 01/05, showed unremarkable limited right upper quadrant abdominal exam, study was done today. Chest x-ray showed lungs well inflated, central pulmonary vascular congestion, and mild perihilar interstitial opacities likely reflecting mild fluid volume overload. No overt alveolar edema or pleural effusion. IMPRESSION AND PLAN: 1. Advanced renal failure, duration unknown. BUN 86, creatinine 11.06, estimated GFR 4. It is unclear if uremia with renal failure result of dehydration from vomiting. She is still having some vomiting, but no longer projectile. Defer use of IV fluids to Nephrology. Await final urine culture results and renal ultrasound had shown bilateral increased renal cortical echogenicity, which can be seen in the setting of medical renal disease. Avoid nephrotoxins such as NSAIDs, IV iron, iodine contrast, and aminoglycoside antibiotics. 2. Nausea and vomiting with dehydration, status post projectile vomiting. IV fluid use as per Nephrology recommendations. Zofran ineffective, Phenergan p.r.n., GI following. Severe constipation on KUB. The gallbladder ultrasound unremarkable, monitor. 3. Uncontrolled hypertension with probable underlying chronic kidney disease and chronic congestive heart failure. Appreciate Nephrology recommendations. Continue metoprolol, isosorbide mononitrate, hydralazine, metoprolol, isosorbide mononitrate, p.r.n. IV hydralazine, clonidine, and monitor BP. 4. Chronic congestive heart failure. A 01/04 echo showed ejection fraction of 50% to 55%. Strict intake and output. Monitor chest x-ray results. 5. Metabolic acidosis due to renal failure. Serum CO2 of 23, anion gap 22.2, and monitor. 6. Anemia of chronic disease. No known bleeding, monitor H and H, hemoglobin 8.8, hematocrit 28.4. 7. Acute hypokalemia, potassium 3.2, defer any repletion to Nephrology. 8. Altered mental status from baseline, uremic and/or hypertensive encephalopathy. Consider Neurology consult, if signs and symptoms did not improve. Defer decision about hemodialysis to Nephrology. 9. Aphthous stomatitis, dentalgia, possible abscess of jaw. No obvious pus, but patient still complaining of pain, may need ENT consult. 10. Schizophrenia. Per ED MD note, erratic behavior and rapid mood swings at times. Home psychiatric medications renewed. Appreciate recs from Psychiatry. 11. Active smoker, history of drug addiction and alcoholism. Continue nicotine patch 7 mg. Psychiatry to follow. 12. Left wrist swelling, rule out fracture. On 01/03, left wrist three-view x-ray showed no acute displaced fracture. Thus, we will drop this potential diagnosis on the diagnosis of left wrist swelling from the list at this time. 13. Obesity with BMI 33. Dietary restrictions with renal diet. 14. Assisted living facility resident, supportive care. 15. Billing code [id number]. TIME SPENT: 45 minutes. Dictated by Alec Ferguson NP MD JED Anderson/FRANKIEL /[id number]
--- NOTE | 2020-01-08 11:24 | Progress Note ---
DATE: 01/07/2020 SUBJECTIVE: The patient complains that both her wrist hurt. Pain is rated 8/10 on a 0-10 pain scale. Also, complains of neck pain, pain in her teeth, sore throat, complaints of blurry vision and left-sided weakness. She typically has a bowel movement every 2 weeks. States her last bowel movement was on Sunday. Per the RN, the patient refusing antibiotics and another things at times. OBJECTIVE: VITAL SIGNS: Temperature 98.0, pulse 91, blood pressure 182/101, respiratory rate 20, and oxygen saturation 94%. GENERAL: Supine in bed. LUNGS: Clear to auscultation. Diminished bases. Respiratory pattern even and nonlabored. HEENT: EOMI. NECK: Supple. CARDIOVASCULAR: Regular rate and rhythm without murmur. ABDOMEN: Bowel sounds positive. Soft, nontender, and obese. EXTREMITIES: No clubbing or cyanosis. She does have mild generalized edema, but no pitting edema. No signs of DVT. General swelling in both arms. NEUROLOGICAL: GCS of 14 to 15. Nonfocal. Altered mental status from baseline. PSYCHIATRIC: Flight of ideas. Requires redirecting the task frequently. LABORATORY DATA: WBC 4.4, hemoglobin 8.8, hematocrit 28.3, and platelets 233. Sodium 147, potassium 3.4, chloride 100, CO2 29, anion gap 21.4, BUN 90, creatinine 11.16, estimated GFR 4, glucose 119, and calcium 7.8. Final urine culture and sensitivity results show Enterococcus faecalis with greater than 100,000 CFU/mL almost sensitive to Zyvox, Levaquin, Cubicin, Cipro, ampicillin, and vancomycin. RADIOLOGY: CT of the head without contrast showed age indeterminate right striatocapsular lacunar infarct. No other acute intracranial abnormalities. Mild chronic microvascular ischemic changes with chronic left striatocapsular lacunar infarct. Surgical changes of prior left occipital craniotomy with encephalomalacia in the underlying left cerebellum. PROCEDURES: The patient underwent a tunneled hemodialysis catheter placement into the right internal jugular with good placement. ASSESSMENT AND PLAN: 1. Advanced renal failure, duration unknown, status post right IJ hemodialysis catheter placement. The patient undergo hemodialysis today. This will be her initial hemodialysis treatment. IV fluids have been discontinued. Case management working on outpatient hemodialysis placement. Renal ultrasound negative. Avoid nephrotoxins such as NSAIDs, IV iron, iodine contrast, and aminoglycoside antibiotics. 2. Nausea and vomiting with dehydration, status post projectile vomiting. Gallbladder ultrasound was negative. No BM at this point. GI following. Magnesium hydroxide 60 mL p.o. once ordered. 3. Uncontrolled hypertension with probable underlying chronic kidney disease and chronic congestive heart failure. Appreciate recommendations from Nephrology and hopefully, hemodialysis will improve hypertension. Continue current antihypertensives. 4. [id number] diastolic congestive heart failure. 01/05 echo showed ejection fraction estimated at 50% to 55%. Strict intake and output. 5. Mild metabolic acidosis due to renal failure. Serum CO2 29. Acidosis improved. We will drop it from this list of diagnoses. 6. Anemia of chronic disease. No known bleeding. Hemoglobin 8.8 and hematocrit 28.3. Monitor. 7. Acute hypokalemia. Potassium level 3.4 (3.2). Defer any repletion to Nephrology. The patient received 40 mEq potassium chloride p.o. on 01/05. 8. Altered mental status from baseline, uremic and/or hypertensive encephalopathy. CT head results above. Consider Neurology consult if signs and symptoms do not improve after hemodialysis started. 9. Aphthous stomatitis, dentalgia, possible abscess of jaw. ENT consult to further evaluate for possible abscess of the jaw. WBC 4.4. 10. Acute Enterococcus faecalis urinary tract infection, POA. Continue Rocephin. 11. Schizophrenia. Per ED MD note, erratic behavior and rapid mood swings at times. Home psychiatric medications were renewed. Psychiatry following. Seroquel and Depakote discontinued. Risperdal reduced from 2 mg p.o. b.i.d. to 1 mg t.i.d. Klonopin reduced to 0.5 mg p.o. q.6 hours p.r.n. Monitor mood. 12. Active smoker, history of drug addiction and alcoholism. Continue Nicoderm 7 mg. Encourage smoking cessation. 13. Bilateral wrist pain. Pain control. 14. Obesity with BMI 33. Dietary restrictions with renal diet. 15. Assisted living facility resident. Supportive care. 16. 1.5 L off with initial hemodialysis treatment. 17. Discharge plan [facility], being set up by case management. Billing code [id number]. Time spent 45 minutes. Dictated by Alec Ferguson NP MD JED Anderson/CUONG /[id number]
[2020-01-08] MEDS: CEFTRIAXONE SOD 1 GM/NS 50 ML 50 ML IV SCH ×2 (12:00→12:56)
--- NOTE | 2020-01-08 12:46 | NUR ---
GOT LETTER FOR DIALYSIS CHAIR M, W AND FRIDAYS AT 330PM, CALLED AND SPOKE WITH [facility] AND LET KNOW LIVES AT [facility] AND WAS ABLE TO SPEAK WITH [employer] PREPARER STUART WHOM ASSISTED WITH SETTING UP TRANSPORTATION FOR PT TO GET BACK AND FORTH TO DIALYSIS.
--- NOTE | 2020-01-08 16:12 | NUR ---
PATIENT REFUSED DIALYSIS. DR. CARLSON AWARE. WILL ATTEMPT DIALYSIS TOMORROW.
--- NOTE | 2020-01-08 18:06 | Progress Note ---
DATE: 01/08/2020 SUBJECTIVE: Followed for end-stage renal disease. The patient has tolerated dialysis yesterday. The patient's dialysis treatment #2 will be today. The patient is awaiting outpatient dialysis placement, tunneled catheter was placed yesterday. Currently, no fever, no chills, no nausea, no vomiting, no diarrhea. Does complain of some dizziness. OBJECTIVE: VITAL SIGNS: Vital signs blood pressure 139/88, 82 pulse, afebrile. LUNGS: Clear to auscultation bilaterally. CARDIOVASCULAR: S1, S2. No rubs, gallop, or murmur. ABDOMEN: Soft, positive bowel sounds. Nontender. EXTREMITIES: No edema. LABS: H and H 9.2 and 29.6. Sodium 138, potassium 3.7, chloride 98, bicarb 22, BUN 60, creatinine 8.6, phosphorus is 3.8, magnesium 2.2. IMPRESSION AND PLAN: 1. End-stage renal disease. We will continue to provide dialysis, today will be treatment #2, then tomorrow treatment #3, then likely Sunday, Sunday, Sunday. Outpatient schedule is being arranged for next week, Sunday, Sunday, Sunday. 2. Hypertension. Blood pressure is better controlled. We will decrease hydralazine to 3 times a day since the patient is complaining of dizziness. 3. Anemia of chronic disease, we will start on Epogen as an outpatient. Her hemoglobin is trending upwards now. Nickolas Bailey MD /MODL /[id number] cc: Navarro Ortega MD
--- NOTE | 2020-01-08 19:30 | NUR ---
BEDSIDE SHIFT REPORT RECEIVED FROM DAY RN. PT IS ALERT AND ORIENTED X3. PT REPORT AT CHANGE OF SHIFT SHE HAD EMESIS ON DAY SHIFT. DAY RN REPORT PT ATE 2 TRAYS AT [facility]. PT DENIES PAIN. PT REFUSE ACCUCHECK. T 97.8 HR 83 R 20 B/P 135/87 PULSE OX 98%. DIALYSIS CATH INTACT RT. PT REFUSED DIALYSIS TODAY. PT TURNED TO RT SIDE WATCHING TV. CALL LIGHT WITHIN REACH. BED LOCKED AND BED IN LOW POSITION.
[2020-01-08] MEDS ORDERED: CHLORHEXIDINE GLUCONATE 0.12% SOLN 473 ML BTL MT SCH (20:00)
[2020-01-08] MEDS: ATORVASTATIN 40 MG TAB PO SCH (22:58)
[2020-01-08] MEDS ORDERED: MAGNESIUM HYDROXIDE 30 ML UDC PO ONE (23:45)
[2020-01-09] VITALS: BP 155/110
--- NOTE | 2020-01-09 01:42 | Consultation ---
DATE OF CONSULTATION: 01/08/2020 Hospital Consultation HISTORY OF PRESENT ILLNESS: I was kindly asked to see this 54-year-old woman for evaluation of possible "abscess of the jaws." The patient reports a 2-week history of pain in her teeth and pain in her cheeks. She has a habit of biting the inside of her cheek. She reports she has had intermittent pain in her teeth for many years, but with this episode has been worse over the last 2 weeks. She also reports pain in the lateral portion of her tongue. Her history of present illness was reviewed in detail and is pertinent for schizophrenia and use of multiple medications in the past. REVIEW OF SYSTEMS: Otolaryngology review of systems is pertinent for ear fullness. PAST MEDICAL HISTORY: Reviewed in detail in the chart. PAST SURGICAL HISTORY: Reviewed in detail in the chart. PHYSICAL EXAMINATION: HEENT: The right pinna was normal. Right external auditory canal had a moderate amount of cerumen. The tympanic membrane cannot be visualized. The left pinna was normal. Left external auditory canal had a moderate amount of cerumen. The tympanic membrane cannot be visualized. Intranasal examination was unremarkable. Oral cavity examination showed minimal oral candidiasis. She had firmness and tenderness in the left buccal space. There was no fluctuance. There was minimal mucosal abnormalities consistent with her history of biting the inside of her cheek. The right side also had tenderness, but there were no areas of fluctuance. The lateral aspect of her tongue was unremarkable. She had no active infection identified. There was no palpable cervical adenopathy. LABORATORY DATA: Laboratory evaluation was pertinent for white count of 5.7. ASSESSMENT: Eventual biting of the buccal mucosa with subsequent tenderness and fibrosis with no evidence of abscess formation. PLAN: Peridex mouthwash q.6 hours while awake. MD ARAM Fischer/CUONG /[id number]
[2020-01-09 04:00] VITALS: BP 181/107
[2020-01-09] MEDS: HYDRALAZINE HCL 100 MG TABLET PO SCH (06:06)
--- NOTE | 2020-01-09 06:07 | NUR ---
PT REFUSED B/P MED AT HS. PT REFUSE DIALYSIS YESTERDAY. B/P [id number] HR 101. PT REFUSED IV HYDRALAZINE EARLIER. PT AGREE TO TAKE MED NOW SO WILL GIVE MED EARLY.WILL CONTINUE TO MONITOR B/P.
[2020-01-09 06:08] LABS: BASOPHILS % 0.5 % (0.0-1.0); EOSINOPHILS # (AUTO) 0.1 (0.0-0.4); EOSINOPHILS % 2.3 % (0.0-6.0); HEMOGLOBIN 9.1 g/dL (12.0-16.0); LYMPHOCYTES # (AUTO) 1.3 (1.0-3.2); LYMPHOCYTES % 24.1 % (18.0-39.1); MEAN CORPUSCULAR HEMOGLOBIN 28.7 pg (28-32); MEAN CORPUSCULAR HGB CONC 31.4 g/dL (31-35); MEAN CORPUSCULAR VOLUME 91.5 fL (81-99); MONOCYTES # (AUTO) 0.4 (0.2-0.8); MONOCYTES % 7.7 % (4.4-11.3); NEUTROPHILS # (AUTO) 3.6 (2.1-6.9); NEUTROPHILS % 64.9 % (38.7-80.0); PLATELET COUNT 225 x10e3/uL (140-360); RED BLOOD COUNT 3.17 x10e6/uL (3.6-5.1); RED CELL DISTRIBUTION WIDTH 13.2 % (11.7-14.4)
[2020-01-09 06:39] LABS: ALBUMIN 3.2 g/dL (3.5-5.0); ALBUMIN/GLOBULIN RATIO 0.7 (0.8-2.0); ALKALINE PHOSPHATASE 70 IU/L (40-150); ANION GAP 18.7 mmol/L (8-16); BLOOD UREA NITROGEN 67 mg/dL (7-26); BUN/CREATININE RATIO 7 (6-25); CALCIUM 8.4 mg/dL (8.4-10.2); CARBON DIOXIDE 28 mmol/L (22-29); CHLORIDE 95 mmol/L (98-107); CREATININE, SERUM 9.59 mg/dL (0.57-1.11); EST GLOMERULAR FILTRATION RATE 5 ML/MIN (60-); GLUCOSE 107 mg/dL (74-118); POTASSIUM 3.7 mmol/L (3.5-5.1); SODIUM 138 mmol/L (136-145)
[2020-01-09 06:42] LABS: ALANINE AMINOTRANSFERASE < 6 IU/L (0-55)
--- NOTE | 2020-01-09 07:00 | NUR ---
RECEIVED BEDSIDE SHIFT REPORT FROM OFF GOING NIGHT NURSE. PATIENT IN STABLE CONDITION, NO S/S OF DISTRESS NOTED. NO PAIN VOICED. TELEMETRY APPLIED. IV SITE ASYMPTOMATIC AND PATENT, TRANSPARENT DRESSING APPLIED C/D/I. BED IN LOWEST POSITION AND LOCKED. CALL LIGHT WITHIN REACH.
[2020-01-09 07:15] LABS: MAGNESIUM 2.5 MG/DL (1.3-2.1); PHOSPHORUS 5.6 MG/DL (2.3-4.7)
[2020-01-09] MEDS ORDERED: LEVAQUIN500 MG PO (07:52)
[2020-01-09] MEDS ORDERED: RISPERDAL1 MG PO (07:52)
[2020-01-09] MEDS ORDERED: NIFEDIPINE ER30 M1 PO (07:52)
[2020-01-09 08:00] VITALS: BP 123/81
[2020-01-09 08:01] VITALS: BP 186/78
[2020-01-09] MEDS: ISOSORBIDE MONONITRATE 30 MG TAB CR PO SCH (08:20)
[2020-01-09] MEDS: METOPROLOL TARTRATE 50 MG TAB PO SCH (08:21)
[2020-01-09] MEDS: RISPERIDONE 1 MG TAB PO SCH (08:21)
[2020-01-09] MEDS: SODIUM BICARBONATE 650 MG TAB PO SCH (08:21)
[2020-01-09] MEDS: NITROGLYCERIN 2% OINT 1 GM PKT TOP SCH (08:22)
[2020-01-09] MEDS: NICOTINE 7 MG PATCH TOP SCH (08:22)
[2020-01-09] MEDS: CARBAMIDE PEROXIDE 15 ML BTL OT SCH (08:29)
[2020-01-09] MEDS ORDERED: NIFEDIPINE CR 30 MG TAB PO SCH (08:30)
[2020-01-09] MEDS ORDERED: CHLORHEXIDINE GLUCONATE 0.12% SOLN 473 ML BTL MT SCH (09:00)
--- NOTE | 2020-01-09 09:37 | NUR ---
PT DISCHARGED TODAY AFTER DIALYSIS ORDERS FOR HOME HEALTH SKILLED NURSE AND HOME PT PT STATES SHE IS ALREADY ON SERVICE WITH [facility] PH:[phone] FAX:[phone] SPOKE WITH RIM[facility] AT [facility] WHO CONFIRMS THAT PT IS ON SERVICE WITH THEM FAXED ORDERS AND CLINICALS TO [facility] FA[facility]; CONFIRMATION REC'D CALLED AND NOTIFIED P[employer] F[employer] MEAT THAT PT WILL NEED TRANSPORTATION BACK TO [facility] TODAY NURSE UPDATE ON DISCHARGE PLAN
[2020-01-09] MEDS ORDERED: SODIUM CHLORIDE 0.9% 1000ML 2,000 ML ONE (09:43)
[2020-01-09] MEDS ORDERED: ONDANSETRON HCL 4 MG ORAL DISINTEGRATING TAB PO PRN (10:00)
--- NOTE | 2020-01-09 10:58 | Progress Note ---
DATE: Renal Progress Note SUBJECTIVE: Followed for end-stage renal disease. Tolerating dialysis. Refused dialysis yesterday, however, is doing dialysis today and tolerating without any problems. No nausea. No vomiting. No shortness of breath. The patient's blood pressure is better controlled. Also, the patient has been set up for outpatient dialysis. OBJECTIVE: VITAL SIGNS: Noted. Blood pressure 123/81. LUNGS: Clear to auscultation bilaterally. CARDIOVASCULAR: S1 and S2. No rub. ABDOMEN: Soft and nontender. EXTREMITIES: No edema. LABORATORY DATA: Creatinine 9.59, BUN 67, and potassium 3.7. H and H are 9.1 and 29.0. IMPRESSION AND PLAN: 1. End-stage renal disease. We will continue to provide dialysis Sunday, Sunday, Sunday. From Renal standpoint, can be discharged after dialysis today. She is set up for outpatient dialysis. She will follow up on Sunday for dialysis and then we will make arrangements for outpatient AV fistula placement. 2. Hypertension. Blood pressure is controlled. 3. Anemia of chronic disease, stable. Continue monitoring. We will give her Epogen as an outpatient. MD GHAZAL Urban/MODL /[id number]
[2020-01-09] MEDS ORDERED: LORAZEPAM 0.5 MG TAB PO PRN (11:15)
--- NOTE | 2020-01-09 11:29 | NUR ---
CALLED REPORT TO DEVONTE ROGERS- REPORT GIVEN TO CARI. PATIENT TO GO TO ROOM 67.
--- NOTE | 2020-01-09 11:34 | Progress Note ---
DATE: 01/09/2020 Psychiatric Progress Note SUBJECTIVE: The patient evaluated and events noted. The patient is in the room, getting dialysis. She is alert, awake, oriented to situation. She is calm. She reports depression, but denies any anxiety. She is irritable. She claims she is depressed because she is not home. Denies any suicidal ideation. Denies any side effects of medication. She is not getting any p.r.n. medication. ASSESSMENT: Schizoaffective disorder, bipolar type. PLAN: 1. Continue with Risperdal 3 mg three times a day. 2. Discontinue Klonopin p.r.n. 3. Add Ativan p.r.n. p.o. 4. Monitor for agitation. Dictated by Saundra Lew PA-C Janak Winn MD QTV/MODL /[id number]
[2020-01-09 12:00] VITALS: BP 111/71
[2020-01-09 16:00] VITALS: BP 121/78
--- NOTE | 2020-01-09 16:14 | NUR ---
Patient discharged home (to [facility] assisted living). Patient off the unit @ 1537 via stretcher accompanied by 2 EMS. Patient in stable condition, no s/s of distress noted. No pain voiced. IV accesses removed with tip intact. All personal items taken with the patient. Report given to Katina @ 2223. Packet given to EMS.
[2020-01-09] MEDS ORDERED: LEVOFLOXACIN 500MG/D5W 100ML 100 ML IV ONE (17:00)
--- NOTE | 2020-01-09 21:40 | Discharge Summary ---
ADMISSION DIAGNOSES: Advanced renal failure, chronic kidney disease stage 4/5 versus end-stage renal disease, nausea, vomiting, dehydration, hypertension, congestive heart failure, unknown type, anemia of chronic disease due to chronic kidney disease, hypokalemia, schizophrenia, smoker, left wrist swelling, obesity with a BMI of 33. DISCHARGE DIAGNOSES: Advanced renal failure, chronic kidney disease stage 4/5 versus end-stage renal disease, nausea, vomiting, dehydration, hypertension, congestive heart failure, unknown type, anemia of chronic disease due to chronic kidney disease, hypokalemia, schizophrenia, smoker, left wrist swelling, obesity with a BMI of 33, new onset end-stage renal disease, rule out Coronavirus, Enterococcus urinary tract infection, present on admission. HISTORY: Schizophrenia, hypertension, chronic CHF, chronic back pain, insomnia. SURGICAL HISTORY: and neck surgery. FAMILY HISTORY: The patient's father had a heart attack. SOCIAL HISTORY: The patient smokes about 2 to 4 cigarettes a day. She has a history of drug and alcohol abuse. She says that cocaine with her drug of choice. She now lives in [facility]. HOSPITAL COURSE: A 54-year-old female, who admits with vomiting for 1 week along with general weakness. On admission, wrist x-ray was negative. Ultrasound of the gallbladder showed limited right upper quadrant ultrasound. Chest x-ray showed mildly prominent cardiac silhouette. CT of the brain showed age-indeterminate right lacunar infarct, no acute abnormalities. Her GFR on admission was 5, so Nephrology was consulted. Renal ultrasound showed bilateral increased renal cortical echogenicity, which can be seen in the setting of medical renal disease. The patient had a tunneled catheter placed per Nephrology recommendation and she started dialysis. Her urine culture came back positive for Enterococcus, so she was started on Levaquin. Her Coronavirus was negative. Per Nephrology recommendation, she is starting outpatient dialysis on Sunday, Sunday, and Sunday, which was arranged prior to discharge. She will discharge with new prescriptions for risperidone per Psych recommendation and nifedipine for uncontrolled blood pressure. She was given 3 more days of Levaquin for the UTI. The patient understands discharge instructions and agrees to plan. Vital signs stable, the patient is afebrile. Dictated by Becki Neri, DANIELLA MD ABELARDO Anderson/MODL /[id number]
== END 2020-01-09 15:39 | disposition home or self-care (01) | DRG 291 ==
LOC: ER 03:26 → ERHOLD 05:25 → MED/SURG 09:15
PROVIDERS: ADMIT Internal Medicine; ATTEND Internal Medicine
PROC: 0JH63XZ Insertion of Tunneled Vascular Access Device into Chest Subcutaneous Tissue and Fascia, Percutaneous Approach (ICD-10-PCS; principal; 2020-01-07)
PROC: 5A1D70Z Performance of Urinary Filtration, Intermittent, Less than 6 Hours Per Day (ICD-10-PCS; principal; 2020-01-07)
PROC: 02HV33Z Insertion of Infusion Device into Superior Vena Cava, Percutaneous Approach (ICD-10-PCS; principal; 2020-01-07)
DX: I13.2 Hypertensive heart and chronic kidney disease with heart failure and with stage 5 chronic kidney disease, or end stage renal disease (principal); N18.6 End stage renal disease; I50.33 Acute on chronic diastolic (congestive) heart failure; E87.2 Acidosis; N17.9 Acute kidney failure, unspecified; N39.0 Urinary tract infection, site not specified; F25.0 Schizoaffective disorder, bipolar type; D63.1 Anemia in chronic kidney disease; Z99.2 Dependence on renal dialysis; Z11.59 Encounter for screening for other viral diseases; Z79.899 Other long term (current) drug therapy; K59.00 Constipation, unspecified; E87.6 Hypokalemia; F17.200 Nicotine dependence, unspecified, uncomplicated; E66.9 Obesity, unspecified; Z68.33 Body mass index [BMI] 33.0-33.9, adult; M25.532 Pain in left wrist; M25.531 Pain in right wrist; K12.0 Recurrent oral aphthae; B95.2 Enterococcus as the cause of diseases classified elsewhere; E86.0 Dehydration
CPT/HCPCS: 36415; 36558; 70450; 71045; 74470; 76705; 76770; 76937; 77001; 80048; 80053; 80061; 80320; 81001; 82140; 82550; 82553; 82570; 82728; 82948; 83036; 83540; 83690; 83735; 84100; 84443; 84466; 84484; 85025; 85610; 85730; 86704; 86705; 86706; 87086; 87186; 87340; 87635; 93306; 97139; 99251; 99284; J0360; J0690; J0696; J1200; J1644; J2060; J2150; J2250; J2405; J2550; J3010; J3486; J7030; J7040; J7121